=== PATIENT | female | born 1970 | race African-American/Black ===

== ENCOUNTER → 2016-04-02 | Outpatient (CLI) | payer OTHER ==
--- NOTE | 2016-04-02 17:28 | WOMENS IMAGING REPORT ---
EXAM DESCRIPTION: U/S BREAST UNILAT LIMITED COMPLETED DATE/TIME: 04/02/2016 2:46 pm REASON FOR STUDY: N63 LUMP N63 UNSPECIFIED LUMP IN BREAST COMPARISON: None. TECHNIQUE: Real-time and static grayscale imaging performed of the right breast targeted to the area of clinical concern. Selected color Doppler images recorded. LIMITATIONS: None. FINDINGS: Patient has had tenderness in the inferior right breast and has been on antibiotics for ma stitis. Ultrasound on the right side demonstrates a small skin lesion at the 4 to 5 o'clock position which mcgee s been oozing fluid. In this area, on today's study there are air bubbles just deep to the skin, and a 3 x 0.7 x 2.5 cm cavity likely residua of an infected sebaceous cyst or small subcutaneous abscess . Throughout the remainder of the right breast, there is diffuse skin thickening and diffuse breast ugo ma. The entire right breast is painful today. Skin thickening and subcutaneous and deep tissue handy a is extends from right to left across the sternal region into the medial left breast. Findings are worrisome for diffuse right breast mastitis and early left breast mastitis In the right axilla, there is a 2.8 x 0.6 x 2.7 cm lymph node. BIRAD: 1 Negative. RECOMMENDATION: RECOMMENDED FOLLOW-UP: Follow-up as clinically indicated. COMMENT: The [employer] (ACR) has developed recommendations for screening MRI of the breasts in certain patient populations, to be used in conjunction with mammography. Breast MRI s urveillance may be appropriate for women with more than 20% lifetime risk of developing breast cancer as determined by genetic testing, significant family history of the disease, or history of mantle r adiation for Hodgkins Disease. ACR Practice Guidelines 2008. TECHNICAL DOCUMENTATION: JOB ID: [id number] [employer]- All Rights Reserved
== END ==
LOC: WI 12:57
DX: N63 Unspecified lump in breast (principal)
CPT/HCPCS: 76642

== ENCOUNTER 2016-04-04 16:39 | Emergency (ER) | payer OTHER ==
[2016-04-04] MEDS ORDERED: NORMAL SALINE 1000 ML 1,000 ML IV PRN (16:48)
--- NOTE | 2016-04-04 16:51 | ER Document Report ---
ED Medical Screen (RME) - General Chief Complaint: Breast Problem Stated Complaint: RIGHT BREAST PAIN Notes: Right breast infection confirmed by ultrasound Tuesday at [facility] on tuesday has been seen for and infection in that breast here. the clinice told here to come her for treatment of the infection I greeted and performed a rapid initial assessment of this patient. Comprehensive ED assessment and evaluation of the patient, analysis of test results and completion of the medical decision making process will be conducted by additional ED providers. TRAVEL OUTSIDE OF THE [place] 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; AR mild Pulmonary Medical History: Reports: Hx Pneumonia Neurological Medical History: Denies: Hx Seizures Endocrine Medical History: Denies: Hx Diabetes Mellitus Type 1, Hx Diabetes Mellitus Type 2, Hx Hyperthyroidism, Hx Hypothyroidism GI Medical History: Denies: Hx Cirrhosis, Hx Gastroesophageal Reflux Disease, Hx Hepatitis Musculoskeltal Medical History: Denies Hx Arthritis Psychiatric Medical History: Reports: Hx Depression Infectious Medical History: Denies: Hx Hepatitis Past Surgical History: Reports: Hx Cardiac Surgery - pacer/defib, Hx Section - 1995, Hx Pacemaker - AICD implant - Immunizations Immunizations up to date: Yes Hx Diphtheria, Pertussis, Tetanus Vaccination: Yes Physical Exam - Vital signs Vitals: Temp Pulse Resp BP Pulse Ox 97.9 F 80 20 144/103 H 98 04/04/16 16:44 04/04/16 16:44 04/04/16 16:44 04/04/16 16:44 04/04/16 16:44 Course - Vital Signs Vital signs: Temp Pulse Resp BP Pulse Ox 97.9 F 80 20 144/103 H 98 04/04/16 16:44 04/04/16 16:44 04/04/16 16:44 04/04/16 16:44 04/04/16 16:44
[2016-04-04 17:27] LABS: APPEARANCE,URINE CLEAR; BILIRUBIN,URINE NEGATIVE (NEGATIVE); GLUCOSE, URINE NEGATIVE (NEGATIVE); KETONES,URINE NEGATIVE (NEGATIVE); LEUKOCYTE ESTERASE,URINE MODERATE (NEGATIVE); NITRITE,URINE NEGATIVE (NEGATIVE); PROTEIN,URINE 100 mg/dL (NEGATIVE); UROBILINOGEN,URINE NEGATIVE mg/dL (<2.0)
--- NOTE | 2016-04-04 17:36 | ER Document Report ---
ED Breast Problem - General Chief Complaint: Breast Problem Stated Complaint: RIGHT BREAST PAIN Time seen by provider: 17:32 TRAVEL OUTSIDE OF THE [place].S. IN LAST 30 DAYS: No - HPI Patient complains to provider of: Drainage - pt has been treated for mastitis/ infected sebaceous cyst -- (had U/S 2 days ago). Had some drainage from breast 2 days ago and [facility]. Had cx done there first and was told to come to ED today for "shot of Abx." - Related Data Allergies/Adverse Reactions: No Known Allergies Allergy (Verified 03/16/16 18:37) Past Medical History - Social History Smoking Status: Unknown if Ever Smoked Cigarette use (# per day): No Chew tobacco use (# tins/day): No Smoking Education Provided: No Family History: Hypertension, Other - CHF Patient has suicidal ideation: No Patient has homicidal ideation: No - Past Medical History Cardiac Medical History: Reports: Hx Congestive Heart Failure - combined systolic and diastolic dysfunction; nonischemic cardiomyopathy., Hx Hypercholesterolemia, Hx Hypertension, 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; AR mild Pulmonary Medical History: Reports: Hx Pneumonia Neurological Medical History: Denies: Hx Seizures Endocrine Medical History: Denies: Hx Diabetes Mellitus Type 1, Hx Diabetes Mellitus Type 2, Hx Hyperthyroidism, Hx Hypothyroidism Renal/ Medical History: Denies: Hx Peritoneal Dialysis GI Medical History: Denies: Hx Cirrhosis, Hx Gastroesophageal Reflux Disease, Hx Hepatitis Musculoskeltal Medical History: Denies Hx Arthritis Psychiatric Medical History: Reports: Hx Depression Infectious Medical History: Denies: Hx Hepatitis Past Surgical History: Reports: Hx Cardiac Surgery - pacer/defib, Hx Section - 1995, Hx Pacemaker - AICD implant - Immunizations Immunizations up to date: Yes Hx Diphtheria, Pertussis, Tetanus Vaccination: Yes Hx Pneumococcal Vaccination: 12/19/08 Review of Systems - Review of Systems Constitutional: No symptoms reported EENT: No symptoms reported Cardiovascular: No symptoms reported Respiratory: No symptoms reported Gastrointestinal: No symptoms reported -: Yes All other systems reviewed and negative Physical Exam - Vital signs Vitals: Temp Pulse Resp BP Pulse Ox 97.9 F 80 20 144/103 H 98 04/04/16 16:44 04/04/16 16:44 04/04/16 16:44 04/04/16 16:44 04/04/16 16:44 - General General appearance: Appears well In distress: None - Respiratory Respiratory status: No respiratory distress Chest status: Nontender Breath sounds: Normal - Cardiovascular Rhythm: Regular Heart sounds: Normal auscultation - Skin Skin irregularity: other - I examined this pt's breasts with nurse in the room. Her R breast is somewhat larger than the L and pendulous but there was no erythema, fluctuent areas or induration. There was no drainage. Course - Re-evaluation Re-evalutation: 04/04/16 19:47 pt was given IM Rocephin in ED -- she will F/U at Clinic in am - Vital Signs Vital signs: Temp Pulse Resp BP Pulse Ox 97.9 F 80 20 144/103 H 98 04/04/16 16:44 04/04/16 16:44 04/04/16 16:44 04/04/16 16:44 04/04/16 16:44 - Laboratory Result Diagrams: 04/04/16 18:05 04/04/16 16:51 Laboratory results interpreted by me: 04/04/16 16:51 Urine Protein 100 H Ur Leukocyte Esterase MODERATE H Discharge - Discharge Clinical Impression: Mastitis Condition: Stable Disposition: HOME, SELF-CARE Additional Instructions: rest, take meds as prescribed, return if worse Prescriptions: Sulfamethoxazole/Trimethoprim [Bactrim Ds Tablet] 1 each PO BID #14 tablet
[2016-04-04 17:39] LABS: ALANINE AMINOTRANSFERASE 111 U/L (9-52); ALBUMIN 3.3 g/dL (3.5-5.0); ALKALINE PHOSPHATASE 233 U/L (38-126); ANION GAP 12 (5-19); ASPARTATE AMINO TRANSFERASE 56 U/L (14-36); BILIRUBIN,TOTAL 0.7 mg/dL (0.2-1.3); BLOOD UREA NITROGEN 18 mg/dL (7-20); CALCIUM 9.6 mg/dL (8.4-10.2); CARBON DIOXIDE 28 mmol/L (22-30); CHLORIDE 103 mmol/L (98-107); CREATININE RESULT 0.75 mg/dL (0.52-1.25); GLUCOSE 148 mg/dL (75-110); POTASSIUM 3.6 mmol/L (3.6-5.0); SODIUM 143.4 mmol/L (137-145); TOTAL PROTEIN 6.4 g/dL (6.3-8.2)
[2016-04-04 18:25] LABS: ABSOLUTE MONOCYTES (AUTO) 0.3 10^3/uL (0.1-1.4); ABSOLUTE NEUT (AUTO) 3.9 10^3/uL (1.7-8.2); BASOPHILS % (AUTO) 0.1 % (0-2); HEMATOCRIT 33.5 % (36.0-47.0); HEMOGLOBIN 10.2 g/dL (12.0-15.5); HGB HCT DIFFERENCE -2.9; LYMPHOCYTES % (AUTO) 19.7 % (13-45); MEAN CORPUSCULAR HEMOGLOBIN 29.6 pg (27.0-33.4); MEAN CORPUSCULAR HGB CONC 30.3 g/dL (32.0-36.0); MONOCYTES % (AUTO) 5.6 % (3-13); RED BLOOD COUNT 3.43 10^6/uL (3.72-5.28); RED CELL DISTRIBUTION WIDTH 21.4 % (11.5-14.0); SEGMENTED NEUTROPHILS % (AUTO) 74.6 % (42-78); WHITE BLOOD COUNT 5.3 10^3/uL (4.0-10.5)
[2016-04-04 18:32] LABS: MEAN CORPUSCULAR VOLUME 98 fl (80-97)
[2016-04-04] MEDS ORDERED: CEFTRIAXONE INJ 250 MG VIAL IM ONE (18:45)
[2016-04-04] MEDS ORDERED: LIDOCAINE 1% INJ-PF (10 MG/ML) 30 ML SDV INFIL ONE (18:45)
[2016-04-04 20:18] VITALS: BP 145/107
== END 2016-04-04 20:18 | disposition home or self-care (01) ==
LOC: ER 16:39
DX: N61.0 Mastitis without abscess (principal); N64.4 Mastodynia
CPT/HCPCS: 99283; 96372; 36415; 87040; 84702; 85025; 80053; 81001; J3490; J0696

== ENCOUNTER 2016-05-20 19:19 | Emergency (ER) | payer OTHER ==
--- NOTE | 2016-05-20 20:00 | ER Document Report ---
ED Medical Screen (RME) - General Stated Complaint: STOMACH PAIN,ANKLE PAIN Mode of Arrival: Ambulatory Information source: Patient Notes: c/o of abdominal swelling and bilateral feet swelling for the past weeks that worsened today. Denies any chest pain and SOB, dizziness, nausea, vomiting or diarrhea. has hx of lupus and CHF. Seen on 05/18/[address] [facility] and was given lisinopril to take in addition to her home furosemide. Endorses compliance with this medication. I have greeted and performed a rapid initial assessment of this patient. A comprehensive ED assessment and evaluation of the patient, analysis of test results and completion of the medical decision making process will be conducted by additional ED providers. TRAVEL OUTSIDE OF THE [place] 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; AR mild Pulmonary Medical History: Reports: Hx Pneumonia Neurological Medical History: Denies: Hx Seizures Endocrine Medical History: Denies: Hx Diabetes Mellitus Type 1, Hx Diabetes Mellitus Type 2, Hx Hyperthyroidism, Hx Hypothyroidism Renal/ Medical History: Denies: Hx Peritoneal Dialysis GI Medical History: Denies: Hx Cirrhosis, Hx Gastroesophageal Reflux Disease, Hx Hepatitis Musculoskeltal Medical History: Denies Hx Arthritis Psychiatric Medical History: Reports: Hx Depression Infectious Medical History: Denies: Hx Hepatitis Past Surgical History: Reports: Hx Cardiac Surgery - pacer/defib, Hx Section - 1995, Hx Pacemaker - AICD implant - Immunizations Immunizations up to date: Yes Hx Diphtheria, Pertussis, Tetanus Vaccination: Yes Physical Exam - Vital signs Vitals: Temp Pulse Resp BP Pulse Ox 97.7 F 76 18 140/97 H 98 05/20/16 19:49 05/20/16 19:49 05/20/16 19:49 05/20/16 19:49 05/20/16 19:49 - Notes Notes: Lungs: equal, CTAB Extremities: 2+ pretibial pitting edema bilaterally Course - Vital Signs Vital signs: Temp Pulse Resp BP Pulse Ox 97.7 F 76 18 142/76 H 98 05/20/16 19:49 05/20/16 19:49 05/20/16 19:49 05/20/16 19:54 05/20/16 19:49
[2016-05-20 20:41] LABS: ALANINE AMINOTRANSFERASE 44 U/L (9-52); ALBUMIN 3.2 g/dL (3.5-5.0); ALKALINE PHOSPHATASE 329 U/L (38-126); ANION GAP 12 (5-19); ASPARTATE AMINO TRANSFERASE 52 U/L (14-36); BILIRUBIN,TOTAL 0.5 mg/dL (0.2-1.3); BLOOD UREA NITROGEN 15 mg/dL (7-20); CALCIUM 9.4 mg/dL (8.4-10.2); CARBON DIOXIDE 29 mmol/L (22-30); CHLORIDE 99 mmol/L (98-107); CREATININE RESULT 0.79 mg/dL (0.52-1.25); GLUCOSE 308 mg/dL (75-110); POTASSIUM 3.6 mmol/L (3.6-5.0); SODIUM 139.7 mmol/L (137-145); TOTAL PROTEIN 6.2 g/dL (6.3-8.2)
[2016-05-20 20:50] LABS: TROPONIN I 0.021 ng/mL
[2016-05-20 21:25] LABS: ABSOLUTE LYMPHOCYTES (AUTO) 1.3 10^3/uL (0.5-4.7); ABSOLUTE MONOCYTES (AUTO) 0.5 10^3/uL (0.1-1.4); BASOPHILS % (AUTO) 0.7 % (0-2); HEMATOCRIT 41.9 % (36.0-47.0); HEMOGLOBIN 13.4 g/dL (12.0-15.5); HGB HCT DIFFERENCE -1.7; LYMPHOCYTES % (AUTO) 27.1 % (13-45); MEAN CORPUSCULAR VOLUME 94 fl (80-97); MONOCYTES % (AUTO) 10.6 % (3-13); RED BLOOD COUNT 4.47 10^6/uL (3.72-5.28); RED CELL DISTRIBUTION WIDTH 15.4 % (11.5-14.0); SEGMENTED NEUTROPHILS % (AUTO) 61.6 % (42-78); WHITE BLOOD COUNT 4.9 10^3/uL (4.0-10.5)
[2016-05-20] MEDS ORDERED: FUROSEMIDE INJ/PF 40 MG/4 ML SDV IV ONE (21:46)
--- NOTE | 2016-05-20 21:58 | ER Document Report ---
ED General - General Chief Complaint: Abdominal Swelling Stated Complaint: STOMACH PAIN,ANKLE PAIN Mode of Arrival: Ambulatory Information source: Patient Notes: Patient presents to the emergency department with complaints of abdomen and bilateral lower leg swelling for the past 3 weeks. Patient reports she has history of CHF. Also reports lupus and pacemaker. She reports she was evaluated for the same and treated with Lasix by doubling her lasix by the [facility] on April 17. She was also prescribed lisinopril. She now takes 20mg BID for a total of 40 mg a day. She reports since that time her abdomen and legs are swelling more. She has an appointment with the [facility] on May 22. She denies other symptoms such as fever vomiting diarrhea. She denies shortness of breath and chest pain. TRAVEL OUTSIDE OF THE [place] IN LAST 30 DAYS: No - HPI Onset: Other - WITHIN THE LAST THREE WEEKS Onset/Duration: Persistent Severity: Mild Pain Level: 1 Associated symptoms: None Exacerbated by: Denies Relieved by: Denies Similar symptoms previously: Yes Recently seen / treated by doctor: Yes - Related Data Allergies/Adverse Reactions: No Known Allergies Allergy (Verified 03/16/16 18:37) Past Medical History - General Information source: Patient Last Menstrual Period: Unsure - Social History Smoking Status: Never Smoker Chew tobacco use (# tins/day): No Frequency of alcohol use: None Drug Abuse: None Family History: Hypertension, Other - CHF Patient has suicidal ideation: No Patient has homicidal ideation: No - Past Medical History Cardiac Medical History: Reports: Hx Congestive Heart Failure - combined systolic and diastolic dysfunction; nonischemic cardiomyopathy., Hx Hypercholesterolemia, Hx Hypertension, 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; AR mild Pulmonary Medical History: Reports: Hx Pneumonia Neurological Medical History: Denies: Hx Seizures Endocrine Medical History: Denies: Hx Diabetes Mellitus Type 1, Hx Diabetes Mellitus Type 2, Hx Hyperthyroidism, Hx Hypothyroidism Renal/ Medical History: Denies: Hx Peritoneal Dialysis GI Medical History: Denies: Hx Cirrhosis, Hx Gastroesophageal Reflux Disease, Hx Hepatitis Musculoskeltal Medical History: Denies Hx Arthritis Psychiatric Medical History: Reports: Hx Depression Infectious Medical History: Denies: Hx Hepatitis Past Surgical History: Reports: Hx Cardiac Surgery - pacer/defib, Hx Section - 1995, Hx Pacemaker - AICD implant - Immunizations Immunizations up to date: Yes Hx Diphtheria, Pertussis, Tetanus Vaccination: Yes Hx Pneumococcal Vaccination: 12/19/08 Review of Systems - Review of Systems Notes: Review HPI for review of systems., All other systems negative Physical Exam - Vital signs Vitals: Temp Pulse Resp BP Pulse Ox 97.7 F 76 18 140/97 H 98 05/20/16 19:49 05/20/16 19:49 05/20/16 19:49 05/20/16 19:49 05/20/16 19:49 - Notes Notes: PHYSICAL EXAMINATION: GENERAL: no acute distress calm HEAD: Atraumatic, normocephalic. EYES: Pupils equal round and reactive to light, extraocular movements intact, sclera anicteric, conjunctiva are normal. ENT: nares patent, oropharynx clear without exudates. Moist mucous membranes. NECK: Normal range of motion, supple without lymphadenopathy LUNGS: CTAB and equal. No wheezes rales or rhonchi. No shortness of breath. Speaks in clear full sentences. HEART: Regular rate and rhythm without murmurs ABDOMEN: Soft, no tenderness. No guarding, no rebound large round, no fluid wave EXTREMITIES: Normal range of motion, no pitting edema. No cyanosis. +3 pitting edema from midshin down. NEUROLOGICAL: Cranial nerves grossly intact. Normal sensory/motor exams. PSYCH: Normal mood, normal affect. SKIN: Warm, Dry, normal turgor, no rashes or lesions noted Course - Re-evaluation Re-evalutation: 05/20/16 23:30 BNP [id number]. I have consulted the attending provider dr perez per [facility] guidelines. pt hx labs/chest xray reviewed. He advised discharge with doubling her Lasix. Patient was instructed on doubling her Lasix. She has a follow-up appointment with the [facility] on May 22. Patient ambulated to the bathroom and back without shortness of breath. She was instructed on compression stockings and the importance of follow-up with the [facility] as scheduled. - Vital Signs Vital signs: Temp Pulse Resp BP Pulse Ox 97.7 F 80 16 143/94 H 96 05/20/16 19:49 05/20/16 23:41 05/20/16 23:41 05/20/16 23:41 05/20/16 23:41 - Laboratory Result Diagrams: 05/20/16 21:16 05/20/16 20:05 Laboratory results interpreted by me: 05/20/16 05/20/16 05/20/16 20:05 20:05 21:16 RDW 15.4 H Plt Count 87 L Glucose 308 H AST 52 H Alkaline Phosphatase 329 H NT-Pro-B Natriuret Pep 28233 H Total Protein 6.2 L Albumin 3.2 L Urine Protein Urine Glucose (UA) Urine Blood Ur Leukocyte Esterase 05/20/16 22:31 RDW Plt Count Glucose AST Alkaline Phosphatase NT-Pro-B Natriuret Pep Total Protein Albumin Urine Protein >=500 H Urine Glucose (UA) 50 H Urine Blood SMALL H Ur Leukocyte Esterase TRACE H - Diagnostic Test Radiology reviewed: Image reviewed, Reports reviewed - EKG Interpretation by Me When compared to previous EKG there are: No significant change - paced Discharge - Discharge Clinical Impression: Elevated blood pressure reading CHF (congestive heart failure) Qualifiers: Congestive heart failure type: combined Congestive heart failure chronicity: chronic Qualified Code(s): I50.42 - Chronic combined systolic (congestive) and diastolic (congestive) heart failure Condition: Stable Disposition: HOME, SELF-CARE Instructions: Lasix, Congestive Heart Failure ([facility]) Additional Instructions: *You have been evaluated for swelling, congestive heart failure *Increase your lasix to 40mg twice a day *Your weight today was 87.6kg, your abdomen measured 47 inches today *Compression stockings *Follow up with the [facility] May 22 as scheduled *Return to ED for worsening condition, changes, needs Forms: Elevated Blood Pressure
[2016-05-20 22:53] LABS: APPEARANCE,URINE SLIGHTLY-CLOUDY; BILIRUBIN,URINE NEGATIVE (NEGATIVE); GLUCOSE, URINE 50 mg/dL (NEGATIVE); KETONES,URINE NEGATIVE (NEGATIVE); LEUKOCYTE ESTERASE,URINE TRACE (NEGATIVE); NITRITE,URINE NEGATIVE (NEGATIVE); PROTEIN,URINE >=500 mg/dL (NEGATIVE); URINE SPECIFIC GRAVITY 1.012; UROBILINOGEN,URINE NEGATIVE mg/dL (<2.0)
[2016-05-21 00:10] VITALS: BP 143/94
--- NOTE | 2016-05-21 09:25 | EKG REPORT ---
SEVERITY:- ABNORMAL ECG - ATRIAL-SENSED VENTRICULAR-PACED RHYTHM : Confirmed by: Santos Odonnell MD 21-May-2016 09:24:56
== END 2016-05-21 00:10 | disposition home or self-care (01) ==
LOC: ER 19:19
DX: I11.0 Hypertensive heart disease with heart failure (principal); I50.42 Chronic combined systolic (congestive) and diastolic (congestive) heart failure; Z79.899 Other long term (current) drug therapy; Z95.810 Presence of automatic (implantable) cardiac defibrillator
CPT/HCPCS: 93005; 99284; 96374; 36415; 84703; 85025; 80053; 81001; 84484; 83880; 71020; 93010; J1940

== ENCOUNTER → 2016-05-21 | Outpatient (CLI) | payer OTHER ==
[2016-05-21 17:12] LABS: ALANINE AMINOTRANSFERASE 35 U/L (9-52); ALBUMIN 2.9 g/dL (3.5-5.0); ALKALINE PHOSPHATASE 294 U/L (38-126); ASPARTATE AMINO TRANSFERASE 42 U/L (14-36); BILIRUBIN,TOTAL 0.6 mg/dL (0.2-1.3); MAGNESIUM 1.4 mg/dL (1.6-2.3); POTASSIUM 3.5 mmol/L (3.6-5.0); TOTAL PROTEIN 5.8 g/dL (6.3-8.2)
[2016-05-21 18:25] LABS: FOLATE > 20.00 ng/mL (>2.76)
== END ==
LOC: CCC 15:06
DX: M32.9 Systemic lupus erythematosus, unspecified (principal)
CPT/HCPCS: 36415; 80076; 82607; 82728; 82746; 83036; 83540; 83550; 83735; 84132

== ENCOUNTER 2016-06-19 05:03 | Emergency (ER) | payer OTHER ==
[2016-06-19 06:24] LABS: ABSOLUTE BASOPHILS # (AUTO) 0.1 10^3/uL (0.0-0.2); ABSOLUTE LYMPHOCYTES (AUTO) 1.7 10^3/uL (0.5-4.7); ABSOLUTE MONOCYTES (AUTO) 0.6 10^3/uL (0.1-1.4); ABSOLUTE NEUT (AUTO) 3.9 10^3/uL (1.7-8.2); BASOPHILS % (AUTO) 0.8 % (0-2); EOSINOPHILS % (AUTO) 0.1 % (0-6); HEMATOCRIT 45.6 % (36.0-47.0); HEMOGLOBIN 14.8 g/dL (12.0-15.5); HGB HCT DIFFERENCE -1.2; LYMPHOCYTES % (AUTO) 27.4 % (13-45); MEAN CORPUSCULAR HEMOGLOBIN 29.6 pg (27.0-33.4); MEAN CORPUSCULAR HGB CONC 32.5 g/dL (32.0-36.0); MEAN CORPUSCULAR VOLUME 91 fl (80-97); MONOCYTES % (AUTO) 9.2 % (3-13); RED BLOOD COUNT 5.01 10^6/uL (3.72-5.28); RED CELL DISTRIBUTION WIDTH 16.8 % (11.5-14.0); SEGMENTED NEUTROPHILS % (AUTO) 62.5 % (42-78); WHITE BLOOD COUNT 6.2 10^3/uL (4.0-10.5)
[2016-06-19 06:35] LABS: ALANINE AMINOTRANSFERASE 35 U/L (9-52); ALKALINE PHOSPHATASE 234 U/L (38-126); ANION GAP 11 (5-19); ASPARTATE AMINO TRANSFERASE 43 U/L (14-36); BILIRUBIN,DIRECT 0.4 mg/dL (0.0-0.4); BILIRUBIN,TOTAL 0.9 mg/dL (0.2-1.3); BLOOD UREA NITROGEN 21 mg/dL (7-20); CALCIUM 9.2 mg/dL (8.4-10.2); CARBON DIOXIDE 24 mmol/L (22-30); CHLORIDE 109 mmol/L (98-107); CREATININE RESULT 0.89 mg/dL (0.52-1.25); GLUCOSE 91 mg/dL (75-110); SODIUM 143.7 mmol/L (137-145); TOTAL PROTEIN 6.2 g/dL (6.3-8.2)
[2016-06-19 06:36] LABS: POTASSIUM 4.4 mmol/L (3.6-5.0)
[2016-06-19 06:47] LABS: ADD ON TESTING BLD IN LAB ACKNOWLEDGE
--- NOTE | 2016-06-19 06:47 | ER Document Report ---
ED Respiratory Problem - General Time seen by provider: 06:40 Mode of Arrival: Ambulatory Information source: Patient TRAVEL OUTSIDE OF THE [place] IN LAST 30 DAYS: No - HPI Patient complains to provider of: Short of breath Associated symptoms: Other - See above <EDIE COPELAND - Last Filed: 06/19/16 06:58> <GUEVARA ELKINS - Last Filed: 06/19/16 12:17> - General Chief Complaint: Shortness Of Breath Stated Complaint: shortness of breath Notes: Patient is a 45 year old female, with a past medical history including Lupus, CHF, and DM, who presents to the emergency department complaining of shortness of breath onset 2 weeks ago. Patient reports that she "can't catch her breath" and it is exacerbated by laying down preventing her from sleeping, and exertion. Patient also complains of swelling in her feet and abdomen which has extended from 47in last month to 48in this past week. Patient was seen at this facility for similar complaints on 05/20 and told to double her Lasix to 40mg 2x/ day, she [facility] up [facility] on 05/22 and was told to continue with the doubled dose. Patient is also on Lisinopril 10mg 2x/day. Patient reports that she is urinating regularly. Patient is 99% oxygen saturation at room air and has gained 4 pounds since her visit on 05/20. (EDIE COPELAND) Patient has a congestive dilated cardiomyopathy with an EF of 25% (GUEVARA ELKINS) - Related Data Allergies/Adverse Reactions: No Known Allergies Allergy (Verified 06/19/16 05:10) Past Medical History - General Information source: Patient - Social History Smoking Status: Never Smoker Chew tobacco use (# tins/day): No Frequency of alcohol use: None Drug Abuse: None Family History: Reviewed & Not Pertinent, Hypertension, Other - CHF - Past Medical History Cardiac Medical History: Reports: Hx Congestive Heart Failure - combined systolic and diastolic dysfunction; nonischemic cardiomyopathy., Hx Hypercholesterolemia, Hx Hypertension, 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; AR mild Pulmonary Medical History: Reports: Hx Pneumonia Endocrine Medical History: Reports: Hx Diabetes Mellitus Type 2 Psychiatric Medical History: Reports: Hx Depression Past Surgical History: Reports: Hx Cardiac Surgery - pacer/defib, Hx Section - 1995, Hx Pacemaker - AICD implant - Immunizations Immunizations up to date: Yes Hx Diphtheria, Pertussis, Tetanus Vaccination: Yes Hx Pneumococcal Vaccination: 12/19/08 <EDIE COPELAND - Last Filed: 06/19/16 06:58> Review of Systems - Review of Systems Constitutional: No symptoms reported EENT: No symptoms reported Cardiovascular: No symptoms reported Respiratory: See HPI, Short of breath Gastrointestinal: See HPI, Abdomen distended Genitourinary: No symptoms reported. denies: Frequency, Retention Female Genitourinary: No symptoms reported Musculoskeletal: See HPI, Ankle swelling Skin: No symptoms reported Hematologic/Lymphatic: No symptoms reported Neurological/Psychological: No symptoms reported -: Yes All other systems reviewed and negative <EDIE COPELAND - Last Filed: 06/19/16 06:58> Physical Exam - Vital signs Interpretation: Normal - General General appearance: Appears well, Alert - HEENT Head: Normocephalic, Atraumatic - Respiratory Respiratory status: No respiratory distress Chest status: Nontender Breath sounds: Other - mild crackles Chest palpation: Normal - Cardiovascular Rhythm: Regular Murmur: Yes - Loud systolic - Abdominal Inspection: Obese Distension: No distension Bowel sounds: Normal Tenderness: Nontender - and soft Organomegaly: No organomegaly - Back Back: Other - mild sacral edema - Extremities General upper extremity: Normal inspection General lower extremity: Edema - 2+ - 3+ pitting edema - Neurological Neuro grossly intact: Yes Cognition: Normal Orientation: AAOx4 Alice Coma Scale Eye Opening: Spontaneous Alice Coma Scale Verbal: Oriented Mentor Coma Scale Motor: Obeys Commands Mentor Coma Scale Total: 15 Speech: Normal - Psychological Associated symptoms: Normal affect, Normal mood - Skin Skin Temperature: Warm Skin Moisture: Dry Skin Color: Normal <EDIE COPELAND - Last Filed: 06/19/16 06:58> - Abdominal Distension: Distended, Fluid wave - The patient's abdomen is percussion dull and exam suggests that some of the distention she has may be ascites.. No: No distension <GUEVARA ELKINS - Last Filed: 06/19/16 12:17> - Vital signs Vitals: Temp Pulse Resp BP Pulse Ox 97.6 F 71 18 125/93 H 95 06/19/16 05:09 06/19/16 05:09 06/19/16 05:09 06/19/16 05:09 06/19/16 05:09 Course - Laboratory Result Diagrams: 06/19/16 06:04 06/19/16 06:04 <EDIE COPELAND - Last Filed: 06/19/16 06:58> - Laboratory Result Diagrams: 06/19/16 06:04 06/19/16 06:04 - Diagnostic Test Radiology reviewed: Image reviewed, Reports reviewed - Chest x-ray shows stable massive cardiomegaly with no significant pulmonary vascular congestion. - EKG Interpretation by Sc EKG shows normal: ST-T Waves. abnormal: QRS Complexes - No ST elevation Rate: Normal - 73 Rhythm: Other - Atrial sensed ventricular paced rhythm When compared to previous EKG there are: No significant change <GUEVARA ELKINS - Last Filed: 06/19/16 12:17> - Re-evaluation Re-evalutation: 06/19/16 10:39 The patient reports urinating a large volume 3 times since she received the Lasix. She states the breathing does feel somewhat better. 06/19/16 12:13 The patient had urinated several more times. She is feeling better. Her pulse ox is 100% on room air. (GUEVARA ELKINS) - Vital Signs Vital signs: Temp Pulse Resp BP Pulse Ox 97.6 F 71 20 136/113 H 83 L 06/19/16 05:09 06/19/16 05:09 06/19/16 08:01 06/19/16 08:00 06/19/16 07:33 - Laboratory Laboratory results interpreted by ut: 06/19/16 06/19/16 06/19/16 06:04 06:04 06:31 RDW 16.8 H Plt Count 73 L Chloride 109 H BUN 21 H Magnesium 1.4 L AST 43 H Alkaline Phosphatase 234 H Creatine Kinase 25 L NT-Pro-B Natriuret Pep Total Protein 6.2 L Albumin 3.0 L 06/19/16 06:31 RDW Plt Count Chloride BUN Magnesium AST Alkaline Phosphatase Creatine Kinase NT-Pro-B Natriuret Pep 32049 H Total Protein Albumin Discharge <EDIE COPELAND - Last Filed: 06/19/16 06:58> <GUEVARA ELKINS - Last Filed: 06/19/16 12:17> - Discharge Clinical Impression: Peripheral edema, Congestive dilated cardiomyopathy Dyspnea Qualifiers: Dyspnea type: unspecified Qualified Code(s): R06.00 - Dyspnea, unspecified Ascites Qualifiers: Ascites type: other type Qualified Code(s): R18.8 - Other ascites Condition: Stable Disposition: HOME, SELF-CARE Additional Instructions: Continue your regular medications. Elevate your feet. Eat a low-sodium diet. [facility] RETURN TO THE EMERGENCY ROOM IF ANY NEW OR WORSENING SYMPTOMS. Scribe Attestation: 06/19/16 12:15 I personally performed the services described in the documentation, reviewed and edited the documentation which was dictated to the scribe in my presence, and it accurately records my words and actions. (GUEVARA ELKINS) Scribe Documentation - Scribe Written by Ramya:: ramya Nieves, 06/19/16, [id number] acting as scribe for :: Hieu <EDIE COPELAND - Last Filed: 06/19/16 06:58>
[2016-06-19 07:04] LABS: CREATINE KINASE 25 U/L (30-135); MAGNESIUM 1.4 mg/dL (1.6-2.3)
[2016-06-19 07:19] LABS: TROPONIN I 0.047 ng/mL
[2016-06-19] MEDS ORDERED: FUROSEMIDE INJ/PF 40 MG/4 ML SDV IV ONE (08:18)
--- NOTE | 2016-06-19 12:37 | EKG REPORT ---
SEVERITY:- ABNORMAL ECG - ATRIAL-SENSED VENTRICULAR-PACED RHYTHM : Confirmed by: Jose Islas 19-Jun-2016 12:36:56
[2016-06-19 13:27] LABS: APPEARANCE,URINE CLEAR; BILIRUBIN,URINE NEGATIVE (NEGATIVE); GLUCOSE, URINE NEGATIVE (NEGATIVE); KETONES,URINE NEGATIVE (NEGATIVE); LEUKOCYTE ESTERASE,URINE TRACE (NEGATIVE); NITRITE,URINE NEGATIVE (NEGATIVE); PROTEIN,URINE 30 mg/dL (NEGATIVE); URINE SPECIFIC GRAVITY 1.005; UROBILINOGEN,URINE NEGATIVE mg/dL (<2.0)
[2016-06-19 13:54] VITALS: BP 129/102
== END 2016-06-19 12:20 | disposition home or self-care (01) ==
LOC: ER 05:03
DX: I42.0 Dilated cardiomyopathy (principal); R06.02 Shortness of breath; R18.8 Other ascites; E11.9 Type 2 diabetes mellitus without complications; Z79.899 Other long term (current) drug therapy; Z87.01 Personal history of pneumonia (recurrent); Z95.810 Presence of automatic (implantable) cardiac defibrillator
CPT/HCPCS: 93005; 99285; 96374; 36415; 82550; 83735; 85025; 80053; 81001; 84484; 83880; 71010; 93010; J1940

== ENCOUNTER → 2016-06-29 | Outpatient (CLI) | payer OTHER ==
[2016-06-29 13:40] LABS: ANION GAP 12 (5-19); BLOOD UREA NITROGEN 16 mg/dL (7-20); CALCIUM 9.9 mg/dL (8.4-10.2); CARBON DIOXIDE 29 mmol/L (22-30); CHLORIDE 102 mmol/L (98-107); CREATININE RESULT 0.93 mg/dL (0.52-1.25); GLUCOSE 111 mg/dL (75-110); POTASSIUM 4.2 mmol/L (3.6-5.0); SODIUM 142.7 mmol/L (137-145)
[2016-06-30 05:40] LABS: HEPATITIS A AB TOTAL Negative (Negative)
== END ==
LOC: CCC 12:09
DX: I50.9 Heart failure, unspecified (principal); R79.89 Other specified abnormal findings of blood chemistry
CPT/HCPCS: 36415; 80048; 82977; 86317; 86708; 86709; 87340

== ENCOUNTER → 2016-08-02 | Outpatient (CLI) | payer OTHER ==
[2016-08-02 10:48] LABS: ABSOLUTE MONOCYTES (AUTO) 0.5 10^3/uL (0.1-1.4); ABSOLUTE NEUT (AUTO) 3.3 10^3/uL (1.7-8.2); BASOPHILS % (AUTO) 0.2 % (0-2); EOSINOPHILS % (AUTO) 0.2 % (0-6); HEMATOCRIT 37.7 % (36.0-47.0); HEMOGLOBIN 12.7 g/dL (12.0-15.5); HGB HCT DIFFERENCE 0.4; LYMPHOCYTES % (AUTO) 33.7 % (13-45); MEAN CORPUSCULAR HEMOGLOBIN 30.2 pg (27.0-33.4); MEAN CORPUSCULAR HGB CONC 33.7 g/dL (32.0-36.0); MEAN CORPUSCULAR VOLUME 90 fl (80-97); MONOCYTES % (AUTO) 9.5 % (3-13); RED BLOOD COUNT 4.21 10^6/uL (3.72-5.28); RED CELL DISTRIBUTION WIDTH 16.4 % (11.5-14.0); SEGMENTED NEUTROPHILS % (AUTO) 56.4 % (42-78); WHITE BLOOD COUNT 5.8 10^3/uL (4.0-10.5)
[2016-08-02 11:07] LABS: ALANINE AMINOTRANSFERASE 44 U/L (9-52); ALBUMIN 3.3 g/dL (3.5-5.0); ALKALINE PHOSPHATASE 111 U/L (38-126); ANION GAP 9 (5-19); ASPARTATE AMINO TRANSFERASE 39 U/L (14-36); BILIRUBIN,DIRECT 0.3 mg/dL (0.0-0.4); BILIRUBIN,TOTAL 0.7 mg/dL (0.2-1.3); BLOOD UREA NITROGEN 27 mg/dL (7-20); CARBON DIOXIDE 30 mmol/L (22-30); CHLORIDE 101 mmol/L (98-107); CREATININE RESULT 0.98 mg/dL (0.52-1.25); GLUCOSE 145 mg/dL (75-110); PHOSPHORUS 3.7 mg/dL (2.5-4.5); POTASSIUM 3.6 mmol/L (3.6-5.0); SODIUM 140.4 mmol/L (137-145); TOTAL PROTEIN 6.8 g/dL (6.3-8.2)
[2016-08-02 13:31] LABS: MAGNESIUM 1.2 mg/dL (1.6-2.3)
== END ==
LOC: CCC 10:00
DX: I10 Essential (primary) hypertension (principal); I50.23 Acute on chronic systolic (congestive) heart failure; E83.42 Hypomagnesemia; D69.6 Thrombocytopenia, unspecified
CPT/HCPCS: 36415; 80053; 83036; 83735; 84100; 85025

== ENCOUNTER → 2016-10-18 | Outpatient (CLI) | payer OTHER ==
[2016-10-18 18:16] LABS: ANION GAP 10 (5-19); BLOOD UREA NITROGEN 25 mg/dL (7-20); CALCIUM 10.1 mg/dL (8.4-10.2); CARBON DIOXIDE 29 mmol/L (22-30); CHLORIDE 102 mmol/L (98-107); CREATININE RESULT 1.07 mg/dL (0.52-1.25); GLUCOSE 96 mg/dL (75-110); MAGNESIUM 1.6 mg/dL (1.6-2.3); POTASSIUM 4.7 mmol/L (3.6-5.0); SODIUM 141.1 mmol/L (137-145)
== END ==
LOC: CCC 16:13
DX: E83.42 Hypomagnesemia (principal); I10 Essential (primary) hypertension
CPT/HCPCS: 36415; 80048; 83735

== ENCOUNTER 2017-05-26 23:02 | Inpatient (IN) | payer SELFPAY ==
--- NOTE | 2017-05-26 23:40 | ER Document Report ---
ED Cardiac - General Chief Complaint: Chest Pain Stated Complaint: CHEST PAIN Time Seen by Provider: 05/26/17 23:33 Notes: Patient is a 46-year-old female, past medical history CHF (w/ AICD), lupus, DM, HTN, presents with 3 days of intermittent sharp left-sided chest pain, RUQ abdominal pain and mild shortness of breath. She took a baby aspirin earlier today. Chest pain is described as a pressure. Says food makes her abdominal pain worse. Patient denies increased leg swelling, hemoptysis, nausea, vomiting , fevers, headache, numbness, tingling, back pain or syncope. TRAVEL OUTSIDE OF THE [place] IN LAST 30 DAYS: No - Related Data Allergies/Adverse Reactions: No Known Allergies Allergy (Verified 06/19/16 05:10) Past Medical History - General Information source: Patient - Social History Smoking Status: Unknown if Ever Smoked Family History: Reviewed & Not Pertinent, Hypertension, Other - CHF - Past Medical History Cardiac Medical History: Reports: Hx 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 Denies: Hx Diabetes Mellitus Type 1, Hx Hyperthyroidism, Hx Hypothyroidism Renal/ Medical History: Denies: Hx Peritoneal Dialysis GI Medical History: Denies: Hx Cirrhosis, Hx Gastroesophageal Reflux Disease, Hx Hepatitis Musculoskeltal Medical History: Denies Hx Arthritis Psychiatric Medical History: Reports: Hx Depression Infectious Medical History: Denies: Hx Hepatitis Past Surgical History: Reports: Hx Cardiac Surgery - pacer/defib, Hx Section - 1995, Hx Pacemaker - AICD implant - Immunizations Immunizations up to date: Yes Hx Diphtheria, Pertussis, Tetanus Vaccination: Yes Hx Pneumococcal Vaccination: 12/19/08 Review of Systems - Review of Systems Notes: REVIEW OF SYSTEMS: CONSTITUTIONAL: -fevers, -chills EENT: -eye pain, -difficulty swallowing, -nasal congestion CARDIOVASCULAR: +chest pain, -syncope. RESPIRATORY: -cough, +SOB GASTROINTESTINAL: +RUQ abdominal pain, -nausea, -vomiting, -diarrhea GENITOURINARY: -dysuria, -hematuria MUSCULOSKELETAL: -back pain, -neck pain SKIN: -rash or skin lesions. HEMATOLOGIC: -easy bruising or bleeding. LYMPHATIC: -swollen, enlarged glands. NEUROLOGICAL: -altered mental status or loss of consciousness, -headache, - neurologic symptoms PSYCHIATRIC: -anxiety, -depression. ALL OTHER SYSTEMS REVIEWED AND NEGATIVE. Physical Exam - Vital signs Vitals: Temp Pulse Resp BP Pulse Ox 98.8 F 80 20 143/89 H 98 05/26/17 23:14 05/26/17 23:14 05/26/17 23:14 05/26/17 23:14 05/26/17 23:14 - Notes Notes: PHYSICAL EXAMINATION: GENERAL: Well-appearing, well-nourished and in no acute distress. HEAD: Atraumatic, normocephalic. EYES: Pupils equal round and reactive to light, extraocular movements intact, sclera anicteric, conjunctiva are normal. ENT: nares patent, oropharynx clear without exudates. Moist mucous membranes. NECK: Normal range of motion, supple without lymphadenopathy LUNGS: Rales in all lung barry. No respiratory distress. HEART: Regular rhythm with large systolic murmur. ABDOMEN: Soft, mild RUQ tenderness, normoactive bowel sounds. No guarding, no rebound. No masses appreciated. EXTREMITIES: Strong distal pulses. Normal range of motion, no pitting or edema. No cyanosis. NEUROLOGICAL: Cranial nerves grossly intact. Normal speech, normal gait. Normal sensory and motor exams. PSYCH: Normal mood, normal affect. SKIN: Warm, Dry, normal turgor, no rashes or lesions noted. Course - Re-evaluation Re-evalutation: Patient with chest pain that has improved after nitro and aspirin. She has evidence of pulmonary vascular congestion. EKG shows a paced rhythm and first troponin is negative. HEART score is 4. CTA ordered due to her history of lupus , chest pain and shortness of breath with an elevated d-dimer, but patient has no evidence of PE. She also has right upper quadrant abdominal pain that has worsened over the past 2 days. Concern for cholecystitis with tenderness and elevated LFTs. Ultrasound did show evidence of possible cholecystitis. Pt requires admission for further evaluation of her chest pain, pulmonary vascular congestion and possible cholecystitis. 05/27/17 03:[address] Trotter (Surgicalist) about concern for cholecystitis and will consult. 05/27/17 04:[address] West and will admit patient as Inpatient to [facility]. Pt chest pain free at this time. - Vital Signs Vital signs: Temp Pulse Resp BP Pulse Ox 98.8 F 80 20 143/89 H 98 05/26/17 23:14 05/26/17 23:14 05/26/17 23:14 05/26/17 23:14 05/26/17 23:14 - Laboratory Result Diagrams: 05/27/17 00:14 05/27/17 00:14 Laboratory results interpreted by me: 05/27/17 05/27/17 05/27/17 00:14 00:14 00:14 RBC 2.96 L Hgb 8.7 L Hct 26.6 L RDW 16.7 H D-Dimer BUN 23 H Est GFR (Non-Af Amer) 51 L AST 126 H ALT 149 H Alkaline Phosphatase 198 H NT-Pro-B Natriuret Pep 34579 H 05/27/17 00:14 RBC Hgb Hct RDW D-Dimer 3.24 H BUN Est GFR (Non-Af Amer) AST ALT Alkaline Phosphatase NT-Pro-B Natriuret Pep - Diagnostic Test Radiology reviewed: Image reviewed, Reports reviewed Radiology results interpreted by me: CXR: Cardiomegaly with pulmonary vascular congestion and possible small right pleural effusion CTA Chest: 1. No pulmonary embolus identified. 2. Cardiomegaly with reflux of contrast into the hepatic veins. This could be seen with right heart failure. 3. Small right pleural effusion. 4. Likely cholelithiasis. RUQ US: 1. Cholelithiasis with gallbladder wall thickening and possible pericholecystic fluid. These findings could be seen with but are not diagnostic for acute cholecystitis. 2. Hepatic steatosis. 3. Increased renal cortical echogenicity. This could be seen with medical renal disease. - EKG Interpretation by Me Rate: Normal When compared to previous EKG there are: No significant change Additional EKG results interpreted by me: Atrial-sensed Ventricular-paced rhythm Discharge - Discharge Clinical Impression: Pulmonary congestion, Possible cholecystitis, Elevated LFTs Chest pain Qualifiers: Chest pain type: unspecified Qualified Code(s): R07.9 - Chest pain, unspecified Condition: Stable Disposition: ADMITTED INPATIENT Admitting Provider: Hospitalist - [facility] Unit Admitted: Telemetry Referrals: AIDE CHILEL MD [Primary Care Provider] - Follow up as needed
[2017-05-27] MEDS ORDERED: NITROGLYCERIN 0.4 MG/TAB 25 TAB/BOTTLE SL PRN (00:07)
[2017-05-27] MEDS ORDERED: ACETAMINOPHEN 325 MG TABLET PO ONE (00:07)
--- NOTE | 2017-05-27 00:21 | RADIOLOGY REPORT (SQ) ---
EXAM DESCRIPTION: CHEST SINGLE VIEW CLINICAL HISTORY: chest pain COMPARISON: 06/19/2016 FINDINGS: Single frontal view of the chest. Left-sided multilead pacemaker. Cardiomegaly. Low lung volumes. Pulmonary vascular congestion. Blunting of the costophrenic angles. No pneumothorax. Leads overlie the chest. No acute osseous abnormalities. Upper abdominal soft tissues are unremarkable. IMPRESSION: 1. Cardiomegaly with pulmonary vascular congestion and possible small bilateral pleural effusions.
[2017-05-27] MEDS ORDERED: ASPIRIN 81 MG TABLET, CHEWABLE PO ONE (00:24)
[2017-05-27 00:42] LABS: ABSOLUTE BASOPHILS # (AUTO) 0.1 10^3/uL (0.0-0.2); ABSOLUTE MONOCYTES (AUTO) 0.8 10^3/uL (0.1-1.4); ABSOLUTE NEUT (AUTO) 6.2 10^3/uL (1.7-8.2); BASOPHILS % (AUTO) 0.9 % (0-2); EOSINOPHILS % (AUTO) 0.1 % (0-6); HEMATOCRIT 26.6 % (36.0-47.0); HEMOGLOBIN 8.7 g/dL (12.0-15.5); LYMPHOCYTES % (AUTO) 21.8 % (13-45); MEAN CORPUSCULAR HEMOGLOBIN 29.4 pg (27.0-33.4); MEAN CORPUSCULAR HGB CONC 32.7 g/dL (32.0-36.0); MEAN CORPUSCULAR VOLUME 90 fl (80-97); MONOCYTES % (AUTO) 9.2 % (3-13); RED BLOOD COUNT 2.96 10^6/uL (3.72-5.28); RED CELL DISTRIBUTION WIDTH 16.7 % (11.5-14.0); TOTAL CELLS COUNTED % (AUTO) 100 %; WHITE BLOOD COUNT 9.1 10^3/uL (4.0-10.5)
[2017-05-27 00:47] LABS: ALANINE AMINOTRANSFERASE 149 U/L (9-52); ALBUMIN 3.9 g/dL (3.5-5.0); ALKALINE PHOSPHATASE 198 U/L (38-126); ANION GAP 12 (5-19); ASPARTATE AMINO TRANSFERASE 126 U/L (14-36); BILIRUBIN,DIRECT 0.2 mg/dL (0.0-0.4); BILIRUBIN,TOTAL 0.3 mg/dL (0.2-1.3); BLOOD UREA NITROGEN 23 mg/dL (7-20); CALCIUM 9.8 mg/dL (8.4-10.2); CARBON DIOXIDE 26 mmol/L (22-30); CHLORIDE 103 mmol/L (98-107); CREATINE KINASE 53 U/L (30-135); GLUCOSE 90 mg/dL (75-110); LIPASE 228.9 U/L (23-300); POTASSIUM 3.6 mmol/L (3.6-5.0); SODIUM 141.1 mmol/L (137-145); TOTAL PROTEIN 7.7 g/dL (6.3-8.2)
[2017-05-27 01:01] LABS: TROPONIN I 0.03 ng/mL
[2017-05-27 01:05] LABS: PLATELET COUNT 160 10^3/uL (150-450)
[2017-05-27] MEDS ORDERED: POTASSIUM CHLORIDE 10 MEQ TABLET.SA PO ONE (01:39)
[2017-05-27] MEDS ORDERED: FUROSEMIDE INJ/PF 40 MG/4 ML SDV IV ONE (01:39)
--- NOTE | 2017-05-27 01:47 | RADIOLOGY REPORT (SQ) ---
EXAM DESCRIPTION: CTA of the chest per PE protocol with contrast. CLINICAL HISTORY: sharp chest pain, SOB, Hx lupus, elevated d-dimer COMPARISON: 11/22/2015 TECHNIQUE: CTA of the chest obtained following the uncomplicated intravenous administration of 78.5 mL Isovue-370. 3-D/MIP reformatted images of the chest available for evaluation. FINDINGS: Chest: Mediastinal windows demonstrate an excellent contrast bolus. No pulmonary embolus identified. Large amount of the main pulmonary artery. Visualized thyroid gland is unremarkable. Great vessels have normal anatomic configuration. Cardiomegaly. Left-sided pacemaker. No coronary artery atherosclerosis. Small pericardial effusion. No abnormalities of the esophagus. Scattered mediastinal lymph nodes are not enlarged by CT criteria. Reflux of contrast into the hepatic veins. Lung windows demonstrate small right pleural effusion. Linear bibasilar opacities likely related to subsegmental atelectasis. No pneumothorax or lobar consolidation. No abnormalities of the visualized trachea or airways. Limited images of the upper abdomen demonstrate no abnormalities of the visualized liver, spleen, pancreas, adrenal glands, or kidneys. Cholelithiasis. No destructive osseous lesions. Normal degenerative spondylosis of the thoracic spine. DLP: 617.09 mGycm IMPRESSION: 1. No pulmonary embolus identified. 2. Cardiomegaly with reflux of contrast into the hepatic veins. This could be seen with right heart failure. 3. Small right pleural effusion. 4. Likely cholelithiasis. This exam was performed according to our departmental dose-optimization program, which includes automated exposure control, adjustment of the mA and/or kV according to patient size and/or use of iterative reconstruction technique.
[2017-05-27] MEDS ORDERED: HYDROMORPHONE HCL INJ/PF 2 MG/ML AMPULE IV ONE (01:49)
--- NOTE | 2017-05-27 03:34 | RADIOLOGY REPORT (SQ) ---
EXAM DESCRIPTION: U/S ABDOMEN LIMITED W/O DOP CLINICAL HISTORY: RUQ tenderness, elevated LFTs COMPARISON: 03/17/2016 TECHNIQUE: Real-time sonographic images of the right upper abdomen were obtained using a curved multihertz transducer. FINDINGS: The visualized portions of the pancreas are unremarkable. The visualized portions of the aorta and IVC are unremarkable. The liver has normal contour and increased echogenicity. Hepatopedal flow in the portal vein. Pulsatile flow in the main portal vein. Common bile duct measures 0.3 cm. Mild gallbladder wall thickening. Mobile echogenic structures in the gallbladder lumen compatible with gallstones. Possible pericholecystic fluid. The right kidney measures 13.4 cm in length. No hydronephrosis, solid renal mass, or shadowing calculi. Increased cortical echogenicity. IMPRESSION: 1. Cholelithiasis with gallbladder wall thickening and possible pericholecystic fluid. These findings could be seen with but are not diagnostic for acute cholecystitis. 2. Hepatic steatosis. 3. Increased renal cortical echogenicity. This could be seen with medical renal disease.
[2017-05-27] MEDS ORDERED: DEXTROSE 40% GEL 15 GM TUBE PO PRN ×4 (07:54→09:20)
[2017-05-27] MEDS ORDERED: GLUCAGON,HUMAN RECOMB 1 MG INJ SUBCUT PRN (07:54)
[2017-05-27] MEDS ORDERED: DEXTROSE 50%-WATER 25 GM/50 ML DISP.SYRIN IV PRN ×4 (07:54→09:20)
--- NOTE | 2017-05-27 07:55 | PDOC CONSULTATION ---
History of Present Illness Admission Date/PCP: 05/27/17 04:18 AIDE CHILEL MD Patient complains of: Diffuse upper abdominal pain History of Present Illness: BREN MALDONADO is a 46 year old female with history of congestive heart failure presenting with a one-week history of diffuse upper abdominal pain as well as shortness of breath and chest discomfort. Patient was noted in the ER with evidence of congestive heart failure. Patient no longer short of breath this morning and overall feels much better. But still has upper abdominal pain. No history of jaundice. No fever. Patient has had some constipation but no emesis. No prior abdominal surgeries. Past Medical History Cardiac Medical History: Reports: Congestive Heart Failure - combined systolic and diastolic dysfunction; nonischemic cardiomyopathy., Hyperlipidema, Hypertension, 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; AR mild Pulmonary Medical History: Reports: Pneumonia Neurological Medical History: Denies: Seizures Endocrine Medical History: Reports: Diabetes Mellitus Type 2 Denies: Diabetes Mellitus Type 1, Hyperthyroidism, Hypothyroidism GI Medical History: Denies: Cirrhosis, Gastroesophageal Reflux Disease, Hepatitis Musculoskeltal Medical History: Denies: Arthritis Psychiatric Medical History: Reports: Depression Hematology: Reports: Anemia Past Surgical History Past Surgical History: Reports: Section - 1995, Pacemaker - AICD implant Social History Smoking Status: Never Smoker Frequency of Alcohol Use: None Hx Recreational Drug Use: No Drugs: None Hx Prescription Drug Abuse: No Family History Family History: Reviewed & Not Pertinent, Hypertension, Other - CHF Parental Family History Reviewed: No Children Family History Reviewed: No Sibling(s) Family History Reviewed.: No Medication/Allergy Home Medications: Calcium Carbonate/Vitamin D3 [Calcium 500 + Vit D Caplet] 1 tab PO BID 03/17/16 Aspirin [Aspirin 81 mg Chewable Tablet] 81 mg PO DAILY #30 tab.chew 03/19/16 Cyanocobalamin (Vitamin B-12) [Vitamin B-12 1000 mcg Tablet] 1,000 mcg PO DAILY #30 tablet 03/19/16 Ferrous Sulfate [Iron] 325 mg PO BID #60 tablet 03/19/16 Fluoxetine HCl 20 mg PO DAILY #30 tablet 03/19/16 Furosemide [Lasix 40 mg Tablet] 40 mg PO QAM #30 tablet 03/19/16 Lisinopril [Prinivil 10 mg Tablet] 10 mg PO Q12 #60 tablet 03/19/16 Magnesium Oxide [Mag-Ox 400 mg Tablet] 400 mg PO TID #90 tablet 03/19/16 Metoprolol Succinate [Toprol XL 100 mg Tablet] 100 mg PO DAILY #30 tab.sr.24h Prednisone [Deltasone 20 mg Tablet] 20 mg PO BID #60 tablet 03/19/16 Sulfamethoxazole/Trimethoprim [Bactrim Ds Tablet] 1 each PO BID #14 tablet 04/04 Allergies/Adverse Reactions: No Known Allergies Allergy (Verified 06/19/16 05:10) Physical Exam Vital Signs: Temp Pulse Resp BP Pulse Ox 98.0 F 74 16 146/96 H 99 05/27/17 06:30 05/27/17 06:35 05/27/17 06:30 05/27/17 06:30 05/27/17 06:30 General appearance: PRESENT: no acute distress, cooperative Respiratory exam: PRESENT: rales - At bases. Cardiovascular exam: PRESENT: RRR GI/Abdominal exam: PRESENT: other - Soft, minimally distended, focal tenderness to palpation in the right upper quadrant without peritoneal signs. Neurological exam: PRESENT: alert, awake Psychiatric exam: PRESENT: appropriate affect Results Impressions: Chest X-Ray 05/26/17 23:36 IMPRESSION: 1. Cardiomegaly with pulmonary vascular congestion and possible small bilateral pleural effusions. Chest/Abdomen CTA 05/27/17 00:55 IMPRESSION: 1. No pulmonary embolus identified. 2. Cardiomegaly with reflux of contrast into the hepatic veins. This could be seen with right heart failure. 3. Small right pleural effusion. 4. Likely cholelithiasis. This exam was performed according to our departmental dose-optimization program, which includes automated exposure control, adjustment of the mA and/or kV according to patient size and/or use of iterative reconstruction technique. Abdomen Ultrasound 05/27/17 01:58 IMPRESSION: 1. Cholelithiasis with gallbladder wall thickening and possible pericholecystic fluid. These findings could be seen with but are not diagnostic for acute cholecystitis. 2. Hepatic steatosis. 3. Increased renal cortical echogenicity. This could be seen with medical renal disease. Assessment & Plan - Diagnosis (1) Cholelithiasis with cholecystitis Qualifiers: Cholecystitis acuity: acute Is this a current diagnosis for this admission?: Yes Plan: Evidence of acute cholecystitis. Once we have her cardiac status as optimized as possible will plan laparoscopic cholecystectomy. I have discussed with the patient the risk and benefits of the surgery including risk of conversion to an open procedure, risk of bile duct injury and intestinal injury as well as bleeding and cardiac risk. Patient understands and agrees to proceed. Keep n.p.o. and on antibiotics and await cardiology clearance.
[2017-05-27] MEDS ORDERED: ACETAMINOPHEN 325 MG TABLET PO PRN (08:15)
--- NOTE | 2017-05-27 08:51 | EKG REPORT ---
SEVERITY:- ABNORMAL ECG - ATRIAL-SENSED VENTRICULAR-PACED RHYTHM : Confirmed by: Jose Islas 27-May-2017 08:50:42
[2017-05-27] MEDS ORDERED: INSULIN LISPRO 100 UNIT/ML 3 ML VIAL SUBCUT PRN (09:20)
[2017-05-27] MEDS ORDERED: GLUCAGON,HUMAN RECOMB 1 MG INJ IM PRN (09:20)
--- NOTE | 2017-05-27 09:20 | PDOC H&P ---
History of Present Illness Admission Date/PCP: 05/27/17 04:18 AIDE CHILEL MD Patient complains of: Chest tightness, shortness of breath, and abdominal discomfort History of Present Illness: Patient is a 46-year-old female who has history of systolic and diastolic congestive heart failure requiring AICD presents to our hospital with complaint of abdominal pain, chest tightness, and shortness of breath. Patient states that for approximately 1 week she has noticed that she has had abdominal pain that is worsened when she eats. Patient states that abdominal pain has become so severe that she came to the emergency room. Patient also complains of chest tightness that has occurred for the last 1-2 days. Patient also reports that she has noticed that she is more short of breath when trying to ambulate. Patient states that she does use her diuretics as prescribed by Dr. Valles however her shortness of breath has worsened. Patient reports that she ran out of her diabetic medication and she has been waiting for her mail order delivery to arrive. Patient also reports that she has felt bloated and has been belching a lot. Patient also reports that her belly feels as though it is upset. Patient denies any change in her diet and also denies any increased sodium intake. Past Medical History Cardiac Medical History: Reports: Congestive Heart Failure - combined systolic and diastolic dysfunction; nonischemic cardiomyopathy., Hyperlipidema, Hypertension, 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; AR mild Pulmonary Medical History: Reports: Pneumonia Neurological Medical History: Denies: Seizures Endocrine Medical History: Reports: Diabetes Mellitus Type 2 Denies: Diabetes Mellitus Type 1, Hyperthyroidism, Hypothyroidism GI Medical History: Denies: Cirrhosis, Gastroesophageal Reflux Disease, Hepatitis Musculoskeltal Medical History: Denies: Arthritis Psychiatric Medical History: Reports: Depression Hematology: Reports: Anemia Past Surgical History Past Surgical History: Reports: Section - 1995, Pacemaker - AICD implant Social History Smoking Status: Never Smoker Frequency of Alcohol Use: None Hx Recreational Drug Use: No Drugs: None Hx Prescription Drug Abuse: No - Advance Directive Resuscitation Status: Full Code Family History Family History: Reviewed & Not Pertinent, Hypertension, Other - CHF Parental Family History Reviewed: Yes Children Family History Reviewed: Yes Sibling(s) Family History Reviewed.: Yes Medication/Allergy Home Medications: RX: Calcium Carbonate/Vitamin D3 [Calcium 500 + Vit D Caplet] 1 tab PO BID 03/17 RX: Aspirin [Aspirin 81 mg Chewable Tablet] 81 mg PO DAILY #30 tab.chew RX: Cyanocobalamin (Vitamin B-12) [Vitamin B-12 1000 mcg Tablet] 1,000 mcg PO DAILY #30 tablet 03/19/16 RX: Ferrous Sulfate [Iron] 325 mg PO BID #60 tablet 03/19/16 RX: Fluoxetine HCl 20 mg PO DAILY #30 tablet 03/19/16 RX: Furosemide [Lasix 40 mg Tablet] 40 mg PO QAM #30 tablet 03/19/16 RX: Lisinopril [Prinivil 10 mg Tablet] 10 mg PO Q12 #60 tablet 03/19/16 RX: Magnesium Oxide [Mag-Ox 400 mg Tablet] 400 mg PO TID #90 tablet 03/19/16 RX: Metoprolol Succinate [Toprol XL 100 mg Tablet] 100 mg PO DAILY #30 tab.sr.24h 03/19/16 RX: Prednisone [Deltasone 20 mg Tablet] 20 mg PO BID #60 tablet 03/19/16 Sulfamethoxazole/Trimethoprim [Bactrim Ds Tablet] 1 each PO BID #14 tablet 04/04 Allergies/Adverse Reactions: No Known Allergies Allergy (Verified 06/19/16 05:10) Review of Systems Constitutional: ABSENT: chills, fever(s), headache(s), weight gain, weight loss Eyes: ABSENT: visual disturbances Ears: ABSENT: hearing changes Cardiovascular: PRESENT: dyspnea on exertion, edema, other - Chest tightness Respiratory: ABSENT: cough, hemoptysis Gastrointestinal: PRESENT: abdominal pain, nausea Genitourinary: ABSENT: dysuria, hematuria Musculoskeletal: ABSENT: joint swelling Integumentary: ABSENT: rash, wounds Neurological: ABSENT: abnormal gait, abnormal speech, confusion, dizziness, focal weakness, syncope Psychiatric: ABSENT: anxiety, depression, homidical ideation, suicidal ideation Endocrine: ABSENT: cold intolerance, heat intolerance, polydipsia, polyuria Hematologic/Lymphatic: ABSENT: easy bleeding, easy bruising Physical Exam Vital Signs: Temp Pulse Resp BP Pulse Ox 98.0 F 72 22 H 146/93 H 97 05/27/17 07:37 05/27/17 07:37 05/27/17 07:37 05/27/17 07:37 05/27/17 07:37 General appearance: PRESENT: mild distress, well-developed, well-nourished Head exam: PRESENT: atraumatic Eye exam: PRESENT: conjunctiva pink, EOMI Ear exam: PRESENT: normal external ear exam Mouth exam: PRESENT: moist, tongue midline Neck exam: ABSENT: carotid bruit, JVD, lymphadenopathy, thyromegaly Respiratory exam: PRESENT: clear to auscultation mati - Upper lobe. ABSENT: rales, rhonchi, wheezes Cardiovascular exam: PRESENT: RRR. ABSENT: diastolic murmur, rubs, systolic murmur Pulses: PRESENT: normal dorsalis pedis pul Vascular exam: PRESENT: normal capillary refill GI/Abdominal exam: PRESENT: normal bowel sounds, tenderness, other - Right upper quadrant tenderness to palpation Rectal exam: PRESENT: deferred Extremities exam: PRESENT: full ROM. ABSENT: calf tenderness, clubbing, pedal edema Musculoskeletal exam: PRESENT: full ROM Neurological exam: PRESENT: alert, awake, oriented to person, oriented to place , oriented to time, oriented to situation, CN II-XII grossly intact. ABSENT: motor sensory deficit Psychiatric exam: PRESENT: appropriate affect, normal mood. ABSENT: homicidal ideation, suicidal ideation Skin exam: PRESENT: dry, intact, warm. ABSENT: cyanosis, rash Results Impressions: Chest X-Ray 05/26/17 23:36 IMPRESSION: 1. Cardiomegaly with pulmonary vascular congestion and possible small bilateral pleural effusions. Chest/Abdomen CTA 05/27/17 00:55 IMPRESSION: 1. No pulmonary embolus identified. 2. Cardiomegaly with reflux of contrast into the hepatic veins. This could be seen with right heart failure. 3. Small right pleural effusion. 4. Likely cholelithiasis. This exam was performed according to our departmental dose-optimization program, which includes automated exposure control, adjustment of the mA and/or kV according to patient size and/or use of iterative reconstruction technique. Abdomen Ultrasound 05/27/17 01:58 IMPRESSION: 1. Cholelithiasis with gallbladder wall thickening and possible pericholecystic fluid. These findings could be seen with but are not diagnostic for acute cholecystitis. 2. Hepatic steatosis. 3. Increased renal cortical echogenicity. This could be seen with medical renal disease. Assessment & Plan - Diagnosis (1) Acute cholecystitis Is this a current diagnosis for this admission?: Yes Plan: Will have Cardiology clear pt. If surgery feels like pt needs to have surgery emergently pt will need to speak to Cardiology. Will keep patient n.p.o. (2) Chest pain Qualifiers: Chest pain type: unspecified Qualified Code(s): R07.9 - Chest pain, unspecified Is this a current diagnosis for this admission?: Yes Plan: Will trend troponins, order stat Echo, and Cardiology consult. (3) Elevated LFTs Is this a current diagnosis for this admission?: Yes Plan: Hepatic Congestion: Patient was given diuretics. Cardiology has been consulted. 2D echo stat has been ordered. (4) Pulmonary congestion Is this a current diagnosis for this admission?: Yes Plan: Patient CTA demonstrated evidence of pulmonary congestion. Patient was given Lasix in the emergency department. Cardiology has been consulted. Place patient on Lasix 40 mg IV every 12 hours. Will write for [facility]. (5) Acute on chronic combined systolic (congestive) and diastolic (congestive) heart failure Is this a current diagnosis for this admission?: Yes Plan: Place patient on Lasix 40 mg IV every 12 hours. Will write for cardiology consult and stat echo. (6) Hyperlipidemia Qualifiers: Hyperlipidemia type: unspecified Qualified Code(s): E78.5 - Hyperlipidemia , unspecified Is this a current diagnosis for this admission?: Yes Plan: We will check lipid profile. (7) Hypertension Qualifiers: Hypertension type: essential hypertension Qualified Code(s): I10 - Essential (primary) hypertension Is this a current diagnosis for this admission?: Yes Plan: Will await updated home med rec (8) Lupus Qualifiers: Systemic lupus erythematosus type: other Systemic lupus erythematosus organ involvement: other Qualified Code(s): M32.19 - Other organ or system involvement in systemic lupus erythematosus Is this a current diagnosis for this admission?: Yes Plan: We will wait for patient's home medication list. (9) Diabetes type 2, uncontrolled Is this a current diagnosis for this admission?: Yes Plan: We will place patient on sliding scale insulin. Will check hemoglobin A1c. - Time Time Spent: 30 to 50 Minutes
[2017-05-27] MEDS ORDERED: FUROSEMIDE INJ/PF 40 MG/4 ML SDV IV SCH (10:00)
[2017-05-27] MEDS: PIPERACILLIN SODIUM/TAZOBACTAM 3.375 GM in NORMAL SALINE 100 ML IV SCH ×2 (11:57→17:45)
--- NOTE | 2017-05-27 12:46 | PDOC CONSULTATION ---
Consultation Consult Date: 05/27/17 Attending physician:: LALO SUN Consult reason:: Preop cardiovascular examination. 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 Patient states that for approximately 1 week she has noticed that she has had abdominal pain that is worsened when she eats. Patient states that abdominal pain has become so severe that she came to the emergency room. Patient also complains of chest tightness that has occurred for the last 1-2 days. Patient also reports that she has noticed that she is more short of breath when trying to ambulate. Patient states that she does use her diuretics as prescribed by Dr. Valles however her shortness of breath has worsened. Patient reports that she ran out of her diabetic medication and she has been waiting for her mail order delivery to arrive. Patient also reports that she has felt bloated and has been belching a lot. Patient also reports that her belly feels as though it is upset. Patient denies any change in her diet and also denies any increased sodium intake. Patient claims she had a stress test about 2 weeks ago. She also describes having had multiple procedures done in [place] at [facility] in 2011. At that time she had a defibrillator placed. Previous echocardiogram performed here more than a year ago had shown severe mitral regurgitation and severely depressed LVEF. Past Medical History Cardiac Medical History: Reports: Congestive Heart Failure - combined systolic and diastolic dysfunction; nonischemic cardiomyopathy., Hyperlipidema, Hypertension, 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; AR mild Pulmonary Medical History: Reports: Pneumonia Neurological Medical History: Denies: Seizures Endocrine Medical History: Reports: Diabetes Mellitus Type 2 Denies: Diabetes Mellitus Type 1, Hyperthyroidism, Hypothyroidism GI Medical History: Denies: Cirrhosis, Gastroesophageal Reflux Disease, Hepatitis Musculoskeltal Medical History: Denies: Arthritis Psychiatric Medical History: Reports: Depression Hematology: Reports: Anemia Past Surgical History Past Surgical History: Reports: Section - 1995, Pacemaker - AICD implant Social History Information Source: Patient Smoking Status: Never Smoker Frequency of Alcohol Use: None Hx Recreational Drug Use: No Drugs: None Hx Prescription Drug Abuse: No - Advance Directive Resuscitation Status: Full Code Family History Family History: Hypertension, Other - CHF Parental Family History Reviewed: Yes Children Family History Reviewed: Yes Sibling(s) Family History Reviewed.: Yes Medication/Allergy Home Medications: Aspirin [Aspirin 81 mg Chewable Tablet] 81 mg PO DAILY 05/27/17 Calcium Carbonate/Vitamin D3 [Os-Simon 500+D Tablet] 1 tab PO BID 05/27/17 Fluoxetine HCl [Prozac 20 mg Capsule] 20 mg PO DAILY 05/27/17 Furosemide [Lasix 40 mg Tablet] 40 mg PO TID@0800,1200,1600 05/27/17 Lisinopril [Prinivil] 5 mg PO DAILY 05/27/17 Magnesium Oxide [Mag-Ox 400 mg Tablet] 400 mg PO DAILY 05/27/17 Metformin HCl [Glucophage XR 500 mg Tablet] 500 mg PO BIDBS 05/27/17 Metoprolol Succinate [Toprol XL 100 mg Tablet] 100 mg PO DAILY 05/27/17 Prednisone [Deltasone 20 mg Tablet] 20 mg PO DAILY 05/27/17 Allergies/Adverse Reactions: No Known Allergies Allergy (Verified 06/19/16 05:10) Review of Systems Review of Systems: Please see history of present illness and past medical history as wall. Constitutional: No fever or chills reported. Head : No recent chronic headaches, recent head injury. Eyes: No recent eye pain, diplopia, redness, discharge, acute visual changes. Ears: No recent chronic ear pain, acute hearing loss, ear discharge. Oral cavity: No recent ulcerations, bleeding, oral cavity discomfort. Neck: No recent acute neck pain reported. Hematologic: No recent easy bruising or bleeding or hematologic malignancy reported. Lymphatic: No recent lymphatic malignancy, chronic lymphadenopathy reported yet Cardiovascular system review: See history of present illness. History of chest pain. Denied any recent defibrillator shocks Respiratory system review: No recent chronic cough, hemoptysis, blood clots in the lungs reported. Mild Shortness of breath on exertion Gastrointestinal system review: Nausea vomiting and upper abdominal pain, denies hematemesis, melena, recent change in bowel habits. Genitourinary system review: No recent acute or chronic hematuria, flank pain, UTI etc. reported. Skin system review: Negative for any recent abnormal bruising, no rash, no pruritus reported. Neurologic: No prior history of strokes, mini strokes, seizure disorder. Psychologic: No history of major psychosis or major depression reported. Musculoskeletal: Minor aches and pains reported. No acute joint swelling reported. Endocrine: No recent polyuria, polydipsia, recent heat or cold intolerance. Physical Exam Vital Signs: Temp Pulse Resp BP Pulse Ox 98.0 F 72 22 H 146/93 H 97 05/27/17 07:37 05/27/17 07:37 05/27/17 07:37 05/27/17 07:37 05/27/17 07:37 Exam: GENERAL: well-nourished and in no acute distress. Alert and oriented x3 HEAD: Atraumatic, normocephalic. EYES: Pupils equal round and reactive to light, extraocular movements intact, sclera anicteric, conjunctiva are normal. ENT: TMs normal, nares patent, oropharynx clear without exudates. Moist mucous membranes. No oral ulcerations or bleeding gums noted NECK: supple without lymphadenopathy. Trachea is central. No cervical or axillary lymphadenopathy noted. Carotids are 2+, JVD WNL LUNGS: Respiration seems nonlabored, no significant accessory muscle action noted. Bibasilar fine crackles noted. No wheezes rales or rhonchi noted. No significant dullness noted on percussion. CHEST: Palpation of the chest wall shows no significant chest wall tenderness. No other significant abnormalities noted. 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 ABDOMEN: Soft, no significant tenderness appreciated, normoactive bowel sounds. No guarding, no rebound. No rigidity noted . No masses appreciated. EXTREMITIES: Pedal pulses are 1-2+, no calf tenderness noted. No clubbing or cyanosis.trace to 1+ pedal edema noted NEUROLOGICAL: Focused neurological exam showed no significant neurologic deficit. Normal speech, no focal weakness appreciated. PSYCH: Normal mood, normal affect. Judgment and insight within normal limits. SKIN: No significant ecchymosis, skin is noted to be warm. MUSCULOSKELETAL EXAM: No significant acute joint swelling noted. Results Laboratory Results: 05/27/17 10:33 Troponin I 0.035 EKG Comments: Shows sinus rhythm with ventricular paced beats, most likely patient has biventricular defibrillator. Impressions: Chest X-Ray 05/26/17 23:36 IMPRESSION: 1. Cardiomegaly with pulmonary vascular congestion and possible small bilateral pleural effusions. Chest/Abdomen CTA 05/27/17 00:55 IMPRESSION: 1. No pulmonary embolus identified. 2. Cardiomegaly with reflux of contrast into the hepatic veins. This could be seen with right heart failure. 3. Small right pleural effusion. 4. Likely cholelithiasis. This exam was performed according to our departmental dose-optimization program, which includes automated exposure control, adjustment of the mA and/or kV according to patient size and/or use of iterative reconstruction technique. Abdomen Ultrasound 05/27/17 01:58 IMPRESSION: 1. Cholelithiasis with gallbladder wall thickening and possible pericholecystic fluid. These findings could be seen with but are not diagnostic for acute cholecystitis. 2. Hepatic steatosis. 3. Increased renal cortical echogenicity. This could be seen with medical renal disease. Assessment & Plan - Diagnosis (1) Acute cholecystitis Is this a current diagnosis for this admission?: Yes (2) Congestive heart failure Qualifiers: Heart failure type: combined systolic and diastolic Heart failure chronicity: chronic Qualified Code(s): I50.42 - Chronic combined systolic ( congestive) and diastolic (congestive) heart failure Is this a current diagnosis for this admission?: Yes (3) Chest pain Qualifiers: Chest pain type: unspecified Qualified Code(s): R07.9 - Chest pain, unspecified Is this a current diagnosis for this admission?: Yes (4) Diabetes type 2, uncontrolled Qualifiers: Diabetes mellitus salvage determiner insulin use: unspecified usp insulin use status Diabetes mellitus complication status: with unspecified complications Qualified Code(s): E11.8 - Type 2 diabetes mellitus with unspecified complications; E11.65 - Type 2 diabetes mellitus with hyperglycemia; E11.65 - Type 2 diabetes mellitus with hyperglycemia; E11.65 - Type 2 diabetes mellitus with hyperglycemia; E11.65 - Type 2 diabetes mellitus with hyperglycemia Is this a current diagnosis for this admission?: Yes (5) Hyperlipidemia Qualifiers: Hyperlipidemia type: unspecified Qualified Code(s): E78.5 - Hyperlipidemia , unspecified Is this a current diagnosis for this admission?: Yes (6) Hypertension Qualifiers: Hypertension type: essential hypertension Qualified Code(s): I10 - Essential (primary) hypertension Is this a current diagnosis for this admission?: Yes (7) Mitral regurgitation Qualifiers: Cardiac valve disease etiology: nonrheumatic Qualified Code(s): I34.0 - Nonrheumatic mitral (valve) insufficiency Is this a current diagnosis for this admission?: Yes (8) S/P implantation of automatic cardioverter/defibrillator (AICD) Is this a current diagnosis for this admission?: Yes - Notes Notes: Acute cholecystitis: It seems patient has this diagnosis. Patient overall present higher than average risk due to severe cardiomyopathy and history of severe mitral regurgitation. Patient had recent evaluation. We will try to obtain these report. Have ordered a 2D echocardiogram. Will discuss with Dr. Sun. Congestive heart failure: Patient may have some hepatic congestion. Recommend IV diuretic therapy, optimization of therapy for CHF. BNP level noted to be extremely high. Chest pain: Exact etiology not clear. Since patient had previous evaluation, will try to obtain those records. In the meantime recommend IV proton pump inhibitor. Diabetes: Recommend good control. Hyperlipidemia: Continue statin therapy. Mitral regurgitation: Noted to be severe on prior echocardiogram. Will repeat a 2D echo. Status post ICD placement: Currently seems to be functioning adequately. - Time Time Spent: 30 to 50 Minutes - CODE STATUS was discussed, patient remains full code. Surrogate decision-maker unchanged. Multiple medical problems were addressed. More than 50% of the time spent coordinating care, discussing management plans with involved caregivers. Management plans discussed with involved personnels. Medical decision making was of moderate to high complexity , patient's has multiple comorbidities. Medications reviewed and adjusted accordingly: Yes
--- NOTE | 2017-05-27 14:23 | RADIOLOGY REPORT (SQ) ---
EXAM DESCRIPTION: CT ABD/PELVIS NO ORAL OR IV COMPLETED DATE/TIME: 05/27/2017 2:04 pm REASON FOR STUDY: Acute Cholecystitis COMPARISON: None. TECHNIQUE: CT scan of the abdomen and pelvis performed without intravenous or oral contrast. Images reviewed with lung, soft tissue, and bone windows. Reconstructed coronal and sagittal MPR images revi ewed. All images stored on PACS. All CT scanners at this facility use dose modulation, iterative reconstruction, and/or weight based d osing when appropriate to reduce radiation dose to as low as reasonably achievable (ALARA). [facility]: Dose Right [facility]: CareDose [facility]: Dose Right [facility]: Teradose 4D [facility]: Smart SocialRadar RADIATION DOSE: CT Rad equipment meets quality standard of care and radiation dose reduction techniq ues were employed. CTDIvol: 10.8 mGy. DLP: 581 mGy-cm.mGy. LIMITATIONS: None. FINDINGS: LOWER CHEST: Cardiomegaly. Small right pleural effusion and small pericardial effusion. NON-CONTRASTED LIVER, SPLEEN, ADRENALS: Evaluation limited by lack of IV contrast. No identified sign ificant masses. PANCREAS: No masses. No peripancreatic inflammatory changes. GALLBLADDER: Gallstones. Mild gallbladder wall thickening. Faint increased density of the luminal c ontents probably due to hepatic excretion of previous IV contrast. RIGHT KIDNEY AND URETER: No suspicious masses. Assessment limited by lack of IV contrast. No signif icant calcifications. No hydronephrosis or hydroureter. LEFT KIDNEY AND URETER: No suspicious masses. Assessment limited by lack of IV contrast. No signifi cant calcifications. No hydronephrosis or hydroureter. AORTA AND RETROPERITONEUM: No aneurysm. No retroperitoneal masses or adenopathy. BOWEL AND PERITONEAL CAVITY: No obvious masses or inflammatory changes. Trace fluid in the right per icolic gutter just below the edge of the liver. APPENDIX: Normal. PELVIS, BLADDER, AND ABDOMINAL WALL:No abnormal masses. No free fluid. Bladder normal. BONES: No significant findings. OTHER: Probable mild edema in the subcutaneous fatty tissues. IMPRESSION: 1. GALLSTONES. GALLBLADDER WALL THICKENING. NO SIGNIFICANT BILIARY DILATION. 2. TRACE FLUID IN THE RIGHT PERICOLIC GUTTER JUST BELOW THE EDGE OF THE LIVER. THERE IS ALSO PROBABL E MILD EDEMA IN THE SUBCUTANEOUS FATTY TISSUES. THIS MAY BE DUE TO MILD FLUID OVERLOAD. 3. CARDIOMEGALY. SMALL PERICARDIAL EFFUSION AND SMALL RIGHT PLEURAL EFFUSION. 4. NO OTHER SIGNIFICANT FINDINGS. COMMENT: Quality ID # [id number]: Final reports with documentation of one or more dose reduction techniques (e.g., Automated exposure control, adjustment of the mA and/or kV according to patient size, use of iterative reconstruction technique) TECHNICAL DOCUMENTATION: JOB ID: [id number] [employer]- All Rights Reserved Reading location - IP/workstation name: [facility]
--- NOTE | 2017-05-27 14:48 | PDOC PROGRESS REPORT ---
Subjective Progress Note for:: 05/27/17 Subjective:: Abdominal pains Reason For Visit: 1. ACUTE CHOLECYSTITIS Physical Exam Vital Signs: Temp Pulse Resp BP Pulse Ox 98.0 F 72 16 142/95 H 93 05/27/17 12:00 05/27/17 12:00 05/27/17 12:00 05/27/17 12:00 05/27/17 12:00 Exam: Has tenderness RUQ and epigastric areas. Appears short of breath Results Laboratory Results: 05/27/17 10:33 Troponin I 0.035 Impressions: Chest X-Ray 05/26/17 23:36 IMPRESSION: 1. Cardiomegaly with pulmonary vascular congestion and possible small bilateral pleural effusions. Abdomen/Pelvis CT 05/27/17 00:00 IMPRESSION: 1. GALLSTONES. GALLBLADDER WALL THICKENING. NO SIGNIFICANT BILIARY DILATION. 2. TRACE FLUID IN THE RIGHT PERICOLIC GUTTER JUST BELOW THE EDGE OF THE LIVER. THERE IS ALSO PROBABLE MILD EDEMA IN THE SUBCUTANEOUS FATTY TISSUES. THIS MAY BE DUE TO MILD FLUID OVERLOAD. 3. CARDIOMEGALY. SMALL PERICARDIAL EFFUSION AND SMALL RIGHT PLEURAL EFFUSION. 4. NO OTHER SIGNIFICANT FINDINGS. Chest/Abdomen CTA 05/27/17 00:55 IMPRESSION: 1. No pulmonary embolus identified. 2. Cardiomegaly with reflux of contrast into the hepatic veins. This could be seen with right heart failure. 3. Small right pleural effusion. 4. Likely cholelithiasis. This exam was performed according to our departmental dose-optimization program, which includes automated exposure control, adjustment of the mA and/or kV according to patient size and/or use of iterative reconstruction technique. Abdomen Ultrasound 05/27/17 01:58 IMPRESSION: 1. Cholelithiasis with gallbladder wall thickening and possible pericholecystic fluid. These findings could be seen with but are not diagnostic for acute cholecystitis. 2. Hepatic steatosis. 3. Increased renal cortical echogenicity. This could be seen with medical renal disease. Assessment & Plan - Time Time Spent with patient: 15-24 minutes - Plan Summary Plan Summary: Have discussed with the Sewing Department Supervisor Dr Islas. Patient has AICD placed in [place] 2013 for poor ejection fraction of the heart. Dxed with Lupus and DM in 2016. Patient has cardiac ejection fraction of only 20 % last year. Awaiting today's Echocardiogram. I agree with Dr Janel that it is better to have her surgery for acute cholecystitis in a tertiary hospital. I explained this to patient and her mother who also agrees. Asked Hospitalist to transfer her and will be available to talk to the surgeon of accepting facility.
[2017-05-27 16:30] VITALS: BP 131/86
--- NOTE | 2017-05-27 16:41 | PDOC DISCHARGE SUMMARY ---
General - Admit/Disc Date/PCP Admission Date/Primary Care Provider: 05/27/17 04:18 AIDE CHILEL MD Discharge Date: 05/27/17 - Discharge Diagnosis (1) Acute cholecystitis Is this a current diagnosis for this admission?: Yes (2) Chest pain Is this a current diagnosis for this admission?: Yes (3) Elevated LFTs Is this a current diagnosis for this admission?: Yes (4) Pulmonary congestion Is this a current diagnosis for this admission?: Yes (5) Acute on chronic combined systolic (congestive) and diastolic (congestive) heart failure Is this a current diagnosis for this admission?: Yes (6) Hyperlipidemia Is this a current diagnosis for this admission?: Yes (7) Hypertension Is this a current diagnosis for this admission?: Yes (8) Lupus Is this a current diagnosis for this admission?: Yes (9) Diabetes type 2, uncontrolled Is this a current diagnosis for this admission?: Yes - Additional Information Resuscitation Status: Full Code Discharge Diet: Cardiac Home Medications: Acetaminophen [Tylenol 325 mg Tablet] 650 mg PO Q4HP PRN #0 tablet 05/27/17 Aspirin [Aspirin 81 mg Chewable Tablet] 81 mg PO DAILY 05/27/17 Dextrose [Glutose 40% Gel 15 gm Tube] 15 gm PO PRN PRN tube 05/27/17 Dextrose [Glutose 40% Gel 15 gm Tube] 30 gm PO PRN PRN #0 tube 05/27/17 Fluoxetine HCl [Prozac 20 mg Capsule] 20 mg PO DAILY 05/27/17 Glucagon,Human Recombinant [Glucagen Inj 1 mg Vial] 1 mg SUBCUT PRN PRN vial Insulin Lispro [Humalog Insulin (Lispro) 100 unit/mL] 0 - 12 unit SUBCUT ACHSP PRN unit 05/27/17 Lansoprazole [Prevacid 30 mg Odt Tablet] 30 mg PO Q6AM tab.rap. 05/27/17 Metoprolol Succinate [Toprol XL 100 mg Tablet] 100 mg PO DAILY 05/27/17 Nitroglycerin [Nitrostat 0.4 mg (1/150 Gr) Tabs 25/Bottle] 1 tab SL ASDIR PRN bottle 05/27/17 Piperacillin Sodium/Tazobactam [Zosyn Inj 3.375 gm Vial] 3.375 gm IV Q6 vial Prednisone [Deltasone 20 mg Tablet] 20 mg PO DAILY 05/27/17 History of Present Illness Patient complains of: abdominal pain History of Present Illness: Patient is a 46-year-old female who has history of systolic and diastolic congestive heart failure requiring AICD presents to our hospital with complaint of abdominal pain, chest tightness, and shortness of breath. Patient states that for approximately 1 week she has noticed that she has had abdominal pain that is worsened when she eats. Patient states that abdominal pain has become so severe that she came to the emergency room. Patient also complains of chest tightness that has occurred for the last 1-2 days. Patient also reports that she has noticed that she is more short of breath when trying to ambulate. Patient states that she does use her diuretics as prescribed by Dr. Valles however her shortness of breath has worsened. Patient reports that she ran out of her diabetic medication and she has been waiting for her mail order delivery to arrive. Patient also reports that she has felt bloated and has been belching a lot. Patient also reports that her belly feels as though it is upset. Patient denies any change in her diet and also denies any increased sodium intake. Hospital Course Hospital Course: Patient was admitted for abdominal pain and chest pain. Cardiology evaluated patient and felt that patient need to be transferred to a tertiary facility. Dr. Flores surgery also felt that patient needed to be transferred to a tertiary center for acute cholecystitis. Patient was admitted to our facility where she was given Lasix IV for diuresis. The patient exceeding what our facility is able to do patient is being transferred to [facility] with accepting physician being . Physical Exam Vital Signs: Temp Pulse Resp BP Pulse Ox 98.3 F 68 17 131/86 H 100 05/27/17 15:24 05/27/17 15:24 05/27/17 15:24 05/27/17 15:24 05/27/17 16:00 Intake & Output 05/26/17 05/27/17 05/28/17 06:59 06:59 06:59 Intake Total 0 Output Total 1200 Balance -1200 Weight 94.8 kg General appearance: PRESENT: no acute distress, well-developed, well-nourished Head exam: PRESENT: atraumatic, normocephalic Eye exam: PRESENT: conjunctiva pink, EOMI. ABSENT: scleral icterus Ear exam: PRESENT: normal external ear exam Mouth exam: PRESENT: moist, tongue midline Neck exam: ABSENT: carotid bruit, JVD, lymphadenopathy, thyromegaly Respiratory exam: PRESENT: clear to auscultation mati. ABSENT: rales, rhonchi, wheezes Cardiovascular exam: PRESENT: RRR. ABSENT: diastolic murmur, rubs, systolic murmur Pulses: PRESENT: normal dorsalis pedis pul GI/Abdominal exam: PRESENT: tenderness Rectal exam: PRESENT: deferred Extremities exam: PRESENT: full ROM. ABSENT: calf tenderness, clubbing, pedal edema Neurological exam: PRESENT: alert, awake, oriented to person, oriented to place , oriented to time, oriented to situation, CN II-XII grossly intact. ABSENT: motor sensory deficit Psychiatric exam: PRESENT: appropriate affect, normal mood. ABSENT: homicidal ideation, suicidal ideation Skin exam: PRESENT: dry, intact, warm. ABSENT: cyanosis, rash Results Laboratory Results: 05/27/17 10:33 Troponin I 0.035 Impressions: Chest X-Ray 05/26/17 23:36 IMPRESSION: 1. Cardiomegaly with pulmonary vascular congestion and possible small bilateral pleural effusions. Abdomen/Pelvis CT 05/27/17 00:00 IMPRESSION: 1. GALLSTONES. GALLBLADDER WALL THICKENING. NO SIGNIFICANT BILIARY DILATION. 2. TRACE FLUID IN THE RIGHT PERICOLIC GUTTER JUST BELOW THE EDGE OF THE LIVER. THERE IS ALSO PROBABLE MILD EDEMA IN THE SUBCUTANEOUS FATTY TISSUES. THIS MAY BE DUE TO MILD FLUID OVERLOAD. 3. CARDIOMEGALY. SMALL PERICARDIAL EFFUSION AND SMALL RIGHT PLEURAL EFFUSION. 4. NO OTHER SIGNIFICANT FINDINGS. Chest/Abdomen CTA 05/27/17 00:55 IMPRESSION: 1. No pulmonary embolus identified. 2. Cardiomegaly with reflux of contrast into the hepatic veins. This could be seen with right heart failure. 3. Small right pleural effusion. 4. Likely cholelithiasis. This exam was performed according to our departmental dose-optimization program, which includes automated exposure control, adjustment of the mA and/or kV according to patient size and/or use of iterative reconstruction technique. Abdomen Ultrasound 05/27/17 01:58 IMPRESSION: 1. Cholelithiasis with gallbladder wall thickening and possible pericholecystic fluid. These findings could be seen with but are not diagnostic for acute cholecystitis. 2. Hepatic steatosis. 3. Increased renal cortical echogenicity. This could be seen with medical renal disease. Qualifiers - * PATEINT BEING DISCHARGED WITH ANY OF THE FOLLOWING DIAGNOSIS?: No Plan Time Spent: Greater than 30 Minutes
--- NOTE | 2017-05-27 17:44 | XCELERA REPORT ---
[address] [address] Transthoracic Echocardiogram Report Name: BREN MALDONADO Age: 46 yrs Gender: Female : 1970 Patient Status: Inpatient Patient Location: [address] [place] [address] Study Date: 05/27/2017 02:38 PM Height: 71 in Weight: 208 lb BSA: 2.1 m2 Procedure: A complete two-dimensional transthoracic echocardiogram was performed (2D, M-mode, spectral and color flow Doppler). The study was technically adequate with some images being suboptimal in quality. 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 Doppler measurements suggest pseudonormalized left ventricular relaxation, which is associated with grade II/IV or mild to moderate diastolic dysfunction The left ventricle is moderately dilated. There is mild concentric left ventricular hypertrophy. There is moderate to severe global hypokinesis of the left ventricle. The right ventricular systolic function is borderline reduced. The right ventricle is moderately dilated. The right atrium is moderately dilated. The left atrium is moderately dilated. There is a moderate to severe amount of mitral regurgitation There is no mitral valve stenosis. There is a mild amount of aortic regurgitation There is no aortic valve stenosis There is a severe amount of tricuspid regurgitation There is servere pulmonary hypertension by echo TR velocity 4.3 M/sec Best estimated RVSP is approximately 75-85 mmHg mm/Hg. MMode/2D Measurements & Calculations RVDd: 3.5 cm LVIDd: 6.9 cm FS: 17.0 % Ao root diam: 2.9 cm IVSd: 1.3 cm LVIDs: 5.8 cm EDV(Teich): 249.9 ml LVPWd: 1.3 cm ESV(Teich): 163.7 ml Ao root area: 6.7 cm2 EF(Teich): 34.5 % LA dimension: 4.6 cm Doppler Measurements & Calculations MV E max alfreda: MV P1/2t max alfreda: Ao V2 max: AI max alfreda: 109.1 cm/sec 109.6 cm/sec 141.2 cm/sec 449.3 cm/sec MV A max alfreda: MV P1/2t: 64.1 msec Ao max PG: AI max P.1 cm/sec 8.0 mmHg 80.7 mmHg MV E/A: 1.6 MVA(P1/2t): 3.4 cm2 AI dec slope: MV dec slope: 501.0 cm/sec2 259.1 cm/sec2 MV dec time: AI P1/2t: 0.21 sec 508.0 msec LV V1 max PG: PA V2 max: PI end-d alfreda: TR max alfreda: 3.3 mmHg 89.3 cm/sec 169.7 cm/sec 433.0 cm/sec LV V1 max: PA max P.2 mmHg TR max P.8 cm/sec 75.0 mmHg Left Ventricle There is mild concentric left ventricular hypertrophy. The left ventricle is moderately dilated. Left ventricular systolic function is severely reduced. Doppler measurements suggest pseudonormalized left ventricular relaxation, which is associated with grade II/IV or mild to moderate diastolic dysfunction. There is moderate to severe global hypokinesis of the left ventricle. Right Ventricle The right ventricle is moderately dilated. The right ventricular systolic function is borderline reduced. Atria The right atrium is moderately dilated. The left atrium is moderately dilated. Interarterial septum not well visualized and not well dopplered. Cannot comment on ASD/PFO presence. Mitral Valve The mitral valve leaflets are sclerotic, but show no functional abnormalities. There is no mitral valve stenosis. There is a moderate to severe amount of mitral regurgitation. Aortic Valve The aortic valve is sclerotic, but shows no functional abnormality. There is no aortic valve stenosis. There is a mild amount of aortic regurgitation. Tricuspid Valve The tricuspid valve is not well visualized secondary to technical limitations. There is no tricuspid stenosis. There is a severe amount of tricuspid regurgitation. There is servere pulmonary hypertension by echo. TR velocity 4.3 M/sec. Best estimated RVSP is approximately 75-85 mmHg mm/Hg. Pulmonic Valve The pulmonic valve is not well seen, but is grossly normal. Great Vessels The aortic root is not well visualized but is probably normal size. The inferior vena cava appeared normal and decreased > 50% with respiration (RAP 5-10 mmHg). Effusions Minimal pericardial effusion. Incidental Findings Pacemaker wire noted. : JOSE ALVAREZ > Jose Alvarez
[2017-05-28] MEDS ORDERED: LANSOPRAZOLE 30 MG TAB.RAP.DR PO SCH (06:00)
== END 2017-05-27 20:18 | disposition short-term general hospital (02) | DRG 445 ==
LOC: ER 23:02 → EH 05-27 04:18 → 4S 05-27 06:43
PROVIDERS: ADMIT Internal Medicine Geriatric Medicine; ATTEND Internal Medicine Geriatric Medicine
DX: K81.0 Acute cholecystitis (principal); I50.42 Chronic combined systolic (congestive) and diastolic (congestive) heart failure; I42.8 Other cardiomyopathies; I11.0 Hypertensive heart disease with heart failure; I34.0 Nonrheumatic mitral (valve) insufficiency; E78.5 Hyperlipidemia, unspecified; F32.9 Major depressive disorder, single episode, unspecified; M32.19 Other organ or system involvement in systemic lupus erythematosus; K81.9 Cholecystitis, unspecified; E11.65 Type 2 diabetes mellitus with hyperglycemia; M32.9 Systemic lupus erythematosus, unspecified; D64.9 Anemia, unspecified; Z95.810 Presence of automatic (implantable) cardiac defibrillator; Z79.82 Long term (current) use of aspirin; Z79.84 Long term (current) use of oral hypoglycemic drugs
CPT/HCPCS: 36415; 71045; 71275; 74176; 76705; 80053; 82550; 82962; 83690; 83880; 84484; 85025; 85379; 93005; 93010; 93306; 96374; 96375; 99285; J1170; J1940; J2543

== ENCOUNTER → 2017-07-25 | Outpatient (CLI) | payer OTHER ==
[2017-07-25 10:43] LABS: ABSOLUTE LYMPHOCYTES (AUTO) 1.2 10^3/uL (0.5-4.7); ABSOLUTE MONOCYTES (AUTO) 0.3 10^3/uL (0.1-1.4); ABSOLUTE NEUT (AUTO) 3.5 10^3/uL (1.7-8.2); BASOPHILS % (AUTO) 0.2 % (0-2); EOSINOPHILS % (AUTO) 0.1 % (0-6); HEMATOCRIT 32.3 % (36.0-47.0); HEMOGLOBIN 10.6 g/dL (12.0-15.5); LYMPHOCYTES % (AUTO) 22.9 % (13-45); MEAN CORPUSCULAR HEMOGLOBIN 30.4 pg (27.0-33.4); MEAN CORPUSCULAR HGB CONC 32.9 g/dL (32.0-36.0); MEAN CORPUSCULAR VOLUME 92 fl (80-97); MONOCYTES % (AUTO) 6.3 % (3-13); PLATELET COUNT 178 10^3/uL (150-450); RED BLOOD COUNT 3.51 10^6/uL (3.72-5.28); RED CELL DISTRIBUTION WIDTH 15.8 % (11.5-14.0); SEGMENTED NEUTROPHILS % (AUTO) 70.5 % (42-78); TOTAL CELLS COUNTED % (AUTO) 100 %
[2017-07-25 11:23] LABS: ERYTHROCYTE SEDIMENTATION RATE 40 mm/hr (0-20)
[2017-07-25 15:18] LABS: ALANINE AMINOTRANSFERASE 29 U/L (9-52); ALBUMIN 3.7 g/dL (3.5-5.0); ALKALINE PHOSPHATASE 63 U/L (38-126); ANION GAP 11 (5-19); ASPARTATE AMINO TRANSFERASE 24 U/L (14-36); BILIRUBIN,DIRECT 0.2 mg/dL (0.0-0.4); BILIRUBIN,TOTAL 0.2 mg/dL (0.2-1.3); BLOOD UREA NITROGEN 20 mg/dL (7-20); CALCIUM 9.5 mg/dL (8.4-10.2); CARBON DIOXIDE 25 mmol/L (22-30); CHLORIDE 107 mmol/L (98-107); GLUCOSE 111 mg/dL (75-110); POTASSIUM 4.2 mmol/L (3.6-5.0); SODIUM 142.7 mmol/L (137-145); TOTAL PROTEIN 7.4 g/dL (6.3-8.2)
[2017-07-25 15:25] LABS: C-REACTIVE PROTEIN < 5.0 mg/L (<10.0)
== END ==
LOC: CCC 09:19
DX: E11.8 Type 2 diabetes mellitus with unspecified complications (principal); D64.9 Anemia, unspecified; M32.0 Drug-induced systemic lupus erythematosus; I50.20 Unspecified systolic (congestive) heart failure; E83.42 Hypomagnesemia; I10 Essential (primary) hypertension
CPT/HCPCS: 36415; 80053; 83036; 83735; 85025; 85652; 86140

== ENCOUNTER → 2017-08-16 | Outpatient (CLI) | payer OTHER ==
--- NOTE | 2017-08-16 11:01 | WOMENS IMAGING REPORT ---
EXAM DESCRIPTION: BONE DENSITY HIP/SPINE COMPLETED DATE/TIME: 08/16/2017 10:25 am REASON FOR STUDY: OTHER [employer] (CURRENT) DRUG THERAPY; Z79.899 Z79.899 OTHER [facility] (CURRENT) DRUG THERAPY COMPARISON: None. TECHNIQUE: Dual-Energy X-ray Absorptiometry (DEXA) of the AP Spine and Hip. LIMITATIONS: None. FINDINGS: LUMBAR SPINE: The bone mineral density (BMD) measured from L1-L4 in the AP projection correlates with a T-score of 0.1, which is normal as defined by the World Health Organization. HIP: The bone mineral density (BMD) measured in the left hip correlates with a T-score of 0.7, which is no rmal as defined by the World Health Organization. IMPRESSION: 1. LUMBAR SPINE: NORMAL. 2. HIP: NORMAL. COMMENT: The World Health Organization defines low BMD as follows: T-score: Normal: Greater than -1.0 Osteopenia: Between -1.0 and -2.5 Osteoporosis: Less than -2.5 without fractures Established osteoporosis: Less than -2.5 with fractures In general, you may wish to consider: Diagnosis Treatment Follow-up DEXA Normal BMD Prevention 2-3 years Osteopenia Prevention/Therapy 1-2 years Osteoporosis Therapy Yearly TECHNICAL DOCUMENTATION: JOB ID: [id number] [employer]- All Rights Reserved Reading location - IP/workstation name: [email or web address]
== END ==
LOC: WI 09:57
DX: R94.5 Abnormal results of liver function studies (principal); Z79.899 Other long term (current) drug therapy
CPT/HCPCS: 77080

== ENCOUNTER 2017-09-14 06:56 | Inpatient (IN) | payer SELFPAY ==
[2017-09-14 08:48] LABS: ABSOLUTE LYMPHOCYTES (AUTO) 1.9 10^3/uL (0.5-4.7); ABSOLUTE MONOCYTES (AUTO) 0.6 10^3/uL (0.1-1.4); ABSOLUTE NEUT (AUTO) 3.3 10^3/uL (1.7-8.2); BASOPHILS % (AUTO) 0.3 % (0-2); EOSINOPHILS % (AUTO) 0.1 % (0-6); HEMATOCRIT 33.7 % (36.0-47.0); HEMOGLOBIN 11.1 g/dL (12.0-15.5); LYMPHOCYTES % (AUTO) 32.9 % (13-45); MEAN CORPUSCULAR HEMOGLOBIN 30.1 pg (27.0-33.4); MEAN CORPUSCULAR HGB CONC 32.9 g/dL (32.0-36.0); MEAN CORPUSCULAR VOLUME 92 fl (80-97); MONOCYTES % (AUTO) 9.9 % (3-13); PLATELET COUNT 157 10^3/uL (150-450); RED BLOOD COUNT 3.68 10^6/uL (3.72-5.28); RED CELL DISTRIBUTION WIDTH 14.8 % (11.5-14.0); SEGMENTED NEUTROPHILS % (AUTO) 56.8 % (42-78); TOTAL CELLS COUNTED % (AUTO) 100 %; WHITE BLOOD COUNT 5.9 10^3/uL (4.0-10.5)
[2017-09-14 08:52] LABS: ALANINE AMINOTRANSFERASE 159 U/L (9-52); ALBUMIN 3.5 g/dL (3.5-5.0); ALKALINE PHOSPHATASE 208 U/L (38-126); ANION GAP 12 (5-19); ASPARTATE AMINO TRANSFERASE 150 U/L (14-36); BILIRUBIN,DIRECT 0.4 mg/dL (0.0-0.4); BILIRUBIN,TOTAL 0.4 mg/dL (0.2-1.3); BLOOD UREA NITROGEN 22 mg/dL (7-20); CARBON DIOXIDE 26 mmol/L (22-30); CHLORIDE 108 mmol/L (98-107); GLUCOSE 87 mg/dL (75-110); LIPASE 258.8 U/L (23-300); POTASSIUM 3.9 mmol/L (3.6-5.0); SODIUM 146.4 mmol/L (137-145); TOTAL PROTEIN 7.1 g/dL (6.3-8.2)
--- NOTE | 2017-09-14 08:54 | ER Document Report ---
ED Cardiac - General Mode of Arrival: Ambulatory Information source: Patient TRAVEL OUTSIDE OF THE [place] IN LAST 30 DAYS: No <VIANCA VELAZQUEZ - Last Filed: 09/14/17 09:43> <JAMILNESTOR Ambrosio - Last Filed: 09/15/17 06:25> - General Chief Complaint: Chest Pain Stated Complaint: CHEST PAIN Time Seen by Provider: 09/14/17 08:32 Notes: Patient is a 47-year-old female with lupus and congestive heart failure with pacemaker/defibrillator that presents to the emergency department today with complaints of chest pain with associated shortness of breath for the last 2 days. Patient states she was walking around her house when her symptoms began. Patient states her pain increased this morning and it was a "pressure" sensation. Patient has had dyspnea on exertion and a slight cough. Patient denies any radiation of her pain, history of SD, fevers, or history of heart murmur. (VIANCA VELAZQUEZ) - Related Data Allergies/Adverse Reactions: No Known Allergies Allergy (Verified 09/14/17 13:33) Past Medical History - General Information source: Patient - Social History Smoking Status: Never Smoker Cigarette use (# per day): No Chew tobacco use (# tins/day): No Frequency of alcohol use: None Drug Abuse: None Lives with: Family Family History: Hypertension, Other - CHF Patient has suicidal ideation: No Patient has homicidal ideation: No - Past Medical History Cardiac Medical History: Reports: Hx Congestive Heart Failure - combined systolic and diastolic dysfunction; nonischemic cardiomyopathy., Hx Hypercholesterolemia, Hx Hypertension, 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; AR mild Pulmonary Medical History: Reports: Hx Pneumonia Endocrine Medical History: Reports: Hx Diabetes Mellitus Type 2 Psychiatric Medical History: Reports: Hx Depression Past Surgical History: Reports: Hx Cardiac Surgery - pacer/defib, Hx Section - 1995, Hx Pacemaker - AICD implant - Immunizations Immunizations up to date: Yes Hx Diphtheria, Pertussis, Tetanus Vaccination: Yes Hx Pneumococcal Vaccination: 12/19/08 <VIANCA VELAZQUEZ - Last Filed: 09/14/17 09:43> Review of Systems - Review of Systems Constitutional: No symptoms reported EENT: No symptoms reported Cardiovascular: See HPI, Chest pain, Dyspnea Respiratory: See HPI, Cough, Short of breath Gastrointestinal: No symptoms reported Genitourinary: No symptoms reported Female Genitourinary: No symptoms reported Musculoskeletal: No symptoms reported Skin: No symptoms reported Hematologic/Lymphatic: No symptoms reported Neurological/Psychological: No symptoms reported -: Yes All other systems reviewed and negative <VIANCA VELAZQUEZ - Last Filed: 09/14/17 09:43> Physical Exam <VIANCA VELAZQUEZ - Last Filed: 09/14/17 09:43> <JAMILNESTOR - Last Filed: 09/15/17 06:25> - Vital signs Vitals: Temp Pulse Resp BP Pulse Ox 98.6 F 77 20 150/102 H 98 09/14/17 07:25 09/14/17 07:25 09/14/17 07:25 09/14/17 07:25 09/14/17 07:25 - Notes Notes: Physical Exam: General: Alert, appears well. HEENT: Normocephalic. Atraumatic. PERRL. Extraocular movements intact. Oropharynx clear. Neck: Supple. Non-tender. Respiratory: Appears mildly short of breath, faint crackles in the left base. Cardiovascular: Regular rate and rhythm. Faint systolic murmur. Abdominal: Normal Inspection. Non-tender. No distension. Normal Bowel Sounds. Back: Non-tender. No deformity or step off. Extremities: Moves all four extremities. Upper extremities: Normal inspection. Normal ROM. Lower extremities: Normal inspection. No edema. Normal ROM. Neurological: Normal cognition. AAOx4. Normal speech. Psychological: Normal affect. Normal Mood. Skin: Warm. Dry. Normal color. (CAROLINEDONNYVIANCA) Course - Laboratory Result Diagrams: 09/14/17 08:00 09/14/17 08:00 <CAROLINEDONNYVIANCA - Last Filed: 09/14/17 09:43> - Laboratory Result Diagrams: 09/14/17 08:00 09/14/17 08:00 - Diagnostic Test Radiology reviewed: Reports reviewed - Cardiomegaly <JAMILNESTOR Valente - Last Filed: 09/15/17 06:25> - Re-evaluation Re-evalutation: 09/14/17 10:44 Patient will be admitted for further rubs observation. Patient found to have equivocal troponin not much more elevated then her previous electronic medical record show. Patient found to have hypertension provided Lasix and nitroglycerin tabs. Discussed her case with Dr. Mehta, recommended echocardiogram due to reflux of contrast in the hepatic veins concerning for pulmonary hypertension. No signs of pericardial effusion. Patient will be provided aspirin. Recommended to SUKHDEEP Eisenberg who will be admitting to follow echocardiogram and to also trend troponins. Patient had a run of nonsustained V. tach on rhythm strip. Repeat EKG did not show any acute new changes. (NESTOR NEGRON) - Vital Signs Vital signs: Temp Pulse Resp BP Pulse Ox 99.1 F 71 18 149/110 H 95 09/15/17 00:02 09/15/17 02:00 09/15/17 00:02 09/15/17 00:02 09/15/17 00:02 - Laboratory Laboratory results interpreted by me: 09/14/17 09/14/17 09/14/17 08:00 08:00 08:00 RBC 3.68 L Hgb 11.1 L Hct 33.7 L RDW 14.8 H Sodium 146.4 H Chloride 108 H BUN 22 H Est GFR (Non-Af Amer) 53 L AST 150 H ALT 159 H Alkaline Phosphatase 208 H NT-Pro-B Natriuret Pep 94421 H - EKG Interpretation by Me Additional EKG results interpreted by me: 7:07am Rate 83, atrial sensed ventricular paced rhythm, left axis deviation 10:30am Rate 81, atrial sensed ventricular paced rhythm, left axis deviation, no significant findings from previous (NESTOR NEGRON) Critical Care Note <VIANCA VELAZQUEZ - Last Filed: 09/14/17 09:43> - Critical Care Note Total time excluding time spent on procedures (mins): 35 <NESTOR NEGRON - Last Filed: 09/15/17 06:25> - Critical Care Note Comments: Nonsustained V. tach, chest pain (NESTOR NEGRON) Discharge <VIANCA VELAZQUEZ - Last Filed: 09/14/17 09:43> - Discharge Admitting Provider: [facility] Admitted: [facility] <NESTOR NEGRON - Last Filed: 09/15/17 06:25> - Discharge Clinical Impression: Elevated troponin Chest pain Qualifiers: Chest pain type: unspecified Qualified Code(s): R07.9 - Chest pain, unspecified Pulmonary edema Qualifiers: Chronicity: acute Qualified Code(s): J81.0 - Acute pulmonary edema Hypertension Qualifiers: Hypertension type: essential hypertension Qualified Code(s): I10 - Essential ( primary) hypertension Condition: Fair Disposition: ADMITTED INPATIENT Scribe Attestation: 09/15/17 06:25 I personally performed the services described documentation, reviewed and edited the documentation which was dictated to describe my presence, and it accurately records my words and actions. (NESTOR NEGRON) Scribe Documentation - Scribe Written by Scribe:: Uzair Hannah, 09/14/2017 1000 acting as scribe for :: Jamil <VIANCA VELAZQUEZ - Last Filed: 09/14/17 09:43>
[2017-09-14 09:06] LABS: TROPONIN I 0.046 ng/mL
--- NOTE | 2017-09-14 09:29 | RADIOLOGY REPORT (SQ) ---
EXAM DESCRIPTION: CHEST SINGLE VIEW COMPLETED DATE/TIME: 09/14/2017 9:17 am REASON FOR STUDY: chest pain COMPARISON: 05/26/2017. NUMBER OF VIEWS: One view. TECHNIQUE: Single frontal radiographic view of the chest acquired. LIMITATIONS: None. FINDINGS: LUNGS AND PLEURA: Haziness of the vessels, chronic or recurrent central vascular congestio n. No significant pleural effusion or pneumothorax. No overt pneumonia. MEDIASTINUM AND HILAR STRUCTURES: Stable contours. Uncoiled aorta. HEART AND VASCULAR STRUCTURES: Cardiac enlargement, chronic. BONES: No acute findings. HARDWARE: Left pacer as before. OTHER: No other significant finding. IMPRESSION: Chronic or recurrent cardiomegaly with mild vascular congestion. TECHNICAL DOCUMENTATION: JOB ID: [id number] [employer]- All Rights Reserved Reading location - IP/workstation name: [email or web address]
--- NOTE | 2017-09-14 09:55 | RADIOLOGY REPORT (SQ) ---
EXAM DESCRIPTION: CTA CHEST COMPLETED DATE/TIME: 09/14/2017 9:31 am REASON FOR STUDY: SOB, HX OF Lupus, R/O PE vs pericardial effusion COMPARISON: CT chest 04/24/2012, 11/22/2015, 05/27/2017 TECHNIQUE: CT scan of the chest performed using helical scanning technique with dynamic intravenous contrast injection. Images reviewed with lung, soft tissue and bone windows. Reconstructed coronal and sagittal MPR images reviewed. Additional 3 dimensional post-processing performed to develop Maximal Intensity Projection images (RI P). All images stored on PACS. All CT scanners at this facility use dose modulation, iterative reconstruction, and/or weight based d osing when appropriate to reduce radiation dose to as low as reasonably achievable (ALARA). [facility]: Dose Right [facility]: CareDose [facility]: Dose Right [facility]: Teradose 4D [facility]: ThermaSource CONTRAST TYPE AND DOSE: contrast/concentration: Isovue 370.00 mg/ml; Total Contrast Delivered: 78.0 ml; Total Saline Delivered: 90.0 ml Contrast bolus optimized for the pulmonary arteries. Not diagnostic for the aorta. RENAL FUNCTION: Creatinine 1.1 RADIATION DOSE: CT Rad equipment meets quality standard of care and radiation dose reduction techniq ues were employed. CTDIvol: 16.3 - 26.4 mGy. DLP: 563 mGy-cm. . LIMITATIONS: None. FINDINGS: LUNGS AND PLEURA: There is minimal ground-glass opacity at both lung bases, and very mild thickening of the interlobular septa, likely indicating mild alveolar and interstitial edema. No dense consolidation worrisome for pneumonia. Trace right pleural fluid in the posterior costophre andreina sulcus. AORTA AND GREAT VESSELS: No aneurysm. Contrast bolus not optimized for the aorta. HEART: No pericardial effusion. Massive cardiomegaly is present with dilatation of the left and right ventricles. There is reflux of injected contrast down a dilated IVC into hepatic veins. PULMONARY ARTERIES: No emboli visualized in the main pulmonary arteries or the segmental branches. HILAR AND MEDIASTINAL STRUCTURES: No identified masses or abnormal nodes. HARDWARE: Left-sided pacemaker. UPPER ABDOMEN: Mild ascites in the right subphrenic space and right upper quadrant. THYROID AND OTHER SOFT TISSUES: No masses. No adenopathy. BONES: No acute or significant finding. 3D MIPS: Confirm above findings. OTHER: No other significant finding. IMPRESSION: Massive cardiomegaly. Evidence of right heart dysfunction with reflux of contrast from the right atrium into the hepatic veins. No pericardial effusion Mild alveolar and interstitial pulmonary edema, with trace right pleural effusion COMMENT: Quality ID # [id number]: Final reports with documentation of one or more dose reduction techniques (e.g., Automated exposure control, adjustment of the mA and/or kV according to patient size, use of iterative reconstruction technique) TECHNICAL DOCUMENTATION: JOB ID: [id number] [employer]- All Rights Reserved Reading location - IP/workstation name: [email or web address]
[2017-09-14] MEDS ORDERED: ASPIRIN 81 MG TABLET, CHEWABLE PO ONE (10:33)
[2017-09-14] MEDS: NITROGLYCERIN 0.4 MG/TAB 25 TAB/BOTTLE SL PRN ×2 (10:38→10:46)
[2017-09-14] MEDS ORDERED: FUROSEMIDE INJ/PF 40 MG/4 ML SDV IV ONE ×2 (10:38→15:45)
[2017-09-14] MEDS ORDERED: ONDANSETRON 4 MG TAB.RAPDIS PO PRN (12:25)
[2017-09-14] MEDS ORDERED: ACETAMINOPHEN 325 MG TABLET PO PRN (12:25)
[2017-09-14] MEDS ORDERED: METOPROLOL SUCCINATE 50 MG TAB.SR.24H PO ONE (14:30)
[2017-09-14] MEDS ORDERED: LISINOPRIL 10 MG TABLET PO ONE (15:45)
[2017-09-14] MEDS ORDERED: FUROSEMIDE INJ/PF 100 MG/10 ML SDV IV ONE (17:00)
[2017-09-14] MEDS: PREDNISONE 10 MG TABLET PO SCH (17:13)
--- NOTE | 2017-09-14 18:12 | PDOC H&P ---
History of Present Illness Admission Date/PCP: 09/14/17 11:33 Patient complains of: chest pain History of Present Illness: BREN MALDONADO is a 47 year old female who presented to the emergency department for a 2 day history of chest pain and shortness of breath. Patient states that her symptoms began 2 days ago. She reports that her chest pain is localized to the midsternal area, radiating to her neck and left anterior chest wall. The patient reports that her symptoms are constant and describes the sensation as 'someone is sitting on my chest.' Patient states that she took Tylenol for her pain but it offered no relief. She states that her symptoms are exacerbated with any type of activity. The patient reports 2 pillow orthopnea, which is uncommon for her. 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 EKG demonstrates paced rhythm, no evidence of acute infarction or ischemia. Of note, while in the ED the patient experienced a ~30 second run of VTACH. Troponin 0.04 (baseline for this patient is 0.02-0.04 ). BNP 02278. AST 150 ALT 159. ALK PHOS 208. No other significant lab work. CXR shows cardiomegaly. CTA chest also reveals cardiomegaly and evidence of right heart dysfunction as evidenced by reflux of contrast dye from right atrium to hepatic veins. No PE. No pericardial effusion. Mild interstitial edema with trace right pleural effusion. It was self-limiting, no treatment initiated. The patient was given Lasix 40mg IV, 2 SL Nitro tablets, and 325mg ASA. Upon assessment, is resting comfortably in bed on supplemental oxygen. She is complaining of midsternal chest pain that is reproducible to palpation. Her lung sounds are clear to auscultation. No evidence of peripheral edema. Palpable pulses in all 4 extremities. Given her complicated medical history and troublesome symptoms, the patient has been admitted to the hospitalist service. Cardiology has been consulted. Past Medical History Cardiac Medical History: Reports: Congestive Heart Failure - combined systolic and diastolic dysfunction; nonischemic cardiomyopathy., Hyperlipidema, Hypertension, 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; AR mild Pulmonary Medical History: Reports: Pneumonia Neurological Medical History: Denies: Seizures Endocrine Medical History: Reports: Diabetes Mellitus Type 2 Denies: Diabetes Mellitus Type 1, Hyperthyroidism, Hypothyroidism GI Medical History: Denies: Cirrhosis, Gastroesophageal Reflux Disease, Hepatitis Musculoskeltal Medical History: Denies: Arthritis Musculoskeletal History Note: LUPUS Psychiatric Medical History: Denies: Depression Hematology: Reports: Anemia Past Surgical History Past Surgical History: Reports: Section - 1995, Pacemaker - AICD implant Social History Information Source: Patient Lives with: Family Smoking Status: Never Smoker Frequency of Alcohol Use: None Hx Recreational Drug Use: No Drugs: None Hx Prescription Drug Abuse: No - Advance Directive Resuscitation Status: Full Code Family History Family History: Hypertension, Malignancy, Other - CHF Parental Family History Reviewed: Yes Children Family History Reviewed: Yes Sibling(s) Family History Reviewed.: Yes Medication/Allergy Home Medications: Aspirin [Aspirin 81 mg Chewable Tablet] 81 mg PO DAILY 05/27/17 Metoprolol Succinate [Toprol XL 100 mg Tablet] 100 mg PO DAILY 05/27/17 Prednisone [Deltasone 20 mg Tablet] 10 mg PO DAILY 05/27/17 Calcium Carbonate/Vitamin D3 [Os-Simon 500-Vit D3 200 Caplet] 1 tab PO BID Fluoxetine HCl [Fluoxetine HCl] 20 mg PO DAILY 09/14/17 Furosemide [Lasix 40 mg Tablet] 40 mg PO BID 09/14/17 Lisinopril [Prinivil 5 mg Tablet] 5 mg PO DAILY 09/14/17 Magnesium Oxide [Mag-Ox 400 mg Tablet] 400 mg PO BID 09/14/17 Metformin HCl [Metformin HCl ER] 500 mg PO BID 09/14/17 Allergies/Adverse Reactions: No Known Allergies Allergy (Verified 09/14/17 13:33) Review of Systems All systems: reviewed and no additional remarkable complaints except as stated Physical Exam Vital Signs: Temp Pulse Resp BP Pulse Ox 97.8 F 78 18 140/90 H 100 09/14/17 14:47 09/14/17 14:47 09/14/17 14:47 09/14/17 16:27 09/14/17 14:47 Intake & Output 09/13/17 09/14/17 09/15/17 06:59 06:59 06:59 Weight 94.9 kg General appearance: PRESENT: no acute distress Eye exam: PRESENT: PERRLA Mouth exam: PRESENT: moist Neck exam: PRESENT: full ROM Respiratory exam: PRESENT: clear to auscultation mati, symmetrical, unlabored Cardiovascular exam: PRESENT: diastolic murmur - holosystolic, +S1, +S2, systolic murmur, other - PACED Pulses: PRESENT: normal radial pulses, normal dorsalis pedis pul Vascular exam: PRESENT: normal capillary refill GI/Abdominal exam: PRESENT: normal bowel sounds, soft. ABSENT: tenderness Rectal exam: PRESENT: deferred Extremities exam: PRESENT: full ROM. ABSENT: joint swelling, pedal edema Musculoskeletal exam: PRESENT: ambulatory, full ROM Neurological exam: PRESENT: alert, awake, oriented to person, oriented to place , oriented to time, oriented to situation Psychiatric exam: PRESENT: appropriate affect Skin exam: PRESENT: dry, intact, warm Results Laboratory Results: 09/14/17 13:37 C-Reactive Protein 12.0 H 09/14/17 09/14/17 13:37 13:37 Creatine Kinase 39 Troponin I 0.034 Impressions: Chest X-Ray 09/14/17 08:34 IMPRESSION: Chronic or recurrent cardiomegaly with mild vascular congestion. Chest/Abdomen CTA 09/14/17 08:56 IMPRESSION: Massive cardiomegaly. Evidence of right heart dysfunction with reflux of contrast from the right atrium into the hepatic veins. No pericardial effusion Mild alveolar and interstitial pulmonary edema, with trace right pleural effusion Status: Imported from PACS Assessment & Plan - Diagnosis (1) Chest pain Qualifiers: Chest pain type: unspecified Qualified Code(s): R07.9 - Chest pain, unspecified Is this a current diagnosis for this admission?: Yes Plan: Patient presents with 2 day history of chest pain and shortness of breath. EKG demonstrates paced rhythm, no evidence of acute ischemia or infarction Troponin 0.04, now trending down to 0.036. Looking back through old records, the patient's troponin is typically between 0.02-0.04 CXR and CTA chest demonstrates cardiomegaly. CTA chest specifically demonstrates significant pulmonary hypertension as evidenced by IV contrast dye refluxed from right atrium into hepatic veins. No pericardial effusion. Mild interstitial edema. Continue diuresis with scheduled IV lasix Patient has a history of costochondritis, relieved with steroids. Plan to administer single dose of SoluMedrol 125mg IV. Will re-evaluate tomorrow, plan to restart home dose steroids. Cardiology consulted, appreciate their recommendations Plan for ECHOcardiogram tomorrow (2) Congestive heart failure Qualifiers: Heart failure type: unspecified Heart failure chronicity: unspecified Qualified Code(s): I50.9 - Heart failure, unspecified Is this a current diagnosis for this admission?: Yes Plan: Patient endorses history of CHF. Cardiomegaly seen on CXR. BNP >16,000 Diuresed in ED with Lasix 40mg IV, plan for another dose this evening. Will re-evaluate tomorrow, plan to restart home dose PO lasix (3) Hypertension Qualifiers: Hypertension type: essential hypertension Qualified Code(s): I10 - Essential (primary) hypertension Is this a current diagnosis for this admission?: Yes Plan: Patient endorses history of HTN. Continue home dose Toprol-XL. (4) Hyperlipidemia Qualifiers: Is this a current diagnosis for this admission?: Yes Plan: Patient endorses history of HLD, but she does not take cholesterol-lowering medication. Plan to check lipid panel with a.m. labs. (5) Lupus Qualifiers: Systemic lupus erythematosus type: unspecified Is this a current diagnosis for this admission?: Yes Plan: Patient endorses history of lupus. She currently takes prednisone 10 mg p.o. daily. Plan to continue prednisone, but increase dose to 15 mg p.o. daily. No plan for stress dose steroids at this time. Check CRP and ESR with AM labs (6) Diabetes Qualifiers: Diabetes mellitus type: type 2 Diabetes mellitus complication status: without complication Is this a current diagnosis for this admission?: Yes Plan: Patient endorses history of diabetes. Check hemoglobin A1c with a.m. labs. Accu-Cheks before meals at bedtime. Humalog sliding scale insulin. (7) Murmur, cardiac Is this a current diagnosis for this admission?: Yes Plan: New holosystolic murmur. Cardiology aware. ECHOcardiogram tomorrow - Time Time Spent: 50 to 70 Minutes Medications reviewed and adjusted accordingly: Yes Anticipated discharge: Home - Inpatient Certification Based on my medical assessment, after consideration of the patient's comorbidities, presenting symptoms, or acuity I expect that the services needed warrant INPATIENT care.: Yes I certify that my determination is in accordance with my understanding of Medicare's requirements for reasonable and necessary INPATIENT services [42 CFR 412.3e].: Yes Medical Necessity: Risk of Complication if Not Cared For in Hospital - Plan Summary Plan Summary: CARDIOLOGY CONSULTED. PLAN FOR ECHO TOMORROW. CONTINUE DIURESIS.
[2017-09-14] MEDS ORDERED: METHYLPREDNISOLONE INJ 125 MG/2 ML SDV IV ONE ×2 (18:30→22:00)
[2017-09-14] MEDS ORDERED: FUROSEMIDE INJ/PF 40 MG/4 ML SDV IV SCH (22:00)
[2017-09-14] MEDS ORDERED: LISINOPRIL 5 MG TABLET PO SCH (22:00)
[2017-09-14] MEDS: LISINOPRIL 10 MG TABLET PO SCH (22:01)
[2017-09-14] MEDS: FUROSEMIDE INJ/PF 40 MG/4 ML SDV IV SCH (22:01)
--- NOTE | 2017-09-14 22:45 | CONSULTATION REPORT E ---
Consultation Report NAME: BREN MALDONADO : 1970 AGE: 47Y DATE: 08/20/2017 ROOM: 330 A TO: FARRUKH MARSHALL M.D. FROM: SALAS CARPIO M.D. Requesting Physician REASON FOR CONSULTATION: Chest pain and patient with symptoms of congestive heart failure, biventricular. HISTORY OF PRESENT ILLNESS: The patient is a 47-year-old -[place] female with known history of lupus, dilated cardiomyopathy with severe pulmonary hypertension and history of hypertension who comes in with a history of 3-4 days of increasing shortness of breath with rest, shortness of breath with PND and orthopnea and really no major leg edema. She also has been having chest pain which is reproduced by pressing on the chest or by movements of the chest wall. There are no clear cut anginal symptoms. Note that the patient had a cardiac catheterization about 2 years ago which showed normal coronaries and the patient has a dilated cardiomyopathy and had an AICD placed. There is no firing of the AICD. There are no palpitations. There is no syncope or near syncope. In the emergency room the patient had a run of nonsustained ventricular tachycardia, but the patient was asymptomatic. She denies any fever, chills, or cough. There is no wheezing. The patient has a history of noncardiac chest pain. PAST MEDICAL HISTORY: Positive for history of noncardiac chest pain. The patient does not have any significant coronary artery disease. She has a history of hypertension. She has a past history of pericardial effusion and bilateral pleural effusion and was transferred to [facility], [place] for possible pericardiocentesis in view of the moderate pericardial effusion. But the patient did not have a pericardiocentesis and at that time a diagnosis of systemic lupus erythematosus. She was treated and the patient is being followed by a cattle knocker in [place] and she recently saw him and she was told that her SLE was stable. She has no history of diabetes mellitus or thyroid disease. There is no history of asthma or COPD. She has a history of sleep apnea and states that she wears a CPAP. She also had renal failure in the past, but this normalized and this admission the patient's renal function is within normal limits with a GFR greater than 60. There is no history of TIA or CVA. There is no history of anxiety or depression. There are no seizures. PAST SURGICAL HISTORY: Positive for history of cardiac catheterization, AICD placement with lead in the right atrium and lead in the right ventricle and lead in the coronary sinus. History of . FAMILY HISTORY: Positive for hypertension. SOCIAL HISTORY: The patient does not smoke. There is no history of EtOH abuse. ADVANCE DIRECTIVES: The patient is a full code. Her mother is the surrogate healthcare decision maker. ALLERGIES: She has no known allergies. MEDICATIONS: 1. Tylenol 650 mg p.o. q.4 hours p.r.n. 2. Aspirin 324 mg p.o. x1 and aspirin 81 mg p.o. daily. 3. Lovenox 30 mg subcutaneously daily. 4. She was on Lasix 40 mg p.o. t.i.d. 5. Lisinopril 10 mg p.o. daily. 6. Toprol XL 100 mg p.o. daily. 7. Zofran 4 mg p.o. q.6 hours p.r.n. 8. At home she used to be in Deltasone 10 mg p.o. b.i.d. REVIEW OF SYSTEMS: CONSTITUTIONAL: Denies any fever, chills, or rigors. Complains of generalized fatigue and weakness. HEAD: Denies headaches or head injury. No dizziness. EYES: No history of amblyopia or diplopia. No history of amaurosis fugax. EARS: No history of hearing loss. No history of tinnitus. No history of recurrent ear infections. NOSE: No history of hay fever. No history of nosebleeds. No history of nasal polyps. MOUTH: No history of altered taste sensation. No history of ulcers in the mouth. No bleeding from the gums. THROAT: No odynophagia or dysphagia. No history of recurrent sore throats. SKIN: No pruritus. No ecchymosis. No yellowish discoloration of the skin. No psoriasis. NECK: No neck pain, no neck swelling, no goiter. LUNGS: No history of asthma or COPD. History of sleep apnea on CPAP. No history of pulmonary embolism. No history of pleuritic chest pain. The patient has severe pulmonary hypertension. Her May echo showed a pulmonary hypertension with right ventricular systolic pressure of 75-85 mmHg. She has no history of hemoptysis. She has a past history of chest wall pain reproducible. BREASTS: Not examined. At present no symptoms related to the breasts. CARDIAC: History of nonischemic dilated cardiomyopathy with severely reduced ejection fraction. History of congestive heart failure in the past. The patient also has severe pulmonary hypertension. She has symptom of biventricular failure, although there is not much leg edema, but she does have some sacral edema. There are no palpitations or firing of her AICD. She has a history of biventricular AICD. The patient denies any recent firing of the AICD. There is no history of syncope. MUSCULOSKELETAL: No history of arthritis. The patient has systemic lupus erythematosus. METABOLIC: Denies hyperlipidemia or gout. RENAL: Past history of renal failure, at present GFR is greater than 60. No symptoms of UTI. No history of hematuria, pyuria, or dysuria. GASTROINTESTINAL: No history of GERD. No history of peptic ulcer disease. No history of fatty food intolerance. No altered bowel movements. CENTRAL NERVOUS SYSTEM: No history of TIA or CVA. No history of headaches, migraines, or seizures. No history of gait imbalance. PSYCHIATRIC: No history of anxiety. History of depression well-controlled with Prozac. No suicidal ideation. VASCULAR: No history of calf or buttock claudication, no history of DVT. HEMATOLOGICAL: No history of bleeding diathesis. No history of clotting disorders. The patient has a history of anemia in the past, but at present her hemoglobin is slightly low at 11.1. ENDOCRINE: The patient does have diabetes mellitus noninsulin dependent type 2. She has no thyroid disease. There is no polydipsia or polyuria. There is no heat or cold intolerance. PHYSICAL EXAMINATION: GENERAL: On examination the patient is mildly obese but well-groomed, at present in no acute distress at rest. VITAL SIGNS: She is afebrile. Her temperature is 97.8 degrees Fahrenheit, pulse is 82 beats per minute, blood pressure is 143/105, respirations are 20 per minute, O2 saturations are 96% on room air. HEENT: Head is atraumatic, normocephalic. Eyes: Pupils are equal, round and regular, reactive to light and accommodation. Extraocular movements are normal. There is no conjunctival pallor. There is no scleral icterus. Ears: Tympanic membranes are intact, external auditory canals are clear. Nose: There is no deviated nasal septum. There is no inflammation of the nasal mucous membrane. Mouth: Mucous membranes of the mouth are moist. Tongue is moist. There are no ulcers. There is no bleeding from the gums. Throat: There is no redness of the oropharynx. There are no exudates. SKIN: There are no skin rashes. There is no petechiae or ecchymosis. There is no yellowish discoloration of the skin. NECK: Supple. There is JVD present. There is no lymphadenopathy. There is no goiter. Carotids are equal. There is no bruit. Trachea is central. LUNGS: Show bibasilar rales of CHF. HEART: S1, S2 is heard. There is no S3 gallop. There is no S4 gallop. There is a systolic murmur of mitral regurgitation present. There is no rub. ABDOMEN: Soft, nontender. There is no hepatosplenomegaly. Bowel sounds are well heard. There are no tender areas or masses. No definite evidence of ascites. EXTREMITIES: Femorals are diminished. There are no femoral bruits. Leg pulses are diminished. There is trace pedal edema bilaterally. There is no cyanosis or clubbing. There is no DVT or cellulitis. There is no calf tenderness. CENTRAL NERVOUS SYSTEM: The patient is conscious, awake, alert and oriented x3 with no focal deficits. PSYCHIATRIC: The patient's judgment and insight are intact. Her affect is normal. DIAGNOSTICS: Note that the patient had an echo done here. The patient's CT scan of the chest with contrast shows massive cardiomegaly, evidence of right heart increased function with reflux of contrast from the right atrium into the hepatic veins. No pericardial effusion. Mild alveolar interstitial pulmonary edema with trace right pleural effusion. The patient's EKG shows atrial sensed and ventricular paced rhythm. A chest x-ray shows cardiomegaly and CHF. Her sed rate is elevated at 24. Her white count is 5900, hemoglobin 11.1, hematocrit is 33.7, platelet count is 157,000. The patient's sodium is 146.4, potassium is 3.9, chloride is 108, CO2 is 26. The patient's BUN is 22, creatinine is 1.11, GFR is greater than 60, and her liver function tests are abnormal with an AST of 150, ALT of 159, alk-phos of 208. Her troponin I is 0.046 and 0.034. Her NT-proBNP is 16,400. Her c-reactive protein is mildly elevated at 12. IMPRESSION: 1. Chest wall pain, noncardiac. Note that the patient has been given a bolus of steroids. 2. Biventricular failure, left more than right. Would recommend increase the patient's lisinopril, continue the patient's Toprol XL and would also change the Lasix to IV Lasix at 40 mg IV q.8 hours, first dose now. 3. Dilated cardiomyopathy. 4. No evidence of coronary artery disease. 5. Biventricular ACID. 6. Hypertension, not well-controlled. May have to increase the patient's lisinopril further. If the blood pressure continues to keep up then would recommend transfer to ICU to start the patient on a nicardipine drip (Cardene drip). 7. Diabetes mellitus type 2 noninsulin dependent. 8. Systemic lupus erythematosus. Seems to be at present in remission since the sed rate and the CRP are not very high. 9. Nonsustained ventricular tachycardia. The patient is asymptomatic. The patient does have an AICD which has not fired. 10. Depression, well-controlled on current medication. 11. Severe pulmonary hypertension with right ventricular failure. 12. Biventricular failure, left heart failure more than right heart failure. RECOMMENDATIONS: As mentioned earlier would increase the patient's Deltasone/prednisone to 15 mg p.o. b.i.d. Note that the patient at home was on 10 mg p.o. b.i.d. As mentioned earlier would continue the patient's Toprol XL and the patient's lisinopril which has been increased by me. May need further increase in the dosage. Echo was discussed with the patient. If the patient's shortness of breath continues then may transfer the patient to ICU to start the patient on a Levophed drip in view of the patient's severe pulmonary hypertension. Would also have the patient follow up in pulmonary hypertension clinic in [facility]. TIME SPENT: Note the patient was seen at 11 a.m. with 60 minutes spent on this patient with more than 50% of the time spent on direct patient care. Her medications have been reviewed and adjusted. I discussed with the attending physician taking care of the patient. Also medical decision making is of high complexity. Will follow with you. DICTATING PHYSICIAN: FARRUKH MARSHALL M.D. [id number] PHY#: [id number] ID: [id number] JOB#: [id number] ACCT: [id number] cc:FARRUKH MARSHALL M.D. > MTDD
[2017-09-15] MEDS: FUROSEMIDE INJ/PF 40 MG/4 ML SDV IV SCH ×3 (06:01→21:06)
[2017-09-15 06:48] LABS: ABSOLUTE MONOCYTES (AUTO) 0.1 10^3/uL (0.1-1.4); ABSOLUTE NEUT (AUTO) 3.7 10^3/uL (1.7-8.2); BASOPHILS % (AUTO) 0.6 % (0-2); HEMATOCRIT 35.1 % (36.0-47.0); HEMOGLOBIN 11.4 g/dL (12.0-15.5); LYMPHOCYTES % (AUTO) 20.4 % (13-45); MEAN CORPUSCULAR HEMOGLOBIN 29.7 pg (27.0-33.4); MEAN CORPUSCULAR HGB CONC 32.6 g/dL (32.0-36.0); MEAN CORPUSCULAR VOLUME 91 fl (80-97); MONOCYTES % (AUTO) 2.8 % (3-13); PLATELET COUNT 151 10^3/uL (150-450); RED BLOOD COUNT 3.84 10^6/uL (3.72-5.28); RED CELL DISTRIBUTION WIDTH 14.9 % (11.5-14.0); SEGMENTED NEUTROPHILS % (AUTO) 76.2 % (42-78); TOTAL CELLS COUNTED % (AUTO) 100 %; WHITE BLOOD COUNT 4.9 10^3/uL (4.0-10.5)
[2017-09-15 07:07] LABS: ALANINE AMINOTRANSFERASE 121 U/L (9-52); ALBUMIN 3.4 g/dL (3.5-5.0); ALKALINE PHOSPHATASE 201 U/L (38-126); ANION GAP 12 (5-19); ASPARTATE AMINO TRANSFERASE 93 U/L (14-36); BILIRUBIN,DIRECT 0.4 mg/dL (0.0-0.4); BILIRUBIN,TOTAL 0.7 mg/dL (0.2-1.3); BLOOD UREA NITROGEN 22 mg/dL (7-20); C-REACTIVE PROTEIN 17.9 mg/L (<10.0); CALCIUM 8.5 mg/dL (8.4-10.2); CARBON DIOXIDE 25 mmol/L (22-30); CHLORIDE 107 mmol/L (98-107); GLUCOSE 125 mg/dL (75-110); POTASSIUM 3.9 mmol/L (3.6-5.0); SODIUM 143.6 mmol/L (137-145)
--- NOTE | 2017-09-15 07:50 | EKG REPORT ---
SEVERITY:- ABNORMAL ECG - A-V DUAL-PACED RHYTHM WITH SOME INHIBITION : Confirmed by: Kelly Mota MD 15-Sep-2017 07:50:09
--- NOTE | 2017-09-15 07:50 | EKG REPORT ---
SEVERITY:- ABNORMAL ECG - ATRIAL-SENSED VENTRICULAR-PACED RHYTHM : Confirmed by: Kelly Mota MD 15-Sep-2017 07:50:14
--- NOTE | 2017-09-15 07:51 | EKG REPORT ---
SEVERITY:- ABNORMAL ECG - ATRIAL-SENSED VENTRICULAR-PACED RHYTHM : Confirmed by: Kelly Mota MD 15-Sep-2017 07:50:21
[2017-09-15 07:59] LABS: ERYTHROCYTE SEDIMENTATION RATE 23 mm/hr (0-20)
[2017-09-15] MEDS: ASPIRIN 81 MG TABLET, CHEWABLE PO SCH (09:27)
[2017-09-15] MEDS: ENOXAPARIN SODIUM INJ 30 MG/0.3 ML DISP.SYRIN SUBCUT SCH (09:27)
[2017-09-15] MEDS: LISINOPRIL 10 MG TABLET PO SCH ×2 (09:29→21:06)
[2017-09-15] MEDS: METOPROLOL SUCCINATE 50 MG TAB.SR.24H PO SCH (09:31)
[2017-09-15] MEDS: PREDNISONE 10 MG TABLET PO SCH ×2 (09:32→17:47)
[2017-09-15] MEDS ORDERED: LISINOPRIL 5 MG TABLET PO SCH (10:00)
[2017-09-15] MEDS ORDERED: FUROSEMIDE 40 MG TABLET PO SCH (14:00)
[2017-09-15] MEDS ORDERED: DEXTROSE 40% GEL 15 GM TUBE X 2 PO PRN (18:43)
[2017-09-15] MEDS ORDERED: DEXTROSE 50%-WATER SYRINGE 12.5 GM/25 ML DOSE IV PRN (18:43)
[2017-09-15] MEDS ORDERED: DEXTROSE 40% GEL 15 GM TUBE PO PRN (18:43)
[2017-09-15] MEDS ORDERED: INSULIN LISPRO 100 UNIT/ML 3 ML VIAL SUBCUT PRN (18:43)
[2017-09-15] MEDS ORDERED: GLUCAGON,HUMAN RECOMB 1 MG INJ IM PRN (18:43)
[2017-09-15] MEDS ORDERED: DEXTROSE 50%-WATER SYRINGE 25 GM/50 ML DOSE IV PRN (18:43)
--- NOTE | 2017-09-15 19:24 | PDOC PROGRESS REPORT ---
Subjective Progress Note for:: 09/15/17 Subjective:: BREN MALDONADO is a 47 y.o. with a PMH that includes lupus, CHF, HTN, HLD, diabetes, AICD placement (2013). She presented to the ED with chest pain and shortness of breath. She was found to have cardiomegaly and pulmonary HTN. The patient was seen this morning on rounds, she is resting comfortably in bed on supplemental oxygen. She endorses SOB when getting up to the restroom and needing to stop and catch her breath. The patient denies chest pain this morning. Upon assessment, lungs are clear to auscultation. S1S2. +holosystolic murmur. No chest pain upon palpation, which is an improvement from yesterday. The patient's blood pressure remains well controlled, no changes to her medication regimen today. Reason For Visit: HEART FAILURE Physical Exam Vital Signs: Temp Pulse Resp BP Pulse Ox 98.4 F 92 22 H 129/84 H 100 09/15/17 16:00 09/15/17 16:00 09/15/17 16:00 09/15/17 16:00 09/15/17 16:00 Intake & Output 09/14/17 09/15/17 09/16/17 06:59 06:59 06:59 Intake Total 2012 2036 Output Total 550 Balance 2012 148 Weight 94.9 kg General appearance: PRESENT: no acute distress Eye exam: PRESENT: conjunctiva pink, PERRLA Mouth exam: PRESENT: moist Neck exam: PRESENT: full ROM, JVD Respiratory exam: PRESENT: clear to auscultation mati, symmetrical, unlabored Cardiovascular exam: PRESENT: +S1, +S2, systolic murmur Pulses: PRESENT: normal radial pulses, normal dorsalis pedis pul Vascular exam: PRESENT: normal capillary refill GI/Abdominal exam: PRESENT: normal bowel sounds, soft. ABSENT: tenderness Rectal exam: PRESENT: deferred Extremities exam: PRESENT: full ROM Musculoskeletal exam: PRESENT: ambulatory, full ROM Neurological exam: PRESENT: alert, awake, oriented to person, oriented to place , oriented to time, oriented to situation Psychiatric exam: PRESENT: appropriate affect Skin exam: PRESENT: dry, warm Results Laboratory Results: 09/15/17 06:21 09/15/17 06:21 09/15/17 09/15/17 09/15/17 06:21 06:21 06:21 WBC 4.9 RBC 3.84 Hgb 11.4 L Hct 35.1 L MCV 91 MCH 29.7 MCHC 32.6 RDW 14.9 H Plt Count 151 Seg Neutrophils % 76.2 Lymphocytes % 20.4 Monocytes % 2.8 L Eosinophils % 0.0 Basophils % 0.6 Absolute Neutrophils 3.7 Absolute Lymphocytes 1.0 Absolute Monocytes 0.1 Absolute Eosinophils 0.0 Absolute Basophils 0.0 Sodium 143.6 Potassium 3.9 Chloride 107 Carbon Dioxide 25 Anion Gap 12 BUN 22 H Creatinine 1.03 Est GFR ( Amer) > 60 Est GFR (Non-Af Amer) 58 L Glucose 125 H Calcium 8.5 Total Bilirubin 0.7 AST 93 H ALT 121 H Alkaline Phosphatase 201 H C-Reactive Protein 17.9 H Total Protein 7.0 Albumin 3.4 L TSH 0.82 09/14/17 09/14/17 09/14/17 13:37 13:37 18:33 Creatine Kinase 39 40 Troponin I 0.034 NT-Pro-B Natriuret Pep 09/14/17 09/15/17 09/15/17 18:33 00:37 00:37 Creatine Kinase 51 Troponin I 0.041 0.037 NT-Pro-B Natriuret Pep 09/15/17 06:21 Creatine Kinase Troponin I NT-Pro-B Natriuret Pep 36367 H Impressions: Chest X-Ray 09/14/17 08:34 IMPRESSION: Chronic or recurrent cardiomegaly with mild vascular congestion. Chest/Abdomen CTA 09/14/17 08:56 IMPRESSION: Massive cardiomegaly. Evidence of right heart dysfunction with reflux of contrast from the right atrium into the hepatic veins. No pericardial effusion Mild alveolar and interstitial pulmonary edema, with trace right pleural effusion Status: Imported from PACS Assessment & Plan - Diagnosis (1) Chest pain Qualifiers: Chest pain type: unspecified Qualified Code(s): R07.9 - Chest pain, unspecified Is this a current diagnosis for this admission?: Yes Plan: Resolved. Patient presented with 2 day history of chest pain and SOB. EKG shows paced rhythm, no evidence of acute ischemia or infarction Serial Troponin 0.03-0.04. Looking back through old records, the patient's troponin is typically between 0.02-0.04 CXR and CTA chest demonstrates cardiomegaly. CTA chest shows significant pulmonary HTN as evidenced by IV contrast dye refluxed from right atrium into hepatic veins. No pericardial effusion. Mild interstitial edema. ECHOcardiogram from 05/2017 reveals mod/severe MR, mod/severe hypokenesis of LV, severe TR, and severe pulmonary HTN Continue diuresis with scheduled IV lasix Patient has a history of costochondritis, relieved with steroids. Administered single dose of SoluMedrol 125mg IV yesterday, continue home dose steroids today. Cardiology consulted, appreciate their recommendations (2) Congestive heart failure Qualifiers: Heart failure type: unspecified Heart failure chronicity: unspecified Qualified Code(s): I50.9 - Heart failure, unspecified Is this a current diagnosis for this admission?: Yes Plan: Patient endorses history of CHF. Cardiomegaly seen on CXR. Worsening BNP 71981 (yesterday 93114) Despite worsening BNP, patient's symptomology is improved Continue TID Lasix 40mg IV Plan to restart home dose PO lasix Recent ECHOcardiogram from May 2017 - mod/severe mitral valve regurg. mod/ severe LV hypokenesis, severe TR, and severe pulmonary HTN (3) Hypertension Qualifiers: Hypertension type: essential hypertension Qualified Code(s): I10 - Essential (primary) hypertension Is this a current diagnosis for this admission?: Yes Plan: Patient endorses history of HTN. Continue home dose Toprol-XL. (4) Hyperlipidemia Qualifiers: Is this a current diagnosis for this admission?: Yes Plan: Patient endorses history of HLD, but she does not take cholesterol-lowering medication. Plan to check lipid panel with a.m. labs. (5) Lupus Qualifiers: Systemic lupus erythematosus type: unspecified Is this a current diagnosis for this admission?: Yes Plan: Patient endorses history of lupus. She currently takes prednisone 10 mg p.o. daily. Continue PO prednisone No plan for stress dose steroids at this time. Elevated CRP 17.9 and ESR (6) Diabetes Qualifiers: Diabetes mellitus type: type 2 Diabetes mellitus complication status: without complication Is this a current diagnosis for this admission?: Yes Plan: Patient endorses history of diabetes. Check hemoglobin A1c with a.m. labs. Accu-Cheks before meals at bedtime. Humalog sliding scale insulin. (7) Murmur, cardiac Is this a current diagnosis for this admission?: Yes Plan: +Holosystolic murmur, likely secondary to mitral valve regurg. Cardiology aware. Recent ECHOcardiogram results listed above. No plan for repeat imaging - Time Time Spent with patient: 15-24 minutes Medications reviewed and adjusted accordingly: Yes Anticipated discharge: Home Within: within 48 hours - Inpatient Certification Based on my medical assessment, after consideration of the patient's comorbidities, presenting symptoms, or acuity I expect that the services needed warrant INPATIENT care.: Yes I certify that my determination is in accordance with my understanding of Medicare's requirements for reasonable and necessary INPATIENT services [42 CFR 412.3e].: Yes Medical Necessity: Risk of Complication if Not Cared For in Hospital - Plan Summary Plan Summary: CHEST PAIN FREE. BLOOD PRESSURE IMPROVED. NO OTHER IMAGING OR TESTING WARRANTED AT THIS TIME. LIKELY DISCHARGE HOME TOMORROW.
[2017-09-16] MEDS: FUROSEMIDE INJ/PF 40 MG/4 ML SDV IV SCH (05:25)
[2017-09-16 10:08] VITALS: BP 149/95
[2017-09-16] MEDS: ASPIRIN 81 MG TABLET, CHEWABLE PO SCH (10:46)
[2017-09-16] MEDS: METOPROLOL SUCCINATE 50 MG TAB.SR.24H PO SCH (10:47)
[2017-09-16] MEDS: LISINOPRIL 10 MG TABLET PO SCH (10:53)
[2017-09-16] MEDS: ENOXAPARIN SODIUM INJ 30 MG/0.3 ML DISP.SYRIN SUBCUT SCH (10:53)
[2017-09-16] MEDS: PREDNISONE 10 MG TABLET PO SCH (10:53)
--- NOTE | 2017-09-16 13:07 | Progress Note ---
Provider Note Provider Note: Date of progress note: 09/15/2017. Patient there is no further chest pain, shortness of breath is improved there is no ventricular tachycardia. The patient denies any PND orthopnea or leg edema. There is no atrial arrhythmia, and no firing of the AICD. 09/15/17 09/15/17 09/15/17 06:21 06:21 06:21 WBC 4.9 Hgb 11.4 L Hct 35.1 L Plt Count 151 Sodium 143.6 Potassium 3.9 Chloride 107 Carbon Dioxide 25 Anion Gap 12 BUN 22 H Creatinine 1.03 Est GFR ( Amer) > 60 Glucose 125 H Hemoglobin A1c % 5.6 Calcium 8.5 Total Bilirubin 0.7 Direct Bilirubin 0.4 AST 93 H ALT 121 H Alkaline Phosphatase 201 H C-Reactive Protein 17.9 H NT-Pro-B Natriuret Pep Total Protein 7.0 Albumin 3.4 L TSH 09/15/17 09/15/17 06:21 06:21 WBC Hgb Hct Plt Count Sodium Potassium Chloride Carbon Dioxide Anion Gap BUN Creatinine Est GFR ( Amer) Glucose Hemoglobin A1c % Calcium Total Bilirubin Direct Bilirubin AST ALT Alkaline Phosphatase C-Reactive Protein NT-Pro-B Natriuret Pep 57870 H Total Protein Albumin TSH 0.82 PHYSICAL EXAMINATION: GENERAL: On examination the patient is mildly obese but well-groomed, at present in no acute distress at rest. VITAL SIGNS: She is afebrile. Her temperature is 97.8 degrees Fahrenheit, pulse is 82 beats per minute, blood pressure is 143/105, respirations are 20 per minute, O2 saturations are 96% on room air. HEENT: Head is atraumatic, normocephalic. Eyes: Pupils are equal, round and regular, reactive to light and accommodation. Extraocular movements are normal. There is no conjunctival pallor. There is no scleral icterus. Ears: Tympanic membranes are intact, external auditory canals are clear. Nose: There is no deviated nasal septum. There is no inflammation of the nasal mucous membrane. Mouth: Mucous membranes of the mouth are moist. Tongue is moist. There are no ulcers. There is no bleeding from the gums. Throat: There is no redness of the oropharynx. There are no exudates. SKIN: There are no skin rashes. There is no petechiae or ecchymosis. There is no yellowish discoloration of the skin. NECK: Supple. There is JVD present. There is no lymphadenopathy. There is no goiter. Carotids are equal. There is no bruit. Trachea is central. LUNGS: Show bibasilar rales of CHF. HEART: S1, S2 is heard. There is no S3 gallop. There is no S4 gallop. There is a systolic murmur of mitral regurgitation present. There is no rub. ABDOMEN: Soft, nontender. There is no hepatosplenomegaly. Bowel sounds are well heard. There are no tender areas or masses. No definite evidence of ascites. EXTREMITIES: Femorals are diminished. There are no femoral bruits. Leg pulses are diminished. There is trace pedal edema bilaterally. There is no cyanosis or clubbing. There is no DVT or cellulitis. There is no calf tenderness. CENTRAL NERVOUS SYSTEM: The patient is conscious, awake, alert and oriented x3 with no focal deficits. PSYCHIATRIC: The patient's judgment and insight are intact. Her affect is normal. DIAGNOSTICS: Note that the patient had an echo done here. The patient's CT scan of the chest with contrast shows massive cardiomegaly, evidence of right heart increased function with reflux of contrast from the right atrium into the hepatic veins. No pericardial effusion. Mild alveolar interstitial pulmonary edema with trace right pleural effusion. The patient's EKG shows atrial sensed and ventricular paced rhythm. A chest x-ray shows cardiomegaly and CHF. Her sed rate is elevated at 24. Her white count is 5900, hemoglobin 11.1, hematocrit is 33.7, platelet count is 157,000. The patient's sodium is 146.4, potassium is 3.9, chloride is 108, CO2 is 26. The patient's BUN is 22, creatinine is 1.11, GFR is greater than 60, and her liver function tests are abnormal with an AST of 150, ALT of 159, alk-phos of 208. Her troponin I is 0.046 and 0.034. Her NT-proBNP is 16,400. Her c-reactive protein is mildly elevated at 12. IMPRESSION: 1. Chest wall pain, noncardiac. Note that the patient has been given a bolus of steroids. 2. Biventricular failure, left more than right. Would recommend increase the patient's lisinopril, continue the patient's Toprol XL and would also change the Lasix to IV Lasix at 40 mg IV q.8 hours, first dose now. 3. Dilated cardiomyopathy. 4. No evidence of coronary artery disease. 5. Biventricular ACID. 6. Hypertension, not well-controlled. May have to increase the patient's lisinopril further. If the blood pressure continues to keep up then would recommend transfer to ICU to start the patient on a nicardipine drip (Cardene drip). 7. Diabetes mellitus type 2 noninsulin dependent. 8. Systemic lupus erythematosus. Seems to be at present in remission since the sed rate and the CRP are not very high. 9. Nonsustained ventricular tachycardia. The patient is asymptomatic. The patient does have an AICD which has not fired. 10. Depression, well-controlled on current medication. 11. Severe pulmonary hypertension with right ventricular failure. 12. Biventricular failure, left heart failure more than right heart failure. RECOMMENDATIONS: As mentioned earlier would taper the patient's Deltasone/prednisone to 10 mg p.o. b.i.d. Note that the patient at home was on 10 mg p.o. b.i.d. Would continue the patient's Toprol XL and the patient's lisinopril which has been increased by me. May need further increase in the dosage. The Would also have the patient follow up in pulmonary hypertension clinic in [facility]. Cardiac status remains stable, we will discharge the patient current medication. The patient desires to follow-up with me, and we will get her an appointment to see me in the office. Medical decision making was of moderate complexity. Note 40 minutes spent on this patient more than 50% time spent in direct patient care. The patient is full code surrogate patient appears unchanged. Discussed with the hospitalist. Will sign off. Thanking you. ,
--- NOTE | 2017-10-05 16:28 | PDOC DISCHARGE SUMMARY ---
General - Admit/Disc Date/PCP Admission Date/Primary Care Provider: 09/14/17 11:33 Discharge Date: 10/16/17 - Discharge Diagnosis (1) Chest pain Is this a current diagnosis for this admission?: Yes (2) Congestive heart failure Is this a current diagnosis for this admission?: Yes (3) Hypertension Is this a current diagnosis for this admission?: Yes (4) Hyperlipidemia Is this a current diagnosis for this admission?: Yes (5) Lupus Is this a current diagnosis for this admission?: Yes (6) Diabetes Is this a current diagnosis for this admission?: Yes (7) Murmur, cardiac Is this a current diagnosis for this admission?: Yes - Additional Information Resuscitation Status: Full Code Discharge Diet: Cardiac, Diabetic Discharge Activity: Activity As Tolerated, Balance Activity w/Rest, Weigh Daily Prescriptions: Lisinopril [Prinivil 10 mg Tablet] 10 mg PO Q12 #30 tablet Home Medications: Aspirin [Aspirin 81 mg Chewable Tablet] 81 mg PO DAILY 05/27/17 Metoprolol Succinate [Toprol XL 100 mg Tablet] 100 mg PO DAILY 05/27/17 Prednisone [Deltasone 20 mg Tablet] 10 mg PO DAILY 05/27/17 Calcium Carbonate/Vitamin D3 [Os-Simon 500-Vit D3 200 Caplet] 1 tab PO BID Fluoxetine HCl 20 mg PO DAILY 09/14/17 Furosemide [Lasix 40 mg Tablet] 40 mg PO BID 09/14/17 Magnesium Oxide [Mag-Ox 400 mg Tablet] 400 mg PO BID 09/14/17 Metformin HCl [Metformin HCl ER] 500 mg PO BID 09/14/17 Lisinopril [Prinivil 10 mg Tablet] 10 mg PO Q12 #30 tablet 09/16/17 History of Present Illness History of Present Illness: BREN MALDONADO is a 47 year old female who presented to the emergency department for a 2 day history of chest pain and shortness of breath. Patient states that her symptoms began 2 days ago. She reports that her chest pain is localized to the midsternal area, radiating to her neck and left anterior chest wall. The patient reports that her symptoms are constant and describes the sensation as 'someone is sitting on my chest.' Patient states that she took Tylenol for her pain but it offered no relief. She states that her symptoms are exacerbated with any type of activity. The patient reports 2 pillow orthopnea, which is uncommon for her. 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 EKG demonstrates paced rhythm, no evidence of acute infarction or ischemia. Of note, while in the ED the patient experienced a ~30 second run of VTACH. Troponin 0.04 (baseline for this patient is 0.02-0.04 ). BNP 71155. AST 150 ALT 159. ALK PHOS 208. No other significant lab work. CXR shows cardiomegaly. CTA chest also reveals cardiomegaly and evidence of right heart dysfunction as evidenced by reflux of contrast dye from right atrium to hepatic veins. No PE. No pericardial effusion. Mild interstitial edema with trace right pleural effusion. It was self-limiting, no treatment initiated. The patient was given Lasix 40mg IV, 2 SL Nitro tablets, and 325mg ASA. Upon assessment, is resting comfortably in bed on supplemental oxygen. She is complaining of midsternal chest pain that is reproducible to palpation. Her lung sounds are clear to auscultation. No evidence of peripheral edema. Palpable pulses in all 4 extremities. Given her complicated medical history and troublesome symptoms, the patient has been admitted to the hospitalist service. Cardiology has been consulted. Hospital Course Hospital Course: 47 Y.O. F Patient presented with 2 day history of chest pain and SOB. EKG showed paced rhythm, no evidence of acute ischemia or infarction. Serial Troponin 0.03-0.04. Looking back through old records, the patient's troponin was typically between 0.02-0.04. CXR and CTA chest demonstrated cardiomegaly. CTA chest showed significant pulmonary HTN as evidenced by IV contrast dye refluxed from right atrium into hepatic veins. No pericardial effusion. Mild interstitial edema. ECHOcardiogram from 05/2017 reveals mod/severe MR, mod/ severe hypokenesis of LV, severe TR, and severe pulmonary HTN. The patient's blood pressure was somewhat elevated, her SBP oftentimes ranged between 150- 160. Cardiology was consulted. The patient has a history of costochondritis, relieved with steroids. Administered single dose of SoluMedrol 125mg IV upon arrival and continued IV steroids while inpatient. The patient was started on IV lasix for pulmonary edema. Given the patient's biventricular failure and her relatively uncontrolled HTN, her lisinopril dosage was increased. The patient's home dose of Toprol XL was not changed. Following 2 days in the hospital, the patient was deemed safe for discharge. Her blood pressure had decreased with the new lisinopril dosing and her chest pain had resolved following steroid treatment. The patient was instructed to resume taking her home dose of PO prednisone and to start taking the new dose of lisinopril for better blood pressure control. Additionally, the patient was told to follow up with the [facility] (where she normally received primary care) within 1-2 weeks. The patient stated full understanding of her discharge instructions. For any further details regarding the patient's hospital stay, please refer to the EMR. Physical Exam Vital Signs: Temp Pulse Resp BP Pulse Ox 98.6 F 44 L 16 149/95 H 100 09/16/17 07:53 09/16/17 07:53 09/16/17 07:53 09/16/17 07:53 09/16/17 07:53 Results Laboratory Results: 09/15/17 06:21 09/15/17 06:21 09/14/17 09/14/17 09/14/17 13:37 13:37 18:33 Creatine Kinase 39 40 Troponin I 0.034 NT-Pro-B Natriuret Pep 09/14/17 09/15/17 09/15/17 18:33 00:37 00:37 Creatine Kinase 51 Troponin I 0.041 0.037 NT-Pro-B Natriuret Pep 09/15/17 06:21 Creatine Kinase Troponin I NT-Pro-B Natriuret Pep 01593 H Impressions: Chest X-Ray 09/14/17 08:34 IMPRESSION: Chronic or recurrent cardiomegaly with mild vascular congestion. Chest/Abdomen CTA 09/14/17 08:56 IMPRESSION: Massive cardiomegaly. Evidence of right heart dysfunction with reflux of contrast from the right atrium into the hepatic veins. No pericardial effusion Mild alveolar and interstitial pulmonary edema, with trace right pleural effusion Qualifiers - * PATIENT BEING DISCHARGED WITH ANY OF THE FOLLOWING DIAGNOSIS: Heart Failure HF Pt being discharged on ACEI for LVEF less than 40%?: Yes HF Pt being discharged on ARBS for LVEF less than 40%?: No Reason(s) for not prescribing ARBS:: Not indicated - patient already on ACEI HF Pt with Afib discharged with Warfarin?: No Reason(s) for not prescribing Warfarin:: Not indicated - no history of AFIB HF Pt discharged on evidence-based Beta Yaneli:: Yes Plan Discharge Plan: DISCHARGE HOME. CONTINUE TAKING HIGHER DOSE OF LISINOPRIL. RESUME ALL OTHER HOME MEDICATIONS. FOLLOW UP WITH PMD AT [facility]. 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 Time Spent: Less than 30 Minutes
== END 2017-09-16 12:13 | disposition home or self-care (01) | DRG 291 ==
LOC: ER 06:56 → EH 11:33 → 3S 12:30
PROVIDERS: ADMIT Internal Medicine; ATTEND Internal Medicine
DX: I11.0 Hypertensive heart disease with heart failure (principal); J81.0 Acute pulmonary edema; I47.2 Ventricular tachycardia; I50.814 Right heart failure due to left heart failure; E78.00 Pure hypercholesterolemia, unspecified; M32.9 Systemic lupus erythematosus, unspecified; E11.9 Type 2 diabetes mellitus without complications; R01.1 Cardiac murmur, unspecified; I27.20 Pulmonary hypertension, unspecified; I42.0 Dilated cardiomyopathy; I25.10 Atherosclerotic heart disease of native coronary artery without angina pectoris; G47.30 Sleep apnea, unspecified; F32.9 Major depressive disorder, single episode, unspecified; D64.9 Anemia, unspecified; I08.1 Rheumatic disorders of both mitral and tricuspid valves; Z79.82 Long term (current) use of aspirin; Z79.52 Long term (current) use of systemic steroids; Z79.899 Other long term (current) drug therapy; Z95.810 Presence of automatic (implantable) cardiac defibrillator; Z82.49 Family history of ischemic heart disease and other diseases of the circulatory system; Z80.9 Family history of malignant neoplasm, unspecified
CPT/HCPCS: 36415; 71045; 71275; 80053; 82550; 82962; 83036; 83690; 83735; 83880; 84443; 84484; 85025; 85652; 86140; 93005; 93010; 96374; 99291; J1650; J1940; J2930; J7512

== ENCOUNTER 2017-12-16 17:09 | Emergency (ER) | payer MEDICAID ==
[2017-12-16] MEDS ORDERED: ONDANSETRON HCL INJ/PF 4 MG/2 ML SDV IV ONE (18:19)
[2017-12-16] MEDS ORDERED: MORPHINE SULFATE 10 MG/ML INJ IV ONE (18:19)
--- NOTE | 2017-12-16 18:23 | ER Document Report ---
ED General - General Chief Complaint: Shortness Of Breath Stated Complaint: LUPUS RELATED SYMPTOMS Time Seen by Provider: 12/16/17 17:42 Notes: Patient is a 47-year-old female with CHF, and lupus that presents to the emergency department for chief complaint of shortness of breath, and fluid retention. Patient states that she think she is having a lupus flare, she has been out of her diuretics for about 1 week and think she is holding onto more fluid particularly in her lungs. She also has a history of CHF. She is complaining of achiness all over, which is typical of her lupus flares. Stating she has had increased pain in all of her joints, and myalgias and arthralgias all over. Denies having any specific chest pain associated. Denies any lightheadedness, dizziness, or passing out episodes, denies having any dysuria, hematuria, fevers, chills, night sweats. Past Medical History: Lupus, CHF, diabetes, hypertension Past Surgical History: Pacemaker defibrillator placement Social History: Denies tobacco, alcohol or drug use. Family History: Reviewed and noncontributory for presenting illness Allergies: Reviewed, see documented allergy list. REVIEW OF SYSTEMS: Unless otherwise stated in this report the patient's positive and negative responses for review of systems for constitutional, eyes, ENT, cardiovascular, respiratory, gastrointestinal, neurological, genitourinary, musculoskeletal, and integumentary systems and related systems to the presenting problem are either as stated in the HPI or were not pertinent or were negative for the symptoms and/or complaints related to the presenting medical problem. PHYSICAL EXAMINATION: Vital signs reviewed, nursing noted reviewed. GENERAL: Well-appearing, well-nourished and in no acute distress. HEAD: Atraumatic, normocephalic. EYES: Eyes appear normal, extraocular movements intact, sclera anicteric, conjunctiva are normal. ENT: nares patent, oropharynx clear without exudates. Moist mucous membranes. NECK: Normal range of motion, supple without lymphadenopathy LUNGS: Basilar rales noted bilaterally, otherwise breath sounds clear to auscultation bilaterally and equal in the upper lung barry, pacemaker noted in the chest wall HEART: Regular rate and rhythm without murmurs ABDOMEN: Soft, nontender, normoactive bowel sounds. No rebound, guarding, or rigidity. No masses appreciated. EXTREMITIES: Mild tenderness to palpation of all limbs, joint swelling noted in the hands bilaterally, no erythema or warmth appreciated, good range of motion, trace peripheral edema in the lower extremities bilaterally and equal NEUROLOGICAL: No focal neurological deficits. Moves all extremities spontaneously Motor and sensory grossly intact on exam. PSYCH: Normal mood, normal affect. SKIN: Warm, Dry, normal turgor, no rashes or lesions noted on exposed skin TRAVEL OUTSIDE OF THE [place] IN LAST 30 DAYS: No - Related Data Allergies/Adverse Reactions: No Known Allergies Allergy (Verified 09/14/17 13:33) Past Medical History - Social History Smoking Status: Never Smoker Family History: Hypertension, Malignancy, Other - CHF - Past Medical History Cardiac Medical History: Reports: Hx 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 Denies: Hx Diabetes Mellitus Type 1, Hx Hyperthyroidism, Hx Hypothyroidism Renal/ Medical History: Denies: Hx Peritoneal Dialysis GI Medical History: Denies: Hx Cirrhosis, Hx Gastroesophageal Reflux Disease, Hx Hepatitis Musculoskeletal Medical History: Denies Hx Arthritis Psychiatric Medical History: Denies: Hx Depression Infectious Medical History: Denies: Hx Hepatitis Past Surgical History: Reports: Hx Cardiac Surgery - pacer/defib, Hx Section - 1995, Hx Pacemaker - AICD implant - Immunizations Immunizations up to date: Yes Hx Diphtheria, Pertussis, Tetanus Vaccination: Yes Hx Pneumococcal Vaccination: 12/19/08 Physical Exam - Vital signs Vitals: Temp Pulse Resp BP Pulse Ox 99.8 F 76 16 147/96 H 96 12/16/17 17:21 12/16/17 17:21 12/16/17 17:21 12/16/17 17:21 12/16/17 17:21 Course - Re-evaluation Re-evalutation: Patient seen and examined vital signs reviewed. Laboratory data and imaging were ordered as appropriate for the patient's presenting symptoms and complaint, with consideration of any critical or life threatening conditions that may be associated with their obtained history and exam as noted above. Patient was treated with IV Lasix 40 mg Results were reviewed when available and demonstrated mild pulmonary edema on her chest x-ray, her BNP was elevated, however improved from prior labs, patient does have a depressed ejection fraction, does have an AICD. Patient was not hypoxic, and felt improved after receiving Lasix, she was also given morphine and Zofran for her nausea and pain as a result of fluid retention likely worsening her lupus symptoms. The patient was re-evaluated and was much improved Evaluation was most consistent with mild exacerbation of chronic systolic heart failure, and myalgias and arthralgias, patient was given a prescription for Lasix 40 mg twice daily for 15 days, to help her because she had not received her new prescription in the mail, and she has been out of her medications which likely triggered her exacerbation of her CHF. Results were discussed with the patient at this point, after careful consideration I feel that that patient can be discharged from the emergency department, the patient was educated treatments and reasons to return to the emergency department based on their presumed diagnosis as noted above, they were advised to followup with a primary care physician in 2-3 days. Patient was agreeable to plan of care. *Note is created using voice recognition software and may contain spelling, syntax or grammatical errors. Laboratory 12/16/17 12/16/17 12/16/17 18:38 18:38 18:38 WBC 5.5 RBC 3.37 L Hgb 10.0 L Hct 30.2 L MCV 90 MCH 29.7 MCHC 33.2 RDW 18.0 H Plt Count 124 L Seg Neutrophils % 55.8 Lymphocytes % 29.5 Monocytes % 13.7 H Eosinophils % 0.1 Basophils % 0.9 Absolute Neutrophils 3.0 Absolute Lymphocytes 1.6 Absolute Monocytes 0.8 Absolute Eosinophils 0.0 Absolute Basophils 0.0 Sodium 138.6 Potassium 4.1 Chloride 106 Carbon Dioxide 25 Anion Gap 8 BUN 21 H Creatinine 1.17 Est GFR ( Amer) > 60 Est GFR (Non-Af Amer) 50 L Glucose 78 Calcium 9.2 Total Bilirubin 0.5 Direct Bilirubin 0.5 H Neonat Total Bilirubin Not Reportable Neonat Direct Bilirubin Not Reportable Neonat Indirect Bili Not Reportable AST 89 H ALT 49 Alkaline Phosphatase 152 H Creatine Kinase 47 Troponin I 0.024 NT-Pro-B Natriuret Pep 91211 H Total Protein 7.5 Albumin 3.8 Chest X-Ray 12/16/17 18:19 IMPRESSION: Cardiomegaly. Cannot exclude mild pulmonary edema. - Vital Signs Vital signs: Temp Pulse Resp BP Pulse Ox 98.2 F 76 21 H 125/87 H 95 12/16/17 20:34 12/16/17 17:21 12/16/17 20:27 12/16/17 20:27 12/16/17 20:27 - Laboratory Result Diagrams: 12/16/17 18:38 12/16/17 18:38 Laboratory results interpreted by me: 12/16/17 12/16/17 12/16/17 18:38 18:38 18:38 RBC 3.37 L Hgb 10.0 L Hct 30.2 L RDW 18.0 H Plt Count 124 L Monocytes % 13.7 H BUN 21 H Est GFR (Non-Af Amer) 50 L Direct Bilirubin 0.5 H AST 89 H Alkaline Phosphatase 152 H NT-Pro-B Natriuret Pep 12212 H - EKG Interpretation by Me Additional EKG results interpreted by me: EKG demonstrates ventricular paced rhythm with a ventricular rate of 81 bpm, left axis deviation, QTC 520 ms, there is T wave inversion in aVL, no other T wave changes, no ST changes, this is compared with prior EKG from 09/15/2017 Discharge - Discharge Clinical Impression: Acute exacerbation of CHF (congestive heart failure) Qualifiers: Heart failure type: systolic Qualified Code(s): I50.23 - Acute on chronic systolic (congestive) heart failure Pulmonary edema Qualifiers: Chronicity: acute Qualified Code(s): J81.0 - Acute pulmonary edema Arthralgia Qualifiers: Joint pain location: unspecified Qualified Code(s): M25.50 - Pain in unspecified joint Condition: Stable Disposition: HOME, SELF-CARE Instructions: Congestive Heart Failure ([facility]) Additional Instructions: Please return to the emergency department if you have any worsening, or concern of your symptoms. Please return to the emergency department if you develop chest pain, difficulty breathing, severe abdominal pain, or ongoing vomiting. Please follow-up with your primary care physician in 2-3 days and any other recommended physicians. If prescribed, take all medications as directed. If you have any questions or concerns do not hesitate to return the emergency department for evaluation. Prescriptions: Furosemide [Lasix 40 mg Tablet] 40 mg PO BID #30 tablet Referrals: PAPITO SEYMOUR MD [[facility]] - Follow up in 3-5 days
[2017-12-16 19:02] LABS: ALANINE AMINOTRANSFERASE 49 U/L (9-52); ALBUMIN 3.8 g/dL (3.5-5.0); ALKALINE PHOSPHATASE 152 U/L (38-126); ANION GAP 8 (5-19); ASPARTATE AMINO TRANSFERASE 89 U/L (14-36); BILIRUBIN,DIRECT 0.5 mg/dL (0.0-0.4); BILIRUBIN,TOTAL 0.5 mg/dL (0.2-1.3); BLOOD UREA NITROGEN 21 mg/dL (7-20); CALCIUM 9.2 mg/dL (8.4-10.2); CARBON DIOXIDE 25 mmol/L (22-30); CHLORIDE 106 mmol/L (98-107); CREATINE KINASE 47 U/L (30-135); GLUCOSE 78 mg/dL (75-110); POTASSIUM 4.1 mmol/L (3.6-5.0); SODIUM 138.6 mmol/L (137-145); TOTAL PROTEIN 7.5 g/dL (6.3-8.2)
[2017-12-16 19:06] LABS: ABSOLUTE LYMPHOCYTES (AUTO) 1.6 10^3/uL (0.5-4.7); ABSOLUTE MONOCYTES (AUTO) 0.8 10^3/uL (0.1-1.4); BASOPHILS % (AUTO) 0.9 % (0-2); EOSINOPHILS % (AUTO) 0.1 % (0-6); HEMATOCRIT 30.2 % (36.0-47.0); LYMPHOCYTES % (AUTO) 29.5 % (13-45); MEAN CORPUSCULAR HEMOGLOBIN 29.7 pg (27.0-33.4); MEAN CORPUSCULAR HGB CONC 33.2 g/dL (32.0-36.0); MEAN CORPUSCULAR VOLUME 90 fl (80-97); MONOCYTES % (AUTO) 13.7 % (3-13); PLATELET COUNT 124 10^3/uL (150-450); RED BLOOD COUNT 3.37 10^6/uL (3.72-5.28); SEGMENTED NEUTROPHILS % (AUTO) 55.8 % (42-78); TOTAL CELLS COUNTED % (AUTO) 100 %; WHITE BLOOD COUNT 5.5 10^3/uL (4.0-10.5)
--- NOTE | 2017-12-16 19:13 | RADIOLOGY REPORT (SQ) ---
EXAM DESCRIPTION: CHEST SINGLE VIEW COMPLETED DATE/TIME: 12/16/2017 6:56 pm REASON FOR STUDY: shortness of breath COMPARISON: 09/14/2017 EXAM PARAMETERS: NUMBER OF VIEWS: One view. TECHNIQUE: Single frontal radiographic view of the chest acquired. RADIATION DOSE: NA LIMITATIONS: None. FINDINGS: LUNGS AND PLEURA: Pulmonary vascular congestion. Cannot exclude mild pulmonary edema. MEDIASTINUM AND HILAR STRUCTURES: No masses. Contour normal. HEART AND VASCULAR STRUCTURES: Cardiomegaly. BONES: No acute findings. HARDWARE: Pacemaker/defibrillator. OTHER: No other significant finding. IMPRESSION: Cardiomegaly. Cannot exclude mild pulmonary edema. TECHNICAL DOCUMENTATION: JOB ID: [id number] [employer] All Rights Reserved Reading location - IP/workstation name: [email or web address]
[2017-12-16 19:16] LABS: TROPONIN I 0.024 ng/mL
[2017-12-16] MEDS ORDERED: FUROSEMIDE INJ/PF 40 MG/4 ML SDV IV ONE (19:46)
[2017-12-16 20:35] VITALS: BP 125/87
--- NOTE | 2017-12-17 20:24 | EKG REPORT ---
SEVERITY:- ABNORMAL ECG - ATRIAL-SENSED VENTRICULAR-PACED RHYTHM : Confirmed by: Kelly Mota MD 17-Dec-2017 20:23:40
== END 2017-12-16 20:35 | disposition home or self-care (01) ==
LOC: ER 17:09
DX: I50.23 Acute on chronic systolic (congestive) heart failure (principal); J81.0 Acute pulmonary edema; M25.50 Pain in unspecified joint; R06.02 Shortness of breath; Z95.810 Presence of automatic (implantable) cardiac defibrillator; I11.0 Hypertensive heart disease with heart failure; E11.9 Type 2 diabetes mellitus without complications
CPT/HCPCS: 93005; 99285; 96374; 96375; 36415; 82550; 85025; 80053; 84484; 83880; 71045; 93010; J1940; J2270; J2405

== ENCOUNTER 2018-01-08 08:39 | Emergency (ER) | payer MEDICAID ==
--- NOTE | 2018-01-08 09:20 | ER Document Report ---
ED General - General Chief Complaint: Chest Pain Stated Complaint: CHEST PAIN/SHORT OF BREATH Time Seen by Provider: 01/08/18 09:16 Mode of Arrival: Ambulatory Information source: Patient Notes: 47-year-old female with a history of lupus, congestive heart failure, pacemaker , presents emergency department with complaints of chest pain and shortness of breath for the last 7-10 days. Patient states that it has been constant. Chest pain is located in the center of the chest. No radiation. Patient states it is reproducible. She denies any alleviating factors. Pain exacerbated with palpation. Patient states that her shortness of breath has been constant as well. She states that it is worse with exertion. She denies any alleviating factors. She is not on home oxygen. She does not smoke. Patient has been taking lasix for her CHF. She denies recent travel, surgery, hx of DVT/PE, calf pain, calf swelling. She does follow-up with a effervescent salts compounder and sales assistant entertainment and media. Patient states that she saw the effervescent salts compounder and was started on a new medication, plaquenil. She states that it is not helping with her symptoms. TRAVEL OUTSIDE OF THE [place] IN LAST 30 DAYS: No - HPI Onset: Last week Onset/Duration: Gradual Quality of pain: Achy Associated symptoms: None - Palpation Relieved by: Denies - Related Data Allergies/Adverse Reactions: No Known Allergies Allergy (Verified 09/14/17 13:33) Past Medical History - Social History Smoking Status: Never Smoker Family History: Hypertension, Malignancy, Other - CHF - Past Medical History Cardiac Medical History: Reports: Hx 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 Denies: Hx Diabetes Mellitus Type 1, Hx Hyperthyroidism, Hx Hypothyroidism Renal/ Medical History: Denies: Hx Peritoneal Dialysis GI Medical History: Denies: Hx Cirrhosis, Hx Gastroesophageal Reflux Disease, Hx Hepatitis Musculoskeletal Medical History: Denies Hx Arthritis Psychiatric Medical History: Denies: Hx Depression Infectious Medical History: Denies: Hx Hepatitis Past Surgical History: Reports: Hx Cardiac Surgery - pacer/defib, Hx Section - 1995, Hx Pacemaker - AICD implant - Immunizations Immunizations up to date: Yes Hx Diphtheria, Pertussis, Tetanus Vaccination: Yes Hx Pneumococcal Vaccination: 12/19/08 Review of Systems - Review of Systems Constitutional: No symptoms reported EENT: No symptoms reported Cardiovascular: Chest pain Respiratory: Short of breath Gastrointestinal: No symptoms reported Genitourinary: No symptoms reported Musculoskeletal: No symptoms reported Skin: No symptoms reported Hematologic/Lymphatic: No symptoms reported Neurological/Psychological: No symptoms reported -: Yes All other systems reviewed and negative Physical Exam - Vital signs Vitals: Temp Pulse Resp BP Pulse Ox 98.0 F 74 18 132/91 H 99 01/08/18 08:45 01/08/18 08:45 01/08/18 08:45 01/08/18 08:45 01/08/18 08:45 - Notes Notes: PHYSICAL EXAMINATION: GENERAL: Well-appearing, well-nourished and in no acute distress. HEAD: Atraumatic, normocephalic. EYES: Pupils equal round and reactive to light, extraocular movements intact, conjunctiva are normal. ENT: Nares patent, oropharynx clear without exudates. Moist mucous membranes. NECK: Normal range of motion, supple without lymphadenopathy LUNGS: Breath sounds clear to auscultation bilaterally and equal. No wheezes rales or rhonchi. Reproducible chest pain with palpation of the anterior chest wall. HEART: Regular rate and rhythm without murmurs ABDOMEN: Soft, nontender, nondistended abdomen. No guarding, no rebound. No masses appreciated. Female : deferred Musculoskeletal: Normal range of motion, no pitting or edema. No cyanosis. No calf tenderness to palpation. NEUROLOGICAL: Cranial nerves grossly intact. Normal speech, normal gait. Normal sensory, motor exams PSYCH: Normal mood, normal affect. SKIN: Warm, Dry, normal turgor, no rashes or lesions noted. Course - Re-evaluation Re-evalutation: 01/08/18 09:19 EKG: Ventricular rate 73, [place] interval 164, QRS duration 146, QTc 516, atrial sensed ventricular paced rhythm. EKG is similar to previous EKG done on with exception of T wave inversion of V2. 01/08/18 11:09 01/08/18 14:28 Troponin still pending. d-dimer elevated. Patient refuses CTA chest. Says that she had one recently that did not show PE. Says her shortness of breath is similar to previous. Patient says that the lasix is helping with her shortness of breath. 01/08/18 14:43 Troponin and BNP are chronically increased and within their baseline values. I discussed obtaining a CT chest with the patient to evaluate for PE once again. Patient declines CTA. She understands her condition may worsen or she may by not obtaining the CTA chest. She is competent to make medical decisions. Patient's chest pain is reproducible with palpation. Similar to previous when she was diagnosed with costochondritis. I instructed the patient to continue taking medication as directed, to follow up with her sales assistant entertainment and media and effervescent salts compounder this week, and to return to emergency department for worsening symptoms. Patient is agreeable with the plan of care. - Vital Signs Vital signs: Temp Pulse Resp BP Pulse Ox 98.0 F 74 21 H 148/92 H 95 01/08/18 08:45 01/08/18 08:45 01/08/18 14:01 01/08/18 14:00 01/08/18 14:00 - Laboratory Result Diagrams: 01/08/18 10:00 01/08/18 11:33 Laboratory results interpreted by me: 01/08/18 01/08/18 01/08/18 10:00 11:33 11:33 Hgb 10.7 L Hct 32.9 L RDW 16.8 H Plt Count 141 L D-Dimer Creatinine 1.40 H Est GFR ( Amer) 49 L Est GFR (Non-Af Amer) 41 L NT-Pro-B Natriuret Pep 71014 H Albumin 3.4 L 01/08/18 13:43 Hgb Hct RDW Plt Count D-Dimer 12.13 H Creatinine Est GFR ( Amer) Est GFR (Non-Af Amer) NT-Pro-B Natriuret Pep Albumin Discharge - Discharge Clinical Impression: Costochondritis Congestive heart failure Qualifiers: Heart failure type: unspecified Heart failure chronicity: acute on chronic Qualified Code(s): I50.9 - Heart failure, unspecified Condition: Good Instructions: Chest Wall Pain ([facility]), Congestive Heart Failure ([facility]) Referrals: MARISOL GUERRA MD [ACTIVE STAFF] - Follow up as needed
[2018-01-08] MEDS ORDERED: ASPIRIN 81 MG TABLET, CHEWABLE PO ONE (09:26)
[2018-01-08] MEDS ORDERED: FUROSEMIDE INJ/PF 40 MG/4 ML SDV IV ONE (09:29)
[2018-01-08] MEDS ORDERED: METHYLPREDNISOLONE INJ 125 MG/2 ML SDV IV ONE (09:30)
[2018-01-08] MEDS ORDERED: KETOROLAC TROMETHAMINE INJ/PF 30 MG/1 ML SDV IV ONE (09:31)
[2018-01-08 10:24] LABS: ABSOLUTE BASOPHILS # (AUTO) 0.1 10^3/uL (0.0-0.2); ABSOLUTE LYMPHOCYTES (AUTO) 1.7 10^3/uL (0.5-4.7); ABSOLUTE MONOCYTES (AUTO) 0.7 10^3/uL (0.1-1.4); ABSOLUTE NEUT (AUTO) 3.3 10^3/uL (1.7-8.2); EOSINOPHILS % (AUTO) 0.5 % (0-6); HEMATOCRIT 32.9 % (36.0-47.0); HEMOGLOBIN 10.7 g/dL (12.0-15.5); LYMPHOCYTES % (AUTO) 28.9 % (13-45); MEAN CORPUSCULAR HEMOGLOBIN 28.3 pg (27.0-33.4); MEAN CORPUSCULAR HGB CONC 32.5 g/dL (32.0-36.0); MEAN CORPUSCULAR VOLUME 87 fl (80-97); MONOCYTES % (AUTO) 12.4 % (3-13); PLATELET COUNT 141 10^3/uL (150-450); RED BLOOD COUNT 3.78 10^6/uL (3.72-5.28); RED CELL DISTRIBUTION WIDTH 16.8 % (11.5-14.0); SEGMENTED NEUTROPHILS % (AUTO) 57.2 % (42-78); TOTAL CELLS COUNTED % (AUTO) 100 %; WHITE BLOOD COUNT 5.8 10^3/uL (4.0-10.5)
--- NOTE | 2018-01-08 10:45 | RADIOLOGY REPORT (SQ) ---
EXAM DESCRIPTION: CHEST SINGLE VIEW COMPLETED DATE/TIME: 01/08/2018 10:11 am REASON FOR STUDY: chest pain COMPARISON: CT chest 09/14/2017 Two-view chest 05/20/2016 EXAM PARAMETERS: NUMBER OF VIEWS: One view. TECHNIQUE: Single frontal radiographic view of the chest acquired. RADIATION DOSE: NA LIMITATIONS: None. FINDINGS: LUNGS AND PLEURA: No opacities, masses or pneumothorax. No pleural effusion. MEDIASTINUM AND HILAR STRUCTURES: No masses. Contour normal. HEART AND VASCULAR STRUCTURES: Stable massive cardiomegaly BONES: No acute findings. HARDWARE: Left-sided pacemaker/ defibrillator unchanged. OTHER: No other significant finding. IMPRESSION: Stable massive cardiomegaly. No acute changes TECHNICAL DOCUMENTATION: JOB ID: [id number] [employer]- All Rights Reserved Reading location - IP/workstation name: [email or web address]
[2018-01-08 12:09] LABS: ALANINE AMINOTRANSFERASE 25 U/L (9-52); ALBUMIN 3.4 g/dL (3.5-5.0); ALKALINE PHOSPHATASE 94 U/L (38-126); ANION GAP 10 (5-19); ASPARTATE AMINO TRANSFERASE 33 U/L (14-36); BILIRUBIN,DIRECT 0.3 mg/dL (0.0-0.4); BILIRUBIN,TOTAL 0.8 mg/dL (0.2-1.3); BLOOD UREA NITROGEN 16 mg/dL (7-20); CALCIUM 9.3 mg/dL (8.4-10.2); CARBON DIOXIDE 26 mmol/L (22-30); CHLORIDE 102 mmol/L (98-107); CREATINE KINASE 33 U/L (30-135); GLUCOSE 104 mg/dL (75-110); POTASSIUM 3.9 mmol/L (3.6-5.0); SODIUM 138.2 mmol/L (137-145)
[2018-01-08 12:58] LABS: CREATINE KINASE MB 0.42 ng/mL (<4.55)
[2018-01-08 15:01] VITALS: BP 141/86
--- NOTE | 2018-01-08 16:30 | EKG REPORT ---
SEVERITY:- ABNORMAL ECG - ATRIAL-SENSED VENTRICULAR-PACED RHYTHM : Confirmed by: Santos Odonnell MD 08-Jan-2018 16:29:13
== END 2018-01-08 15:01 | disposition home or self-care (01) ==
LOC: ER 08:39
DX: M94.0 Chondrocostal junction syndrome [Tietze] (principal); I50.9 Heart failure, unspecified; R07.9 Chest pain, unspecified; R06.02 Shortness of breath; Z95.0 Presence of cardiac pacemaker; Z79.899 Other long term (current) drug therapy; M32.9 Systemic lupus erythematosus, unspecified; I10 Essential (primary) hypertension; E11.9 Type 2 diabetes mellitus without complications
CPT/HCPCS: 93005; 99285; 96374; 96375; 36415; 82553; 82550; 85025; 80053; 84484; 85379; 83880; 71045; 93010; J1940; J2930; J1885

== ENCOUNTER 2018-01-21 05:05 | Emergency (ER) | payer MEDICAID ==
[2018-01-21] MEDS ORDERED: ASPIRIN 81 MG TABLET, CHEWABLE PO ONE (05:27)
--- NOTE | 2018-01-21 05:42 | ER Document Report ---
ED Medical Screen (RME) - General Chief Complaint: Chest Pain > 30 Stated Complaint: CHEST PAIN Time Seen by Provider: 01/21/18 05:31 Notes: Patient is a 47-year-old female presenting to the emergency department for intermittent left-sided chest pain and shortness of breath for the last week. Patient states over the last 2 days the chest pain has become sharp in nature and is constant. Patient states she is getting more short of breath upon exertion. Patient does admit to a slight cough and congestion but denies fever. Chest pain does increase upon palpation and with movement and deep inspiration. Past medical history: Pacemaker, lupus, congestive heart failure, diabetes, hypertension Medications: Prednisone, Lasix, Prozac, metformin, aspirin, lisinopril, Os-Simon, omeprazole, magnesium, Duloxetine, Hydrochloroquine Allergies: None Surgical history: Pacemaker insertion, section Physical exam: Patient states it hurts to take a deep breath but upon inspiration the lung sounds clear to equal all barry. Patient in no respiratory distress with no work of breathing. No swelling noted bilateral lower extremities I have greeted and performed a rapid initial assessment of this patient. A comprehensive ED assessment and evaluation of the patient, analysis of test results and completion of the medical decision making process will be conducted by additional ED providers. TRAVEL OUTSIDE OF THE [place] IN LAST 30 DAYS: No - Related Data Allergies/Adverse Reactions: No Known Allergies Allergy (Verified 09/14/17 13:33) Past Medical History - Past Medical History Cardiac Medical History: Reports: Hx 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 Denies: Hx Diabetes Mellitus Type 1, Hx Hyperthyroidism, Hx Hypothyroidism Renal/ Medical History: Denies: Hx Peritoneal Dialysis GI Medical History: Denies: Hx Cirrhosis, Hx Gastroesophageal Reflux Disease, Hx Hepatitis Musculoskeltal Medical History: Denies Hx Arthritis Psychiatric Medical History: Denies: Hx Depression Infectious Medical History: Denies: Hx Hepatitis Past Surgical History: Reports: Hx Cardiac Surgery - pacer/defib, Hx Section - 1995, Hx Pacemaker - AICD implant - Immunizations Immunizations up to date: Yes Hx Diphtheria, Pertussis, Tetanus Vaccination: Yes History of Influenza Vaccine for 12/2016 - 05/2017 Season: Yes Influenza Administration Date for 12/2016 - 05/2017 Season: 12/19/16 Physical Exam - Vital signs Vitals: Temp Pulse Resp BP Pulse Ox 97.7 F 70 19 129/89 H 97 01/21/18 05:07 01/21/18 05:07 01/21/18 05:07 01/21/18 05:07 01/21/18 05:07 Course - Vital Signs Vital signs: Temp Pulse Resp BP Pulse Ox 97.7 F 70 19 129/89 H 97 01/21/18 05:07 01/21/18 05:07 01/21/18 05:07 01/21/18 05:07 01/21/18 05:07
[2018-01-21 06:02] LABS: HEMATOCRIT 33.5 % (36.0-47.0); MEAN CORPUSCULAR HEMOGLOBIN 28.5 pg (27.0-33.4); MEAN CORPUSCULAR HGB CONC 32.7 g/dL (32.0-36.0); MEAN CORPUSCULAR VOLUME 87 fl (80-97); PLATELET COUNT 127 10^3/uL (150-450); RED BLOOD COUNT 3.84 10^6/uL (3.72-5.28); RED CELL DISTRIBUTION WIDTH 16.5 % (11.5-14.0); WHITE BLOOD COUNT 6.1 10^3/uL (4.0-10.5)
[2018-01-21 06:13] LABS: ALANINE AMINOTRANSFERASE 61 U/L (9-52); ALBUMIN 3.7 g/dL (3.5-5.0); ALKALINE PHOSPHATASE 161 U/L (38-126); ANION GAP 15 (5-19); ASPARTATE AMINO TRANSFERASE 87 U/L (14-36); BILIRUBIN,DIRECT 0.5 mg/dL (0.0-0.4); BILIRUBIN,TOTAL 1.2 mg/dL (0.2-1.3); BLOOD UREA NITROGEN 25 mg/dL (7-20); CALCIUM 9.6 mg/dL (8.4-10.2); CARBON DIOXIDE 23 mmol/L (22-30); CHLORIDE 104 mmol/L (98-107); CREATINE KINASE 51 U/L (30-135); GLUCOSE 87 mg/dL (75-110); POTASSIUM 3.9 mmol/L (3.6-5.0); TOTAL PROTEIN 7.4 g/dL (6.3-8.2)
[2018-01-21 06:25] LABS: CREATINE KINASE MB 1.48 ng/mL (<4.55)
[2018-01-21 06:27] LABS: ABSOLUTE LYMPHOCYTES# (MANUAL) 1.7 10^3/uL (0.5-4.7); ABSOLUTE MONOCYTES # (MANUAL) 0.7 10^3/uL (0.1-1.4); ABSOLUTE NEUTROPHILS# (MANUAL) 3.7 10^3/uL (1.7-8.2); BASOPHILS % (MANUAL) 0 % (0-2); EOSINOPHILS % (MANUAL) 0 % (0-6); LYMPHOCYTES % (MANUAL) 28 % (13-45); MONOCYTES % (MANUAL) 12 % (3-13); NUCLEATED RED BLOOD CELLS 2 /100 WBC (0); SEGMENTED NEUTROPHILS % (MAN) 60 % (42-78); TOTAL CELLS COUNTED 100
[2018-01-21 06:29] LABS: ANISOCYTOSIS 1+; BURR CELLS SLIGHT; OVALOCYTES 1+; POIKILOCYTOSIS 1+; POLYCHROMASIA 1+; TARGET CELLS SLIGHT
[2018-01-21 06:30] LABS: PLATELET COMMENT ADEQUATE
--- NOTE | 2018-01-21 06:33 | RADIOLOGY REPORT (SQ) ---
EXAM DESCRIPTION: X-ray single view chest. CLINICAL HISTORY: 47 years Female, Chest pain COMPARISON: Prior chest x-ray performed on 01/08/2018. TECHNIQUE: Single portable view of the chest performed on 01/21/2018 at 6:14 AM. FINDINGS: The lungs are well expanded and are clear. There is no evidence of a pneumothorax. The cardiac silhouette is stable and enlarged. The mediastinal contours are normal. No acute osseous abnormality is identified. No focal soft tissue abnormalities are seen. Lines and tubes: There is a grossly stable, intact multi lead left subclavian AICD. IMPRESSION: 1. No evidence of acute intrathoracic disease or significant change when compared to the prior study. 2. Stable left subclavian AICD.
[2018-01-21 06:37] LABS: TROPONIN I 0.046 ng/mL
--- NOTE | 2018-01-21 06:40 | ER Document Report ---
ED Cardiac - General Chief Complaint: Chest Pain > 30 Stated Complaint: CHEST PAIN Time Seen by Provider: 01/21/18 05:31 Mode of Arrival: Ambulatory Information source: Patient, Parent TRAVEL OUTSIDE OF THE [place] IN LAST 30 DAYS: No - HPI Patient complains to provider of: Other - 47-year-old female with a history of lupus, implanted cardiac defibrillator and pacemaker that presents for evaluation of pain in the left side of the chest which is developed over the last couple of days with marked pain along the margin of her left breast extending from her armpit to the sternum. She denies any fevers or chills, she does have some slight shortness of breath, she does feel fatigued at baseline, she notes that many of these symptoms changed with the initiation of a new medication recently but that the pain is the most pressing. She is never had anything like this in the past. Nothing is seem to make it better or worse. - Related Data Allergies/Adverse Reactions: No Known Allergies Allergy (Verified 09/14/17 13:33) Past Medical History - General Information source: Patient - Social History Smoking Status: Former Smoker Family History: Hypertension, Malignancy, Other - CHF - Past Medical History Cardiac Medical History: Reports: Hx 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 Denies: Hx Diabetes Mellitus Type 1, Hx Hyperthyroidism, Hx Hypothyroidism Renal/ Medical History: Denies: Hx Peritoneal Dialysis GI Medical History: Denies: Hx Cirrhosis, Hx Gastroesophageal Reflux Disease, Hx Hepatitis Musculoskeletal Medical History: Denies Hx Arthritis Psychiatric Medical History: Denies: Hx Depression Infectious Medical History: Denies: Hx Hepatitis Past Surgical History: Reports: Hx Cardiac Surgery - pacer/defib, Hx Section - 1995, Hx Pacemaker - AICD implant - Immunizations Immunizations up to date: Yes Hx Diphtheria, Pertussis, Tetanus Vaccination: Yes Hx Pneumococcal Vaccination: 12/19/08 Review of Systems - Review of Systems -: Yes All other systems reviewed and negative Physical Exam - Vital signs Vitals: Temp Pulse Resp BP Pulse Ox 97.7 F 70 19 129/89 H 97 01/21/18 05:07 01/21/18 05:07 01/21/18 05:07 01/21/18 05:07 01/21/18 05:07 - General General appearance: Appears well In distress: None - HEENT Head: Normocephalic Eyes: Normal Conjunctiva: Normal Cornea: Normal Extraocular movements intact: Yes Eyelashes: Normal Pupils: PERRL - Respiratory Respiratory status: No respiratory distress Chest status: Tender, Other - There is exquisite superficial tenderness to brush by palpation of the skin suggestive of a dermatologic etiology of this patient's pain, 2 small vesicles under the left breast Breath sounds: Normal - Cardiovascular Rhythm: Regular Heart sounds: Normal auscultation Murmur: No - Abdominal Inspection: Normal Distension: No distension Tenderness: Nontender - Back Back: Normal - Extremities General upper extremity: Normal inspection, Nontender, Normal ROM, Normal strength General lower extremity: Normal inspection, Nontender, Normal ROM, Normal strength - Neurological Neuro grossly intact: Yes Cognition: Normal Orientation: AAOx4 [place] Coma Scale Eye Opening: Spontaneous [place] Coma Scale Verbal: Oriented [place] Coma Scale Motor: Obeys Commands [place] Coma Scale Total: 15 Speech: Normal Motor strength normal: LUE, RUE, LLE, RLE - Psychological Associated symptoms: Normal affect Course - Re-evaluation Re-evalutation: 01/21/18 06:45 47-year-old female with complex past medical history including lupus as well as some element of heart failure requiring cardiac pacemaker and AICD implantation presents for evaluation of pain along left chest. She certainly has multiple risk factors for serious pathology in the chest including but not limited to thromboembolic disease, CVA, ID, pneumonia. However her examination is more consistent with superficial etiology of her pain given the exquisite tenderness in the skin. We will plan for cardiac evaluation including cardiac markers x2, chemistry count, chest x-ray, cardiac monitoring, EKG. We will plan for administration of analgesia, as I believe that this is likely related to shingles will probably treat this patient symptomatically and reassess 01/21/18 08:01 Patient's initial troponin is above 0 but not remarkably elevated and is in line with her previous. Patient's BNP is in line with her previous. Renal function is also in line with her previous renal function. 01/21/18 17:18 Given that this patient is having what seems like potential shingles we will treat utilizing valacyclovir however while on monitor in emergency department this patient began to have multiple episodes of ventricular tachycardia. As such I did contact on-call blacksmith assistant at [facility] Dr. Ann. Given that she is having recurrent ventricular tachycardia in the setting of known horrible cardiac disease I believe this patient would benefit from likely transfer, however he suggested that this is a known diagnosis in the past and as such it should be interrogated. On-call [employer] fishing reel assembler loan servicing representative to come and interrogate patient' s pacer. She will remain in emergency department on monitor during this time, she is been placed on airborne precautions for shingles. Following interrogation of patient's pacemaker and AICD it is notable that she is having recurrent episodes of ventricular tachycardia as long as 2 and 3 minutes for 5-6 episodes yesterday when she had begun to feel worse. She notes that she occasionally has a sensation of these palpitations. She denies any changes in these medications recently and says she has been doing okay otherwise. Because of the concern of this worsening ventricular tachycardia with symptoms of weakness fatigue and chest pain believe she would benefit from investigation at her primary center with an bench worker hollow handle capable of possible revision. Contacted blacksmith assistant Dr. Ann who agrees to accept this patient in transport to [facility]. I administered an extra dose of diuretic to this patient to attempt to improve urine output and potentially lower her proBNP. Believe atrial stretch may be underlying part of her symptoms and fluid overload. Have deferred administration of antiarrhythmic except for her baseline beta- neo. At the time of signout this patient was hemodynamically stable she was transitioned to the care of Dr. Scot Joaquin awaiting transport. - Vital Signs Vital signs: Temp Pulse Resp BP Pulse Ox 97.7 F 70 26 H 133/105 H 90 L 01/21/18 05:07 01/21/18 05:07 01/21/18 15:00 01/21/18 15:00 01/21/18 09:00 - Laboratory Result Diagrams: 01/21/18 05:50 01/21/18 05:50 Laboratory results interpreted by me: 01/21/18 01/21/18 01/21/18 05:50 05:50 05:50 Hgb 11.0 L Hct 33.5 L RDW 16.5 H Plt Count 127 L BUN 25 H Creatinine 1.42 H Est GFR ( Amer) 48 L Est GFR (Non-Af Amer) 40 L Direct Bilirubin 0.5 H AST 87 H ALT 61 H Alkaline Phosphatase 161 H NT-Pro-B Natriuret Pep 05577 H Discharge - Discharge Clinical Impression: Ventricular tachycardia Shingles Qualifiers: Herpes zoster complications: unspecified herpes zoster complication Qualified Code(s): B02.8 - Zoster with other complications Condition: Stable Disposition: Critical Access Hospital Referrals: AMEE SIERRA NP [Primary Care Provider] - Follow up as needed
[2018-01-21] MEDS ORDERED: MORPHINE SULFATE 10 MG/ML INJ IV ONE (06:42)
[2018-01-21] MEDS ORDERED: OXYCODONE-ACETAMINOPHEN 5-325 MG TABLET PO ONE (06:50)
--- NOTE | 2018-01-21 10:23 | EKG REPORT ---
SEVERITY:- ABNORMAL ECG - ATRIAL-SENSED VENTRICULAR-PACED COMPLEXES : Confirmed by: Kelly Mota MD 21-Jan-2018 10:22:34
[2018-01-21] MEDS: FUROSEMIDE INJ/PF 20 MG/2 ML SDV IV ONE ×2 (14:58→18:37)
[2018-01-21] MEDS ORDERED: VALACYCLOVIR HCL 500 MG TABLET PO SCH ×2 (15:00)
[2018-01-21 19:47] VITALS: BP 137/96
== END 2018-01-21 19:52 | disposition short-term general hospital (02) ==
LOC: ER 05:05
DX: I47.2 Ventricular tachycardia (principal); B02.9 Zoster without complications; Z95.810 Presence of automatic (implantable) cardiac defibrillator; I11.0 Hypertensive heart disease with heart failure; I50.40 Unspecified combined systolic (congestive) and diastolic (congestive) heart failure; R06.02 Shortness of breath; R53.83 Other fatigue; R53.1 Weakness; R07.1 Chest pain on breathing; E11.9 Type 2 diabetes mellitus without complications; Z79.899 Other long term (current) drug therapy; Z87.891 Personal history of nicotine dependence; Z87.01 Personal history of pneumonia (recurrent); Z79.84 Long term (current) use of oral hypoglycemic drugs; Z79.82 Long term (current) use of aspirin; Z79.52 Long term (current) use of systemic steroids
CPT/HCPCS: 93005; 99285; 96374; 36415; 82553; 82550; 85025; 80053; 84484; 83880; 71045; 93010; J1940; J3490

== ENCOUNTER 2018-02-12 08:05 | Emergency (ER) | payer MEDICAID ==
[2018-02-12] MEDS ORDERED: ASPIRIN 81 MG TABLET, CHEWABLE ONE (09:03)
[2018-02-12 09:21] VITALS: BP 125/102
[2018-02-12 09:40] LABS: INTERNATIONAL RATION (INR) 1.53; PROTHROMBIN TIME 19.1 SEC (11.4-15.4)
--- NOTE | 2018-02-12 09:43 | RADIOLOGY REPORT (SQ) ---
EXAM DESCRIPTION: CHEST SINGLE VIEW COMPLETED DATE/TIME: 02/12/2018 9:00 am REASON FOR STUDY: CP COMPARISON: CT chest 09/14/2017 Chest films 12/16/2017, 01/08/2018, 01/21/2018 EXAM PARAMETERS: NUMBER OF VIEWS: One view. TECHNIQUE: Single frontal radiographic view of the chest acquired. RADIATION DOSE: NA LIMITATIONS: None. FINDINGS: LUNGS AND PLEURA: No opacities, masses or pneumothorax. No pleural effusion. MEDIASTINUM AND HILAR STRUCTURES: No masses. Contour normal. HEART AND VASCULAR STRUCTURES: Stable massive cardiomegaly BONES: No acute findings. HARDWARE: Left-sided pacemaker/defibrillator unchanged OTHER: No other significant finding. IMPRESSION: Stable massive cardiomegaly No acute findings TECHNICAL DOCUMENTATION: JOB ID: [id number] [email or web address] All Rights Reserved Reading location - IP/workstation name: [email or web address]
--- NOTE | 2018-02-12 09:56 | ER Document Report ---
ED General - General Chief Complaint: Chest Pain Stated Complaint: CHEST PAIN Time Seen by Provider: 02/12/18 09:18 Information source: Patient Notes: Patient is a 47-year-old female with past medical history that is extensive as recorded including lupus, cardiomegaly, diabetes, congestive heart failure, high blood pressure, pacemaker defibrillator, who presents today with what she states are some persistent symptoms. She states she has had some mild shortness of breath with some intermittent nausea for around 40 days. She states for the last 3 days she has had some right ear fullness, runny nose, congestion, nonproductive cough without fevers, and some left-sided anterior chest discomfort with the coughing. She denies any radiation. She denies any other aggravating or relieving factors. She denies any leg swelling or edema to the lower extremities. Patient was seen here and evaluated earlier this month and found to have episodic tachycardia. Patient denies any such symptoms at this time. Patient also states that she believes her abdomen has been more slightly distended which happens when she has some increased heart failure according to the patient and her daughter at bedside. TRAVEL OUTSIDE OF THE [place] IN LAST 30 DAYS: No - HPI Onset: Other - See above Onset/Duration: Gradual Quality of pain: Achy Severity: Mild Pain Level: Denies Associated symptoms: Other - See above Exacerbated by: Other - See above Relieved by: Other - See above Similar symptoms previously: Yes Recently seen / treated by doctor: Yes - Related Data Allergies/Adverse Reactions: No Known Allergies Allergy (Verified 09/14/17 13:33) Past Medical History - Social History Smoking Status: Never Smoker Chew tobacco use (# tins/day): No Frequency of alcohol use: None Drug Abuse: None Family History: Hypertension, Malignancy, Other - CHF Patient has suicidal ideation: No Patient has homicidal ideation: No - Past Medical History Cardiac Medical History: Reports: Hx 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 Denies: Hx Diabetes Mellitus Type 1, Hx Hyperthyroidism, Hx Hypothyroidism Renal/ Medical History: Denies: Hx Peritoneal Dialysis GI Medical History: Denies: Hx Cirrhosis, Hx Gastroesophageal Reflux Disease, Hx Hepatitis Musculoskeletal Medical History: Denies Hx Arthritis Psychiatric Medical History: Denies: Hx Depression Infectious Medical History: Denies: Hx Hepatitis Past Surgical History: Reports: Hx Cardiac Surgery - pacer/defib, Hx Section - 1995, Hx Pacemaker - AICD implant - Immunizations Immunizations up to date: Yes Hx Diphtheria, Pertussis, Tetanus Vaccination: Yes Hx Pneumococcal Vaccination: 12/19/08 Review of Systems - Review of Systems Constitutional: denies: Fever EENT: Ear pain, Nose congestion, Nose discharge. denies: Eye discharge Cardiovascular: denies: Palpitations, Heart racing, Orthopnea Respiratory: denies: Short of breath Gastrointestinal: denies: Vomiting Genitourinary: denies: Dysuria Musculoskeletal: denies: Leg swelling Skin: Other - no hives. denies: Rash Neurological/Psychological: Other - no slurred speech -: Yes All other systems reviewed and negative Physical Exam - Vital signs Vitals: Temp Pulse Resp BP Pulse Ox 98.0 F 85 18 131/91 H 100 02/12/18 08:15 02/12/18 08:15 02/12/18 08:15 02/12/18 08:15 02/12/18 08:15 Interpretation: Normal Notes: Reviewed vital signs and nursing note as charted by RN. CONSTITUTIONAL: Alert and oriented and responds appropriately to questions. Well -appearing; well-nourished HEAD: Normocephalic; atraumatic EYES: PERRL; Conjunctivae clear, sclerae non-icteric ENT: Normal nose; bilateral nonpurulent nasal rhinorrhea; moist mucous membranes ; no external auditory canal lesions; patient has a right ear effusion with no tympanic membrane erythema or bulging; pharynx without lesions noted NECK: Supple without meningismus; non-tender; no cervical lymphadenopathy, no masses CARD: Regular rate and rhythm; 5 out of 6 cardiac murmur heard best at the left sternal border consistent with patient's history; exquisite point tenderness to the left anterior chest wall with no swelling, lesions, crepitus, or erythema; symmetric distal pulses RESP: Normal chest excursion without splinting or tachypnea; breath sounds clear and equal bilaterally; no wheezes, no rhonchi, no rales ABD/GI: Normal bowel sounds; no palpable fluid wave; soft, non-tender; no palpable organomegaly or masses BACK: The back appears normal and is non-tender to palpation EXT: Normal ROM in all joints; non-tender to palpation; no edema SKIN: No acute lesions noted NEURO: CN 2-12 intact; 5/5 bilateral upper and lower extremity strength with sensation intact to light touch PSYCH: The patient's mood and manner are appropriate. Grooming and personal hygiene are appropriate. Course - Re-evaluation Re-evalutation: Given the history and physical examination, with a runny nose, congestion, ear effusion, tenderness to the anterior chest wall, pain only with coughing of the left anterior chest wall, no lower extremity edema, vital signs as recorded, I do believe pulmonary embolism, ACS, aortic dissection to be unlikely. We will check the patient's electrolytes as well as a cardiac troponin and EKG. EKG shows a heart of 82, with an atrial sensed ventricular paced rhythm 02/12/18 09:55 Labs as recorded. 02/12/18 10:29 Labs as recorded. Troponin is actually lower than it normally is. BNP is at the normal/low end of the spectrum for this patient compared to recent emergency room visits. Liver panel has improved. Albumin is on the low/normal end of the spectrum. X-ray of the chest shows persistent cardiomegaly with no obvious pleural effusions. 02/12/18 11:12 Patient is satting 100% on room air. Heart rate is 82. Patient denies any pain at this time. Patient's previous ultrasound and CT scan of the abdomen did not show any obvious intra-abdominal ascites. Patient did have an infected gallbladder previously was treated with antibiotics. Patient has no right upper quadrant tenderness. Normal liver panel at this time. Patient will be discharged home with strict return precautions and instructions to follow-up with a classification inspector and primary care physician. Patient and daughter are comfortable with this plan. - Vital Signs Vital signs: Temp Pulse Resp BP Pulse Ox 98.0 F 85 21 H 125/102 H 86 L 02/12/18 08:15 02/12/18 08:15 02/12/18 09:01 02/12/18 09:01 02/12/18 09:01 - Laboratory Result Diagrams: 02/12/18 09:20 02/12/18 09:20 Laboratory results interpreted by me: 02/12/18 02/12/18 02/12/18 09:20 09:20 09:20 Hgb 10.5 L Hct 32.9 L MCHC 31.9 L RDW 17.2 H PT 19.1 H Est GFR (Non-Af Amer) 50 L AST 43 H NT-Pro-B Natriuret Pep Albumin 3.4 L Urine Protein Urine Urobilinogen Ur Leukocyte Esterase Urine Ascorbic Acid 02/12/18 02/12/18 09:20 10:15 Hgb Hct MCHC RDW PT Est GFR (Non-Af Amer) AST NT-Pro-B Natriuret Pep 75975 H Albumin Urine Protein >=500 H Urine Urobilinogen 2.0 H Ur Leukocyte Esterase TRACE H Urine Ascorbic Acid 20 H Discharge - Discharge Clinical Impression: Chest wall pain, Cough, Acute effusion of right ear Disposition: HOME, SELF-CARE Additional Instructions: Come back immediately with any worsening cough, pain, leg swelling, fever, vomiting, shortness of breath, or any other acute problems. Please make sure that she follow-up with your classification inspector as we have discussed. Referrals: PAPITO SEYMOUR MD [Primary Care Provider] - Follow up as needed
[2018-02-12 09:57] LABS: ABSOLUTE BASOPHILS # (AUTO) 0.1 10^3/uL (0.0-0.2); ABSOLUTE LYMPHOCYTES (AUTO) 1.9 10^3/uL (0.5-4.7); ABSOLUTE MONOCYTES (AUTO) 0.8 10^3/uL (0.1-1.4); ABSOLUTE NEUT (AUTO) 5.3 10^3/uL (1.7-8.2); BASOPHILS % (AUTO) 0.6 % (0-2); EOSINOPHILS % (AUTO) 0.1 % (0-6); HEMATOCRIT 32.9 % (36.0-47.0); HEMOGLOBIN 10.5 g/dL (12.0-15.5); LYMPHOCYTES % (AUTO) 23.4 % (13-45); MEAN CORPUSCULAR HEMOGLOBIN 27.3 pg (27.0-33.4); MEAN CORPUSCULAR HGB CONC 31.9 g/dL (32.0-36.0); MEAN CORPUSCULAR VOLUME 86 fl (80-97); PLATELET COUNT 169 10^3/uL (150-450); RED BLOOD COUNT 3.84 10^6/uL (3.72-5.28); RED CELL DISTRIBUTION WIDTH 17.2 % (11.5-14.0); SEGMENTED NEUTROPHILS % (AUTO) 65.9 % (42-78); TOTAL CELLS COUNTED % (AUTO) 100 %; WHITE BLOOD COUNT 8.1 10^3/uL (4.0-10.5)
[2018-02-12 10:02] LABS: ALANINE AMINOTRANSFERASE 30 U/L (9-52); ALBUMIN 3.4 g/dL (3.5-5.0); ALKALINE PHOSPHATASE 116 U/L (38-126); ANION GAP 12 (5-19); ASPARTATE AMINO TRANSFERASE 43 U/L (14-36); BILIRUBIN,DIRECT 0.3 mg/dL (0.0-0.4); BILIRUBIN,TOTAL 0.7 mg/dL (0.2-1.3); BLOOD UREA NITROGEN 20 mg/dL (7-20); CALCIUM 9.7 mg/dL (8.4-10.2); CARBON DIOXIDE 23 mmol/L (22-30); CHLORIDE 106 mmol/L (98-107); GLUCOSE 75 mg/dL (75-110); POTASSIUM 4.6 mmol/L (3.6-5.0); SODIUM 140.7 mmol/L (137-145); TOTAL PROTEIN 7.2 g/dL (6.3-8.2)
[2018-02-12 10:14] LABS: TROPONIN I 0.029 ng/mL
[2018-02-12 10:46] LABS: APPEARANCE,URINE SLIGHTLY-CLOUDY; BILIRUBIN,URINE NEGATIVE (NEGATIVE); COLOR,URINE AMBER; GLUCOSE, URINE NEGATIVE (NEGATIVE); KETONES,URINE NEGATIVE (NEGATIVE); LEUKOCYTE ESTERASE,URINE TRACE (NEGATIVE); NITRITE,URINE NEGATIVE (NEGATIVE); PROTEIN,URINE >=500 mg/dL (NEGATIVE); URINE SPECIFIC GRAVITY 1.028
--- NOTE | 2018-02-12 14:00 | EKG REPORT ---
SEVERITY:- ABNORMAL ECG - ATRIAL-SENSED VENTRICULAR-PACED RHYTHM : Confirmed by: Kelly Mota MD 12-Feb-2018 13:59:10
== END 2018-02-12 12:08 | disposition home or self-care (01) ==
LOC: ER 08:05
DX: R07.89 Other chest pain (principal); R05 Cough; H65.191 Other acute nonsuppurative otitis media, right ear; R06.02 Shortness of breath; R11.0 Nausea; H92.09 Otalgia, unspecified ear; R09.81 Nasal congestion; R09.89 Other specified symptoms and signs involving the circulatory and respiratory systems; I10 Essential (primary) hypertension; E11.9 Type 2 diabetes mellitus without complications
CPT/HCPCS: 36415; 71045; 80053; 81001; 83880; 84484; 85025; 85610; 93005; 93010; 99285

== ENCOUNTER 2018-04-13 04:35 | Observation (INO) | payer MEDICAID ==
[2018-04-13 06:23] LABS: HEMATOCRIT 31.5 % (36.0-47.0); HEMOGLOBIN 10.1 g/dL (12.0-15.5); MEAN CORPUSCULAR HEMOGLOBIN 25.9 pg (27.0-33.4); MEAN CORPUSCULAR VOLUME 81 fl (80-97); PLATELET COUNT 172 10^3/uL (150-450); RED BLOOD COUNT 3.89 10^6/uL (3.72-5.28); RED CELL DISTRIBUTION WIDTH 19.4 % (11.5-14.0)
[2018-04-13 06:38] LABS: ANION GAP 10 (5-19); BLOOD UREA NITROGEN 26 mg/dL (7-20); CALCIUM 9.9 mg/dL (8.4-10.2); CARBON DIOXIDE 29 mmol/L (22-30); CHLORIDE 103 mmol/L (98-107); GLUCOSE 88 mg/dL (75-110); POTASSIUM 3.7 mmol/L (3.6-5.0); SODIUM 142.1 mmol/L (137-145)
--- NOTE | 2018-04-13 06:42 | ER Document Report ---
ED General - General Chief Complaint: Chest Pain Stated Complaint: SHORTNESS OF BREATH,CHEST PAIN Time Seen by Provider: 04/13/18 06:05 TRAVEL OUTSIDE OF THE [place] IN LAST 30 DAYS: No - HPI Notes: Patient is a 47-year-old female that presents to the emergency department for chief complaint of shortness of breath and chest pain. Patient reports a substernal chest pain for the last 3 days. She states it waxes and wanes in intensity but has not completely resolved. The pain is substernal and radiates bilaterally across her chest. It is described as a tight feeling. She reports associated increase in dyspnea. She has not been able to walk more than a few feet without becoming dyspneic. Patient also states she feels her abdomen has become significantly more swollen over the last few weeks. Patient did have an increase in her Lasix a week ago from 40 mg to 80 mg twice daily. She has congestive heart failure and sees Dr. Valles for this. She states she did have a cardiac catheterization in January 2018 that was normal. She reports having a stress test in the last few months that was also normal. She denies history of IN in the past. Past Medical History: Lupus, diabetes, CHF, hypertension Past Surgical History: Pacemaker/defibrillator implantation Social History: Denies drugs alcohol and tobacco Family History: Reviewed and noncontributory for presenting illness Allergies: Reviewed, see documented allergy list. REVIEW OF SYSTEMS: CONSTITUTIONAL : No fever No chills No diaphoresis No recent illness EENT: No vision changes congestion No sore throat CARDIOVASCULAR: chest pain No palpitations RESPIRATORY: shortness of breath cough difficulty breathing GASTROINTESTINAL: abdominal pain No nausea No vomiting No diarrhea GENITOURINARY: No dysuria No hematuria No difficulty urinating MUSCULOSKELETAL: No back pain No leg pain No arm pain SKIN: No rashes No lesions LYMPHATIC: No swollen, enlarged glands. NEUROLOGICAL: No lightheadedness No headache No weakness No paresthesias PSYCHIATRIC: No anxiety No depression PHYSICAL EXAMINATION: Vital signs reviewed, nursing noted reviewed. GENERAL: Well-appearing, well-nourished and in no acute distress. HEAD: Atraumatic, normocephalic. EYES: Eyes appear normal, extraocular movements intact, sclera anicteric, conjunctiva are normal. ENT: nares patent, oropharynx clear without exudates. Moist mucous membranes. NECK: Normal range of motion, supple without lymphadenopathy, trachea midline LUNGS: Breath sounds diminished to auscultation bilaterally and equal. No wheezes rales or rhonchi. HEART: Regular rate and rhythm without systolic murmur ABDOMEN: Distended, soft, nontender. No rebound, guarding, or rigidity. No masses appreciated. EXTREMITIES: Nontender, good range of motion, trace pretibial edema NEUROLOGICAL: No focal neurological deficits. Moves all extremities spontaneously Motor and sensory grossly intact on exam. PSYCH: Normal mood, normal affect. SKIN: Warm, Dry, normal turgor, no rashes or lesions noted on exposed skin - Related Data Allergies/Adverse Reactions: No Known Allergies Allergy (Verified 09/14/17 13:33) Past Medical History - Social History Smoking Status: Unknown if Ever Smoked Family History: Hypertension, Malignancy, Other - CHF Patient has suicidal ideation: No Patient has homicidal ideation: No - Past Medical History Cardiac Medical History: Reports: Hx 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 Denies: Hx Diabetes Mellitus Type 1, Hx Hyperthyroidism, Hx Hypothyroidism Renal/ Medical History: Denies: Hx Peritoneal Dialysis GI Medical History: Denies: Hx Cirrhosis, Hx Gastroesophageal Reflux Disease, Hx Hepatitis Musculoskeletal Medical History: Denies Hx Arthritis Psychiatric Medical History: Denies: Hx Depression Infectious Medical History: Denies: Hx Hepatitis Past Surgical History: Reports: Hx Cardiac Surgery - pacer/defib, Hx Section - 1995, Hx Pacemaker - AICD implant - Immunizations Immunizations up to date: Yes Hx Diphtheria, Pertussis, Tetanus Vaccination: Yes Hx Pneumococcal Vaccination: 12/19/08 Physical Exam - Vital signs Vitals: Temp Pulse Resp BP Pulse Ox 97.4 F 64 24 H 121/86 H 100 04/13/18 04:57 04/13/18 04:57 04/13/18 04:57 04/13/18 04:57 04/13/18 04:57 Course - Re-evaluation Re-evalutation: 04/13/18 06:41 Vitals reviewed. Nursing notes reviewed. Patient is resting comfortably and in no acute distress. Her EKG shows a paced rhythm with ectopy 04/13/18 09:22 Patient reevaluated after Lasix and has had multiple episodes of urination. She states her chest pain is starting to improve. Her CT scan shows no pulmonary embolism or pulmonary vascular congestion. Patient does have ascites which is new for her. She also has massive cardiomegaly with no pericardial effusion. Patient still feels very dyspneic but is oxygenating on room air. She has multiple comorbidities and will be admitted to the hospital for telemetry monitoring of her chest pain as well as possible paracentesis for her ascites which is likely the cause of her dyspnea. Case discussed with Dr. Knox. Patient in agreement with plan of care. Laboratory 04/13/18 04/13/18 04/13/18 06:13 06:13 06:13 WBC 6.0 RBC 3.89 Hgb 10.1 L Hct 31.5 L MCV 81 MCH 25.9 L MCHC 32.0 RDW 19.4 H Plt Count 172 Total Counted 100 Seg Neutrophils % Not Reportable Seg Neuts % (Manual) 60 Lymphocytes % Not Reportable Lymphocytes % (Manual) 33 Monocytes % Not Reportable Monocytes % (Manual) 7 Eosinophils % Not Reportable Eosinophils % (Manual) 0 Basophils % Not Reportable Basophils % (Manual) 0 Absolute Neutrophils Not Reportable Abs Neuts (Manual) 3.6 Absolute Lymphocytes Not Reportable Abs Lymphs (Manual) 2.0 Absolute Monocytes Not Reportable Abs Monocytes (Manual) 0.4 Absolute Eosinophils Not Reportable Absolute Eos (Manual) 0.0 Absolute Basophils Not Reportable Abs Basophils (Manual) 0.0 Large Platelets PRESENT Giant Platelets PRESENT Platelet Comment ADEQUATE Polychromasia SLIGHT Poikilocytosis 1+ Anisocytosis 2+ Microcytosis SLIGHT Ovalocytes 1+ Lesli Cells 1+ Schistocytes 2+ Sodium 142.1 Potassium 3.7 Chloride 103 Carbon Dioxide 29 Anion Gap 10 BUN 26 H Creatinine 1.45 H Est GFR ( Amer) 47 L Est GFR (Non-Af Amer) 39 L Glucose 88 Calcium 9.9 Troponin I 0.036 NT-Pro-B Natriuret Pep 9670 H 04/13/18 06:13 WBC RBC Hgb Hct MCV MCH MCHC RDW Plt Count Total Counted Seg Neutrophils % Seg Neuts % (Manual) Lymphocytes % Lymphocytes % (Manual) Monocytes % Monocytes % (Manual) Eosinophils % Eosinophils % (Manual) Basophils % Basophils % (Manual) Absolute Neutrophils Abs Neuts (Manual) Absolute Lymphocytes Abs Lymphs (Manual) Absolute Monocytes Abs Monocytes (Manual) Absolute Eosinophils Absolute Eos (Manual) Absolute Basophils Abs Basophils (Manual) Large Platelets Giant Platelets Platelet Comment Polychromasia Poikilocytosis Anisocytosis Microcytosis Ovalocytes Peridot Cells Schistocytes Sodium Potassium Chloride Carbon Dioxide Anion Gap BUN Creatinine Est GFR ( Amer) Est GFR (Non-Af Amer) Glucose Calcium Troponin I NT-Pro-B Natriuret Pep Cancelled Chest X-Ray 04/13/18 06:06 IMPRESSION: 1. Stable marked cardiomegaly. 2. No definite acute intrathoracic disease. 3. Stable left subclavian AICD Chest/Abdomen CTA 04/13/18 07:06 IMPRESSION: 1. Negative examination for pulmonary embolism. 2. Massive cardiomegaly. 3. Ascites in the partially included upper abdomen. - Vital Signs Vital signs: Temp Pulse Resp BP Pulse Ox 97.4 F 64 19 125/99 H 94 04/13/18 04:57 04/13/18 04:57 04/13/18 07:00 04/13/18 05:04 04/13/18 07:00 - Laboratory Result Diagrams: 04/13/18 06:13 04/13/18 06:13 Laboratory results interpreted by me: 04/13/18 04/13/18 04/13/18 06:13 06:13 06:13 Hgb 10.1 L Hct 31.5 L MCH 25.9 L RDW 19.4 H BUN 26 H Creatinine 1.45 H Est GFR ( Amer) 47 L Est GFR (Non-Af Amer) 39 L NT-Pro-B Natriuret Pep 9670 H - EKG Interpretation by Me Additional EKG results interpreted by me: 04/13/18 06:41 Interpreted by myself [id number]: AV dual paced rhythm, rate 71, ectopy Discharge - Discharge Clinical Impression: Elevated troponin, Shortness of breath Ascites Qualifiers: Ascites type: other type Qualified Code(s): R18.8 - Other ascites Chest pain Qualifiers: Chest pain type: unspecified Qualified Code(s): R07.9 - Chest pain, unspecified Condition: Stable Disposition: ADMITTED OBSERVATION Admitting Provider: Hospitalist Unit Admitted: Telemetry
[2018-04-13 06:48] LABS: TROPONIN I 0.036 ng/mL
[2018-04-13 06:59] LABS: ABSOLUTE MONOCYTES # (MANUAL) 0.4 10^3/uL (0.1-1.4); ABSOLUTE NEUTROPHILS# (MANUAL) 3.6 10^3/uL (1.7-8.2); BASOPHILS % (MANUAL) 0 % (0-2); EOSINOPHILS % (MANUAL) 0 % (0-6); LYMPHOCYTES % (MANUAL) 33 % (13-45); MONOCYTES % (MANUAL) 7 % (3-13); SEGMENTED NEUTROPHILS % (MAN) 60 % (42-78); TOTAL CELLS COUNTED 100
[2018-04-13 07:00] LABS: ANISOCYTOSIS 2+; BURR CELLS 1+; OVALOCYTES 1+; PLATELET COMMENT ADEQUATE; PLATELET GIANT PRESENT; PLATELET LARGE PRESENT; POIKILOCYTOSIS 1+; POLYCHROMASIA SLIGHT; SCHISTOCYTES 2+
[2018-04-13] MEDS ORDERED: FUROSEMIDE INJ/PF 40 MG/4 ML SDV IV ONE (07:05)
[2018-04-13] MEDS ORDERED: ASPIRIN 81 MG TABLET, CHEWABLE PO ONE (07:05)
--- NOTE | 2018-04-13 07:21 | RADIOLOGY REPORT (SQ) ---
EXAM DESCRIPTION: X-ray single view chest. CLINICAL HISTORY: 47 years Female, chest pain COMPARISON: 02/12/2018 TECHNIQUE: Single portable view of the chest performed on 04/13/2018 at 6:56 AM FINDINGS: The lungs are well expanded and are clear. There is no evidence of a pneumothorax. The cardiac silhouette is stable and markedly enlarged. The mediastinal contours are normal. No acute osseous abnormality is identified. No focal soft tissue abnormalities are seen. Lines and tubes: There is a stable multi lead left subclavian AICD. IMPRESSION: 1. Stable marked cardiomegaly. 2. No definite acute intrathoracic disease. 3. Stable left subclavian AICD
--- NOTE | 2018-04-13 08:07 | EKG REPORT ---
SEVERITY:- ABNORMAL ECG - A-V DUAL-PACED COMPLEXES W/ SOME INHIBITION : Confirmed by: Kelly Mota MD 13-Apr-2018 08:06:08
--- NOTE | 2018-04-13 08:50 | RADIOLOGY REPORT (SQ) ---
EXAM DESCRIPTION: CTA CHEST COMPLETED DATE/TIME: 04/13/2018 8:36 am REASON FOR STUDY: PE, chest pain COMPARISON: 09/14/2017 TECHNIQUE: CT scan of the chest performed using helical scanning technique with dynamic intravenous contrast injection. Images reviewed with lung, soft tissue and bone windows. Reconstructed coronal and sagittal MPR images reviewed. Additional 3 dimensional post-processing performed to develop Maximal Intensity Projection images ([place] P). All images stored on PACS. All CT scanners at this facility use dose modulation, iterative reconstruction, and/or weight based d osing when appropriate to reduce radiation dose to as low as reasonably achievable (ALARA). [facility]: Dose Right [facility]: CareDose [facility]: Dose Right [facility]: Teradose 4D [facility]: Dayak CONTRAST TYPE AND DOSE: contrast/concentration: Isovue 350.00 mg/ml; Total Contrast Delivered: 78.0 ml; Total Saline Delivered: 90.0 ml Contrast bolus optimized for the pulmonary arteries. Not diagnostic for the aorta. RENAL FUNCTION: None required. The patient is less than 50 years old. RADIATION DOSE: CT Rad equipment meets quality standard of care and radiation dose reduction techniq ues were employed. CTDIvol: 19.3 - 23.2 mGy. DLP: 686 mGy-cm. . LIMITATIONS: None. FINDINGS: LUNGS AND PLEURA: No masses, infiltrates, or pneumothorax. No pleural effusions or pleura l calcifications. AORTA AND GREAT VESSELS: No aneurysm. Contrast bolus not optimized for the aorta. HEART: Massive cardiomegaly with left chest multi lead pacer. No pericardial effusion. No significa nt coronary artery calcifications. PULMONARY ARTERIES: No emboli visualized in the main pulmonary arteries or the segmental branches. HILAR AND MEDIASTINAL STRUCTURES: No identified masses or abnormal nodes. HARDWARE: None in the chest. UPPER ABDOMEN: Moderate volume ascites. THYROID AND OTHER SOFT TISSUES: No masses. No adenopathy. BONES: No acute or significant finding. 3D MIPS: Confirm above findings. OTHER: No other significant finding. IMPRESSION: 1. Negative examination for pulmonary embolism. 2. Massive cardiomegaly. 3. Ascites in the partially included upper abdomen. COMMENT: Quality ID # [id number]: Final reports with documentation of one or more dose reduction techniques (e.g., Automated exposure control, adjustment of the mA and/or kV according to patient size, use of iterative reconstruction technique) TECHNICAL DOCUMENTATION: JOB ID: [id number] [employer]- All Rights Reserved Reading location - IP/workstation name: [email or web address]
--- NOTE | 2018-04-13 12:26 | RADIOLOGY REPORT (SQ) ---
EXAM DESCRIPTION: U/S ABDOMEN COMPLETE W/DOPPLER COMPLETED DATE/TIME: 04/13/2018 11:41 am REASON FOR STUDY: new onset ascites COMPARISON: None. TECHNIQUE: Dynamic and static grayscale images acquired of the abdomen and recorded on PACS. Additio nal selected color Doppler and spectral images recorded. Note: Study does not meet criteria for complete doppler/duplex scan LIMITATIONS: None. FINDINGS: PANCREAS: No masses. Visualized pancreatic duct normal caliber. LIVER: No masses. Echotexture normal. LIVER VASCULATURE: Normal directional flow of the main portal vein and hepatic veins. GALLBLADDER: Gallstones. Generalized gallbladder wall thickening. ULTRASOUND-DETECTED SALINAS'S SIGN: Negative. INTRAHEPATIC DUCTS AND COMMON DUCT: CBD and intrahepatic ducts normal caliber. No filling defects. INFERIOR VENA CAVA: Distended. AORTA: No aneurysm. RIGHT KIDNEY: Normal size. Normal echogenicity. No solid or suspicious masses. No hydronephros is. No calcifications. LEFT KIDNEY: Normal size. Normal echogenicity. No solid or suspicious masses. No hydronephrosi s. No calcifications. SPLEEN: Normal size. No solid masses. PERITONEAL AND PLEURAL SPACES: Moderate ascites. OTHER: No other significant finding. IMPRESSION: 1. GALLSTONES. GENERALIZED GALLBLADDER WALL THICKENING. NO BILIARY DILATION. 2. MODERATE ASCITES. 3. DISTENDED INFERIOR VENA CAVA WHICH COULD BE DUE TO RIGHT HEART FAILURE. TECHNICAL DOCUMENTATION: JOB ID: [id number] [employer]- All Rights Reserved Reading location - IP/workstation name: [email or web address]
[2018-04-13 14:17] LABS: ALANINE AMINOTRANSFERASE 22 U/L (9-52); ALKALINE PHOSPHATASE 103 U/L (38-126); ASPARTATE AMINO TRANSFERASE 28 U/L (14-36); BILIRUBIN,DIRECT 0.3 mg/dL (0.0-0.4); BILIRUBIN,TOTAL 0.6 mg/dL (0.2-1.3); TOTAL PROTEIN 7.5 g/dL (6.3-8.2)
--- NOTE | 2018-04-13 15:33 | PDOC H&P ---
History of Present Illness Admission Date/PCP: 04/13/18 09:42 LAURA SYED MD History of Present Illness: BREN MALDONADO is a 47 year old female with a history of biventricular congestive heart failure and severe pulmonary hypertension who comes in with 3 days of progressive abdominal distention. She says that sometimes it makes it harder for her to breathe. She says that when she sits down lays back it makes it feel more uncomfortable and her lower chest and it gets better when she sits up or stands up. She says is not very comfortable to lay down because of all the pressure in her belly. She has had to be in the hospital a lot with her heart failure but she is never had abdominal swelling like this before. She denies any history of hepatitis. She has no history of any liver problems that she is aware of. Past Medical History Cardiac Medical History: Reports: Congestive Heart Failure - combined systolic and diastolic dysfunction; nonischemic cardiomyopathy., Hyperlipidema, Hypertension, 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; AR mild Pulmonary Medical History: Reports: Pneumonia Neurological Medical History: Denies: Seizures Endocrine Medical History: Reports: Diabetes Mellitus Type 2 Denies: Diabetes Mellitus Type 1, Hyperthyroidism, Hypothyroidism GI Medical History: Denies: Cirrhosis, Gastroesophageal Reflux Disease, Hepatitis Musculoskeltal Medical History: Denies: Arthritis Psychiatric Medical History: Denies: Depression Hematology: Reports: Anemia Past Surgical History Past Surgical History: Reports: Section - 1995, Pacemaker - AICD implant Social History Smoking Status: Never Smoker Frequency of Alcohol Use: None Hx Recreational Drug Use: No Drugs: None Hx Prescription Drug Abuse: No Family History Family History: Reviewed & Not Pertinent, Hypertension, Malignancy, Other - CHF Parental Family History Reviewed: Yes - Noncontributory Children Family History Reviewed: Yes - Noncontributory Sibling(s) Family History Reviewed.: Yes - Noncontributory Medication/Allergy Home Medications: Apixaban [Eliquis 5 mg Tablet] 5 mg PO BID 04/13/18 Aspirin [Aspirin 81 mg Chewable Tablet] 81 mg PO DAILY 04/13/18 Calcium Carbonate/Vitamin D3 [Os-Simon 500+D Tablet] 1 tab PO BID 04/13/18 Carvedilol [Coreg 12.5 mg Tablet] 12.5 mg PO Q12 04/13/18 Duloxetine HCl [Cymbalta] 30 mg PO BID 04/13/18 Fluoxetine HCl [Prozac 20 mg Capsule] 20 mg PO DAILY 04/13/18 Furosemide [Lasix 80 mg Tablet] 80 mg PO DAILY 04/13/18 Hydroxychloroquine Sulfate [Plaquenil 200 mg Tablet] 200 mg PO BID 04/13/18 Lisinopril [Prinivil 5 mg Tablet] 5 mg PO DAILY 04/13/18 Magnesium Oxide [Mag-Ox 400 mg Tablet] 400 mg PO BID 04/13/18 Metformin HCl [Metformin HCl ER] 500 mg PO BID 04/13/18 Metoprolol Succinate [Toprol XL 100 mg Tablet] 100 mg PO DAILY 04/13/18 Multivitamin [Multiple Vitamins] 2 tab PO DAILY 04/13/18 Mycophenolate Mofetil [Cellcept] 1,000 mg PO BID 04/13/18 Prednisone [Deltasone 10 mg Tablet] 10 mg PO DAILY 04/13/18 Allergies/Adverse Reactions: No Known Allergies Allergy (Verified 09/14/17 13:33) Review of Systems All systems: reviewed and no additional remarkable complaints except as stated - 10 point review of systems was conducted with the patient was negative except as noted above Physical Exam Vital Signs: Temp Pulse Resp BP Pulse Ox 97.4 F 64 19 125/99 H 94 04/13/18 04:57 04/13/18 04:57 04/13/18 07:00 04/13/18 05:04 04/13/18 07:00 Intake & Output 04/12/18 04/13/18 04/14/18 06:59 06:59 06:59 Weight 86.636 kg General appearance: PRESENT: no acute distress, cooperative, disheveled Head exam: PRESENT: atraumatic, normocephalic Eye exam: PRESENT: EOMI, PERRLA. ABSENT: conjunctival injection, nystagmus, scleral icterus Ear exam: PRESENT: normal external ear exam Mouth exam: PRESENT: moist, neck supple Throat exam: ABSENT: post pharyngeal erythema Neck exam: PRESENT: full ROM. ABSENT: carotid bruit, JVD, lymphadenopathy, meningismus, tenderness, thyromegaly Respiratory exam: PRESENT: clear to auscultation mati, symmetrical, unlabored. ABSENT: accessory muscle use, crackles, prolonged expiratory phas, rhonchi, tachypnea, wheezes Cardiovascular exam: PRESENT: RRR, +S1, +S2 Pulses: PRESENT: normal carotid pulses Vascular exam: PRESENT: normal capillary refill GI/Abdominal exam: PRESENT: ascites, distended, normal bowel sounds, soft, other - Fluid wave. ABSENT: diminished bowel sounds, guarding, rebound, tenderness Extremities exam: ABSENT: clubbing, pedal edema Musculoskeletal exam: PRESENT: normal inspection. ABSENT: deformity Neurological exam: PRESENT: alert, awake, oriented to person, oriented to place, oriented to time, oriented to situation, CN II-XII grossly intact. ABSENT: motor sensory deficit Psychiatric exam: PRESENT: appropriate affect, normal mood Skin exam: PRESENT: dry, warm Results Laboratory Results: 04/13/18 06:13 04/13/18 06:13 04/13/18 04/13/18 04/13/18 06:13 06:13 06:13 WBC 6.0 RBC 3.89 Hgb 10.1 L Hct 31.5 L MCV 81 MCH 25.9 L MCHC 32.0 RDW 19.4 H Plt Count 172 Seg Neutrophils % Not Reportable Lymphocytes % Not Reportable Monocytes % Not Reportable Eosinophils % Not Reportable Basophils % Not Reportable Absolute Neutrophils Not Reportable Absolute Lymphocytes Not Reportable Absolute Monocytes Not Reportable Absolute Eosinophils Not Reportable Absolute Basophils Not Reportable Sodium 142.1 Potassium 3.7 Chloride 103 Carbon Dioxide 29 Anion Gap 10 BUN 26 H Creatinine 1.45 H Est GFR ( Amer) 47 L Est GFR (Non-Af Amer) 39 L Glucose 88 Calcium 9.9 Total Bilirubin 0.6 AST 28 ALT 22 Alkaline Phosphatase 103 Total Protein 7.5 Albumin 4.0 04/13/18 04/13/18 06:13 06:13 Troponin I 0.036 NT-Pro-B Natriuret Pep 9670 H Cancelled Impressions: Abdomen Ultrasound 04/13/18 00:00 IMPRESSION: 1. GALLSTONES. GENERALIZED GALLBLADDER WALL THICKENING. NO BILIARY DILATION. 2. MODERATE ASCITES. 3. DISTENDED INFERIOR VENA CAVA WHICH COULD BE DUE TO RIGHT HEART FAILURE. Chest X-Ray 04/13/18 06:06 IMPRESSION: 1. Stable marked cardiomegaly. 2. No definite acute intrathoracic disease. 3. Stable left subclavian AICD Chest/Abdomen CTA 04/13/18 07:06 IMPRESSION: 1. Negative examination for pulmonary embolism. 2. Massive cardiomegaly. 3. Ascites in the partially included upper abdomen. Assessment & Plan - Diagnosis (1) Ascites Qualifiers: Ascites type: other type Qualified Code(s): R18.8 - Other ascites Is this a current diagnosis for this admission?: Yes Plan: I checked the liver panel and it looked normal. Abdominal ultrasound did not comment on the size of the liver, but on CT it looked enlarged. I suspect that with her pulmonary hypertension and right heart failure that she has some passive congestion of the liver. We will check coagulation studies as well. Diuretics are probably not going to help is very much here, and she is already on diuretics for her heart failure anyway. Going to get a therapeutic paracentesis. It should be noted that her weight this admission is 10 kg less than the last time she was in the hospital, and at that time her abdomen was not enlarged, a few months ago. - Time Time Spent: 50 to 70 Minutes - Inpatient Certification Medical Necessity: Other - Need for inpatient procedure
[2018-04-13 16:50] LABS: INTERNATIONAL RATION (INR) 1.23; PROTHROMBIN TIME 16.2 SEC (11.4-15.4)
[2018-04-13 16:51] LABS: PARTIAL THROMBOPLASTIN TIME 31.3 SEC (23.5-35.8)
[2018-04-14] MEDS ORDERED: ONDANSETRON 4 MG TAB.RAPDIS PO PRN (09:54)
[2018-04-14] MEDS ORDERED: METOPROLOL TARTRATE 25 MG TABLET PO ONE ×2 (10:30→16:30)
--- NOTE | 2018-04-14 16:08 | PDOC PROGRESS REPORT ---
Subjective Progress Note for:: 04/14/18 Subjective:: No adverse events overnight. No new complaints. Vital signs are stable. Her paracentesis is been held off for a day because of her Eliquis. Reason For Visit: ASCITES Physical Exam Vital Signs: Temp Pulse Resp BP Pulse Ox 97.8 F 76 20 135/98 H 100 04/14/18 15:37 04/14/18 15:37 04/14/18 15:37 04/14/18 15:37 04/14/18 15:37 Intake & Output 04/13/18 04/14/18 04/15/18 06:59 06:59 06:59 Intake Total 838 1580 Balance 838 1580 Weight 86.636 kg General appearance: PRESENT: no acute distress, cooperative, disheveled Respiratory exam: PRESENT: clear to auscultation mati, symmetrical, unlabored. ABSENT: accessory muscle use, crackles, prolonged expiratory phas, rhonchi, tachypnea, wheezes Cardiovascular exam: PRESENT: RRR, +S1, +S2 Pulses: PRESENT: normal carotid pulses Vascular exam: PRESENT: normal capillary refill GI/Abdominal exam: PRESENT: ascites, distended, normal bowel sounds, soft, other - Fluid wave. ABSENT: diminished bowel sounds, guarding, rebound, tenderness Extremities exam: ABSENT: clubbing, pedal edema Musculoskeletal exam: PRESENT: normal inspection. ABSENT: deformity Neurological exam: PRESENT: alert, awake, oriented to person, oriented to place, oriented to time, oriented to situation Psychiatric exam: PRESENT: appropriate affect, normal mood Skin exam: PRESENT: dry, warm Results Laboratory Results: 04/13/18 06:13 04/13/18 06:13 04/13/18 04/13/18 06:13 06:13 Troponin I 0.036 NT-Pro-B Natriuret Pep 9670 H Cancelled Impressions: Abdomen Ultrasound 04/13/18 00:00 IMPRESSION: 1. GALLSTONES. GENERALIZED GALLBLADDER WALL THICKENING. NO BILIARY DILATION. 2. MODERATE ASCITES. 3. DISTENDED INFERIOR VENA CAVA WHICH COULD BE DUE TO RIGHT HEART FAILURE. Chest X-Ray 04/13/18 06:06 IMPRESSION: 1. Stable marked cardiomegaly. 2. No definite acute intrathoracic disease. 3. Stable left subclavian AICD Chest/Abdomen CTA 04/13/18 07:06 IMPRESSION: 1. Negative examination for pulmonary embolism. 2. Massive cardiomegaly. 3. Ascites in the partially included upper abdomen. Assessment & Plan - Diagnosis (1) Ascites Qualifiers: Ascites type: other type Qualified Code(s): R18.8 - Other ascites Is this a current diagnosis for this admission?: Yes Plan: No evidence of acute liver failure. Planning on a therapeutic paracentesis tomorrow. We will probably let her go home afterwards. We will continue her treatments for heart failure as these are overlapping with treatment she would have for ascites accumulation anyway. - Time Time Spent with patient: 25-34 minutes
[2018-04-15 05:40] LABS: HEPATITIS A AB IGM Negative (Negative); HEPATITIS B CORE AB IGM Negative (Negative); HEPATITS B SURFACE ANTIGEN Negative (Negative)
--- NOTE | 2018-04-15 13:29 | RADIOLOGY REPORT (SQ) ---
EXAM DESCRIPTION: U/S ABD PARACENTESIS COMPLETED DATE/TIME: 04/15/2018 1:18 pm REASON FOR STUDY: ascites COMPARISON: None. LIMITATIONS: None. PROCEDURE: Procedure, risks, benefit, and alternative explained to patient who then gave written con sent. The right lower abdominal wall marked using ultrasound guidance. A time-out was called for co rrect marking verification. Abdomen prepped and draped using sterile technique. Local anesthesia ach ieved using 10 ml of 1% lidocaine injection. A 6fr [id number] set was introduced into the perit samayoa cavity. Fluid was drained. The catheter was removed and entry site was covered with sterile b andage. No immediate complications noted. Images acquired during the procedure were stored on PACS. FINDINGS: ENTRY SITE: Right lower quadrant FLUID VOLUME: 2700 cc FLUID ANALYSIS: Straw-colored OTHER: Fluid sent to the lab for testing. IMPRESSION: SUCCESSFUL ULTRASOUND GUIDED PARACENTESIS. COMMENT: Patient medication list reviewed:Yes- Quality ID# [id number]:Eligible professional attests to docu menting in the medical record they obtained, updated, or reviewed the patient's current medications. TECHNICAL DOCUMENTATION: JOB ID: [id number] [employer]- All Rights Reserved Reading location - IP/workstation name: [email or web address]
[2018-04-15 15:04] LABS: FLUID APPEARANCE HAZY; FLUID COLOR YELLOW; FLUID SOURCE ABDOMEN; FLUID TYPE PERITONEAL; FLUID VISCOSITY LIQUID
--- NOTE | 2018-04-15 16:03 | PDOC PROGRESS REPORT ---
Subjective Progress Note for:: 04/15/18 Subjective:: No adverse events overnight. No new complaints. Vital signs are stable. No fevers. As long as she sits up she feels pretty comfortable her breathing is comfortable. Reason For Visit: ASCITES Physical Exam Vital Signs: Temp Pulse Resp BP Pulse Ox 98.6 F 90 16 117/75 100 04/15/18 14:56 04/15/18 14:56 04/15/18 14:56 04/15/18 14:56 04/15/18 14:56 Intake & Output 04/14/18 04/15/18 04/16/18 06:59 06:59 06:59 Intake Total 838 2060 1240 Balance 838 2060 1240 Weight 84.8 kg General appearance: PRESENT: no acute distress, cooperative, disheveled Respiratory exam: PRESENT: clear to auscultation mati, symmetrical, unlabored. ABSENT: accessory muscle use, crackles, prolonged expiratory phas, rhonchi, tachypnea, wheezes Cardiovascular exam: PRESENT: RRR, +S1, +S2 Pulses: PRESENT: normal carotid pulses Vascular exam: PRESENT: normal capillary refill GI/Abdominal exam: PRESENT: ascites, distended, normal bowel sounds, soft, other - Fluid wave. ABSENT: diminished bowel sounds, guarding, rebound, tenderness Extremities exam: ABSENT: clubbing, pedal edema Musculoskeletal exam: PRESENT: normal inspection. ABSENT: deformity Neurological exam: PRESENT: alert, awake, oriented to person, oriented to place, oriented to time, oriented to situation Psychiatric exam: PRESENT: appropriate affect, normal mood Skin exam: PRESENT: dry, warm Results Laboratory Results: 04/13/18 06:13 04/13/18 06:13 04/15/18 12:40 Fluid Type PERITONEAL Fluid Source ABDOMEN Fluid Color YELLOW Fluid Appearance HAZY Fluid Viscosity LIQUID Fluid WBC 42 Fluid RBC 1665 04/13/18 04/13/18 06:13 06:13 Troponin I 0.036 NT-Pro-B Natriuret Pep 9670 H Cancelled Impressions: Abdomen Ultrasound 04/13/18 00:00 IMPRESSION: 1. GALLSTONES. GENERALIZED GALLBLADDER WALL THICKENING. NO BILIARY DILATION. 2. MODERATE ASCITES. 3. DISTENDED INFERIOR VENA CAVA WHICH COULD BE DUE TO RIGHT HEART FAILURE. Chest X-Ray 04/13/18 06:06 IMPRESSION: 1. Stable marked cardiomegaly. 2. No definite acute intrathoracic disease. 3. Stable left subclavian AICD Chest/Abdomen CTA 04/13/18 07:06 IMPRESSION: 1. Negative examination for pulmonary embolism. 2. Massive cardiomegaly. 3. Ascites in the partially included upper abdomen. Paracentesis Ultrasound 04/15/18 00:00 IMPRESSION: SUCCESSFUL ULTRASOUND GUIDED PARACENTESIS. Assessment & Plan - Diagnosis (1) Ascites Qualifiers: Ascites type: other type Qualified Code(s): R18.8 - Other ascites Is this a current diagnosis for this admission?: Yes Plan: Were planning to draw fluid off her today and sent for studies. Anticipate that this is all driven by her heart failure. No evidence of infection or SBP. If the fluid studies are unremarkable we will probably send her home tomorrow. - Time Time Spent with patient: 25-34 minutes
[2018-04-16 07:25] LABS: HEPATITIS C VIRUS ANTIBODY <0.1 s/co ratio (0.0-0.9)
[2018-04-16 11:44] VITALS: BP 125/79
--- NOTE | 2018-04-16 13:59 | PDOC DISCHARGE SUMMARY ---
General - Admit/Disc Date/PCP Admission Date/Primary Care Provider: 04/13/18 09:42 LAURA SYED MD Discharge Date: 04/16/18 - Discharge Diagnosis (1) Ascites Is this a current diagnosis for this admission?: Yes Summary: The appearance primarily of a transudate. No signs of any infection. Gram stain was negative. Cell count differential was unremarkable. She had about 3 L drawn off. No changes to her medication made, but she was encouraged to pay more attention to her salt and fluid intake as well as her daily weights. - Additional Information Resuscitation Status: Full Code Discharge Diet: Cardiac, Diabetic Discharge Activity: Activity As Tolerated Home Medications: Apixaban [Eliquis 5 mg Tablet] 5 mg PO BID 04/13/18 Aspirin [Aspirin 81 mg Chewable Tablet] 81 mg PO DAILY 04/13/18 Calcium Carbonate/Vitamin D3 [Os-Simon 500-Vit D3 200 Caplet] 1 tab PO BID 04/13/18 Carvedilol [Coreg 12.5 mg Tablet] 12.5 mg PO Q12 04/13/18 Duloxetine HCl [Cymbalta] 30 mg PO BID 04/13/18 Fluoxetine HCl [Prozac 20 mg Capsule] 20 mg PO DAILY 04/13/18 Furosemide [Lasix 80 mg Tablet] 80 mg PO DAILY 04/13/18 Hydroxychloroquine Sulfate [Plaquenil 200 mg Tablet] 200 mg PO BID 04/13/18 Lisinopril [Prinivil 5 mg Tablet] 5 mg PO DAILY 04/13/18 Magnesium Oxide [Mag-Ox 400 mg Tablet] 400 mg PO BID 04/13/18 Metformin HCl [Metformin HCl ER] 500 mg PO BID 04/13/18 Metoprolol Succinate [Toprol XL 100 mg Tablet] 100 mg PO DAILY 04/13/18 Multivitamin [Multiple Vitamins] 2 tab PO DAILY 04/13/18 Mycophenolate Mofetil [Cellcept] 1,000 mg PO BID 04/13/18 Prednisone [Deltasone 10 mg Tablet] 10 mg PO DAILY 04/13/18 History of Present Illness History of Present Illness: BREN MALDONADO is a 47 year old female with a history of biventricular congestive heart failure and severe pulmonary hypertension who comes in with 3 days of progressive abdominal distention. She says that sometimes it makes it harder for her to breathe. She says that when she sits down lays back it makes it feel more uncomfortable and her lower chest and it gets better when she sits up or stands up. She says is not very comfortable to lay down because of all the pressure in her belly. She has had to be in the hospital a lot with her heart failure but she is never had abdominal swelling like this before. She denies any history of hepatitis. She has no history of any liver problems that she is aware of. Hospital Course Hospital Course: This is a patient with fairly advanced heart failure for someone her age as well as substantial pulmonary hypertension who is fairly noncompliant at home, but she says she does take her medications. She started to experience a lot of swelling in her abdomen over the course of a few days. And it got uncomfortable so she decided to come in to get checked out. She was found to have a lot of ascites in her belly. Several tests were run, and it appears that this is most likely as a result of passive congestion of the liver. She was strongly counseled regarding her fluid and salt intake and that she needs to make steele dietary choices, and that she needs to check her weight every day and record it to see if she is gaining water weight. She verbalized understanding. Her labs and examination were reassuring and she was discharged in good condition. Physical Exam Vital Signs: Temp Pulse Resp BP Pulse Ox 98.0 F 82 18 125/79 99 04/16/18 13:10 04/16/18 13:10 04/16/18 13:10 04/16/18 13:10 04/16/18 13:10 Intake & Output 04/15/18 04/16/18 04/17/18 06:59 06:59 06:59 Intake Total 2059 1779 Balance 2059 1779 Weight 84.8 kg 89.4 kg General appearance: PRESENT: no acute distress, cooperative, disheveled Respiratory exam: PRESENT: clear to auscultation mati, symmetrical, unlabored. ABSENT: accessory muscle use, crackles, prolonged expiratory phas, rhonchi, tachypnea, wheezes Cardiovascular exam: PRESENT: RRR, +S1, +S2 Pulses: PRESENT: normal carotid pulses Vascular exam: PRESENT: normal capillary refill GI/Abdominal exam: PRESENT: Mildly distended, normal bowel sounds, soft. ABSENT: diminished bowel sounds, guarding, rebound, tenderness Extremities exam: ABSENT: clubbing, pedal edema Musculoskeletal exam: PRESENT: normal inspection. ABSENT: deformity Neurological exam: PRESENT: alert, awake, oriented to person, oriented to place, oriented to time, oriented to situation Psychiatric exam: PRESENT: appropriate affect, normal mood Skin exam: PRESENT: dry, warm Results Laboratory Results: 04/13/18 06:13 04/13/18 06:13 04/15/18 12:40 Fluid Type PERITONEAL Fluid Source ABDOMEN Fluid Color YELLOW Fluid Appearance HAZY Fluid Viscosity LIQUID Fluid WBC 42 Fluid RBC 1665 04/13/18 04/13/18 06:13 06:13 Troponin I 0.036 NT-Pro-B Natriuret Pep 9670 H Cancelled Impressions: Abdomen Ultrasound 04/13/18 00:00 IMPRESSION: 1. GALLSTONES. GENERALIZED GALLBLADDER WALL THICKENING. NO BILIARY DILATION. 2. MODERATE ASCITES. 3. DISTENDED INFERIOR VENA CAVA WHICH COULD BE DUE TO RIGHT HEART FAILURE. Chest X-Ray 04/13/18 06:06 IMPRESSION: 1. Stable marked cardiomegaly. 2. No definite acute intrathoracic disease. 3. Stable left subclavian AICD Chest/Abdomen CTA 04/13/18 07:06 IMPRESSION: 1. Negative examination for pulmonary embolism. 2. Massive cardiomegaly. 3. Ascites in the partially included upper abdomen. Paracentesis Ultrasound 04/15/18 00:00 IMPRESSION: SUCCESSFUL ULTRASOUND GUIDED PARACENTESIS. Qualifiers - * PATIENT BEING DISCHARGED WITH ANY OF THE FOLLOWING DIAGNOSIS: No
== END 2018-04-16 15:56 | disposition home or self-care (01) ==
LOC: ER 04:35 → EH 09:42 → 2N 17:10
PROVIDERS: ADMIT Internal Medicine; ATTEND Internal Medicine
PROC: 0W9G3ZX Drainage of Peritoneal Cavity, Percutaneous Approach, Diagnostic (ICD-10-PCS; principal; 2018-04-13)
DX: R18.8 Other ascites (principal); I11.0 Hypertensive heart disease with heart failure; I50.82 Biventricular heart failure; I50.40 Unspecified combined systolic (congestive) and diastolic (congestive) heart failure; E11.9 Type 2 diabetes mellitus without complications; R79.89 Other specified abnormal findings of blood chemistry; I42.9 Cardiomyopathy, unspecified; I27.20 Pulmonary hypertension, unspecified; Z79.82 Long term (current) use of aspirin; Z79.899 Other long term (current) drug therapy; Z79.02 Long term (current) use of antithrombotics/antiplatelets; Z79.84 Long term (current) use of oral hypoglycemic drugs; Z95.810 Presence of automatic (implantable) cardiac defibrillator; Z82.49 Family history of ischemic heart disease and other diseases of the circulatory system
CPT/HCPCS: 93005; 99285; 96374; 36415 ×2; 87205; 87070; 85025; 85610; 85730; 89050; 87075; 80076; 80048; 84484; 82945; 83615; 80074; 83880; 71045; 76700; 93976; 49083; 71275; 93010; G0378 ×5; J1940; J3490

== ENCOUNTER → 2018-07-27 | Outpatient (CLI) | payer MEDICAID ==
[2018-07-27 11:03] LABS: ABSOLUTE LYMPHOCYTES (AUTO) 1.2 10^3/uL (0.5-4.7); ABSOLUTE MONOCYTES (AUTO) 0.5 10^3/uL (0.1-1.4); ABSOLUTE NEUT (AUTO) 1.5 10^3/uL (1.7-8.2); BASOPHILS % (AUTO) 0.3 % (0-2); EOSINOPHILS % (AUTO) 0.7 % (0-6); HEMATOCRIT 31.1 % (36.0-47.0); HEMOGLOBIN 10.2 g/dL (12.0-15.5); LYMPHOCYTES % (AUTO) 38.3 % (13-45); MEAN CORPUSCULAR HGB CONC 32.9 g/dL (32.0-36.0); MEAN CORPUSCULAR VOLUME 85 fl (80-97); PLATELET COUNT 138 10^3/uL (150-450); RED BLOOD COUNT 3.65 10^6/uL (3.72-5.28); RED CELL DISTRIBUTION WIDTH 18.3 % (11.5-14.0); SEGMENTED NEUTROPHILS % (AUTO) 45.7 % (42-78); TOTAL CELLS COUNTED % (AUTO) 100 %; WHITE BLOOD COUNT 3.2 10^3/uL (4.0-10.5)
[2018-07-27 11:15] LABS: APPEARANCE,URINE SLIGHTLY-CLOUDY; BILIRUBIN,URINE NEGATIVE (NEGATIVE); COLOR,URINE YELLOW; GLUCOSE, URINE NEGATIVE (NEGATIVE); KETONES,URINE NEGATIVE (NEGATIVE); LEUKOCYTE ESTERASE,URINE NEGATIVE (NEGATIVE); NITRITE,URINE NEGATIVE (NEGATIVE); PROTEIN,URINE 30 mg/dL (NEGATIVE); URINE SPECIFIC GRAVITY 1.016; UROBILINOGEN,URINE NEGATIVE mg/dL (<2.0)
[2018-07-27 11:24] LABS: UR PRO/CREAT RATIO RESULT 0.2 mg/mg (0.0-0.2); URINE CREATININE 168.5 mg/dL (15-278); URINE PROTEIN 26.3 mg/dL (<12)
[2018-07-27 11:31] LABS: ALANINE AMINOTRANSFERASE 17 U/L (9-52); ALBUMIN 4.4 g/dL (3.5-5.0); ALKALINE PHOSPHATASE 83 U/L (38-126); ANION GAP 14 (5-19); ASPARTATE AMINO TRANSFERASE 31 U/L (14-36); BILIRUBIN,DIRECT 0.3 mg/dL (0.0-0.4); BILIRUBIN,TOTAL 0.4 mg/dL (0.2-1.3); BLOOD UREA NITROGEN 33 mg/dL (7-20); CALCIUM 10.3 mg/dL (8.4-10.2); CARBON DIOXIDE 28 mmol/L (22-30); CHLORIDE 99 mmol/L (98-107); GLUCOSE 78 mg/dL (75-110); IRON(TIBC) 82.7 ug/dL (37-170); POTASSIUM 4.2 mmol/L (3.6-5.0); SODIUM 140.8 mmol/L (137-145); TOTAL PROTEIN 8.2 g/dL (6.3-8.2)
[2018-07-31 15:36] LABS: ALBUMIN 2 3.9 g/dL (2.9-4.4); ALPHA-2-GLOBULIN 2 0.6 g/dL (0.4-1.0); BETA GLOBULINS 1.2 g/dL (0.7-1.3); GAMMA GLOBULIN 2.1 g/dL (0.4-1.8); GLOBULIN TOTAL 4.1 g/dL (2.2-3.9); MONOCLONAL SPIKE Not Observed g/dL (Not Observ)
== END ==
LOC: OD 09:50
PROVIDERS: ATTEND Internal Medicine Nephrology
DX: N18.2 Chronic kidney disease, stage 2 (mild) (principal); I50.9 Heart failure, unspecified; D63.1 Anemia in chronic kidney disease
CPT/HCPCS: 36415; 80053; 81001; 82570; 82728; 83540; 83550; 83735; 83880; 84156; 84165; 84443; 85025

== ENCOUNTER → 2018-08-16 | Outpatient (CLI) | payer MEDICAID ==
[2018-08-16 10:09] LABS: ALANINE AMINOTRANSFERASE 13 U/L (9-52); ALBUMIN 4.5 g/dL (3.5-5.0); ALKALINE PHOSPHATASE 71 U/L (38-126); ANION GAP 13 (5-19); ASPARTATE AMINO TRANSFERASE 27 U/L (14-36); BILIRUBIN,DIRECT 0.3 mg/dL (0.0-0.4); BILIRUBIN,TOTAL 0.4 mg/dL (0.2-1.3); BLOOD UREA NITROGEN 26 mg/dL (7-20); CALCIUM 10.4 mg/dL (8.4-10.2); CARBON DIOXIDE 24 mmol/L (22-30); CHLORIDE 103 mmol/L (98-107); GLUCOSE 96 mg/dL (75-110); PHOSPHORUS 4.8 mg/dL (2.5-4.5); POTASSIUM 4.2 mmol/L (3.6-5.0); SODIUM 139.6 mmol/L (137-145); TOTAL PROTEIN 8.2 g/dL (6.3-8.2)
== END ==
LOC: OD 09:17
PROVIDERS: ATTEND Internal Medicine Nephrology
DX: N18.3 Chronic kidney disease, stage 3 (moderate) (principal); R80.9 Proteinuria, unspecified; I12.9 Hypertensive chronic kidney disease with stage 1 through stage 4 chronic kidney disease, or unspecified chronic kidney disease; E11.9 Type 2 diabetes mellitus without complications; E88.42 MERRF syndrome; D63.1 Anemia in chronic kidney disease
CPT/HCPCS: 36415; 80053; 83735; 83970; 84100

== ENCOUNTER 2018-09-12 06:10 | Day surgery (SDC) | payer MEDICAID ==
[2018-09-12 06:53] LABS: ABSOLUTE LYMPHOCYTES (AUTO) 1.3 10^3/uL (0.5-4.7); ABSOLUTE MONOCYTES (AUTO) 0.5 10^3/uL (0.1-1.4); ABSOLUTE NEUT (AUTO) 1.7 10^3/uL (1.7-8.2); BASOPHILS % (AUTO) 0.9 % (0-2); EOSINOPHILS % (AUTO) 1.1 % (0-6); HEMOGLOBIN 9.6 g/dL (12.0-15.5); LYMPHOCYTES % (AUTO) 35.7 % (13-45); MEAN CORPUSCULAR HEMOGLOBIN 29.4 pg (27.0-33.4); MEAN CORPUSCULAR HGB CONC 33.2 g/dL (32.0-36.0); MEAN CORPUSCULAR VOLUME 89 fl (80-97); MONOCYTES % (AUTO) 14.5 % (3-13); PLATELET COUNT 162 10^3/uL (150-450); RED BLOOD COUNT 3.28 10^6/uL (3.72-5.28); RED CELL DISTRIBUTION WIDTH 16.2 % (11.5-14.0); SEGMENTED NEUTROPHILS % (AUTO) 47.8 % (42-78); TOTAL CELLS COUNTED % (AUTO) 100 %; WHITE BLOOD COUNT 3.5 10^3/uL (4.0-10.5)
[2018-09-12 07:01] LABS: BLOOD UREA NITROGEN 31 mg/dL (7-20)
[2018-09-12 07:03] LABS: INTERNATIONAL RATION (INR) 0.91; PROTHROMBIN TIME 12.7 SEC (11.4-15.4)
[2018-09-12 07:04] LABS: PARTIAL THROMBOPLASTIN TIME 31.4 SEC (23.5-35.8)
[2018-09-12 07:06] VITALS: BP 107/61
== END 2018-09-12 08:50 | disposition home or self-care (01) ==
LOC: RAD 06:10
PROVIDERS: ATTEND Internal Medicine Nephrology
DX: M32.9 Systemic lupus erythematosus, unspecified (principal); R80.9 Proteinuria, unspecified; Z79.01 Long term (current) use of anticoagulants; Z53.8 Procedure and treatment not carried out for other reasons; Z79.82 Long term (current) use of aspirin
CPT/HCPCS: 36415; 82565; 82947; 84520; 85025; 85610; 85730

== ENCOUNTER → 2018-09-14 | Day surgery (SDC) | payer MEDICAID ==
[2018-09-12 17:25] LABS: IRON(TIBC) 60.8 ug/dL (37-170)
== END ==
LOC: RAD 09:56
PROVIDERS: ATTEND Internal Medicine Nephrology
DX: N18.3 Chronic kidney disease, stage 3 (moderate) (principal); D63.1 Anemia in chronic kidney disease; Z53.8 Procedure and treatment not carried out for other reasons
CPT/HCPCS: 36415; 82728; 83540; 83550

== ENCOUNTER 2018-09-20 06:56 | Day surgery (SDC) | payer MEDICAID ==
[2018-09-20] MEDS ORDERED: FENTANYL CITRATE INJ/PF 100 MCG/2 ML AMPUL ONE (08:44)
[2018-09-20] MEDS ORDERED: MIDAZOLAM 2 MG/2 ML INJ ONE (08:44)
--- NOTE | 2018-09-20 11:11 | RADIOLOGY REPORT (SQ) ---
EXAM DESCRIPTION: CT BIOPSY RENAL; CT NEEDLE PLACEMENT COMPLETED DATE/TIME: 09/20/2018 9:49 am REASON FOR STUDY: PROTEINURIA; PROTEINURIA, RENAL BIOPSY M32.9 SYSTEMIC LUPUS ERYTHEMATOSUS, UNSPEC IFIED R80.9 PROTEINURIA, UNSPECIFIED COMPARISON: CT chest 04/13/2018 Abdominal ultrasound 04/13/2018 CT abdomen pelvis 05/27/2017 RADIATION DOSE: CT Rad equipment meets quality standard of care and radiation dose reduction techniq ues were employed. CTDIvol: 4.0 - 20.2 mGy. DLP: 993 mGy-cm. mGy. LIMITATIONS: None. PROCEDURE: After obtaining informed consent and explaining the risks and benefits of conscious sedat ion,the patient agreed to the procedure. Preliminary CT scanning to localize the biopsy site was performed. A site was marked on the right lo wer pole kidney and time out was performed. Procedure was performed using CT fluoroscopy. Total expo sure time: 6.[address] fluoroscopic images were obtained and saved to PACS. IV conscious sedation was administered and physician direction by the registered nurse using to carolina grams of Versed and 100 micrograms of fentanyl. Physiologic monitoring was provided before, during, a nd after sedation. The total sedation time was 30 minutes. Documentation face to face time, the performing proceduralist, spent monitoring the patient: 10 minut es. After sterile skin prep with ChloraPrep, local lidocaine for skin and deep tissue anesthesia, the rig ht lower pole kidney was localized. A coaxial 18/19 gauge needle was used to obtain 3 cores of tissue from the right lower pole kidney. The biopsy tract was embolized with Gelfoam. All CT scanners at this facility use dose modulation, iterative reconstruction, and/or weight based d osing when appropriate to reduce radiation dose to as low as reasonably achievable (ALARA). [facility]: Dose Right [facility]: CareDose [facility]: Dose Right [facility]: Teradose 4D [facility]: Covocative FINDINGS: There were no immediate complications. Specimen was carried to cytology on sterile saline gauze and submitted to the hired help for processing. Pathology is pending at the time of dict ation. IMPRESSION: CT GUIDED RIGHT LOWER POLE KIDNEY CORTICAL BIOPSY. COMMENT: Patient medication list reviewed:Yes- Quality ID# [id number]:Eligible professional attests to docu menting in the medical record they obtained, updated, or reviewed the patient's current medications.. TECHNICAL DOCUMENTATION: JOB ID: [id number] Quality ID #[id number]: Final reports for procedures using fluoroscopy that document radiation exposure shonna rodríguez, or exposure time and number of fluorographic images (if radiation exposure indices are not avail able) Quality ID # [id number]: Final reports with documentation of one or more dose reduction techniques (e.g., Au tomated exposure control, adjustment of the mA and/or kV according to patient size, use of iterative reconstruction technique) 2010 [employer]- All Rights Reserved Reading location - IP/workstation name: [email or web address]
--- NOTE | 2018-09-20 11:11 | RADIOLOGY REPORT (SQ) ---
EXAM DESCRIPTION: CT BIOPSY RENAL; CT NEEDLE PLACEMENT COMPLETED DATE/TIME: 09/20/2018 9:49 am REASON FOR STUDY: PROTEINURIA; PROTEINURIA, RENAL BIOPSY M32.9 SYSTEMIC LUPUS ERYTHEMATOSUS, UNSPEC IFIED R80.9 PROTEINURIA, UNSPECIFIED COMPARISON: CT chest 04/13/2018 Abdominal ultrasound 04/13/2018 CT abdomen pelvis 05/27/2017 RADIATION DOSE: CT Rad equipment meets quality standard of care and radiation dose reduction techniq ues were employed. CTDIvol: 4.0 - 20.2 mGy. DLP: 993 mGy-cm. mGy. LIMITATIONS: None. PROCEDURE: After obtaining informed consent and explaining the risks and benefits of conscious sedat ion,the patient agreed to the procedure. Preliminary CT scanning to localize the biopsy site was performed. A site was marked on the right lo wer pole kidney and time out was performed. Procedure was performed using CT fluoroscopy. Total expo sure time: 6.[address] fluoroscopic images were obtained and saved to PACS. IV conscious sedation was administered and physician direction by the registered nurse using to carolina grams of Versed and 100 micrograms of fentanyl. Physiologic monitoring was provided before, during, a nd after sedation. The total sedation time was 30 minutes. Documentation face to face time, the performing proceduralist, spent monitoring the patient: 10 minut es. After sterile skin prep with ChloraPrep, local lidocaine for skin and deep tissue anesthesia, the rig ht lower pole kidney was localized. A coaxial 18/19 gauge needle was used to obtain 3 cores of tissue from the right lower pole kidney. The biopsy tract was embolized with Gelfoam. All CT scanners at this facility use dose modulation, iterative reconstruction, and/or weight based d osing when appropriate to reduce radiation dose to as low as reasonably achievable (ALARA). [facility]: Dose Right [facility]: CareDose [facility]: Dose Right [facility]: Teradose 4D [facility]: [employer] FINDINGS: There were no immediate complications. Specimen was carried to cytology on sterile saline gauze and submitted to the staying machine operator for processing. Pathology is pending at the time of dict ation. IMPRESSION: CT GUIDED RIGHT LOWER POLE KIDNEY CORTICAL BIOPSY. COMMENT: Patient medication list reviewed:Yes- Quality ID# [id number]:Eligible professional attests to docu menting in the medical record they obtained, updated, or reviewed the patient's current medications.. TECHNICAL DOCUMENTATION: JOB ID: [id number] Quality ID #[id number]: Final reports for procedures using fluoroscopy that document radiation exposure shonna rodríguez, or exposure time and number of fluorographic images (if radiation exposure indices are not avail able) Quality ID # [id number]: Final reports with documentation of one or more dose reduction techniques (e.g., Au tomated exposure control, adjustment of the mA and/or kV according to patient size, use of iterative reconstruction technique) 2010 [employer]- All Rights Reserved Reading location - IP/workstation name: [email or web address]
[2018-09-20 12:46] VITALS: BP 113/68
== END 2018-09-20 12:05 | disposition home or self-care (01) ==
LOC: RAD 06:56
PROVIDERS: ATTEND Internal Medicine Nephrology
DX: M32.9 Systemic lupus erythematosus, unspecified (principal); R80.9 Proteinuria, unspecified; E11.22 Type 2 diabetes mellitus with diabetic chronic kidney disease; I13.0 Hypertensive heart and chronic kidney disease with heart failure and stage 1 through stage 4 chronic kidney disease, or unspecified chronic kidney disease; I50.9 Heart failure, unspecified; N18.3 Chronic kidney disease, stage 3 (moderate); I48.91 Unspecified atrial fibrillation; Z79.82 Long term (current) use of aspirin; Z79.84 Long term (current) use of oral hypoglycemic drugs; Z79.01 Long term (current) use of anticoagulants; Z95.810 Presence of automatic (implantable) cardiac defibrillator
CPT/HCPCS: 82962; 77012; 50200; J2250; J3010

== ENCOUNTER → 2018-09-25 | Outpatient (CLI) | payer MEDICAID ==
[2018-09-25 12:17] LABS: ABSOLUTE LYMPHOCYTES (AUTO) 1.2 10^3/uL (0.5-4.7); ABSOLUTE MONOCYTES (AUTO) 0.5 10^3/uL (0.1-1.4); ABSOLUTE NEUT (AUTO) 2.1 10^3/uL (1.7-8.2); BASOPHILS % (AUTO) 0.4 % (0-2); EOSINOPHILS % (AUTO) 0.9 % (0-6); HEMOGLOBIN 9.7 g/dL (12.0-15.5); MEAN CORPUSCULAR HEMOGLOBIN 29.7 pg (27.0-33.4); MEAN CORPUSCULAR HGB CONC 33.5 g/dL (32.0-36.0); MEAN CORPUSCULAR VOLUME 89 fl (80-97); MONOCYTES % (AUTO) 12.6 % (3-13); PLATELET COUNT 161 10^3/uL (150-450); RED BLOOD COUNT 3.27 10^6/uL (3.72-5.28); RED CELL DISTRIBUTION WIDTH 15.6 % (11.5-14.0); SEGMENTED NEUTROPHILS % (AUTO) 55.1 % (42-78); TOTAL CELLS COUNTED % (AUTO) 100 %; WHITE BLOOD COUNT 3.7 10^3/uL (4.0-10.5)
[2018-09-25 12:28] LABS: APPEARANCE,URINE CLEAR; BILIRUBIN,URINE NEGATIVE (NEGATIVE); COLOR,URINE STRAW; GLUCOSE, URINE NEGATIVE (NEGATIVE); KETONES,URINE NEGATIVE (NEGATIVE); PROTEIN,URINE NEGATIVE (NEGATIVE); URINE SPECIFIC GRAVITY 1.007; UROBILINOGEN,URINE NEGATIVE mg/dL (<2.0)
[2018-09-25 12:29] LABS: LEUKOCYTE ESTERASE,URINE NEGATIVE (NEGATIVE); NITRITE,URINE NEGATIVE (NEGATIVE)
[2018-09-25 12:46] LABS: ANION GAP 13 (5-19); BLOOD UREA NITROGEN 33 mg/dL (7-20); CALCIUM 10.2 mg/dL (8.4-10.2); CARBON DIOXIDE 22 mmol/L (22-30); CHLORIDE 103 mmol/L (98-107); GLUCOSE 72 mg/dL (75-110); POTASSIUM 4.6 mmol/L (3.6-5.0); SODIUM 138.1 mmol/L (137-145)
[2018-09-25 12:57] LABS: UR PRO/CREAT RATIO RESULT 0.3 mg/mg (0.0-0.2); URINE CREATININE 36.7 mg/dL (15-278); URINE PROTEIN 11.4 mg/dL (<12)
[2018-09-25 19:42] LABS: IRON(TIBC) 80.6 ug/dL (37-170)
== END ==
LOC: OD 11:28
PROVIDERS: ATTEND Internal Medicine Nephrology
DX: I13.0 Hypertensive heart and chronic kidney disease with heart failure and stage 1 through stage 4 chronic kidney disease, or unspecified chronic kidney disease (principal); I50.9 Heart failure, unspecified; N18.3 Chronic kidney disease, stage 3 (moderate); E11.22 Type 2 diabetes mellitus with diabetic chronic kidney disease; R80.9 Proteinuria, unspecified
CPT/HCPCS: 36415; 80048; 81001; 82570; 82728; 83540; 83550; 83735; 84156; 85025

== ENCOUNTER 2018-11-11 23:59 | Inpatient (IN) | payer MEDICAID ==
[2018-11-12] MEDS ORDERED: ONDANSETRON HCL INJ/PF 4 MG/2 ML SDV IV ONE ×3 (02:31→11:31)
[2018-11-12] MEDS ORDERED: NORMAL SALINE 1000 ML 1,000 ML IV ONE ×3 (02:31→05:29)
--- NOTE | 2018-11-12 02:33 | ER Document Report ---
ED GI/ - General TRAVEL OUTSIDE OF THE [place] IN LAST 30 DAYS: No <ANGEL JAMISON - Last Filed: 11/12/18 09:00> <SUMMER FARRIS Garcia - Last Filed: 11/12/18 13:25> - General Chief Complaint: Abdominal Pain Stated Complaint: STOMACH PAIN Time Seen by Provider: 11/12/18 02:24 Notes: Patient is a 48-year-old female that comes to the emergency department for chief complaint of vomiting, diarrhea, abdominal pain. Symptoms started this morning. She has vomited 4 times, had 4 episodes of diarrhea, no blood in stool or vomit. Abdominal pain is generalized with no specific areas of pain. She denies fever. She denies flank pain. She denies recent travel, suspicious foods, recent antibiotics. Past medical history includes lupus, chronic kidney disease, hypertension, diabetes, CHF, AICD, cholecystectomy, . (ANGEL JAMISON) - Related Data Allergies/Adverse Reactions: No Known Allergies Allergy (Verified 09/20/18 07:11) Past Medical History - General Information source: Patient - Social History Smoking Status: Never Smoker Frequency of alcohol use: None Drug Abuse: None Lives with: Family Family History: Reviewed & Not Pertinent, Hypertension, Malignancy, Other - CHF - Past Medical History Cardiac Medical History: Reports: Hx Congestive Heart Failure - combined systolic and diastolic dysfunction; nonischemic cardiomyopathy., Hx Hypercholesterolemia, Hx Hypertension, 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; AR mild Denies: Hx Coronary Artery Disease, Hx Heart Attack Pulmonary Medical History: Reports: Hx Pneumonia Denies: Hx Asthma, Hx Bronchitis, Hx COPD Neurological Medical History: Denies: Hx Cerebrovascular Accident, Hx Seizures Endocrine Medical History: Reports: Hx Diabetes Mellitus Type 2. Denies: Hx Diabetes Mellitus Type 1, Hx Hyperthyroidism, Hx Hypothyroidism Renal/ Medical History: Denies: Hx Peritoneal Dialysis GI Medical History: Denies: Hx Cirrhosis, Hx Gastroesophageal Reflux Disease, Hx Hepatitis Musculoskeletal Medical History: Denies Hx Arthritis Psychiatric Medical History: Denies: Hx Depression Infectious Medical History: Denies: Hx Hepatitis Past Surgical History: Reports: Hx Cardiac Surgery - pacer/defib, Hx Section - 1995, Hx Cholecystectomy, Hx Pacemaker - AICD implant - Immunizations Immunizations up to date: Yes Hx Diphtheria, Pertussis, Tetanus Vaccination: Yes Hx Pneumococcal Vaccination: 02/27/18 <ANGEL JAMISON - Last Filed: 11/12/18 09:00> Review of Systems - Review of Systems Constitutional: No symptoms reported EENT: No symptoms reported Cardiovascular: No symptoms reported Respiratory: No symptoms reported Gastrointestinal: See HPI Genitourinary: No symptoms reported Female Genitourinary: No symptoms reported Musculoskeletal: No symptoms reported Skin: No symptoms reported Hematologic/Lymphatic: No symptoms reported Neurological/Psychological: No symptoms reported <ANGEL JAMISON - Last Filed: 11/12/18 09:00> Physical Exam <ANGEL JAMISON - Last Filed: 11/12/18 09:00> - Vital signs Vitals: Temp Pulse Resp BP Pulse Ox 99.6 F 95 16 134/62 H 98 11/12/18 00:10 11/12/18 00:10 11/12/18 00:10 11/12/18 00:10 11/12/18 00:10 - Notes Notes: GENERAL: Alert, interacts well. HEAD: Normocephalic, atraumatic. EYES: Pupils equal, round, and reactive to light. Extraocular movements intact. ENT: Oral mucosa dry, tongue midline. Oropharynx unremarkable. Airway patent. Nares patent, no nasal septal hematoma NECK: Full range of motion. Supple. Trachea midline. LUNGS: Clear to auscultation bilaterally, no wheezes, rales, or rhonchi. No respiratory distress. HEART: Regular rate and rhythm. No murmur ABDOMEN: Minimal generalized abdominal tenderness, nonspecific, no guarding, bowel sounds present. EXTREMITIES: Moves all 4 extremities spontaneously. No edema, normal radial and dorsalis pedis pulses bilaterally. No cyanosis. BACK: no cervical, thoracic, lumbar midline tenderness. No saddle anesthesia, normal distal neurovascular exam. NEUROLOGICAL: Alert and oriented x3. Normal speech. Cranial nerves II through XII grossly intact. PSYCH: Normal affect, normal mood. SKIN: Warm, dry, normal turgor. No rashes or lesions noted. (ANGEL JAMISON) Course - Laboratory Result Diagrams: 11/12/18 03:30 11/12/18 07:00 <ANGEL AJMISON - Last Filed: 11/12/18 09:00> - Laboratory Result Diagrams: 11/12/18 03:30 11/12/18 07:00 - Diagnostic Test Radiology reviewed: Image reviewed, Reports reviewed <SUMMER FARRIS M - Last Filed: 11/12/18 13:25> - Re-evaluation Re-evalutation: On initial exam patient has very mild generalized abdominal tenderness, no abdominal guarding, she is very dry in appearance but she is nontoxic. Vital signs unremarkable. Work-up pending. There was a very significant delay in first getting the patient's labs drawn and then resulting the labs. Renal functioning is abnormal, pending CBC, renal function is significantly worse than prior, she is getting IV fluids, this will be rechecked. She was able to give stool and this was unremarkable. She has not vomited. CBC shows microcytic anemia at 9, thrombocytopenia, noted bandemia at 14%. Patient has been reevaluated, now she has significant tenderness in the left mid to lower abdomen with some guarding. She is also significantly worse in appearance. Being additional fluids, Zosyn, CAT scan will be performed. CAT scan unremarkable. There is cholelithiasis but patient's pain is on the lower abdomen. She is not febrile. Lactic acid is pending. Additional IVs were placed. Patient has been introduced to Summer Farris PA-C at bedside pending additional disposition. (ANGEL JAMISON) 11/12/18 09:19 Assumed care of the patient from KATINA Marroquin. We went to bedside for turnover. On my exam, patient has LLQ and LUQ abdominal pain with + rebound. There is no pulsatile mass. She has negative Van's sign. No CVA tenderness. She has chills. Patient has concerning labwork -- she has a bandemia, she has acute kidney injury, Bicarb is low. Today her CR is 3.5, when it is usually 1.45. She has had a , but still has gallbladder and appendix. Noted CT without oral or IV contrast -- suggests cholelithiasis, but no other findings. Did discuss patient with Dr. Lozano, ER attending. We agree that patient needs admission. Pending Lactic acid as well as GB US. Will continue to monitor the patient. Dr. Lozano went and saw the patient. He agrees with the plan. Rectal temperature was done. She has a temperature of 101.7. Tylenol was given by mouth. Noted ultrasound reading for cholelithiasis without cholecystitis. Lactic acid of 1.4. Patient states that she feels better. She still has left upper quadrant and left lower quadrant pain. Urinalysis is negative for source. Discussed further with Dr. Lozano and we agree patient should be admitted for sepsis with unknown source. Spoke with Dr. Resendiz about the patient. He would like a lumbar puncture on her prior to admission. He is aware of her bandemia, acute kidney injury, fever, CT findings. 11/12/18 12:29 Discussed patient further with Dr. Lozano. We discussed request for lumbar puncture but patient does not have a headache, rash, neck pain she has no nuchal rigidity on exam. Dr. Lozano spoke with Dr. Resendiz and with KATINA Lyons further about the LP and how it is not clinically indicated. Hospitalist team will accept admission for patient. Impression: Acute Kidney Injury, bandemia, dehydration, NVD. Will admit the patient to the hospitalist team for further management. (SUMMER FARRIS) - Vital Signs Vital signs: Temp Pulse Resp BP Pulse Ox 99 F 95 19 82/50 L 97 11/12/18 12:52 11/12/18 00:10 11/12/18 12:14 11/12/18 13:00 11/12/18 09:00 - Laboratory Laboratory results interpreted by me: 11/12/18 11/12/18 11/12/18 03:30 03:30 07:00 RBC 2.94 L Hgb 9.0 L Hct 27.0 L Plt Count 135 L Band Neutrophils % 14 H Lymphocytes % (Manual) 8 L Metamyelocytes % 1 H Abs Neuts (Manual) 8.6 H Sodium 136.3 L Carbon Dioxide 20 L 18 L BUN 73 H 68 H Creatinine 3.70 H 3.50 H Est GFR ( Amer) 16 L 17 L Est GFR (MDRD) Non-Af 13 L 14 L Glucose 125 H Total Protein 8.4 H Discharge <ANGEL JAMISON - Last Filed: 11/12/18 09:00> - Discharge Admitting Provider: Jose (Hospitalist) Unit Admitted: ICU <SUMMER FARRIS - Last Filed: 11/12/18 13:25> - Discharge Clinical Impression: Acute kidney injury, Nausea vomiting and diarrhea, Fever, Bandemia, Dehydration Condition: Stable Disposition: ADMITTED INPATIENT
[2018-11-12 04:37] LABS: MEAN CORPUSCULAR HEMOGLOBIN 30.7 pg (27.0-33.4); MEAN CORPUSCULAR HGB CONC 33.4 g/dL (32.0-36.0); MEAN CORPUSCULAR VOLUME 92 fl (80-97); PLATELET COUNT 135 10^3/uL (150-450); RED BLOOD COUNT 2.94 10^6/uL (3.72-5.28); RED CELL DISTRIBUTION WIDTH 13.4 % (11.5-14.0); WHITE BLOOD COUNT 9.9 10^3/uL (4.0-10.5)
[2018-11-12] MEDS ORDERED: MORPHINE SULFATE 10 MG/ML INJ IV ONE ×2 (04:46→11:31)
[2018-11-12 04:51] LABS: ALBUMIN 4.5 g/dL (3.5-5.0); ALKALINE PHOSPHATASE 69 U/L (38-126); ANION GAP 15 (5-19); ASPARTATE AMINO TRANSFERASE 24 U/L (14-36); BILIRUBIN,DIRECT 0.4 mg/dL (0.0-0.4); BILIRUBIN,TOTAL 0.5 mg/dL (0.2-1.3); BLOOD UREA NITROGEN 73 mg/dL (7-20); CALCIUM 10.1 mg/dL (8.4-10.2); CARBON DIOXIDE 20 mmol/L (22-30); CHLORIDE 101 mmol/L (98-107); GLUCOSE 125 mg/dL (75-110); TOTAL PROTEIN 8.4 g/dL (6.3-8.2)
[2018-11-12 05:02] LABS: ABSOLUTE LYMPHOCYTES# (MANUAL) 0.8 10^3/uL (0.5-4.7); ABSOLUTE MONOCYTES # (MANUAL) 0.4 10^3/uL (0.1-1.4); BASOPHILS % (MANUAL) 0 % (0-2); EOSINOPHILS % (MANUAL) 1 % (0-6); HYPOCHROMASIA 1+; LYMPHOCYTES % (MANUAL) 8 % (13-45); METAMYELOCYTES % (MANUAL) 1 % (0); MONOCYTES % (MANUAL) 4 % (3-13); SEGMENTED NEUTROPHILS % (MAN) 72 % (42-78); TOTAL CELLS COUNTED 100
[2018-11-12 05:07] LABS: PLATELET COMMENT DECREASED
[2018-11-12 06:11] LABS: BAND NEUTROPHILS % (MANUAL) 14 % (3-5)
[2018-11-12] MEDS ORDERED: FAMOTIDINE 20 MG TABLET PO ONE (06:31)
[2018-11-12 07:31] LABS: ANION GAP 14 (5-19); BLOOD UREA NITROGEN 68 mg/dL (7-20); CARBON DIOXIDE 18 mmol/L (22-30); CHLORIDE 106 mmol/L (98-107); GLUCOSE 101 mg/dL (75-110)
[2018-11-12] MEDS ORDERED: RINGERS SOLUTION,LACTATED 1,000 ML IV ONE (07:36)
[2018-11-12] MEDS ORDERED: PIPERACILLIN/TAZOBACTAM 3.375 GM VIAL IV ONE (07:40)
--- NOTE | 2018-11-12 08:33 | RADIOLOGY REPORT (SQ) ---
EXAM DESCRIPTION: CT ABD/PELVIS NO ORAL OR IV COMPLETED DATE/TIME: 11/12/2018 8:14 am REASON FOR STUDY: abd pain, bandemia COMPARISON: 05/27/2017 TECHNIQUE: CT scan of the abdomen and pelvis performed without intravenous or oral contrast. Images reviewed with lung, soft tissue, and bone windows. Reconstructed coronal and sagittal MPR images revi ewed. All images stored on PACS. All CT scanners at this facility use dose modulation, iterative reconstruction, and/or weight based d osing when appropriate to reduce radiation dose to as low as reasonably achievable (ALARA). [facility]: Dose Right [facility]: CareDose [facility]: Dose Right [facility]: Teradose 4D [facility]: Smart Technologies RADIATION DOSE: CT Rad equipment meets quality standard of care and radiation dose reduction techniq ues were employed. CTDIvol: 15.0 mGy. DLP: 809 mGy-cm.mGy. LIMITATIONS: None. FINDINGS: LOWER CHEST: Cardiomegaly. Defibrillator. NON-CONTRASTED LIVER, SPLEEN, ADRENALS: Evaluation limited by lack of IV contrast. No identified sign ificant masses. PANCREAS: No masses. No peripancreatic inflammatory changes. GALLBLADDER: Gallstones. No inflammatory changes to suggest cholecystitis. RIGHT KIDNEY AND URETER: No suspicious masses. Assessment limited by lack of IV contrast. No signif icant calcifications. No hydronephrosis or hydroureter. LEFT KIDNEY AND URETER: No suspicious masses. Assessment limited by lack of IV contrast. No signifi cant calcifications. No hydronephrosis or hydroureter. AORTA AND RETROPERITONEUM: No aneurysm. No retroperitoneal masses or adenopathy. BOWEL AND PERITONEAL CAVITY: No obvious masses or inflammatory changes. No free fluid. APPENDIX: Not visualized. PELVIS, BLADDER, AND ABDOMINAL WALL:No abnormal masses. No free fluid. Bladder normal. BONES: No significant findings. OTHER: No other significant finding. IMPRESSION: Cholelithiasis. No acute findings. COMMENT: Quality ID # [id number]: Final reports with documentation of one or more dose reduction techniques (e.g., Automated exposure control, adjustment of the mA and/or kV according to patient size, use of iterative reconstruction technique) TECHNICAL DOCUMENTATION: JOB ID: [id number] [employer]- All Rights Reserved Reading location - IP/workstation name: [email or web address]
--- NOTE | 2018-11-12 10:10 | RADIOLOGY REPORT (SQ) ---
EXAM DESCRIPTION: CHEST SINGLE VIEW COMPLETED DATE/TIME: 11/12/2018 9:21 am REASON FOR STUDY: bandemia COMPARISON: 04/13/2018 NUMBER OF VIEWS: One view. TECHNIQUE: Single frontal radiographic view of the chest acquired. LIMITATIONS: None. FINDINGS: LUNGS AND PLEURA: No opacities, masses or pneumothorax. No pleural effusion. MEDIASTINUM AND HILAR STRUCTURES: No masses. Contour normal. HEART AND VASCULAR STRUCTURES: Heart enlarged without failure. Normal vasculature. BONES: No acute findings. HARDWARE: Stable position of defibrillator. OTHER: No other significant finding. IMPRESSION: Cardiomegaly. No acute findings. TECHNICAL DOCUMENTATION: JOB ID: [id number] [email or web address]- All Rights Reserved Reading location - IP/workstation name: [email or web address]
--- NOTE | 2018-11-12 10:13 | RADIOLOGY REPORT (SQ) ---
EXAM DESCRIPTION: U/S ABDOMEN LIMITED W/O DOP COMPLETED DATE/TIME: 11/12/2018 9:48 am REASON FOR STUDY: cholethiasis, bandemia COMPARISON: None. TECHNIQUE: Dynamic and static grayscale images acquired of the abdomen and recorded on PACS. Additio nal selected color Doppler and spectral images recorded. LIMITATIONS: None. FINDINGS: PANCREAS: No masses. Visualized pancreatic duct normal caliber. LIVER: No masses. Echotexture normal. LIVER VASCULATURE: Normal directional flow of the main portal vein and hepatic veins. GALLBLADDER: Gallstone(s). No pericholecystic fluid. No wall thickening. ULTRASOUND-DETECTED SALINAS'S SIGN: Negative. INTRAHEPATIC DUCTS AND COMMON DUCT: CBD and intrahepatic ducts normal caliber. No filling defects. INFERIOR VENA CAVA: Normal flow. AORTA: No aneurysm. RIGHT KIDNEY: Normal size. Normal echogenicity. No solid or suspicious masses. No hydronephrosis. No calcifications. PERITONEAL AND RIGHT PLEURAL SPACE: No ascites or effusions. OTHER: No other significant findings. IMPRESSION: Cholelithiasis. No evidence of acute cholecystitis. TECHNICAL DOCUMENTATION: JOB ID: [id number] - [employer]- All Rights Reserved Reading location - IP/workstation name: [email or web address]
[2018-11-12] MEDS ORDERED: ACETAMINOPHEN 325 MG TABLET PO ONE (10:24)
[2018-11-12 10:37] LABS: APPEARANCE,URINE SLIGHTLY-CLOUDY; BILIRUBIN,URINE NEGATIVE (NEGATIVE); COLOR,URINE YELLOW; GLUCOSE, URINE NEGATIVE (NEGATIVE); KETONES,URINE NEGATIVE (NEGATIVE); LEUKOCYTE ESTERASE,URINE NEGATIVE (NEGATIVE); NITRITE,URINE NEGATIVE (NEGATIVE); PROTEIN,URINE NEGATIVE (NEGATIVE); URINE SPECIFIC GRAVITY 1.012; UROBILINOGEN,URINE NEGATIVE mg/dL (<2.0)
[2018-11-12] MEDS ORDERED: DEXTROSE 50%-WATER 25 GM/50 ML DISP.SYRIN IV PRN ×2 (12:56)
[2018-11-12] MEDS ORDERED: GLUCAGON,HUMAN RECOMB 1 MG INJ SUBCUT PRN (12:56)
[2018-11-12] MEDS ORDERED: DEXTROSE 40% GEL 15 GM TUBE PO PRN ×2 (12:56)
[2018-11-12] MEDS ORDERED: ONDANSETRON HCL INJ/PF 4 MG/2 ML SDV IV PRN (12:56)
[2018-11-12] MEDS ORDERED: DEXTROSE 5%-WATER 250 ML with NOREPINEPHRINE BITARTRATE 4 MG IV PRN ×2 (13:14)
[2018-11-12] MEDS ORDERED: MYCOPHENOLATE MOFETIL 1000 MG PO SCH (13:15)
[2018-11-12] MEDS ORDERED: PIPERACILLIN/TAZOBACTAM 3.375 GM VIAL IV SCH (13:15)
[2018-11-12] MEDS ORDERED: ACYCLOVIR SODIUM INJ/PF 500 MG/10 ML SDV IV ONE (13:16)
[2018-11-12] MEDS ORDERED: NOREPINEPHRINE BITARTRATE INJ/PF 4 MG/4 ML SDV IV ONE (13:22)
--- NOTE | 2018-11-12 13:52 | PDOC H&P ---
History of Present Illness Admission Date/PCP: 11/12/18 12:43 Patient complains of: Came in with complaints of nausea vomiting diarrhea and abdominal pain for the last 24 hours. History of Present Illness: BREN MALDONADO is a 48 year old female female with history of lupus, CKD, congestive heart failure with AICD placement on immunosuppressants for lupus, d iabetes mellitus, hypertension came to the emergency room with complaints of left lower quadrant pain associated with nausea vomitings and diarrhea since yesterday morning. Unable to keep anything down. Also complaining of chills and sweats at home. Denies any fevers. Complaining of cough dry cough. Denies any headaches denies any dizzy spells denies any focal neurological deficits. No c/o chest pains or palpitations. Past Medical History Cardiac Medical History: Reports: Congestive Heart Failure - combined systolic and diastolic dysfunction; nonischemic cardiomyopathy., Hyperlipidema, Hypertension, 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; AR mild Denies: Coronary Artery Disease, Myocardial Infarction Pulmonary Medical History: Reports: Pneumonia Denies: Asthma, Bronchitis, Chronic Obstructive Pulmonary Disease (COPD) Neurological Medical History: Denies: Seizures Endocrine Medical History: Reports: Diabetes Mellitus Type 2 Denies: Diabetes Mellitus Type 1, Hyperthyroidism, Hypothyroidism GI Medical History: Denies: Cirrhosis, Gastroesophageal Reflux Disease, Hepatitis Musculoskeltal Medical History: Denies: Arthritis Psychiatric Medical History: Denies: Depression Hematology: Reports: Anemia - Lupus Past Surgical History Past Surgical History: Reports: Section - 1995, Pacemaker - AICD implant Social History Lives with: Family Smoking Status: Never Smoker Frequency of Alcohol Use: None Hx Recreational Drug Use: No Drugs: None Hx Prescription Drug Abuse: No - Advance Directive Resuscitation Status: Full Code Family History Family History: Reviewed & Not Pertinent, Hypertension, Malignancy, Other - CHF Parental Family History Reviewed: Yes - Mother with history of hypertension and diabetes. Children Family History Reviewed: Yes Sibling(s) Family History Reviewed.: Yes Medication/Allergy Home Medications: Carvedilol [Coreg 12.5 mg Tablet] 6.25 mg PO Q12 04/13/18 Duloxetine HCl [Cymbalta] 30 mg PO DAILY 04/13/18 Furosemide [Lasix 80 mg Tablet] 80 mg PO DAILY 04/13/18 Magnesium Oxide [Mag-Ox 400 mg Tablet] 400 mg PO BID 04/13/18 Multivitamin [Multiple Vitamins] 2 tab PO DAILY 04/13/18 Mycophenolate Mofetil [Cellcept] 1,000 mg PO BID 04/13/18 Cetirizine HCl [Zyrtec 10 mg Tablet] 10 mg PO DAILY 11/12/18 Eszopiclone 1.5 mg PO QHS 11/12/18 Hydroxychloroquine Sulfate [Plaquenil 200 mg Tablet] 200 mg PO Q12 11/12/18 Lisinopril [Prinivil 10 mg Tablet] 10 mg PO QHS 11/12/18 Metformin HCl 500 mg PO Q12 11/12/18 Metolazone [Zaroxolyn 2.5 mg Tablet] 5 mg PO Q2D 11/12/18 Potassium Chloride [Klor-Con 10 Meq Capsule ER] 10 meq PO DAILY 11/12/18 Spironolactone [Aldactone 25 mg Tablet] 25 mg PO DAILY 11/12/18 Allergies/Adverse Reactions: No Known Allergies Allergy (Verified 09/20/18 07:11) Review of Systems Constitutional: PRESENT: chills, fatigue, weakness. ABSENT: fever(s), headache(s) Eyes: ABSENT: visual disturbances Ears: ABSENT: hearing changes Nose, Mouth, and Throat: ABSENT: sore throat Respiratory: PRESENT: cough. ABSENT: hemoptysis Gastrointestinal: PRESENT: abdominal pain, diarrhea, nausea, vomiting Genitourinary: ABSENT: dysuria, hematuria Musculoskeletal: ABSENT: joint swelling Neurological: ABSENT: abnormal gait, abnormal speech, confusion, dizziness, focal weakness, syncope Psychiatric: ABSENT: anxiety, depression, homidical ideation, suicidal ideation Physical Exam Vital Signs: Temp Pulse Resp BP Pulse Ox 99 F 95 19 82/50 L 97 11/12/18 12:52 11/12/18 00:10 11/12/18 12:14 11/12/18 13:00 11/12/18 09:00 Intake & Output 11/11/18 11/12/18 11/13/18 06:59 06:59 06:59 Intake Total 3000 1000 Balance 3000 1000 Weight 95.5 kg General appearance: PRESENT: cooperative, mild distress Head exam: PRESENT: atraumatic Eye exam: PRESENT: conjunctiva pale, PERRLA Ear exam: PRESENT: normal external ear exam Mouth exam: PRESENT: neck supple Teeth exam: PRESENT: poor dentation Neck exam: ABSENT: carotid bruit, JVD, lymphadenopathy, thyromegaly Respiratory exam: PRESENT: decreased breath sounds Cardiovascular exam: PRESENT: diastolic murmur, systolic murmur, other - AICD present left side of the chest GI/Abdominal exam: PRESENT: normal bowel sounds, soft. ABSENT: distended, guarding, mass, organolmegaly, rebound, tenderness Rectal exam: PRESENT: deferred Extremities exam: PRESENT: full ROM. ABSENT: calf tenderness, clubbing, pedal edema Neurological exam: PRESENT: alert, awake, oriented to person, oriented to place, oriented to time, oriented to situation, CN II-XII grossly intact. ABSENT: motor sensory deficit Psychiatric exam: PRESENT: appropriate affect, normal mood. ABSENT: homicidal ideation, suicidal ideation Results Laboratory Results: 11/12/18 03:30 11/12/18 07:00 11/12/18 11/12/18 11/12/18 03:30 03:30 03:30 WBC 9.9 RBC 2.94 L Hgb 9.0 L Hct 27.0 L MCV 92 MCH 30.7 MCHC 33.4 RDW 13.4 Plt Count 135 L Seg Neutrophils % Not Reportable Sodium 136.3 L Potassium 4.0 Chloride 101 Carbon Dioxide 20 L Anion Gap 15 BUN 73 H Creatinine 3.70 H Est GFR ( Amer) 16 L Glucose 125 H Lactic Acid Calcium 10.1 Total Bilirubin 0.5 AST 24 Alkaline Phosphatase 69 Total Protein 8.4 H Albumin 4.5 Lipase 204.9 Serum HCG, Qual NEGATIVE Urine Color Urine Appearance Urine pH Ur Specific [place] Urine Protein Urine Glucose (UA) Urine Ketones Urine Blood Urine Nitrite Ur Leukocyte Esterase Urine WBC (Auto) Stool for White Cells 11/12/18 11/12/18 11/12/18 04:25 07:00 08:40 WBC RBC Hgb Hct MCV MCH MCHC RDW Plt Count Seg Neutrophils % Sodium 137.6 Potassium 4.0 Chloride 106 Carbon Dioxide 18 L Anion Gap 14 BUN 68 H Creatinine 3.50 H Est GFR ( Amer) 17 L Glucose 101 Lactic Acid 1.4 Calcium 9.0 Total Bilirubin AST Alkaline Phosphatase Total Protein Albumin Lipase Serum HCG, Qual Urine Color Urine Appearance Urine pH Ur Specific [place] Urine Protein Urine Glucose (UA) Urine Ketones Urine Blood Urine Nitrite Ur Leukocyte Esterase Urine WBC (Auto) Stool for White Cells NO WBCs SEEN 11/12/18 10:12 WBC RBC Hgb Hct MCV MCH MCHC RDW Plt Count Seg Neutrophils % Sodium Potassium Chloride Carbon Dioxide Anion Gap BUN Creatinine Est GFR ( Amer) Glucose Lactic Acid Calcium Total Bilirubin AST Alkaline Phosphatase Total Protein Albumin Lipase Serum HCG, Qual Urine Color YELLOW Urine Appearance SLIGHTLY-CLOUDY Urine pH 5.0 Ur Specific [place] 1.012 Urine Protein NEGATIVE Urine Glucose (UA) NEGATIVE Urine Ketones NEGATIVE Urine Blood NEGATIVE Urine Nitrite NEGATIVE Ur Leukocyte Esterase NEGATIVE Urine WBC (Auto) 1 Stool for White Cells Impressions: Abdomen/Pelvis CT 11/12/18 07:37 IMPRESSION: Cholelithiasis. No acute findings. Chest X-Ray 11/12/18 09:00 IMPRESSION: Cardiomegaly. No acute findings. Abdomen Ultrasound 11/12/18 09:12 IMPRESSION: Cholelithiasis. No evidence of acute cholecystitis. Assessment and Plan - Diagnosis (1) Sepsis Is this a current diagnosis for this admission?: Yes Plan: 11/12/2018-patient is going to be admitted to ICU for sepsis and sepsis protocol was implemented. LP is going to be requested. Started on acyclovir, vancomycin and Zosyn. To start the patient on pressors because patient received 4 L of IV fluids in the emergency room T-max is 1.7 and latest blood pressure is 82/50. GI prophylaxis was initiated to hold DVT prophylaxis in preparation for LP. Consultation with Dr. Lema for lupus and CKD and consultation with Dr. Whitlock for central line was requested. No neck rigidity was noticed at the time of examination. No Brudzinski's sign present. Started on IV fluids at 150 cc/h so far no source of sepsis is identified. Chest x-ray was negative for acute pathology, acute abdominal pelvis is negative for acute pathology and urinalysis is clean. Blood cultures urine cultures are requested. (2) Acute kidney injury Is this a current diagnosis for this admission?: Yes Plan: 11/12/2018-patient's baseline creatinine is around 1.8 on admission today is 3.5. It may be secondary to sepsis versus lupus flareup. plan is to hold mycophenolate at this time. Consultation with Dr. Lema was requested. (3) Nausea vomiting and diarrhea Is this a current diagnosis for this admission?: Yes Plan: 11/12/2018-patient came with complaints of nausea vomiting diarrhea CT abdomen pelvis was negative for acute pathology on examination complaining of left lower quadrant tenderness. UA looks clean. Sound of the gallbladder was done no evidence of acute cholecystitis. (4) Fever Is this a current diagnosis for this admission?: Yes Plan: 11/12/2018-temperature of 101.7 this morning no source of infection is identifiable at this time. Plan is to do the lumbar puncture for fever of unknown origin. Started on IV Zosyn and IV vancomycin and IV acyclovir. (5) Acute on chronic combined systolic (congestive) and diastolic (congestive) heart failure Is this a current diagnosis for this admission?: No Plan: 11/12/2018-patient has history of combined systolic and diastolic heart failure with AICD placement. Patient is not in fluid overload. (6) Diabetes type 2, uncontrolled Is this a current diagnosis for this admission?: No Plan: 11/12/2018-patient has history of type 2 diabetes mellitus latest blood sugar is now 101 plan is to arrange for blood sugar monitoring before meals and at bedtime. (7) Lupus Is this a current diagnosis for this admission?: No Plan: 11/12/2018-patient has history of lupus on hydroxychloroquine and CellCept. Because of the immunosuppression I think WBC is within normal range and lactic acid is not elevated, Despite the signs of sepsis. (8) Obesity (BMI 30.0-34.9) Is this a current diagnosis for this admission?: No Plan: 11/12/2018-BMI is more than 33 diet exercise weight loss lifestyle modifications are discussed with the patient. - Time Time Spent with patient: 25-34 minutes Medications reviewed and adjusted accordingly: Yes Anticipated discharge: Home
[2018-11-12] MEDS: NORMAL SALINE 1000 ML 1,000 ML IV PRN ×2 (14:30→21:50)
[2018-11-12] MEDS ORDERED: LIDOCAINE 1% INJ-PF (10 MG/ML) 30 ML SDV ONE (15:28)
[2018-11-12] MEDS ORDERED: ACYCLOVIR SODIUM 750 MG in NORMAL SALINE 250 ML IV SCH (16:00)
--- NOTE | 2018-11-12 16:34 | PDOC CONSULTATION ---
Consultation Consult Date: 11/12/18 Provider Consulted: SARAH GONZALEZ Consult reason:: need IV access History of Present Illness Admission Date/PCP: 11/12/18 12:43 History of Present Illness: BREN MALDONADO is a 48 year old female with sepsis, lactic acidosis, in need of IV access for meds and fluids. Past Medical History Cardiac Medical History: Reports: Congestive Heart Failure - combined systolic and diastolic dysfunction; nonischemic cardiomyopathy., Hyperlipidema, Hypertension, 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; AR mild Denies: Coronary Artery Disease, Myocardial Infarction Pulmonary Medical History: Reports: Pneumonia Denies: Asthma, Bronchitis, Chronic Obstructive Pulmonary Disease (COPD) Neurological Medical History: Denies: Seizures Endocrine Medical History: Reports: Diabetes Mellitus Type 2 Denies: Diabetes Mellitus Type 1, Hyperthyroidism, Hypothyroidism GI Medical History: Denies: Cirrhosis, Gastroesophageal Reflux Disease, Hepatitis Musculoskeltal Medical History: Denies: Arthritis Psychiatric Medical History: Denies: Depression Hematology: Reports: Anemia - Lupus Past Surgical History Past Surgical History: Reports: Section - 1995, Cholecystectomy, Pacemaker - AICD implant Social History Lives with: Family Smoking Status: Never Smoker Frequency of Alcohol Use: None Hx Recreational Drug Use: No Drugs: None Hx Prescription Drug Abuse: No - Advance Directive Resuscitation Status: Full Code Family History Family History: Reviewed & Not Pertinent, Hypertension, Malignancy, Other - CHF Parental Family History Reviewed: No Children Family History Reviewed: No Sibling(s) Family History Reviewed.: No Medication/Allergy Home Medications: Carvedilol [Coreg 12.5 mg Tablet] 6.25 mg PO Q12 04/13/18 Duloxetine HCl [Cymbalta] 30 mg PO DAILY 04/13/18 Furosemide [Lasix 80 mg Tablet] 80 mg PO DAILY 04/13/18 Magnesium Oxide [Mag-Ox 400 mg Tablet] 400 mg PO BID 04/13/18 Multivitamin [Multiple Vitamins] 2 tab PO DAILY 04/13/18 Mycophenolate Mofetil [Cellcept] 1,000 mg PO BID 04/13/18 Cetirizine HCl [Zyrtec 10 mg Tablet] 10 mg PO DAILY 11/12/18 Eszopiclone 1.5 mg PO QHS 11/12/18 Hydroxychloroquine Sulfate [Plaquenil 200 mg Tablet] 200 mg PO Q12 11/12/18 Lisinopril [Prinivil 10 mg Tablet] 10 mg PO QHS 11/12/18 Metformin HCl 500 mg PO Q12 11/12/18 Metolazone [Zaroxolyn 2.5 mg Tablet] 5 mg PO Q2D 11/12/18 Potassium Chloride [Klor-Con 10 Meq Capsule ER] 10 meq PO DAILY 11/12/18 Spironolactone [Aldactone 25 mg Tablet] 25 mg PO DAILY 11/12/18 Allergies/Adverse Reactions: No Known Allergies Allergy (Verified 09/20/18 07:11) Physical Exam Vital Signs: Temp Pulse Resp BP Pulse Ox 99.5 F 65 23 H 113/68 100 11/12/18 14:30 11/12/18 14:30 11/12/18 14:30 11/12/18 14:30 11/12/18 14:30 Intake & Output 11/11/18 11/12/18 11/13/18 06:59 06:59 06:59 Intake Total 3000 1008 Balance 3000 1008 Weight 95.5 kg 99.7 kg General appearance: PRESENT: mild distress Respiratory exam: PRESENT: clear to auscultation mati Cardiovascular exam: PRESENT: RRR GI/Abdominal exam: PRESENT: soft Results Laboratory Results: 11/12/18 03:30 11/12/18 07:00 11/12/18 11/12/18 11/12/18 03:30 03:30 03:30 WBC 9.9 RBC 2.94 L Hgb 9.0 L Hct 27.0 L MCV 92 MCH 30.7 MCHC 33.4 RDW 13.4 Plt Count 135 L Seg Neutrophils % Not Reportable Sodium 136.3 L Potassium 4.0 Chloride 101 Carbon Dioxide 20 L Anion Gap 15 BUN 73 H Creatinine 3.70 H Est GFR ( Amer) 16 L Glucose 125 H Lactic Acid Calcium 10.1 Total Bilirubin 0.5 AST 24 Alkaline Phosphatase 69 Total Protein 8.4 H Albumin 4.5 Lipase 204.9 Serum HCG, Qual NEGATIVE Urine Color Urine Appearance Urine pH Ur Specific [place] Urine Protein Urine Glucose (UA) Urine Ketones Urine Blood Urine Nitrite Ur Leukocyte Esterase Urine WBC (Auto) Stool for White Cells 11/12/18 11/12/18 11/12/18 04:25 07:00 08:40 WBC RBC Hgb Hct MCV MCH MCHC RDW Plt Count Seg Neutrophils % Sodium 137.6 Potassium 4.0 Chloride 106 Carbon Dioxide 18 L Anion Gap 14 BUN 68 H Creatinine 3.50 H Est GFR ( Amer) 17 L Glucose 101 Lactic Acid 1.4 Calcium 9.0 Total Bilirubin AST Alkaline Phosphatase Total Protein Albumin Lipase Serum HCG, Qual Urine Color Urine Appearance Urine pH Ur Specific [place] Urine Protein Urine Glucose (UA) Urine Ketones Urine Blood Urine Nitrite Ur Leukocyte Esterase Urine WBC (Auto) Stool for White Cells NO WBCs SEEN 11/12/18 10:12 WBC RBC Hgb Hct MCV MCH MCHC RDW Plt Count Seg Neutrophils % Sodium Potassium Chloride Carbon Dioxide Anion Gap BUN Creatinine Est GFR ( Amer) Glucose Lactic Acid Calcium Total Bilirubin AST Alkaline Phosphatase Total Protein Albumin Lipase Serum HCG, Qual Urine Color YELLOW Urine Appearance SLIGHTLY-CLOUDY Urine pH 5.0 Ur Specific [place] 1.012 Urine Protein NEGATIVE Urine Glucose (UA) NEGATIVE Urine Ketones NEGATIVE Urine Blood NEGATIVE Urine Nitrite NEGATIVE Ur Leukocyte Esterase NEGATIVE Urine WBC (Auto) 1 Stool for White Cells 11/12/18 07:00 CK-MB (CK-2) Cancelled Troponin I Cancelled Impressions: Abdomen/Pelvis CT 11/12/18 07:37 IMPRESSION: Cholelithiasis. No acute findings. Chest X-Ray 11/12/18 09:00 IMPRESSION: Cardiomegaly. No acute findings. Abdomen Ultrasound 11/12/18 09:12 IMPRESSION: Cholelithiasis. No evidence of acute cholecystitis. Assessment & Plan - Plan Summary Plan Summary: A/ Sepsis elevated LA Need of CVL P/ Placement of CVL at bedside in the ICU
[2018-11-12] MEDS: OXYCODONE-ACETAMINOPHEN 5-325 MG TABLET PO PRN (16:37)
[2018-11-12] MEDS: DULOXETINE HCL 30 MG CAPSULE.DR PO SCH (16:38)
[2018-11-12] MEDS: CETIRIZINE 10 MG TABLET PO SCH (16:38)
[2018-11-12] MEDS: ACYCLOVIR SODIUM 1,000 MG in NORMAL SALINE 250 ML IV SCH (16:39)
--- NOTE | 2018-11-12 16:43 | Operative Report ---
Operative Report DATE OF SURGERY: 11/12/18 PREOPERATIVE DIAGNOSIS: Need of central venous line access POSTOPERATIVE DIAGNOSIS: Same OPERATION: Placement of right subclavian vein triple-lumen central venous line SURGEON: SARAH GONZALEZ ANESTHESIA: Local - 20 ml 1% plain lidocaine TISSUE REMOVED OR ALTERED: None COMPLICATIONS: None ESTIMATED BLOOD LOSS: Less than 2 mL INTRAOPERATIVE FINDINGS: As above PROCEDURE: The procedure was done at bedside: The patient was placed in a supine position, the patient neck and chest were prepped and draped in the usual fashion. The midportion of the right clavicle and just below it was infiltrated with lidocaine, a 16-gauge needle was then used to cannulate the right subclavianr vein] without difficulty with good blood return; a guidewire was inserted through the needle into the subclavian jugular vein without difficulty, the needle was removed. The insertion point of the guidewire was enlarged with a #11 blade and a tissue dilator which was then removed. A triple-lumen catheter was inserted without difficulty over the guidewire into the right subclavian vein without difficulty up to 18 cm, the guidewire was removed. Each port was aspirated and flushed with normal saline without difficulty. The catheter was secured to the skin with 3-0 nylon sutures and sterile dressing applied. The patient tolerated the procedure well and portable chest-ray was obtained to confirm good position of the line.
[2018-11-12] MEDS: PIPERACILLIN SODIUM/TAZOBACTAM 3.375 GM in NORMAL SALINE 100 ML IV SCH (17:03)
[2018-11-12 17:28] LABS: CREATINE KINASE MB 1.61 ng/mL (<4.55); TROPONIN I 0.044 ng/mL
--- NOTE | 2018-11-12 17:35 | RADIOLOGY REPORT (SQ) ---
EXAM DESCRIPTION: CHEST SINGLE VIEW COMPLETED DATE/TIME: 11/12/2018 4:35 pm REASON FOR STUDY: CENTRAL LINE PLACEMENT COMPARISON: Chest x-ray 11/12/2018 at 09:[address] chest 04/13/2018. EXAM PARAMETERS: NUMBER OF VIEWS: One view. TECHNIQUE: Single frontal radiographic view of the chest acquired on 11/12/2018 at 16:30 hours. RADIATION DOSE: NA LIMITATIONS: Patient positioning. FINDINGS: LUNGS AND PLEURA: The left lung apex is partially excluded from the [id number]. There is no right pneumothorax. No consolidation or sizable pleural effusion. MEDIASTINUM AND HILAR STRUCTURES: No masses. Contour normal. HEART AND VASCULAR STRUCTURES: Persistent cardiomegaly. There is no overt vascular congestion. BONES: No acute findings. HARDWARE: There is a left-sided pacemaker. Interval placement of a right sided central line with the distal tip overlying the region of the right atrium. IMPRESSION: 1. No right-sided pneumothorax status post central line placement. 2. Cardiomegaly. TECHNICAL DOCUMENTATION: JOB ID: [id number] [employer]- All Rights Reserved Reading location - IP/workstation name: [email or web address]
[2018-11-12] MEDS ORDERED: VANCOMYCIN HCL 1,500 MG in DEXTROSE 5%-WATER 250 ML IV SCH (18:00)
[2018-11-12] MEDS: ACETAMINOPHEN 325 MG TABLET PO PRN (21:38)
[2018-11-12] MEDS: HYDROXYCHLOROQUINE SULFATE 200 MG TABLET PO SCH (21:39)
[2018-11-12] MEDS: PANTOPRAZOLE SODIUM 40 MG VIAL IV SCH (21:39)
[2018-11-12] MEDS ORDERED: ACYCLOVIR SODIUM INJ/PF 500 MG/10 ML SDV IV SCH (22:00)
--- NOTE | 2018-11-13 00:17 | EKG REPORT ---
SEVERITY:- ABNORMAL ECG - ATRIAL-SENSED VENTRICULAR-PACED RHYTHM : Confirmed by: Kelly Mota MD 13-Nov-2018 00:15:28
[2018-11-13] MEDS: OXYCODONE-ACETAMINOPHEN 5-325 MG TABLET PO PRN ×4 (01:14→21:33)
[2018-11-13 01:15] LABS: CREATINE KINASE MB 1.26 ng/mL (<4.55)
[2018-11-13] MEDS: ACYCLOVIR SODIUM 1,000 MG in NORMAL SALINE 250 ML IV SCH ×3 (01:15→17:40)
[2018-11-13 01:19] LABS: TROPONIN I 0.052 ng/mL
[2018-11-13] MEDS: NORMAL SALINE 1000 ML 1,000 ML IV PRN ×3 (04:35→14:23)
[2018-11-13 05:16] LABS: ABSOLUTE LYMPHOCYTES (AUTO) 0.4 10^3/uL (0.5-4.7); ABSOLUTE MONOCYTES (AUTO) 0.6 10^3/uL (0.1-1.4); ABSOLUTE NEUT (AUTO) 3.3 10^3/uL (1.7-8.2); BASOPHILS % (AUTO) 0.1 % (0-2); EOSINOPHILS % (AUTO) 0.1 % (0-6); HEMATOCRIT 22.6 % (36.0-47.0); LYMPHOCYTES % (AUTO) 8.7 % (13-45); MEAN CORPUSCULAR HEMOGLOBIN 30.3 pg (27.0-33.4); MEAN CORPUSCULAR HGB CONC 33.7 g/dL (32.0-36.0); MEAN CORPUSCULAR VOLUME 90 fl (80-97); MONOCYTES % (AUTO) 13.7 % (3-13); PLATELET COUNT 104 10^3/uL (150-450); RED BLOOD COUNT 2.51 10^6/uL (3.72-5.28); RED CELL DISTRIBUTION WIDTH 13.4 % (11.5-14.0); SEGMENTED NEUTROPHILS % (AUTO) 77.4 % (42-78); TOTAL CELLS COUNTED % (AUTO) 100 %; WHITE BLOOD COUNT 4.2 10^3/uL (4.0-10.5)
[2018-11-13 05:34] LABS: ALBUMIN 3.3 g/dL (3.5-5.0); ALKALINE PHOSPHATASE 57 U/L (38-126); ANION GAP 10 (5-19); ASPARTATE AMINO TRANSFERASE 21 U/L (14-36); BILIRUBIN,DIRECT 0.2 mg/dL (0.0-0.4); BILIRUBIN,TOTAL 0.2 mg/dL (0.2-1.3); CALCIUM 9.2 mg/dL (8.4-10.2); CARBON DIOXIDE 19 mmol/L (22-30); CHLORIDE 107 mmol/L (98-107); GLUCOSE 93 mg/dL (75-110); HEMOGLOBIN 7.6 g/dL (12.0-15.5); POTASSIUM 3.5 mmol/L (3.6-5.0); TOTAL PROTEIN 6.3 g/dL (6.3-8.2)
[2018-11-13 05:35] LABS: CHOLESTEROL 115.44 mg/dL (0-200); TRIGLYCERIDES 53 mg/dL (<150)
[2018-11-13 05:48] LABS: BLOOD UREA NITROGEN 41 mg/dL (7-20); DIRECT LDL 55 mg/dL (<100)
[2018-11-13 05:53] LABS: VLDL CHOLESTEROL 10.6 mg/dL (10-31)
[2018-11-13] MEDS ORDERED: MAGNESIUM SULFATE/D5W 3 GM/300 ML RTUPB IV ONE (06:08)
[2018-11-13] MEDS: PIPERACILLIN SODIUM/TAZOBACTAM 3.375 GM in NORMAL SALINE 100 ML IV SCH ×5 (06:35→17:40)
[2018-11-13] MEDS: MAGNESIUM SULFATE/D5W 1 GM/100 ML RTUPB IV SCH ×3 (06:36→09:30)
[2018-11-13 09:52] LABS: APPEARANCE ALL TUBES CLEAR; COLOR ALL TUBES COLORLESS; CSF TUBE NUMBER 3; RED BLOOD CELL,CSF 6 /uL (0-10); WHITE BLOOD CELL,CSF 1 /uL (0-5)
[2018-11-13] MEDS ORDERED: VANCOMYCIN HCL INJ 1000 MG VIAL IV SCH (10:00)
[2018-11-13 10:03] LABS: GLUCOSE,CSF 55 mg/dL (40-70); PROTEIN,CSF 45 mg/dL (12-60)
[2018-11-13] MEDS: PANTOPRAZOLE SODIUM 40 MG VIAL IV SCH ×2 (10:15→21:34)
[2018-11-13] MEDS: DULOXETINE HCL 30 MG CAPSULE.DR PO SCH (10:16)
[2018-11-13] MEDS: CETIRIZINE 10 MG TABLET PO SCH (10:16)
[2018-11-13 11:13] LABS: PATH REVIEW PATHOLOGIST REVIEWED
[2018-11-13] MEDS ORDERED: POTASSIUM CHLORIDE 10 MEQ CAPSULE.ER PO ONE (11:13)
--- NOTE | 2018-11-13 11:15 | Progress Note Acknowledgement ---
Progress Note Acknowledgement Progess Note Acknowledgement: I, the undersigned member of the medical staff with appropriate privileges and with supervisory authority over [Roque Mancia], a dependent practice allied health professional, acknowledge that I have reviewed the progress notes entered on this patient, and in my professional judgment believe that the assessment made and/or any care evidenced was appropriate
[2018-11-13] MEDS ORDERED: GLUCAGON,HUMAN RECOMB 1 MG INJ IM PRN (11:22)
[2018-11-13] MEDS ORDERED: DEXTROSE 40% GEL 15 GM TUBE PO PRN ×2 (11:22)
[2018-11-13] MEDS ORDERED: DEXTROSE 50%-WATER 25 GM/50 ML DISP.SYRIN IV PRN ×2 (11:22)
--- NOTE | 2018-11-13 11:30 | PDOC PROGRESS REPORT ---
Subjective Progress Note for:: 11/13/18 Subjective:: November 13, 2018-no complaints this a.m. Reason For Visit: SEPSIS Physical Exam Vital Signs: Temp Pulse Resp BP Pulse Ox 100.8 F H 82 26 H 99/67 L 100 11/13/18 08:00 11/13/18 10:00 11/13/18 11:04 11/13/18 11:04 11/13/18 11:03 Intake & Output 11/12/18 11/13/18 11/14/18 06:59 06:59 06:59 Intake Total 3000 4057 693 Output Total 2050 0 Balance 3000 2006 69 Weight 95.5 kg 98.3 kg General appearance: PRESENT: no acute distress, well-developed, well-nourished Neck exam: ABSENT: carotid bruit, JVD, lymphadenopathy, thyromegaly Respiratory exam: PRESENT: clear to auscultation mati. ABSENT: rales, rhonchi, wheezes Cardiovascular exam: PRESENT: RRR, other - 100% paced. ABSENT: diastolic murmur, rubs, systolic murmur Pulses: PRESENT: normal dorsalis pedis pul Vascular exam: PRESENT: normal capillary refill GI/Abdominal exam: PRESENT: normal bowel sounds, soft. ABSENT: distended, guarding, mass, organolmegaly, rebound, tenderness Extremities exam: PRESENT: full ROM. ABSENT: calf tenderness, clubbing, pedal edema Neurological exam: PRESENT: alert, awake, oriented to person, oriented to place, oriented to time, oriented to situation, CN II-XII grossly intact, other - No nuchal rigidity. ABSENT: motor sensory deficit Psychiatric exam: PRESENT: appropriate affect, normal mood. ABSENT: homicidal ideation, suicidal ideation Skin exam: PRESENT: dry, intact, warm. ABSENT: cyanosis, rash Results Laboratory Results: 11/13/18 04:35 11/13/18 04:35 11/12/18 11/13/18 11/13/18 16:45 04:35 04:35 WBC 4.2 RBC 2.51 L Hgb 7.6 L Hct 22.6 L MCV 90 MCH 30.3 MCHC 33.7 RDW 13.4 Plt Count 104 L Seg Neutrophils % 77.4 Sodium 136.4 L Potassium 3.5 L Chloride 107 Carbon Dioxide 19 L Anion Gap 10 BUN 41 H D Creatinine 2.18 H Est GFR ( Amer) 29 L Glucose 93 Lactic Acid < 0.5 L Calcium 9.2 Magnesium 1.2 L* Total Bilirubin 0.2 AST 21 Alkaline Phosphatase 57 Total Protein 6.3 Albumin 3.3 L Triglycerides 53 Cholesterol 115.44 LDL Cholesterol Direct 55 VLDL Cholesterol 10.6 HDL Cholesterol 44 TSH Fluid Tube Number CSF Volume CSF Appearance CSF Color CSF WBC CSF RBC CSF Glucose CSF Total Protein 11/13/18 11/13/18 11/13/18 04:35 09:03 09:03 WBC RBC Hgb Hct MCV MCH MCHC RDW Plt Count Seg Neutrophils % Sodium Potassium Chloride Carbon Dioxide Anion Gap BUN Creatinine Est GFR ( Amer) Glucose Lactic Acid Calcium Magnesium Total Bilirubin AST Alkaline Phosphatase Total Protein Albumin Triglycerides Cholesterol LDL Cholesterol Direct VLDL Cholesterol HDL Cholesterol TSH 2.56 Fluid Tube Number 3 CSF Volume 8.0 CSF Appearance CLEAR CSF Color COLORLESS CSF WBC 1 CSF RBC 6 CSF Glucose 55 CSF Total Protein 45 11/12/18 11/12/18 11/13/18 07:00 16:45 00:15 CK-MB (CK-2) Cancelled 1.61 1.26 Troponin I Cancelled 0.044 0.052 NT-Pro-B Natriuret Pep 11/13/18 04:35 CK-MB (CK-2) Troponin I NT-Pro-B Natriuret Pep 5020 H Impressions: Abdomen/Pelvis CT 11/12/18 07:37 IMPRESSION: Cholelithiasis. No acute findings. Chest X-Ray 11/12/18 09:00 IMPRESSION: Cardiomegaly. No acute findings. Abdomen Ultrasound 11/12/18 09:12 IMPRESSION: Cholelithiasis. No evidence of acute cholecystitis. Assessment and Plan - Diagnosis (1) Sepsis Is this a current diagnosis for this admission?: Yes Plan: 11/12/2018-patient is going to be admitted to ICU for sepsis and sepsis protocol was implemented. LP is going to be requested. Started on acyclovir, vancomycin and Zosyn. To start the patient on pressors because patient received 4 L of IV fluids in the emergency room T-max is 1.7 and latest blood pressure is 82/50. GI prophylaxis was initiated to hold DVT prophylaxis in preparation for LP. Consultation with Dr. Lema for lupus and CKD and consultation with Dr. Whitlock for central line was requested. No neck rigidity was noticed at the time of examination. No Brudzinski's sign present. Started on IV fluids at 150 cc/h so far no source of sepsis is identified. Chest x-ray was negative for acute pathology, acute abdominal pelvis is negative for acute pathology and urinalysis is clean. Blood cultures urine cultures are requested. 11/13/2018-improvement at this time. Patient remains on IV fluids blood pressure 99/67 at this moment. No vasopressors at this time. Patient had LP this morning that showed no acute findings. Patient continues on vancomycin and Zosyn per pharmacy dosing. Patient does have a history of lupus and is on immunosuppressive therapy at this time. Patient has central line placed by Dr. Clark. Continue await cultures. (2) Acute kidney injury Is this a current diagnosis for this admission?: Yes Plan: 11/12/2018-patient's baseline creatinine is around 1.8 on admission today is 3.5. It may be secondary to sepsis versus lupus flareup. plan is to hold mycophenolate at this time. Consultation with Dr. Lema was requested. November 13, 2018-improved this morning. Creatinine 2.18 this morning. Continue hydration normal saline at 150 an hour. Patient does have a history of congestive heart failure with a severely reduced ejection fraction. She has a pacemaker and AICD in place. We will continue to hold mycophenolate at this time secondary to her kidney function will await recommendations per nephrology (3) Nausea vomiting and diarrhea Is this a current diagnosis for this admission?: Yes Plan: 11/12/2018-patient came with complaints of nausea vomiting diarrhea CT abdomen pelvis was negative for acute pathology on examination complaining of left lower quadrant tenderness. UA looks clean. Sound of the gallbladder was done no evidence of acute cholecystitis. November 13, 2018-nausea, vomiting and diarrhea improved at this time. CT negative for acute pathology. Patient does have evidence of cholelithiasis without acute cholecystitis by CT. States she has some lower left quadrant tenderness but abdominal pain is improved as well. (4) Fever Is this a current diagnosis for this admission?: Yes Plan: 11/12/2018-temperature of 101.7 this morning no source of infection is identifiable at this time. Plan is to do the lumbar puncture for fever of unknown origin. Started on IV Zosyn and IV vancomycin and IV acyclovir. November 13, 2018-remains elevated at 99.5. No source of infection identifiable at this time. Lumbar puncture shows no acute findings. Patient continues on IV vancomycin and Zosyn and acyclovir. (5) Acute on chronic combined systolic (congestive) and diastolic (congestive) heart failure Is this a current diagnosis for this admission?: Yes Plan: November 13, 2018-patient has a history of chronic systolic and diastolic congestive heart failure she is not in overload at this time she has clear lungs. We will continue to follow IV fluids continue (6) Diabetes type 2, uncontrolled Is this a current diagnosis for this admission?: Yes Plan: 11/12/2018-patient has history of type 2 diabetes mellitus latest blood sugar is now 101 plan is to arrange for blood sugar monitoring before meals and at bedtime. 11/13/2018-stable at this time. Once patient taking p.o. we will place her on sliding scale insulin before meals and at bedtime. Patient takes metformin at home but her baseline creatinine is 1.4. I will obtain A1c and once patient is taking orals we will place her on appropriate oral medication for type 2 diabetes mellitus. (7) Lupus Is this a current diagnosis for this admission?: Yes Plan: 11/12/2018-patient has history of lupus on hydroxychloroquine and CellCept. Because of the immunosuppression I think WBC is within normal range and lactic acid is not elevated, Despite the signs of sepsis. 11/13/2018-patient with history of lupus on hydroxychloroquine and CellCept. CellCept is being held at this time secondary to her acute renal failure. She remains with a normal white count secondary to her chronic immunosuppression. We will continue to follow (8) Obesity (BMI 30.0-34.9) Is this a current diagnosis for this admission?: No Plan: 11/12/2018-BMI is more than 33 diet exercise weight loss lifestyle modifications are discussed with the patient. November 13, 2018-we will continue to discuss lifestyle modification and diet with patient (9) Anemia Is this a current diagnosis for this admission?: Yes Plan: November 13, 2018-appears to be chronic in nature but exacerbated. I suspect this exacerbation is from hemodilution. Patient with a hemoglobin of 7.6 this a.m. Vital signs are stable although her blood pressure is a little soft at 99/60 but I see no other symptoms at this time we will hold transfusion continue to follow daily CBCs. - Time Time Spent with patient: 25-34 minutes - Inpatient Certification Based on my medical assessment, after consideration of the patient's comorbidities, presenting symptoms, or acuity I expect that the services needed warrant INPATIENT care.: Yes I certify that my determination is in accordance with my understanding of Medic are's requirements for reasonable and necessary INPATIENT services [42 CFR 412.3e].: Yes Medical Necessity: Other - IV fluids, IV antibiotics
--- NOTE | 2018-11-13 11:37 | RADIOLOGY REPORT (SQ) ---
EXAM DESCRIPTION: LUMBAR PUNCTURE; FLUORO/NEEDLE PLACEMENT/SPINE COMPLETED DATE/TIME: 11/13/2018 9:17 am REASON FOR STUDY: fever of unknown origin; FEVER OF UNKNOWN ORIGIN COMPARISON: None. FLUOROSCOPY TIME: 23 seconds 3 digital radiographic images saved to PACS. TECHNIQUE: Fluoroscopic guided lumbar puncture. LIMITATIONS: None. PROCEDURE: After written consent and assessment were obtained, the patient was brought into the fluo roscopy room and placed prone on the table. The patient's lower back was prepped in a sterile fashio n and an entry site was selected under live fluoroscopic guidance. The entry site was anesthetized wi th 1% lidocaine. A 15 cm long 20 gauge needle was advanced through the skin and into the thecal sac v ia left paracentral approach at L3-4. Approximately 8 ml was drained, the needle was removed and a s terile bandage was placed of the site. Specimens were sent to the lab for testing. A fluoroscopic s pot image was saved to PACS confirming level access. FINDINGS: Clear CSF, opening pressure 17 cm of water IMPRESSION: Lumbar puncture under fluoroscopy. No immediate complication. CSF studies are pending COMMENT: Patient medication list reviewed: Yes- Quality ID# 130:Eligible professional attests to doc umenting in the medical record they obtained, updated, or reviewed the patient's current medications. . Quality ID 145: Final reports for procedures using fluoroscopy that document radiation exposure shonna rodríguez, or exposure time and number of fluorographic images (if radiation exposure indices are not avail able) TECHNICAL DOCUMENTATION: JOB ID: [id number] [employer]- All Rights Reserved Reading location - IP/workstation name: [email or web address]
[2018-11-13] MEDS: HYDROXYCHLOROQUINE SULFATE 200 MG TABLET PO SCH ×2 (12:02→21:33)
--- NOTE | 2018-11-13 12:35 | PDOC CONSULTATION ---
Consultation Consult Date: 11/13/18 Provider Consulted: Peter MYERS Consult reason:: Acute on chronic kidney disease History of Present Illness Admission Date/PCP: 11/12/18 12:43 History of Present Illness: BREN MALDONADO is a 48 year old female with history of lupus, CKD with base creatinine of 1.6 - 2.0, congestive heart failure with AICD placement on mycophenolate for lupus, diabetes mellitus, hypertension came to the emergency room with complaints of left lower quadrant pain associated with nausea vomitings and diarrhea of 1 days duration. History of associated fever and chills and sweats at home. Complaining of cough dry cough. Denies any headaches, skin rashes, polyarthralgia, chest pains or palpitations.Labs and medications were reviewed. Admission BUN/creatinine was 73/3.7 and today's creatinine is dropped down to 2.1. Admission CBC done shows white count of 9.9 with a 72% segs and 14% bands. Magnesium was 1.2 and albumin is 3.3. Patient was seen in the ICU after she returned from having a lumbar puncture done today. Patient is overall feeling better with improvement of her nausea vomiting no persisting diarrhea.Is loose and watery with no hematochezia. D iscussions were also done with the treating ICU nurse Nellie. Past Medical History Cardiac Medical History: Reports: 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; AR mild, Hyperlipidemia, Hypertension-primary Denies: Coronary Artery Disease, Myocardial Infarction Pulmonary Medical History: Reports: Pneumonia Denies: Asthma, Bronchitis, Chronic Obstructive Pulmonary Disease (COPD) Neurological Medical History: Denies: Seizures Endocrine Medical History: Reports: Diabetes Mellitus Type 2 Denies: Diabetes Mellitus Type 1, Hyperthyroidism, Hypothyroidism Renal/ Medical History: Reports: Chronic Kidney Disease Stage IV GI Medical History: Denies: Cirrhosis, Gastroesophageal Reflux Disease, Hepatitis Musculoskeltal Medical History: Denies: Arthritis Psychiatric Medical History: Denies: Depression Past Surgical History Past Surgical History: Reports: Section - 1995, Cholecystectomy, Pacemaker - AICD implant Social History Lives with: Family Smoking Status: Never Smoker Frequency of Alcohol Use: None Hx Recreational Drug Use: No Drugs: None Hx Prescription Drug Abuse: No - Advance Directive Resuscitation Status: Full Code Family History Parental Family History Reviewed: Yes - Negative for ESRD Children Family History Reviewed: No Sibling(s) Family History Reviewed.: No Medication/Allergy Home Medications: Carvedilol [Coreg 12.5 mg Tablet] 6.25 mg PO Q12 04/13/18 Duloxetine HCl [Cymbalta] 30 mg PO DAILY 04/13/18 Furosemide [Lasix 80 mg Tablet] 80 mg PO DAILY 04/13/18 Magnesium Oxide [Mag-Ox 400 mg Tablet] 400 mg PO BID 04/13/18 Multivitamin [Multiple Vitamins] 2 tab PO DAILY 04/13/18 Mycophenolate Mofetil [Cellcept] 1,000 mg PO BID 04/13/18 Cetirizine HCl [Zyrtec 10 mg Tablet] 10 mg PO DAILY 11/12/18 Eszopiclone 1.5 mg PO QHS 11/12/18 Hydroxychloroquine Sulfate [Plaquenil 200 mg Tablet] 200 mg PO Q12 11/12/18 Lisinopril [Prinivil 10 mg Tablet] 10 mg PO QHS 11/12/18 Metformin HCl 500 mg PO Q12 11/12/18 Metolazone [Zaroxolyn 2.5 mg Tablet] 5 mg PO Q2D 11/12/18 Potassium Chloride [Klor-Con 10 Meq Capsule ER] 10 meq PO DAILY 11/12/18 Spironolactone [Aldactone 25 mg Tablet] 25 mg PO DAILY 11/12/18 Allergies/Adverse Reactions: No Known Allergies Allergy (Verified 09/20/18 07:11) Review of Systems Constitutional: PRESENT: anorexia, chills, fatigue, fever(s), weakness. ABSENT: headache(s), night sweats Nose, Mouth, and Throat: ABSENT: mouth pain, sore throat Cardiovascular: ABSENT: dyspnea on exertion, edema, orthropnea, palpitations Respiratory: PRESENT: cough. ABSENT: dyspnea, hemoptysis Gastrointestinal: PRESENT: abdominal pain, bloating, diarrhea, nausea, vomiting. ABSENT: coffee ground emesis, constipation, dysphagia, heartburn, hematemesis, hematochezia, melena Genitourinary: ABSENT: difficulty urinating, dysuria, hematuria Musculoskeletal: ABSENT: deformity, joint swelling Integumentary: ABSENT: lesions, pruritus, rash Neurological: ABSENT: abnormal gait, abnormal movements, abnormal speech, confusion, convulsions, focal weakness, frequent falls, lack of coordination Psychiatric: ABSENT: depression, hallucinations Hematologic/Lymphatic: ABSENT: easy bleeding, easy bruising, lymphadenopathy Physical Exam Vital Signs: Temp Pulse Resp BP Pulse Ox 100.8 F H 82 26 H 99/67 L 100 11/13/18 08:00 11/13/18 10:00 11/13/18 11:04 11/13/18 11:04 11/13/18 11:03 Intake & Output 11/12/18 11/13/18 11/14/18 06:59 06:59 06:59 Intake Total 3000 4057 693 Output Total 2050 0 Balance 3000 2006 693 Weight 95.5 kg 98.3 kg General appearance: PRESENT: no acute distress Eye exam: PRESENT: EOMI, PERRLA Mouth exam: PRESENT: moist Neck exam: ABSENT: lymphadenopathy, meningismus, tenderness, thyromegaly, tracheal deviation Respiratory exam: PRESENT: clear to auscultation mati. ABSENT: crackles Cardiovascular exam: PRESENT: +S1, +S2 GI/Abdominal exam: PRESENT: normal bowel sounds, soft. ABSENT: organomegaly, tenderness Extremities exam: ABSENT: pedal edema Neurological exam: PRESENT: alert, awake, oriented to person, oriented to place, oriented to time Psychiatric exam: PRESENT: appropriate affect Skin exam: ABSENT: cyanosis, erythema, mottled, rash Results Laboratory Results: 11/13/18 04:35 11/13/18 04:35 11/12/18 11/13/18 11/13/18 16:45 04:35 04:35 WBC 4.2 RBC 2.51 L Hgb 7.6 L Hct 22.6 L MCV 90 MCH 30.3 MCHC 33.7 RDW 13.4 Plt Count 104 L Seg Neutrophils % 77.4 Sodium 136.4 L Potassium 3.5 L Chloride 107 Carbon Dioxide 19 L Anion Gap 10 BUN 41 H D Creatinine 2.18 H Est GFR ( Amer) 29 L Glucose 93 Lactic Acid < 0.5 L Calcium 9.2 Magnesium 1.2 L* Total Bilirubin 0.2 AST 21 Alkaline Phosphatase 57 Total Protein 6.3 Albumin 3.3 L Triglycerides 53 Cholesterol 115.44 LDL Cholesterol Direct 55 VLDL Cholesterol 10.6 HDL Cholesterol 44 TSH Fluid Tube Number CSF Volume CSF Appearance CSF Color CSF WBC CSF RBC CSF Glucose CSF Total Protein 11/13/18 11/13/18 11/13/18 04:35 09:03 09:03 WBC RBC Hgb Hct MCV MCH MCHC RDW Plt Count Seg Neutrophils % Sodium Potassium Chloride Carbon Dioxide Anion Gap BUN Creatinine Est GFR ( Amer) Glucose Lactic Acid Calcium Magnesium Total Bilirubin AST Alkaline Phosphatase Total Protein Albumin Triglycerides Cholesterol LDL Cholesterol Direct VLDL Cholesterol HDL Cholesterol TSH 2.56 Fluid Tube Number 3 CSF Volume 8.0 CSF Appearance CLEAR CSF Color COLORLESS CSF WBC 1 CSF RBC 6 CSF Glucose 55 CSF Total Protein 45 11/12/18 11/12/18 11/13/18 07:00 16:45 00:15 CK-MB (CK-2) Cancelled 1.61 1.26 Troponin I Cancelled 0.044 0.052 NT-Pro-B Natriuret Pep 11/13/18 04:35 CK-MB (CK-2) Troponin I NT-Pro-B Natriuret Pep 5020 H Impressions: Abdomen/Pelvis CT 11/12/18 07:37 IMPRESSION: Cholelithiasis. No acute findings. Chest X-Ray 11/12/18 09:00 IMPRESSION: Cardiomegaly. No acute findings. Abdomen Ultrasound 11/12/18 09:12 IMPRESSION: Cholelithiasis. No evidence of acute cholecystitis. Guidance Fluoroscopy 11/13/18 00:00 IMPRESSION: Lumbar puncture under fluoroscopy. No immediate complication. CSF studies are pending Lumbar Puncture 11/13/18 07:00 IMPRESSION: Lumbar puncture under fluoroscopy. No immediate complication. CSF studies are pending Assessment & Plan - Diagnosis (1) Acute kidney injury Is this a current diagnosis for this admission?: Yes Plan: Nonoliguric.Patient was also mildly hypotensive in the presenting seo of nausea vomiting diarrhea. Patient has been fluid resuscitated and begun on IV antibiotics given her left shift. Patient clinically improving. Obviously her acute insult on the kidney has improved much because of her creatinine is impro patricio from 3.7 on admission to current 2.1 which is almost close to baseline. Continue present lines of management. (2) Bandemia Plan: Unknown etiology. She has got obviously evidence of sepsis/early septic shock. She is on multiple antibiotics being managed by hospitalist. Please dose to a GFR of approximately 25 cc/min. (3) Lupus Is this a current diagnosis for this admission?: Yes Plan: Was on CellCept which is being held which completely agree. Patient has no proteinuria. (4) Nausea vomiting and diarrhea Is this a current diagnosis for this admission?: Yes Plan: Nausea vomiting improved but ongoing diarrhea. Management as per hospitalist.C. Diff is negative. (5) Diabetes Qualifiers: Diabetes mellitus type: type 2 Diabetes mellitus complication status: without complication Plan: Advised tight control (6) Hypertension Qualifiers: Hypertension type: essential hypertension Qualified Code(s): I10 - Essential (primary) hypertension Plan: Presented with mild hypotension. Currently normotensive. Continue fluid resuscitation. (7) Hypomagnesemia Plan: Being replaced. Monitor.
[2018-11-13] MEDS: INSULIN REG, HUMAN 100 UNIT/ML 3 ML VIAL (PYX) SUBCUT SCH ×2 (17:09→21:32)
[2018-11-13] MEDS ORDERED: VANCOMYCIN HCL 1,250 MG in DEXTROSE 5%-WATER 250 ML IV SCH (18:00)
[2018-11-14] MEDS: PIPERACILLIN SODIUM/TAZOBACTAM 3.375 GM in NORMAL SALINE 100 ML IV SCH ×2 (00:46→05:03)
[2018-11-14] MEDS: ACYCLOVIR SODIUM 1,000 MG in NORMAL SALINE 250 ML IV SCH (01:56)
[2018-11-14] MEDS ORDERED: MAGNESIUM SULFATE/D5W 1 GM/100 ML RTUPB IV ONE (06:21)
[2018-11-14] MEDS: MAGNESIUM SULFATE/D5W 1 GM/100 ML RTUPB IV SCH ×3 (06:45→10:28)
[2018-11-14] MEDS: INSULIN REG, HUMAN 100 UNIT/ML 3 ML VIAL (PYX) SUBCUT SCH ×4 (08:56→22:02)
[2018-11-14] MEDS: PANTOPRAZOLE SODIUM 40 MG VIAL IV SCH ×2 (09:02→21:08)
[2018-11-14] MEDS: HYDROXYCHLOROQUINE SULFATE 200 MG TABLET PO SCH ×2 (09:02→22:03)
[2018-11-14] MEDS: OXYCODONE-ACETAMINOPHEN 5-325 MG TABLET PO PRN ×2 (09:03→21:08)
[2018-11-14] MEDS: CETIRIZINE 10 MG TABLET PO SCH (09:04)
[2018-11-14] MEDS: DULOXETINE HCL 30 MG CAPSULE.DR PO SCH (09:04)
[2018-11-14 09:57] LABS: HEMATOCRIT 22.6 % (36.0-47.0); MEAN CORPUSCULAR HGB CONC 33.9 g/dL (32.0-36.0); MEAN CORPUSCULAR VOLUME 89 fl (80-97); RED BLOOD COUNT 2.56 10^6/uL (3.72-5.28); RED CELL DISTRIBUTION WIDTH 13.3 % (11.5-14.0)
[2018-11-14 10:08] LABS: ANION GAP 7 (5-19); BLOOD UREA NITROGEN 15 mg/dL (7-20); CALCIUM 9.2 mg/dL (8.4-10.2); CARBON DIOXIDE 21 mmol/L (22-30); CHLORIDE 107 mmol/L (98-107); GLUCOSE 89 mg/dL (75-110); POTASSIUM 3.2 mmol/L (3.6-5.0)
[2018-11-14 10:11] LABS: PLATELET COUNT 96 10^3/uL (150-450); WHITE BLOOD COUNT 2.8 10^3/uL (4.0-10.5)
[2018-11-14 10:19] LABS: ABSOLUTE LYMPHOCYTES# (MANUAL) 0.3 10^3/uL (0.5-4.7); ABSOLUTE MONOCYTES # (MANUAL) 0.3 10^3/uL (0.1-1.4); BAND NEUTROPHILS % (MANUAL) 2 % (3-5); BASOPHILS % (MANUAL) 0 % (0-2); EOSINOPHILS % (MANUAL) 1 % (0-6); LYMPHOCYTES % (MANUAL) 10 % (13-45); MONOCYTES % (MANUAL) 11 % (3-13); SEGMENTED NEUTROPHILS % (MAN) 76 % (42-78); TOTAL CELLS COUNTED 100
[2018-11-14 10:21] LABS: OVALOCYTES 1+; PLATELET COMMENT DECREASED; PLATELET LARGE PRESENT; POIKILOCYTOSIS SLIGHT; POLYCHROMASIA SLIGHT; TEAR DROP CELLS SLIGHT
[2018-11-14 10:22] LABS: HEMOGLOBIN 7.7 g/dL (12.0-15.5)
--- NOTE | 2018-11-14 11:46 | PDOC PROGRESS REPORT ---
Subjective Progress Note for:: 11/14/18 Subjective:: This is a 48 year old female female with history of lupus, CKD, congestive heart failure with AICD placement on immunosuppressants for lupus, diabetes mellitus, hypertension who presented with LLQ pain, vomiting and diarrhea since yesterday morning. She was admitted in the ICU as she initially required vasopressor support and was treated for possible sepsis. She was started on broad spectrum IV antibiotics. She did improve clinically and was weaned off pressor. No acute event overnight. She says she still has some lower abdominal pain but this continues to improve. She still had loose stools but she says they also are starting to be more formed. She still has poor appetite. Stool culture just came back positive for Salmonella. Reason For Visit: SEPSIS Physical Exam Vital Signs: Temp Pulse Resp BP Pulse Ox 98.9 F 82 20 99/62 L 98 11/14/18 07:03 11/14/18 08:00 11/13/18 20:00 11/14/18 07:11 11/14/18 07:11 Intake & Output 11/13/18 11/14/18 11/15/18 06:59 06:59 06:59 Intake Total 4057 5406 200 Output Total 2050 3575 Balance 2006 1831 200 Weight 216 lb 11.43 oz 221 lb 5.506 oz General appearance: PRESENT: no acute distress, well-developed, well-nourished Head exam: PRESENT: atraumatic, normocephalic Eye exam: PRESENT: conjunctiva pink, EOMI, PERRLA. ABSENT: scleral icterus Ear exam: PRESENT: normal external ear exam Mouth exam: PRESENT: moist, tongue midline Neck exam: ABSENT: carotid bruit, JVD, lymphadenopathy, thyromegaly Respiratory exam: PRESENT: clear to auscultation mati. ABSENT: rales, rhonchi, wheezes Cardiovascular exam: PRESENT: RRR. ABSENT: diastolic murmur, rubs, systolic murmur Pulses: PRESENT: normal dorsalis pedis pul GI/Abdominal exam: PRESENT: normal bowel sounds, soft, tenderness - minimal LLQ direct tenderness, negative rebound. ABSENT: distended, guarding, mass, organolmegaly, rebound Rectal exam: PRESENT: deferred Neurological exam: PRESENT: alert, awake, oriented to person, oriented to place, oriented to time, oriented to situation, CN II-XII grossly intact. ABSENT: mot or sensory deficit Results Laboratory Results: 11/14/18 08:56 11/14/18 08:56 11/13/18 11/13/18 11/14/18 12:40 16:00 05:04 WBC RBC Hgb Hct MCV MCH MCHC RDW Plt Count Seg Neutrophils % Sodium Potassium Chloride Carbon Dioxide Anion Gap BUN Creatinine Est GFR ( Amer) Glucose 101 Calcium Magnesium 1.8 1.2 L* 11/14/18 11/14/18 08:56 08:56 WBC 2.8 L D RBC 2.56 L Hgb 7.7 L Hct 22.6 L MCV 89 MCH 30.0 MCHC 33.9 RDW 13.3 Plt Count 96 L Seg Neutrophils % Not Reportable Sodium 134.9 L Potassium 3.2 L Chloride 107 Carbon Dioxide 21 L Anion Gap 7 BUN 15 Creatinine 1.46 H Est GFR ( Amer) 47 L Glucose 89 Calcium 9.2 Magnesium 11/12/18 04:25 Stool - Stool - Final 11/12/18 14:45 Catheterized Urine Urine Culture - Final NO GROWTH 2 DAYS 11/12/18 11/12/18 11/13/18 07:00 16:45 00:15 CK-MB (CK-2) Cancelled 1.61 1.26 Troponin I Cancelled 0.044 0.052 NT-Pro-B Natriuret Pep 11/13/18 04:35 CK-MB (CK-2) Troponin I NT-Pro-B Natriuret Pep 5020 H Impressions: Abdomen/Pelvis CT 11/12/18 07:37 IMPRESSION: Cholelithiasis. No acute findings. Chest X-Ray 11/12/18 09:00 IMPRESSION: Cardiomegaly. No acute findings. Abdomen Ultrasound 11/12/18 09:12 IMPRESSION: Cholelithiasis. No evidence of acute cholecystitis. Guidance Fluoroscopy 11/13/18 00:00 IMPRESSION: Lumbar puncture under fluoroscopy. No immediate complication. CSF studies are pending Lumbar Puncture 11/13/18 07:00 IMPRESSION: Lumbar puncture under fluoroscopy. No immediate complication. CSF studies are pending Assessment and Plan - Diagnosis (1) Sepsis Is this a current diagnosis for this admission?: Yes Plan: She had extensive sepsis work-up including an LP. Work-up has been unremarkable aside form Salmonella from stool culture. Sepsis was likely from Salmonella colitis. Discontinue acyclovir and vancomycin. Switch Zosyn to Rocephin. (2) Colitis due to Salmonella species Is this a current diagnosis for this admission?: Yes Plan: As per number 1. (3) Acute kidney injury Is this a current diagnosis for this admission?: Yes Plan: Significantly improving with IV fluids. (4) Hypertension Qualifiers: Hypertension type: essential hypertension Qualified Code(s): I10 - Essential (primary) hypertension Is this a current diagnosis for this admission?: Yes Plan: Hold home meds due to low normal pressures. (5) Diabetes mellitus Qualifiers: Diabetes mellitus type: type 2 Is this a current diagnosis for this admission?: Yes Plan: Controlled. Hba1c is 6.1. She is on metformin at home which was held due to LYLE. Continue sliding scale.
[2018-11-14] MEDS ORDERED: POTASSIUM CHLORIDE 10 MEQ CAPSULE.ER PO ONE (12:20)
--- NOTE | 2018-11-14 18:15 | Progress Note ---
Provider Note Provider Note: ID Consult Note Asked to review the pt's chart. Pt not seen or examined. Ms. Smiley is a 48 year old obese woman with SLE on CellCept and Plaquenil, CKD, DM and CHF s/p AICD who presented on 11/12/18 to the ED with c/o fever, LLQ pain, and NVD x 1 day duration associated with fever, chills and sweats at home. She had a fever up to 102 F on the day of admission, hypotension, LYLE on CKD. Noncontrast CT abd/pelvis showed no acute findings. Two sets of blood cultures are negative x 48h. Stool culture from admission is reported showing growth of presumptive Salmonella species. Evaluation with U/A, UCx, CXR, RUQ U/S, C difficile PCR and LP have been unrevealing for other sources of sepsis. CellCept was held. Empir ically, the patient had been treated with IV vancomycin and Zosyn, which has been narrowed to IV Rocephin. Initially, she required vasopressor support, which was weaned off. Creatinine has been improving, as has lower abdominal pain. Per recent notes, stools are still loose but reported by the patient as starting to become more formed. Impression/Recommendations Salmonella gastroenteritis, severe, in immunocompromised host - Pt presented with GI complaints, shock, LYLE; now improving; no bacteremia or other invasive disease - Agree with antibiotic management to date. Would continue Rocephin for now. Consider increasing dose to 2 grams IV daily given pt's weight - F/u susceptibility results but anticipate that, when she is ready for discharge home, pt could switch to PO Cipro 500 mg BID to complete the remainder of 14 days of treatment in total [facility] MD [facility] pager [phone]
[2018-11-15] MEDS: INSULIN REG, HUMAN 100 UNIT/ML 3 ML VIAL (PYX) SUBCUT SCH ×2 (09:01→12:34)
[2018-11-15] MEDS: CETIRIZINE 10 MG TABLET PO SCH (09:44)
[2018-11-15] MEDS: HYDROXYCHLOROQUINE SULFATE 200 MG TABLET PO SCH ×2 (09:44→21:51)
[2018-11-15] MEDS: PANTOPRAZOLE SODIUM 40 MG VIAL IV SCH ×2 (09:44→21:51)
[2018-11-15] MEDS: DULOXETINE HCL 30 MG CAPSULE.DR PO SCH (09:44)
[2018-11-15] MEDS: OXYCODONE-ACETAMINOPHEN 5-325 MG TABLET PO PRN ×2 (09:53→17:13)
[2018-11-15] MEDS ORDERED: CEFTRIAXONE 1 GM/D5W RTU 1 GM/50 ML RTUPB IV SCH (10:00)
--- NOTE | 2018-11-15 14:15 | PDOC PROGRESS REPORT ---
Subjective Progress Note for:: 11/15/18 Subjective:: This is a 48 year old female female with history of lupus, CKD, congestive heart failure with AICD placement on immunosuppressants for lupus, diabetes mellitus, hypertension who presented with LLQ pain, vomiting and diarrhea since yesterday morning. She was admitted in the ICU as she initially required vasopressor support and was treated for possible sepsis. She was started on broad spectrum IV antibiotics. She did improve clinically and was weaned off pressor. 11/14: She says she still has some lower abdominal pain but this continues to improve. She still had loose stools but she says they also are starting to be more formed. She still has poor appetite. Stool culture just came back positive for Salmonella. 11/15: No acute event overnight. She says her abdominal paina nd diarrhea continue to improve. She had 3 BM this morning but were much better formed than yesterday. Reason For Visit: SEPSIS Physical Exam Vital Signs: Temp Pulse Resp BP Pulse Ox 99.0 F 65 18 113/62 100 11/15/18 10:57 11/15/18 10:57 11/15/18 10:57 11/15/18 10:57 11/15/18 10:57 Intake & Output 11/14/18 11/15/18 11/16/18 06:59 06:59 06:59 Intake Total 5406 840 50 Output Total 3575 1000 Balance 1831 -160 50 Weight 221 lb 5.506 oz 215 lb 6.266 oz General appearance: PRESENT: no acute distress, well-developed, well-nourished Head exam: PRESENT: atraumatic, normocephalic Eye exam: PRESENT: conjunctiva pink, EOMI, PERRLA. ABSENT: scleral icterus Ear exam: PRESENT: normal external ear exam Mouth exam: PRESENT: moist, tongue midline Neck exam: ABSENT: carotid bruit, JVD, lymphadenopathy, thyromegaly Respiratory exam: PRESENT: clear to auscultation mati. ABSENT: rales, rhonchi, wheezes Cardiovascular exam: PRESENT: RRR. ABSENT: diastolic murmur, rubs, systolic murmur Pulses: PRESENT: normal dorsalis pedis pul GI/Abdominal exam: PRESENT: normal bowel sounds, soft. ABSENT: distended, guarding, mass, organolmegaly, rebound, tenderness Rectal exam: PRESENT: deferred Extremities exam: PRESENT: full ROM. ABSENT: calf tenderness, clubbing, pedal edema Neurological exam: PRESENT: alert, awake, oriented to person, oriented to place, oriented to time, oriented to situation, CN II-XII grossly intact. ABSENT: motor sensory deficit Results Laboratory Results: 11/14/18 08:56 11/14/18 08:56 11/12/18 04:25 Stool - Stool - Final 11/12/18 04:25 Stool - Stool Stool Culture - Final Salmonella Species 11/12/18 11/12/18 11/13/18 07:00 16:45 00:15 CK-MB (CK-2) Cancelled 1.61 1.26 Troponin I Cancelled 0.044 0.052 NT-Pro-B Natriuret Pep 11/13/18 04:35 CK-MB (CK-2) Troponin I NT-Pro-B Natriuret Pep 5020 H Impressions: Abdomen/Pelvis CT 11/12/18 07:37 IMPRESSION: Cholelithiasis. No acute findings. Chest X-Ray 11/12/18 09:00 IMPRESSION: Cardiomegaly. No acute findings. Abdomen Ultrasound 11/12/18 09:12 IMPRESSION: Cholelithiasis. No evidence of acute cholecystitis. Guidance Fluoroscopy 11/13/18 00:00 IMPRESSION: Lumbar puncture under fluoroscopy. No immediate complication. CSF studies are pending Lumbar Puncture 11/13/18 07:00 IMPRESSION: Lumbar puncture under fluoroscopy. No immediate complication. CSF studies are pending Assessment and Plan - Diagnosis (1) Sepsis Is this a current diagnosis for this admission?: Yes Plan: She had extensive sepsis work-up including an LP. Work-up has been unremarkable aside form Salmonella from stool culture. Sepsis was likely from Salmonella colitis. Switch Zosyn to Rocephin. 11/15: Resolved. Appreciate ID recommendations. Increase Rocephin to 2 g daily. (2) Colitis due to Salmonella species Is this a current diagnosis for this admission?: Yes Plan: As per number 1. (3) Acute kidney injury Is this a current diagnosis for this admission?: Yes Plan: Significantly improving with IV fluids. (4) Hypertension Qualifiers: Hypertension type: essential hypertension Qualified Code(s): I10 - Essential (primary) hypertension Is this a current diagnosis for this admission?: Yes Plan: Hold home meds due to low normal pressures. (5) Diabetes mellitus Qualifiers: Diabetes mellitus type: type 2 Is this a current diagnosis for this admission?: Yes Plan: Controlled. Hba1c is 6.1. She is on metformin at home which was held due to LYLE. Continue sliding scale. (6) Hypokalemia Is this a current diagnosis for this admission?: Yes (7) Hypomagnesemia Is this a current diagnosis for this admission?: Yes
[2018-11-15] MEDS ORDERED: CEFTRIAXONE 1 GM/D5W RTU 1 GM/50 ML RTUPB IV PRN (15:08)
[2018-11-15 18:09] LABS: ABSOLUTE LYMPHOCYTES (AUTO) 0.4 10^3/uL (0.5-4.7); ABSOLUTE MONOCYTES (AUTO) 0.2 10^3/uL (0.1-1.4); BASOPHILS % (AUTO) 0.1 % (0-2); EOSINOPHILS % (AUTO) 1.6 % (0-6); HEMATOCRIT 23.3 % (36.0-47.0); LYMPHOCYTES % (AUTO) 15.6 % (13-45); MEAN CORPUSCULAR HEMOGLOBIN 30.1 pg (27.0-33.4); MEAN CORPUSCULAR HGB CONC 33.5 g/dL (32.0-36.0); MEAN CORPUSCULAR VOLUME 90 fl (80-97); MONOCYTES % (AUTO) 7.7 % (3-13); PLATELET COUNT 107 10^3/uL (150-450); TOTAL CELLS COUNTED % (AUTO) 100 %; WHITE BLOOD COUNT 2.7 10^3/uL (4.0-10.5)
[2018-11-15 18:11] LABS: HEMOGLOBIN 7.8 g/dL (12.0-15.5)
[2018-11-15 18:27] LABS: ANION GAP 8 (5-19); BLOOD UREA NITROGEN 12 mg/dL (7-20); CALCIUM 9.3 mg/dL (8.4-10.2); CARBON DIOXIDE 21 mmol/L (22-30); CHLORIDE 103 mmol/L (98-107); GLUCOSE 231 mg/dL (75-110)
[2018-11-15] MEDS ORDERED: POTASSIUM CHLORIDE 10 MEQ CAPSULE.ER PO ONE (18:40)
[2018-11-15] MEDS ORDERED: MAGNESIUM SULFATE 4 GM/100 ML RTUPB IV ONE ×2 (18:41→19:30)
[2018-11-15] MEDS: DEXTROSE 5%-NORMAL SALINE 1,000 ML IV PRN (19:40)
[2018-11-15] MEDS: POTASSI CL 20 MEQ/50 ML RIDER 20 MEQ/50 ML RTUPB IV SCH ×2 (20:08→21:49)
[2018-11-15] MEDS ORDERED: DEXTROSE 50%-WATER 25 GM/50 ML DISP.SYRIN IV ONE (20:40)
[2018-11-16] MEDS: DEXTROSE 5%-NORMAL SALINE 1,000 ML IV PRN ×2 (07:43→15:54)
[2018-11-16] MEDS: INSULIN REG, HUMAN 100 UNIT/ML 3 ML VIAL (PYX) SUBCUT SCH (07:46)
[2018-11-16] MEDS: PANTOPRAZOLE SODIUM 40 MG VIAL IV SCH ×2 (10:54→21:56)
[2018-11-16] MEDS: HYDROXYCHLOROQUINE SULFATE 200 MG TABLET PO SCH ×2 (10:55→21:55)
[2018-11-16] MEDS: CETIRIZINE 10 MG TABLET PO SCH (10:55)
[2018-11-16] MEDS: DULOXETINE HCL 30 MG CAPSULE.DR PO SCH (10:55)
[2018-11-16] MEDS: CEFTRIAXONE 2 GM/D5W RTU 2 GM/50 ML RTUPB IV SCH (10:55)
--- NOTE | 2018-11-16 14:46 | PDOC PROGRESS REPORT ---
Subjective Progress Note for:: 11/16/18 Subjective:: This is a 48 year old female female with history of lupus, CKD, congestive heart failure with AICD placement on immunosuppressants for lupus, diabetes mellitus, hypertension who presented with LLQ pain, vomiting and diarrhea since yesterday morning. She was admitted in the ICU as she initially required vasopressor support and was treated for possible sepsis. She was started on broad spectrum IV antibiotics. She did improve clinically and was weaned off pressor. 11/14: She says she still has some lower abdominal pain but this continues to improve. She still had loose stools but she says they also are starting to be more formed. She still has poor appetite. Stool culture just came back positive for Salmonella. 11/15: She says her abdominal paina nd diarrhea continue to improve. She had 3 BM this morning but were much better formed than yesterday. 11/16: Patient's blood sugars dropped to the 30s last night. She did have poor intake yesterday afternoon and had a few loose stools. She was started on D5 normal saline which has slightly improved her sugars. This morning, she says her abdominal pain continues to improve. She had one loose bowel movement but again discontinued to be more well formed. She was encouraged to eat more food today. Reason For Visit: SEPSIS Physical Exam Vital Signs: Temp Pulse Resp BP Pulse Ox 99.4 F 79 16 109/59 L 93 11/16/18 11:51 11/16/18 11:51 11/16/18 11:51 11/16/18 11:51 11/16/18 11:51 Intake & Output 11/15/18 11/16/18 11/17/18 06:59 06:59 06:59 Intake Total 840 2001 193 Output Total 1000 750 Balance -160 2001 1182 Weight 215 lb 6.266 oz 220 lb 7.396 oz General appearance: PRESENT: no acute distress, well-developed, well-nourished Head exam: PRESENT: atraumatic, normocephalic Eye exam: PRESENT: conjunctiva pink, EOMI, PERRLA. ABSENT: scleral icterus Ear exam: PRESENT: normal external ear exam Mouth exam: PRESENT: moist, tongue midline Neck exam: ABSENT: carotid bruit, JVD, lymphadenopathy, thyromegaly Respiratory exam: PRESENT: clear to auscultation mati. ABSENT: rales, rhonchi, wheezes Cardiovascular exam: PRESENT: RRR. ABSENT: diastolic murmur, rubs, systolic murmur Pulses: PRESENT: normal dorsalis pedis pul GI/Abdominal exam: PRESENT: normal bowel sounds, soft. ABSENT: distended, guarding, mass, organolmegaly, rebound, tenderness Rectal exam: PRESENT: deferred Neurological exam: PRESENT: alert, awake, oriented to person, oriented to place, oriented to time, oriented to situation, CN II-XII grossly intact. ABSENT: motor sensory deficit Results Laboratory Results: 11/15/18 17:40 11/15/18 17:40 11/15/18 11/15/18 17:40 17:40 WBC 2.7 L RBC 2.60 L Hgb 7.8 L Hct 23.3 L MCV 90 MCH 30.1 MCHC 33.5 RDW 13.0 Plt Count 107 L Seg Neutrophils % 75.0 Sodium 131.9 L Potassium 3.0 L* Chloride 103 Carbon Dioxide 21 L Anion Gap 8 BUN 12 Creatinine 1.20 Est GFR ( Amer) 59 L Glucose 231 H Calcium 9.3 Magnesium 1.0 L* 11/13/18 09:03 Cerebral Spinal Fluid - Csf Gram Stain - Final 11/13/18 09:03 Cerebral Spinal Fluid - Csf CSF Culture - Final NO GROWTH 3 DAYS 11/12/18 11/12/18 11/13/18 07:00 16:45 00:15 CK-MB (CK-2) Cancelled 1.61 1.26 Troponin I Cancelled 0.044 0.052 NT-Pro-B Natriuret Pep 11/13/18 04:35 CK-MB (CK-2) Troponin I NT-Pro-B Natriuret Pep 5020 H Impressions: Abdomen/Pelvis CT 11/12/18 07:37 IMPRESSION: Cholelithiasis. No acute findings. Chest X-Ray 11/12/18 09:00 IMPRESSION: Cardiomegaly. No acute findings. Abdomen Ultrasound 11/12/18 09:12 IMPRESSION: Cholelithiasis. No evidence of acute cholecystitis. Guidance Fluoroscopy 11/13/18 00:00 IMPRESSION: Lumbar puncture under fluoroscopy. No immediate complication. CSF studies are pending Lumbar Puncture 11/13/18 07:00 IMPRESSION: Lumbar puncture under fluoroscopy. No immediate complication. CSF studies are pending Assessment and Plan - Diagnosis (1) Sepsis Is this a current diagnosis for this admission?: Yes Plan: She had extensive sepsis work-up including an LP. Work-up has been unremarkable aside form Salmonella from stool culture. Sepsis was likely from Salmonella colitis. Switch Zosyn to Rocephin. 11/15: Resolved. Appreciate ID recommendations. Increase Rocephin to 2 g daily. (2) Hypoglycemia Is this a current diagnosis for this admission?: Yes Plan: Started on D5NS at 100 cc/hr. (3) Colitis due to Salmonella species Is this a current diagnosis for this admission?: Yes Plan: Diarrhea improving. As per number 1. (4) Acute kidney injury Is this a current diagnosis for this admission?: Yes Plan: Significantly improving with IV fluids. (5) Hypertension Qualifiers: Hypertension type: essential hypertension Qualified Code(s): I10 - Essential (primary) hypertension Is this a current diagnosis for this admission?: Yes Plan: Hold home meds due to low normal pressures. (6) Diabetes mellitus Qualifiers: Diabetes mellitus type: type 2 Is this a current diagnosis for this admission?: Yes Plan: Controlled. Hba1c is 6.1. She is on metformin at home which was held due to LYLE. Continue sliding scale. 11/16: Sliding scale DCed due to hypoglycemic episodes. (7) Hypokalemia Is this a current diagnosis for this admission?: Yes (8) Hypomagnesemia Is this a current diagnosis for this admission?: Yes
[2018-11-17] MEDS: DEXTROSE 5%-NORMAL SALINE 1,000 ML IV PRN ×2 (02:51→15:06)
[2018-11-17] MEDS: CEFTRIAXONE 2 GM/D5W RTU 2 GM/50 ML RTUPB IV SCH (09:37)
[2018-11-17] MEDS: HYDROXYCHLOROQUINE SULFATE 200 MG TABLET PO SCH (09:39)
[2018-11-17] MEDS: PANTOPRAZOLE SODIUM 40 MG VIAL IV SCH (09:39)
[2018-11-17] MEDS: CETIRIZINE 10 MG TABLET PO SCH (09:39)
[2018-11-17] MEDS: DULOXETINE HCL 30 MG CAPSULE.DR PO SCH (09:39)
[2018-11-17 09:50] LABS: ABSOLUTE LYMPHOCYTES (AUTO) 0.5 10^3/uL (0.5-4.7); ABSOLUTE MONOCYTES (AUTO) 0.3 10^3/uL (0.1-1.4); ABSOLUTE NEUT (AUTO) 1.2 10^3/uL (1.7-8.2); BASOPHILS % (AUTO) 0.1 % (0-2); EOSINOPHILS % (AUTO) 1.9 % (0-6); HEMATOCRIT 21.9 % (36.0-47.0); LYMPHOCYTES % (AUTO) 25.5 % (13-45); MEAN CORPUSCULAR HEMOGLOBIN 30.1 pg (27.0-33.4); MEAN CORPUSCULAR HGB CONC 33.5 g/dL (32.0-36.0); MEAN CORPUSCULAR VOLUME 90 fl (80-97); MONOCYTES % (AUTO) 14.1 % (3-13); PLATELET COUNT 117 10^3/uL (150-450); RED BLOOD COUNT 2.44 10^6/uL (3.72-5.28); RED CELL DISTRIBUTION WIDTH 13.1 % (11.5-14.0); SEGMENTED NEUTROPHILS % (AUTO) 58.4 % (42-78); TOTAL CELLS COUNTED % (AUTO) 100 %; WHITE BLOOD COUNT 2.1 10^3/uL (4.0-10.5)
[2018-11-17 09:55] LABS: HEMOGLOBIN 7.3 g/dL (12.0-15.5)
[2018-11-17 10:10] LABS: ANION GAP 9 (5-19); BLOOD UREA NITROGEN 9 mg/dL (7-20); CALCIUM 8.7 mg/dL (8.4-10.2); CARBON DIOXIDE 20 mmol/L (22-30); CHLORIDE 108 mmol/L (98-107); GLUCOSE 115 mg/dL (75-110); POTASSIUM 3.4 mmol/L (3.6-5.0)
[2018-11-17 10:34] LABS: ABSOLUTE RETICS # 0.034 10^6/uL (0.028-0.122); RETICULOCYTE COUNT (AUTO) 1.39 % (0.66-2.85)
[2018-11-17 10:40] LABS: IRON(TIBC) 21.5 ug/dL (37-170)
[2018-11-17] MEDS ORDERED: MAGNESIUM SULFATE 4 GM/100 ML RTUPB IV ONE (11:30)
[2018-11-17 11:52] LABS: FOLATE > 20.00 ng/mL (>2.76)
--- NOTE | 2018-11-17 13:49 | PDOC PROGRESS REPORT ---
Subjective Progress Note for:: 11/17/18 Subjective:: This is a 48 year old female female with history of lupus, CKD, congestive heart failure with AICD placement on immunosuppressants for lupus, diabetes mellitus, hypertension who presented with LLQ pain, vomiting and diarrhea since yesterday morning. She was admitted in the ICU as she initially required vasopressor support and was treated for possible sepsis. She was started on broad spectrum IV antibiotics. She did improve clinically and was weaned off pressor. 11/14: She says she still has some lower abdominal pain but this continues to improve. She still had loose stools but she says they also are starting to be more formed. She still has poor appetite. Stool culture just came back positive for Salmonella. 11/15: She says her abdominal paina nd diarrhea continue to improve. She had 3 BM this morning but were much better formed than yesterday. 11/16: Patient's blood sugars dropped to the 30s last night. She did have poor intake yesterday afternoon and had a few loose stools. She was started on D5 normal saline which has slightly improved her sugars. This morning, she says her abdominal pain continues to improve. She had one loose bowel movement but again discontinued to be more well formed. She was encouraged to eat more food today. 11/17: Patient continues to do well. Her diarrhea has resolved. She says her abdominal pain is very minimal. She has been eating well since last night and has has not had any nausea or vomiting. Her dextrose infusion was discontinued this morning to see if she could be possibly discharge however, even with very good oral intake, she dropped her sugars again to the 60s. Repeat K and Mg levels were also low. Reason For Visit: SEPSIS Physical Exam Vital Signs: Temp Pulse Resp BP Pulse Ox 99.0 F 79 15 109/55 L 100 11/17/18 08:26 11/17/18 08:26 11/17/18 08:26 11/17/18 08:26 11/17/18 08:26 Intake & Output 11/16/18 11/17/18 11/18/18 06:59 06:59 06:59 Intake Total 2001 4483 1050 Output Total 750 Balance 2001 3676 1050 Weight 220 lb 7.396 oz 221 lb 9.033 oz General appearance: PRESENT: no acute distress, well-developed, well-nourished Head exam: PRESENT: atraumatic, normocephalic Eye exam: PRESENT: conjunctiva pink, EOMI, PERRLA. ABSENT: scleral icterus Ear exam: PRESENT: bleeding Mouth exam: PRESENT: moist, tongue midline Neck exam: ABSENT: carotid bruit, JVD, lymphadenopathy, thyromegaly Respiratory exam: PRESENT: clear to auscultation mati. ABSENT: rales, rhonchi, wheezes Cardiovascular exam: PRESENT: RRR. ABSENT: diastolic murmur, rubs, systolic murmur Pulses: PRESENT: normal dorsalis pedis pul GI/Abdominal exam: PRESENT: normal bowel sounds, soft. ABSENT: distended, guarding, mass, organolmegaly, rebound, tenderness Rectal exam: PRESENT: deferred Extremities exam: PRESENT: full ROM. ABSENT: calf tenderness, clubbing, pedal edema Neurological exam: PRESENT: alert, awake, oriented to person, oriented to place, oriented to time, oriented to situation, CN II-XII grossly intact. ABSENT: motor sensory deficit Results Laboratory Results: 11/17/18 09:30 11/17/18 09:30 11/17/18 11/17/18 11/17/18 09:30 09:30 09:30 WBC 2.1 L RBC 2.44 L Hgb 7.3 L Hct 21.9 L MCV 90 MCH 30.1 MCHC 33.5 RDW 13.1 Plt Count 117 L Seg Neutrophils % 58.4 Retic Count (auto) 1.39 Sodium 136.5 L Potassium 3.4 L Chloride 108 H Carbon Dioxide 20 L Anion Gap 9 BUN 9 Creatinine 1.02 Est GFR ( Amer) > 60 Glucose 115 H Calcium 8.7 Magnesium 0.9 L* Iron TIBC % Saturation Ferritin Vitamin B12 Folate 11/17/18 09:30 WBC RBC Hgb Hct MCV MCH MCHC RDW Plt Count Seg Neutrophils % Retic Count (auto) Sodium Potassium Chloride Carbon Dioxide Anion Gap BUN Creatinine Est GFR ( Amer) Glucose Calcium Magnesium Iron 21.5 L TIBC 272 % Saturation 8 Ferritin 153.00 H Vitamin B12 551.0 Folate > 20.00 11/12/18 08:40 Blood Blood Culture - Final NO GROWTH IN 5 DAYS 11/13/18 09:03 Cerebral Spinal Fluid - Csf Gram Stain - Final 11/13/18 09:03 Cerebral Spinal Fluid - Csf CSF Culture - Final NO GROWTH 3 DAYS 11/12/18 11/12/18 11/13/18 07:00 16:45 00:15 CK-MB (CK-2) Cancelled 1.61 1.26 Troponin I Cancelled 0.044 0.052 NT-Pro-B Natriuret Pep 11/13/18 04:35 CK-MB (CK-2) Troponin I NT-Pro-B Natriuret Pep 5020 H Impressions: Abdomen/Pelvis CT 11/12/18 07:37 IMPRESSION: Cholelithiasis. No acute findings. Chest X-Ray 11/12/18 09:00 IMPRESSION: Cardiomegaly. No acute findings. Abdomen Ultrasound 11/12/18 09:12 IMPRESSION: Cholelithiasis. No evidence of acute cholecystitis. Guidance Fluoroscopy 11/13/18 00:00 IMPRESSION: Lumbar puncture under fluoroscopy. No immediate complication. CSF studies are pending Lumbar Puncture 11/13/18 07:00 IMPRESSION: Lumbar puncture under fluoroscopy. No immediate complication. CSF studies are pending Assessment and Plan - Diagnosis (1) Hypoglycemia Is this a current diagnosis for this admission?: Yes Plan: 11/15: Started on D5NS at 100 cc/hr. 11/17: Her diarrhea has resolved. She says her abdominal pain is very minimal. She has been eating well since last night and has has not had any nausea or vomiting. Her dextrose infusion was discontinued this morning to see if she could be possibly discharge however, even with very good oral intake, she dropped her sugars again to the 60s. She has been off any insulin products for more than 72 hrs. She has not received metformin since admission. Will restart dextrose infusion and will send for hypolgycemia work-up. Will hold Plaquenil as it can rarely cause hypoglycemia as well although she has been on it before. (2) Sepsis Is this a current diagnosis for this admission?: Yes Plan: She had extensive sepsis work-up including an LP. Work-up has been unremarkable aside form Salmonella from stool culture. Sepsis was likely from Salmonella colitis. Switch Zosyn to Rocephin. 11/15: Resolved. Appreciate ID recommendations. Increase Rocephin to 2 g daily. 11/17: Switch to PO Cipro. (3) Colitis due to Salmonella species Is this a current diagnosis for this admission?: Yes Plan: Diarrhea resolved. As per number 1. (4) Acute kidney injury Is this a current diagnosis for this admission?: Yes Plan: Significantly improving with IV fluids. (5) Hypertension Qualifiers: Hypertension type: essential hypertension Qualified Code(s): I10 - Essential (primary) hypertension Is this a current diagnosis for this admission?: Yes Plan: Hold home meds due to low normal pressures. (6) Diabetes mellitus Qualifiers: Diabetes mellitus type: type 2 Is this a current diagnosis for this admission?: Yes Plan: Controlled. Hba1c is 6.1. She is on metformin at home which was held due to LYLE. Continue sliding scale. 11/16: Sliding scale DCed due to hypoglycemic episodes. (7) Hypokalemia Is this a current diagnosis for this admission?: Yes (8) Hypomagnesemia Is this a current diagnosis for this admission?: Yes (9) Pancytopenia Is this a current diagnosis for this admission?: Yes Plan: Like from Plaquenil. Hold Plaquenil. - Time Time Spent with patient: 25-34 minutes
[2018-11-17] MEDS: ACETAMINOPHEN 325 MG TABLET PO PRN (21:36)
[2018-11-17] MEDS: CIPROFLOXACIN HCL 500 MG TABLET PO SCH (21:36)
[2018-11-18] MEDS: DEXTROSE 5%-NORMAL SALINE 1,000 ML IV PRN (06:08)
[2018-11-18] MEDS: DULOXETINE HCL 30 MG CAPSULE.DR PO SCH (09:14)
[2018-11-18] MEDS: CIPROFLOXACIN HCL 500 MG TABLET PO SCH ×2 (09:14→21:30)
[2018-11-18] MEDS: CETIRIZINE 10 MG TABLET PO SCH (09:14)
[2018-11-18 10:53] LABS: ANION GAP 10 (5-19); BLOOD UREA NITROGEN 8 mg/dL (7-20); CALCIUM 8.8 mg/dL (8.4-10.2); CARBON DIOXIDE 20 mmol/L (22-30); CHLORIDE 106 mmol/L (98-107); GLUCOSE 116 mg/dL (75-110); POTASSIUM 3.6 mmol/L (3.6-5.0)
[2018-11-18 10:55] LABS: ABSOLUTE LYMPHOCYTES (AUTO) 0.7 10^3/uL (0.5-4.7); ABSOLUTE MONOCYTES (AUTO) 0.2 10^3/uL (0.1-1.4); ABSOLUTE NEUT (AUTO) 1.6 10^3/uL (1.7-8.2); BASOPHILS % (AUTO) 0.4 % (0-2); EOSINOPHILS % (AUTO) 1.7 % (0-6); HEMATOCRIT 21.6 % (36.0-47.0); LYMPHOCYTES % (AUTO) 25.6 % (13-45); MEAN CORPUSCULAR HEMOGLOBIN 30.3 pg (27.0-33.4); MEAN CORPUSCULAR VOLUME 89 fl (80-97); MONOCYTES % (AUTO) 9.3 % (3-13); PLATELET COUNT 139 10^3/uL (150-450); RED BLOOD COUNT 2.41 10^6/uL (3.72-5.28); RED CELL DISTRIBUTION WIDTH 13.3 % (11.5-14.0); TOTAL CELLS COUNTED % (AUTO) 100 %; WHITE BLOOD COUNT 2.6 10^3/uL (4.0-10.5)
[2018-11-18 11:09] LABS: HEMOGLOBIN 7.3 g/dL (12.0-15.5)
[2018-11-18] MEDS: FERROUS SULFATE 325 MG TABLET PO SCH ×2 (11:57→17:40)
--- NOTE | 2018-11-18 17:05 | PDOC PROGRESS REPORT ---
Subjective Progress Note for:: 11/18/18 Subjective:: This is a 48 year old female female with history of lupus, CKD, congestive heart failure with AICD placement on immunosuppressants for lupus, diabetes mellitus, hypertension who presented with LLQ pain, vomiting and diarrhea since yesterday morning. She was admitted in the ICU as she initially required vasopressor support and was treated for possible sepsis. She was started on broad spectrum IV antibiotics. She did improve clinically and was weaned off pressor. 11/14: She says she still has some lower abdominal pain but this continues to improve. She still had loose stools but she says they also are starting to be more formed. She still has poor appetite. Stool culture just came back positive for Salmonella. 11/15: She says her abdominal paina nd diarrhea continue to improve. She had 3 BM this morning but were much better formed than yesterday. 11/16: Patient's blood sugars dropped to the 30s last night. She did have poor intake yesterday afternoon and had a few loose stools. She was started on D5 normal saline which has slightly improved her sugars. This morning, she says her abdominal pain continues to improve. She had one loose bowel movement but again discontinued to be more well formed. She was encouraged to eat more food today. 11/17: Patient continues to do well. Her diarrhea has resolved. She says her abdominal pain is very minimal. She has been eating well since last night and has has not had any nausea or vomiting. Her dextrose infusion was discontinued this morning to see if she could be possibly discharge however, even with very good oral intake, she dropped her sugars again to the 60s. Repeat K and Mg levels were also low. 11/18: No acute event overnight. He says her abdominal pain and diarrhea have resolved. She is been eating well. She remains on dextrose infusion. Will discontinue D5 and see if there is any recurrence of hypoglycemia. Reason For Visit: SEPSIS Physical Exam Vital Signs: Temp Pulse Resp BP Pulse Ox 99.9 F 78 18 122/69 100 11/18/18 11:40 11/18/18 14:00 11/18/18 11:40 11/18/18 11:40 11/18/18 11:40 Intake & Output 11/17/18 11/18/18 11/19/18 06:59 06:59 06:59 Intake Total 4426 3933 Output Total 750 Balance 3676 3933 Weight 221 lb 9.033 oz 218 lb 0.595 oz General appearance: PRESENT: no acute distress, well-developed, well-nourished Head exam: PRESENT: atraumatic, normocephalic Eye exam: PRESENT: conjunctiva pink, EOMI, PERRLA. ABSENT: scleral icterus Ear exam: PRESENT: normal external ear exam Mouth exam: PRESENT: moist, tongue midline Neck exam: ABSENT: carotid bruit, JVD, lymphadenopathy, thyromegaly Respiratory exam: PRESENT: clear to auscultation mati. ABSENT: rales, rhonchi, wheezes Cardiovascular exam: PRESENT: RRR. ABSENT: diastolic murmur, rubs, systolic murmur Pulses: PRESENT: normal dorsalis pedis pul GI/Abdominal exam: PRESENT: normal bowel sounds, soft. ABSENT: distended, guarding, mass, organolmegaly, rebound, tenderness Rectal exam: PRESENT: deferred Extremities exam: PRESENT: full ROM. ABSENT: calf tenderness, clubbing, pedal edema Neurological exam: PRESENT: alert, awake, oriented to person, oriented to place, oriented to time, oriented to situation, CN II-XII grossly intact. ABSENT: motor sensory deficit Psychiatric exam: PRESENT: appropriate affect, normal mood. ABSENT: homicidal ideation, suicidal ideation Results Laboratory Results: 11/18/18 09:10 11/18/18 09:10 11/17/18 11/18/18 11/18/18 17:20 09:10 09:10 WBC 2.6 L RBC 2.41 L Hgb 7.3 L Hct 21.6 L MCV 89 MCH 30.3 MCHC 34.0 RDW 13.3 Plt Count 139 L Seg Neutrophils % 63.0 Sodium 135.9 L Potassium 3.6 Chloride 106 Carbon Dioxide 20 L Anion Gap 10 BUN 8 Creatinine 1.08 Est GFR ( Amer) > 60 Glucose 116 H Calcium 8.8 Magnesium 2.0 D 11/12/18 14:50 Blood Blood Culture - Final NO GROWTH IN 5 DAYS 11/12/18 11/12/18 11/13/18 07:00 16:45 00:15 CK-MB (CK-2) Cancelled 1.61 1.26 Troponin I Cancelled 0.044 0.052 NT-Pro-B Natriuret Pep 11/13/18 04:35 CK-MB (CK-2) Troponin I NT-Pro-B Natriuret Pep 5020 H Impressions: Abdomen/Pelvis CT 11/12/18 07:37 IMPRESSION: Cholelithiasis. No acute findings. Chest X-Ray 11/12/18 09:00 IMPRESSION: Cardiomegaly. No acute findings. Abdomen Ultrasound 11/12/18 09:12 IMPRESSION: Cholelithiasis. No evidence of acute cholecystitis. Guidance Fluoroscopy 11/13/18 00:00 IMPRESSION: Lumbar puncture under fluoroscopy. No immediate complication. CSF studies are pending Lumbar Puncture 11/13/18 07:00 IMPRESSION: Lumbar puncture under fluoroscopy. No immediate complication. CSF studies are pending Assessment and Plan - Diagnosis (1) Hypoglycemia Is this a current diagnosis for this admission?: Yes Plan: 11/15: Started on D5NS at 100 cc/hr. 11/17: Her diarrhea has resolved. She says her abdominal pain is very minimal. She has been eating well since last night and has has not had any nausea or vomiting. Her dextrose infusion was discontinued this morning to see if she could be possibly discharge however, even with very good oral intake, she dropped her sugars again to the 60s. She has been off any insulin products for m ore than 72 hrs. She has not received metformin since admission. Will restart dextrose infusion and will send for hypolgycemia work-up. Will hold Plaquenil as it can rarely cause hypoglycemia as well although she has been on it before. 11/18: Sugars improved. She remains on dextrose infusion. Will discontinue D5 and see if there is any recurrence of hypoglycemia. (2) Sepsis Is this a current diagnosis for this admission?: Yes Plan: She had extensive sepsis work-up including an LP. Work-up has been unremarkable aside form Salmonella from stool culture. Sepsis was likely from Salmonella colitis. Switch Zosyn to Rocephin. 11/15: Resolved. Appreciate ID recommendations. Increase Rocephin to 2 g daily. 11/17: Switch to PO Cipro. (3) Colitis due to Salmonella species Is this a current diagnosis for this admission?: Yes Plan: Diarrhea resolved. As per number 1. (4) Acute kidney injury Is this a current diagnosis for this admission?: Yes Plan: Resolved with IV fluids. (5) Hypertension Qualifiers: Hypertension type: essential hypertension Qualified Code(s): I10 - Essential (primary) hypertension Is this a current diagnosis for this admission?: Yes Plan: Hold home meds due to low normal pressures. (6) Diabetes mellitus Qualifiers: Diabetes mellitus type: type 2 Is this a current diagnosis for this admission?: Yes Plan: Controlled. Hba1c is 6.1. She is on metformin at home which was held due to LYLE. Continue sliding scale. 11/16: Sliding scale DCed due to hypoglycemic episodes. (7) Hypokalemia Is this a current diagnosis for this admission?: Yes Plan: Repleted. (8) Hypomagnesemia Is this a current diagnosis for this admission?: Yes Plan: Repleted. (9) Pancytopenia Is this a current diagnosis for this admission?: Yes Plan: Like from Plaquenil. Hold Plaquenil.
[2018-11-19] MEDS: FERROUS SULFATE 325 MG TABLET PO SCH (10:08)
[2018-11-19] MEDS: CIPROFLOXACIN HCL 500 MG TABLET PO SCH (10:08)
[2018-11-19] MEDS: DULOXETINE HCL 30 MG CAPSULE.DR PO SCH (10:08)
[2018-11-19] MEDS: CETIRIZINE 10 MG TABLET PO SCH (10:08)
[2018-11-19 11:59] VITALS: BP 116/70
--- NOTE | 2018-11-19 16:00 | PDOC DISCHARGE SUMMARY ---
General - Admit/Disc Date/PCP Admission Date/Primary Care Provider: 11/12/18 12:43 Discharge Date: 11/19/18 - Discharge Diagnosis (1) Hypoglycemia Is this a current diagnosis for this admission?: Yes (2) Sepsis Is this a current diagnosis for this admission?: Yes (3) Colitis due to Salmonella species Is this a current diagnosis for this admission?: Yes (4) Acute kidney injury Is this a current diagnosis for this admission?: Yes (5) Hypertension Is this a current diagnosis for this admission?: Yes (6) Diabetes mellitus Is this a current diagnosis for this admission?: Yes (7) Hypokalemia Is this a current diagnosis for this admission?: Yes (8) Hypomagnesemia Is this a current diagnosis for this admission?: Yes (9) Pancytopenia Is this a current diagnosis for this admission?: Yes - Additional Information Resuscitation Status: Full Code Discharge Diet: As Tolerated, Regular Discharge Activity: Activity As Tolerated Prescriptions: Ciprofloxacin HCl [Cipro 500 mg Tablet] 500 mg PO Q12 9 Days #18 tablet Ferrous Sulfate [Feosol 325 mg Tablet] 325 mg PO BIDPCBS #60 tablet Home Medications: Carvedilol [Coreg 12.5 mg Tablet] 6.25 mg PO Q12 04/13/18 Duloxetine HCl [Cymbalta] 30 mg PO DAILY 04/13/18 Furosemide [Lasix 80 mg Tablet] 80 mg PO DAILY 04/13/18 Magnesium Oxide [Mag-Ox 400 mg Tablet] 400 mg PO BID 04/13/18 Multivitamin [Multiple Vitamins] 2 tab PO DAILY 04/13/18 Mycophenolate Mofetil [Cellcept] 1,000 mg PO BID 04/13/18 Cetirizine HCl [Zyrtec 10 mg Tablet] 10 mg PO DAILY 11/12/18 Eszopiclone 1.5 mg PO QHS 11/12/18 Lisinopril [Prinivil 10 mg Tablet] 10 mg PO QHS 11/12/18 Metolazone [Zaroxolyn 2.5 mg Tablet] 5 mg PO Q2D 11/12/18 Potassium Chloride [Klor-Con 10 Meq Capsule ER] 10 meq PO DAILY 11/12/18 Spironolactone [Aldactone 25 mg Tablet] 25 mg PO DAILY 11/12/18 Ciprofloxacin HCl [Cipro 500 mg Tablet] 500 mg PO Q12 9 Days #18 tablet 11/19/18 Ferrous Sulfate [Feosol 325 mg Tablet] 325 mg PO BIDPCBS #60 tablet 11/19/18 History of Present Illness History of Present Illness: Admitting hospitalist's H&P: BREN MALDONADO is a 48 year old female female with history of lupus, CKD, congestive heart failure with AICD placement on immunosuppressants for lupus, diabetes mellitus, hypertension came to the emergency room with complaints of left lower quadrant pain associated with nausea vomitings and diarrhea since yesterday morning. Unable to keep anything down. Also complaining of chills and sweats at home. Denies any fevers. Complaining of cough dry cough. Denies any headaches denies any dizzy spells denies any focal neurological deficits. No c/o chest pains or palpitations. Hospital Course Hospital Course: This is a 48 year old female female with history of lupus, CKD, congestive heart failure with AICD placement on immunosuppressants for lupus, diabetes mellitus, hypertension who presented with LLQ pain, vomiting and diarrhea since yesterday morning. She was admitted in the ICU as she initially required vasopressor support and was treated for possible sepsis. She was started on broad spectrum IV antibiotics. She did improve clinically and was weaned off pressor. Her sepsis was deemed to be from Salmonella colitis. Her course was prolonged as she had gradual but slow improvement in her abdominal pain and diarrhea. She did return to her baseline. Her abdominal pain and a completely resolved. She was on Rocephin for the Salmonella but was switched eventually to p.o. Cipro per ID recommendations. Her Plaquenil was held as she developed thrombocytopenia, leukopenia and a drop in her hemoglobin. Her A1c was also well controlled and because of hypoglycemic episodes, metformin was also initially on discharge. Physical Exam Vital Signs: Temp Pulse Resp BP Pulse Ox 99.2 F 111 H 17 116/70 100 11/19/18 11:58 11/19/18 11:58 11/19/18 11:58 11/19/18 11:58 11/19/18 11:58 Intake & Output 11/18/18 11/19/18 11/20/18 06:59 06:59 06:59 Intake Total 3933 1960 Output Total 0 Balance 3933 1960 Weight 218 lb 0.595 oz 225 lb 4.999 oz General appearance: PRESENT: no acute distress, well-developed, well-nourished Head exam: PRESENT: atraumatic, normocephalic Eye exam: PRESENT: conjunctiva pink, EOMI, PERRLA. ABSENT: scleral icterus Ear exam: PRESENT: normal external ear exam Mouth exam: PRESENT: moist, tongue midline Neck exam: ABSENT: carotid bruit, JVD, lymphadenopathy, thyromegaly Respiratory exam: PRESENT: clear to auscultation mati. ABSENT: rales, rhonchi, wheezes Cardiovascular exam: PRESENT: RRR. ABSENT: diastolic murmur, rubs, systolic murmur Pulses: PRESENT: normal dorsalis pedis pul GI/Abdominal exam: PRESENT: normal bowel sounds, soft. ABSENT: distended, guarding, mass, organolmegaly, rebound, tenderness Rectal exam: PRESENT: deferred Extremities exam: PRESENT: full ROM. ABSENT: calf tenderness, clubbing, pedal edema Neurological exam: PRESENT: alert, awake, oriented to person, oriented to place, oriented to time, oriented to situation, CN II-XII grossly intact. ABSENT: motor sensory deficit Results Laboratory Results: 11/18/18 09:10 11/18/18 09:10 11/12/18 11/12/18 11/13/18 07:00 16:45 00:15 CK-MB (CK-2) Cancelled 1.61 1.26 Troponin I Cancelled 0.044 0.052 NT-Pro-B Natriuret Pep 11/13/18 04:35 CK-MB (CK-2) Troponin I NT-Pro-B Natriuret Pep 5020 H Impressions: Abdomen/Pelvis CT 11/12/18 07:37 IMPRESSION: Cholelithiasis. No acute findings. Chest X-Ray 11/12/18 09:00 IMPRESSION: Cardiomegaly. No acute findings. Abdomen Ultrasound 11/12/18 09:12 IMPRESSION: Cholelithiasis. No evidence of acute cholecystitis. Guidance Fluoroscopy 11/13/18 00:00 IMPRESSION: Lumbar puncture under fluoroscopy. No immediate complication. CSF studies are pending Lumbar Puncture 11/13/18 07:00 IMPRESSION: Lumbar puncture under fluoroscopy. No immediate complication. CSF studies are pending Qualifiers - * PATIENT BEING DISCHARGED WITH ANY OF THE FOLLOWING DIAGNOSIS: No Acute Heart Failure - Is this a Heart Failure Patient?: Yes Documentation of LVEF assessment?: Yes LVEF < 40%?: Yes-if yes answer questions a through e a) Discharged on ACEI?: Yes b) Discharges on ARB?: Yes c) Discharged on ARNI?: No-Document Contraindications Reason(s) not discharged on ARNI: Other d) Discharged on evidence-based Beta neo(carvedilol, sustained release metoprolol succinate, or bisoprolol)?: Yes e) For LVEF <35%, discharged on Aldosterone antagonist?: No-document contraincations 3. Anticoagulant therapy for permanect/persistent/paraoxysmal Afib or Aflutter: N/A
== END 2018-11-19 12:30 | disposition home or self-care (01) | DRG 871 ==
LOC: ER 23:59 → UNDOADMIN 11-12 12:43 → EH 11-12 12:43 → ICU 11-12 14:26 → 5 11-14 18:25
PROVIDERS: ADMIT Internal Medicine; ATTEND Internal Medicine
PROC: 02H633Z Insertion of Infusion Device into Right Atrium, Percutaneous Approach (ICD-10-PCS; principal; 2018-11-12)
PROC: 009U3ZX Drainage of Spinal Canal, Percutaneous Approach, Diagnostic (ICD-10-PCS; 2018-11-13)
PROC: B01BZZZ Fluoroscopy of Spinal Cord (ICD-10-PCS; 2018-11-13)
DX: A02.1 Salmonella sepsis (principal); I50.43 Acute on chronic combined systolic (congestive) and diastolic (congestive) heart failure; N17.9 Acute kidney failure, unspecified; D61.818 Other pancytopenia; I13.0 Hypertensive heart and chronic kidney disease with heart failure and stage 1 through stage 4 chronic kidney disease, or unspecified chronic kidney disease; K52.89 Other specified noninfective gastroenteritis and colitis; E11.22 Type 2 diabetes mellitus with diabetic chronic kidney disease; N18.9 Chronic kidney disease, unspecified; E83.42 Hypomagnesemia; E87.6 Hypokalemia; M32.9 Systemic lupus erythematosus, unspecified; E11.65 Type 2 diabetes mellitus with hyperglycemia; D64.9 Anemia, unspecified; E78.00 Pure hypercholesterolemia, unspecified; I34.0 Nonrheumatic mitral (valve) insufficiency; E86.0 Dehydration; Z79.899 Other long term (current) drug therapy
CPT/HCPCS: 36415; 51701; 62270; 71045; 74176; 76705; 77003; 80048; 80053; 80061; 81001; 82010; 82533; 82553; 82607; 82728; 82746; 82945; 82947; 82962; 83036; 83525; 83540; 83550; 83605; 83690; 83735; 83880; 84157; 84206; 84443; 84484; 84681; 84703; 85025; 85045; 87040; 87045; 87070; 87077; 87086; 87186; 87205; 87493; 89050; 89055; 93005; 93010; 96361; 96365; 96375; 96376; 99285; C1751; J0133; J0696; J1642; J2270; J2405; J2543; J3370; J3475; J3480; J3490; J7030; J7042; J7050; J7060; J7120; S0164

== ENCOUNTER → 2018-11-28 | Outpatient (CLI) | payer MEDICAID ==
[2018-11-28 14:09] LABS: ABSOLUTE LYMPHOCYTES (AUTO) 1.3 10^3/uL (0.5-4.7); ABSOLUTE MONOCYTES (AUTO) 0.4 10^3/uL (0.1-1.4); BASOPHILS % (AUTO) 0.6 % (0-2); EOSINOPHILS % (AUTO) 1.3 % (0-6); HEMATOCRIT 30.2 % (36.0-47.0); HEMOGLOBIN 9.9 g/dL (12.0-15.5); LYMPHOCYTES % (AUTO) 47.4 % (13-45); MEAN CORPUSCULAR HEMOGLOBIN 29.6 pg (27.0-33.4); MEAN CORPUSCULAR HGB CONC 32.8 g/dL (32.0-36.0); MEAN CORPUSCULAR VOLUME 90 fl (80-97); MONOCYTES % (AUTO) 14.8 % (3-13); PLATELET COUNT 245 10^3/uL (150-450); RED BLOOD COUNT 3.35 10^6/uL (3.72-5.28); RED CELL DISTRIBUTION WIDTH 13.9 % (11.5-14.0); SEGMENTED NEUTROPHILS % (AUTO) 35.9 % (42-78); TOTAL CELLS COUNTED % (AUTO) 100 %; WHITE BLOOD COUNT 2.7 10^3/uL (4.0-10.5)
[2018-11-28 14:10] LABS: APPEARANCE,URINE CLEAR; BILIRUBIN,URINE NEGATIVE (NEGATIVE); COLOR,URINE STRAW; GLUCOSE, URINE NEGATIVE (NEGATIVE); KETONES,URINE NEGATIVE (NEGATIVE); LEUKOCYTE ESTERASE,URINE NEGATIVE (NEGATIVE); NITRITE,URINE NEGATIVE (NEGATIVE); PROTEIN,URINE NEGATIVE (NEGATIVE); URINE SPECIFIC GRAVITY 1.006; UROBILINOGEN,URINE NEGATIVE mg/dL (<2.0)
[2018-11-28 14:29] LABS: ALBUMIN 4.7 g/dL (3.5-5.0); ANION GAP 15 (5-19); BLOOD UREA NITROGEN 32 mg/dL (7-20); CALCIUM 10.5 mg/dL (8.4-10.2); CARBON DIOXIDE 25 mmol/L (22-30); CHLORIDE 100 mmol/L (98-107); GLUCOSE 89 mg/dL (75-110); PHOSPHORUS 4.4 mg/dL (2.5-4.5); POTASSIUM 4.5 mmol/L (3.6-5.0)
[2018-11-28 14:33] LABS: UR PRO/CREAT RATIO RESULT 0.3 mg/mg (0.0-0.2); URINE CREATININE 37.7 mg/dL (15-278); URINE PROTEIN 11.9 mg/dL (<12)
== END ==
LOC: OD 12:41
PROVIDERS: ATTEND Internal Medicine Nephrology
DX: I11.0 Hypertensive heart disease with heart failure (principal); I50.9 Heart failure, unspecified; N18.3 Chronic kidney disease, stage 3 (moderate); E11.22 Type 2 diabetes mellitus with diabetic chronic kidney disease; E83.42 Hypomagnesemia; R80.9 Proteinuria, unspecified
CPT/HCPCS: 36415; 80069; 81001; 82570; 83735; 84156; 85025

== ENCOUNTER → 2019-01-02 | Outpatient (CLI) | payer MEDICAID ==
[2019-01-02 12:21] LABS: ABSOLUTE EOSINOPHILS # (AUTO) 0.1 10^3/uL (0.0-0.6); ABSOLUTE MONOCYTES (AUTO) 0.4 10^3/uL (0.1-1.4); HEMATOCRIT 27.6 % (36.0-47.0); HEMOGLOBIN 9.2 g/dL (12.0-15.5); TOTAL CELLS COUNTED % (AUTO) 100 %
[2019-01-02 12:27] LABS: ABSOLUTE NEUT (AUTO) 1.8 10^3/uL (1.7-8.2); BASOPHILS % (AUTO) 0.3 % (0-2); EOSINOPHILS % (AUTO) 1.7 % (0-6); MEAN CORPUSCULAR HEMOGLOBIN 30.1 pg (27.0-33.4); MEAN CORPUSCULAR HGB CONC 33.4 g/dL (32.0-36.0); MEAN CORPUSCULAR VOLUME 90 fl (80-97); MONOCYTES % (AUTO) 11.8 % (3-13); PLATELET COUNT 158 10^3/uL (150-450); RED BLOOD COUNT 3.06 10^6/uL (3.72-5.28); RED CELL DISTRIBUTION WIDTH 13.7 % (11.5-14.0); SEGMENTED NEUTROPHILS % (AUTO) 55.2 % (42-78); WHITE BLOOD COUNT 3.3 10^3/uL (4.0-10.5)
[2019-01-02 12:40] LABS: APPEARANCE,URINE CLEAR; BILIRUBIN,URINE NEGATIVE (NEGATIVE); COLOR,URINE YELLOW; GLUCOSE, URINE NEGATIVE (NEGATIVE); KETONES,URINE NEGATIVE (NEGATIVE); LEUKOCYTE ESTERASE,URINE NEGATIVE (NEGATIVE); NITRITE,URINE NEGATIVE (NEGATIVE); PROTEIN,URINE NEGATIVE (NEGATIVE); URINE SPECIFIC GRAVITY 1.016; UROBILINOGEN,URINE NEGATIVE mg/dL (<2.0)
[2019-01-02 12:43] LABS: ANION GAP 11 (5-19); BLOOD UREA NITROGEN 19 mg/dL (7-20); CALCIUM 9.8 mg/dL (8.4-10.2); CARBON DIOXIDE 22 mmol/L (22-30); CHLORIDE 106 mmol/L (98-107); GLUCOSE 81 mg/dL (75-110); IRON(TIBC) 86.5 ug/dL (37-170); PHOSPHORUS 3.6 mg/dL (2.5-4.5); POTASSIUM 4.4 mmol/L (3.6-5.0)
== END ==
LOC: OD 11:39
PROVIDERS: ATTEND Internal Medicine Nephrology
DX: N18.3 Chronic kidney disease, stage 3 (moderate) (principal); I50.9 Heart failure, unspecified; R80.9 Proteinuria, unspecified; E83.42 Hypomagnesemia
CPT/HCPCS: 36415; 80048; 81001; 82728; 83540; 83550; 83735; 83970; 84100; 85025

== ENCOUNTER → 2019-04-02 | Outpatient (CLI) | payer MEDICAID ==
[2019-04-02 13:36] LABS: ABSOLUTE LYMPHOCYTES (AUTO) 1.2 10^3/uL (0.5-4.7); ABSOLUTE MONOCYTES (AUTO) 0.5 10^3/uL (0.1-1.4); ABSOLUTE NEUT (AUTO) 2.2 10^3/uL (1.7-8.2); BASOPHILS % (AUTO) 0.8 % (0-2); HEMATOCRIT 37.1 % (36.0-47.0); HEMOGLOBIN 12.2 g/dL (12.0-15.5); LYMPHOCYTES % (AUTO) 30.1 % (13-45); MEAN CORPUSCULAR VOLUME 91 fl (80-97); MONOCYTES % (AUTO) 12.6 % (3-13); PLATELET COUNT 154 10^3/uL (150-450); RED BLOOD COUNT 4.07 10^6/uL (3.72-5.28); RED CELL DISTRIBUTION WIDTH 14.1 % (11.5-14.0); SEGMENTED NEUTROPHILS % (AUTO) 55.5 % (42-78); TOTAL CELLS COUNTED % (AUTO) 100 %
[2019-04-02 13:47] LABS: APPEARANCE,URINE SLIGHTLY-CLOUDY; BILIRUBIN,URINE NEGATIVE (NEGATIVE); COLOR,URINE YELLOW; GLUCOSE, URINE NEGATIVE (NEGATIVE); KETONES,URINE TRACE mg/dL (NEGATIVE); LEUKOCYTE ESTERASE,URINE TRACE (NEGATIVE); NITRITE,URINE NEGATIVE (NEGATIVE); PROTEIN,URINE 100 mg/dL (NEGATIVE); URINE SPECIFIC GRAVITY 1.026; UROBILINOGEN,URINE NEGATIVE mg/dL (<2.0)
[2019-04-02 13:56] LABS: ANION GAP 16 (5-19); BLOOD UREA NITROGEN 19 mg/dL (7-20); CALCIUM 10.3 mg/dL (8.4-10.2); CARBON DIOXIDE 22 mmol/L (22-30); CHLORIDE 103 mmol/L (98-107); GLUCOSE 73 mg/dL (75-110); POTASSIUM 4.5 mmol/L (3.6-5.0)
== END ==
LOC: OD 12:35
PROVIDERS: ATTEND Internal Medicine Nephrology
DX: I12.9 Hypertensive chronic kidney disease with stage 1 through stage 4 chronic kidney disease, or unspecified chronic kidney disease (principal); N18.3 Chronic kidney disease, stage 3 (moderate); E11.22 Type 2 diabetes mellitus with diabetic chronic kidney disease; R80.9 Proteinuria, unspecified
CPT/HCPCS: 36415; 80048; 81001; 83735; 85025

== ENCOUNTER 2020-02-15 23:57 | Emergency (ER) | payer MEDICARE, MEDICAID ==
[2020-02-16] MEDS ORDERED: ONDANSETRON HCL INJ/PF 4 MG/2 ML SDV IV ONE ×2 (00:42→04:00)
[2020-02-16] MEDS ORDERED: METOCLOPRAMIDE HCL INJ/PF 10 MG/2 ML SDV IV ONE ×3 (00:43→04:19)
[2020-02-16] MEDS ORDERED: NORMAL SALINE 1000 ML 250 ML IV ONE ×2 (00:43→04:00)
[2020-02-16] MEDS ORDERED: METHYLPREDNISOLONE INJ 125 MG/2 ML SDV IV ONE ×2 (00:43→04:00)
--- NOTE | 2020-02-16 00:48 | ER Document Report ---
ED Medical Screen (RME) - General Chief Complaint: Headache Stated Complaint: HIGH BLOOD PRESSURE, HEADACHE Time Seen by Provider: 02/16/20 00:36 Primary Care Provider: Peter MYERS MD [Primary Care Provider] - Follow up as needed Notes: Patient presents to the ER for evaluation of generalized headache with intermittent nausea and vomiting and photophobia that began 2 to 3 days ago. The patient denies history of migraine. She states she does not typically get headaches and this is the worst headache of her life. The patient denies cough or congestion. She denies fever. She denies diarrhea. She denies abdominal pain. She denies unilateral weakness or numbness. Exam CONSTITUTIONAL: Patient appears to be in pain. She is in mild distress. PULMONARY: Normal chest rise and fall, no respiratory distress or stridor CARDIOVASCULAR: Regular rate, distal extremities are warm and well perfused NEUROLOGIC: Normal speech, moves all extremities. Cranial nerves within normal limits. Res Habilitation Assistant strength strong and equal in the upper extremities bilaterally. I have greeted and performed a rapid initial assessment of this patient. A comprehensive ED assessment and evaluation of the patient, analysis of test results and completion of the medical decision making process will be conducted by additional ED providers. Dictation of this chart was performed using voice recognition software; therefore, there may be some unintended grammatical errors. TRAVEL OUTSIDE OF THE [place] IN LAST 30 DAYS: No - Related Data Allergies/Adverse Reactions: No Known Allergies Allergy (Verified 09/20/18 07:11) Home Medications: carvedilol 12.5mg. lisinopril 10mg Past Medical History - Past Medical History Cardiac Medical History: Reports: Hx Congestive Heart Failure - combined systolic and diastolic dysfunction; nonischemic cardiomyopathy., Hx Hypercho lesterolemia, Hx Hypertension, 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; AR mild Denies: Hx Coronary Artery Disease, Hx Heart Attack Pulmonary Medical History: Reports: Hx Pneumonia Denies: Hx Asthma, Hx Bronchitis, Hx COPD Neurological Medical History: Denies: Hx Cerebrovascular Accident, Hx Seizures Endocrine Medical History: Reports: Hx Diabetes Mellitus Type 2. Denies: Hx Diabetes Mellitus Type 1, Hx Hyperthyroidism, Hx Hypothyroidism Renal/ Medical History: Denies: Hx Peritoneal Dialysis GI Medical History: Denies: Hx Cirrhosis, Hx Gastroesophageal Reflux Disease, Hx Hepatitis Musculoskeltal Medical History: Denies Hx Arthritis Psychiatric Medical History: Denies: Hx Depression Infectious Medical History: Denies: Hx Hepatitis Past Surgical History: Reports: Hx Cardiac Surgery - pacer/defib, Hx Section - 1995, Hx Cholecystectomy, Hx Pacemaker - AICD implant - Immunizations Immunizations up to date: Yes Hx Diphtheria, Pertussis, Tetanus Vaccination: Yes Physical Exam - Vital signs Vitals: Temp Pulse Resp BP Pulse Ox 98.7 F 98 24 H 104/82 99 02/16/20 00:08 02/16/20 00:08 02/16/20 00:08 02/16/20 00:08 02/16/20 00:08 Course - Vital Signs Vital signs: Temp Pulse Resp BP Pulse Ox 98.7 F 98 24 H 104/82 99 02/16/20 00:08 02/16/20 00:08 02/16/20 00:08 02/16/20 00:08 02/16/20 00:08 Doctor's Discharge - Discharge Referrals: Peter MYERS MD [Primary Care Provider] - Follow up as needed
--- NOTE | 2020-02-16 01:33 | RADIOLOGY REPORT (SQ) ---
CLINICAL HISTORY: headache - worst of life COMPARISON: 01/16/2016. TECHNIQUE: CT HEAD WITHOUT IV CONTRAST on 02/16/2020 12:42 AM CERTIFIED MEDICAL DOSIMETRIST This exam was performed according to our departmental dose-optimization program, which includes automated exposure control, adjustment of the mA and/or kV according to patient size and/or use of iterative reconstruction technique. FINDINGS: There is no acute hemorrhage, mass effect or midline shift. Mcintosh-white differentiation is preserved. There is no hydrocephalus. There is no significant volume loss for age. The calvarium is intact. Orbits and globes are unremarkable. The paranasal sinuses are clear. Mastoid air cells are clear. IMPRESSION: No acute intracranial findings.
[2020-02-16] MEDS ORDERED: NORMAL SALINE 1000 ML 1,000 ML IV ONE (04:19)
[2020-02-16] MEDS ORDERED: DIPHENHYDRAMINE HCL 50 MG/ML VIAL IV ONE (04:19)
--- NOTE | 2020-02-16 04:21 | ER Document Report ---
ED Headache - General Chief Complaint: Headache Stated Complaint: HIGH BLOOD PRESSURE, HEADACHE Time Seen by Provider: 02/16/20 00:36 Primary Care Provider: Peter MYERS MD [ACTIVE STAFF] - Follow up as needed Notes: Patient is a 49-year-old female that comes emergency department for chief complaint of a headache. Patient states she had a headache yesterday, today she woke up with a headache and it was worse, she states that it is a throbbing headache behind her eyes in the front of her head. She states that she has light sensitivity today and has become nauseated and vomited once. She denies fever/chills, neck pain, focal numbness or weakness, visual changes. Patient states it feels like a migraine although she states she does not normally get migraines very often. She states normally when she gets a headache like yesterday she just takes Tylenol and it goes away. She states the Tylenol was not working today. She has a history of lupus and is on Plaquenil, has a history of hypertension and is treated. She states she just ran out of one of her medications and wonders if this is affecting her. TRAVEL OUTSIDE OF THE [place] IN LAST 30 DAYS: No - Related Data Allergies/Adverse Reactions: No Known Allergies Allergy (Verified 09/20/18 07:11) Home Medications: carvedilol 12.5mg. 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 Denies: Hx Diabetes Mellitus Type 1, Hx Hyperthyroidism, Hx Hypothyroidism Renal/ Medical History: Denies: Hx Peritoneal Dialysis GI Medical History: Denies: Hx Cirrhosis, Hx Gastroesophageal Reflux Disease, Hx Hepatitis Musculoskeletal Medical History: Denies Hx Arthritis Psychiatric Medical History: Denies: Hx Depression Infectious Medical History: Denies: Hx Hepatitis Past Surgical History: Reports: Hx Cardiac Surgery - pacer/defib, Hx Section - 1995, Hx Cholecystectomy, Hx Pacemaker - AICD implant - Immunizations Immunizations up to date: Yes Hx Diphtheria, Pertussis, Tetanus Vaccination: Yes Hx Pneumococcal Vaccination: 02/27/18 Review of Systems - Review of Systems Constitutional: See HPI EENT: No symptoms reported Cardiovascular: No symptoms reported Respiratory: No symptoms reported Gastrointestinal: No symptoms reported Genitourinary: No symptoms reported Female Genitourinary: No symptoms reported Musculoskeletal: No symptoms reported Skin: No symptoms reported Hematologic/Lymphatic: No symptoms reported Neurological/Psychological: See HPI Physical Exam - Vital signs Vitals: Temp Pulse Resp BP Pulse Ox 98.7 F 98 24 H 104/82 99 02/16/20 00:08 02/16/20 00:08 02/16/20 00:08 02/16/20 00:08 02/16/20 00:08 - Notes Notes: GENERAL: Alert, interacts well. No acute distress. Smiling and well-appearing HEAD: Normocephalic, atraumatic. EYES: Pupils equal, round, and reactive to light. Extraocular movements intact. ENT: Oral mucosa moist, tongue midline. Oropharynx unremarkable. Airway patent. Nares patent, sinuses non-tender, ear canals unremarkable, TM's intact. NECK: Full range of motion. Supple. Trachea midline. No lymphadenopathy. No nuchal rigidity LUNGS: Clear to auscultation bilaterally, no wheezes, rales, or rhonchi. No respiratory distress. Non-tender chest wall. HEART: Regular rate and rhythm. No murmur ABDOMEN: Soft, non-tender. Non-distended. EXTREMITIES: Moves all 4 extremities spontaneously. No edema, normal radial and dorsalis pedis pulses bilaterally. No cyanosis. BACK: no cervical, thoracic, lumbar midline tenderness. No saddle anesthesia, normal distal neurovascular exam. Moves all extremities in full range of motion. NEUROLOGICAL: Alert and oriented x3. Normal speech. Cranial nerves II through XII grossly intact. Strength 5/5 in all extremities. PSYCH: Normal affect, normal mood. SKIN: Warm, dry, normal turgor. No rashes or lesions noted. Course - Re-evaluation Re-evalutation: 02/16/20 04:20 Patient is actually quite well-appearing on exam, she is alert, conversational, has no signs of distress. Neurological exam is normal. Description of the headache is very suggestive of a migraine. I did review CAT scan of the head from triage and this was unremarkable. Headache was not maximal at onset, we will attempt treatment first and reevaluate. 02/16/20 Nursing staff came to me and told her that patient reported her headache had resolved. On evaluation patient is smiling, states she feels great, is requesting to leave. Based on her symptoms, evaluation, and response to treatment I do have a very low suspicion of acute intracranial abnormality. Patient will be discharged with follow-up instructions and return precautions. She states she will follow-up with primary care, states she understands return precautions, stable and well-appearing at time of discharge. - Vital Signs Vital signs: Temp Pulse Resp BP Pulse Ox 98 F 85 17 112/58 L 100 02/16/20 05:59 02/16/20 05:59 02/16/20 05:59 02/16/20 05:59 02/16/20 05:59 Discharge - Discharge Clinical Impression: Headache Qualifiers: Headache type: unspecified Headache chronicity pattern: acute headache Intractability: not intractable Qualified Code(s): R51.9 - Headache, unspecified Vomiting Qualifiers: Vomiting type: unspecified Vomiting Intractability: non-intractable Nausea presence: with nausea Qualified Code(s): R11.2 - Nausea with vomiting, unspecified Condition: Stable Disposition: HOME, SELF-CARE Additional Instructions: Your evaluation, symptoms, and resolution with treatment are very suggestive of a migraine. The CAT scan of your head was normal. Follow-up with primary care for additional evaluation and management of migraines. Return if you worsen including returned or severe headache, vomiting, fever, or any other concerning or worsening symptoms. Referrals: Peter MYERS MD [ACTIVE STAFF] - Follow up as needed
[2020-02-16 06:01] VITALS: BP 112/58
== END 2020-02-16 05:35 | disposition home or self-care (01) ==
LOC: ER 23:57
DX: R51.9 Headache, unspecified (principal); H53.149 Visual discomfort, unspecified; R11.2 Nausea with vomiting, unspecified; I11.0 Hypertensive heart disease with heart failure; I50.42 Chronic combined systolic (congestive) and diastolic (congestive) heart failure; I42.8 Other cardiomyopathies; E11.9 Type 2 diabetes mellitus without complications; Z79.899 Other long term (current) drug therapy; Z95.810 Presence of automatic (implantable) cardiac defibrillator
CPT/HCPCS: 99285; 96361; 96374; 96375; 70450; J1200; J2765; J7030